=== PATIENT | male | born 1950 | race Caucasian/White ===

== ENCOUNTER → 2017-02-11 | Outpatient (CLI) | payer OTHER, MEDICARE ==
[~2017-02-11] VITALS: Ht 175.3 cm; Wt 147.4 kg
[~2017-02-11] MED LIST: ACET-1311 PO; ASCO500T16 PO; ASPI81TA21 PO; B-COCAP2 PO; CHOL1000 PO; COEN75CA PO; IBUP-1459 PO; LSN5 PO; MISC1CAP2 PO; MULT-190 PO; MULT-506 PO; OMEG10007 PO; SULF-183 PO; VITA1CAP4 PO
[2017-02-11 08:36] VITALS: BP 171/91; PULSE 42; Ht 175.3 cm; Wt 147.4 kg
== END | disposition home or self-care (01) ==
LOC: C.NEUR 08:00
PROVIDERS: ATTEND Internal Medicine Pulmonary Disease
DX: G47.33 Obstructive sleep apnea (adult) (pediatric) (principal); E66.01 Morbid (severe) obesity due to excess calories; R09.02 Hypoxemia

== ENCOUNTER → 2017-02-20 | Outpatient (CLI) | payer OTHER, MEDICARE ==
--- NOTE | 2017-02-20 10:36 | DIAGNOSTIC IMAGING REPORT ---
KUB CLINICAL HISTORY: N20.0 [id number] COMPARISON STUDY: 03/03/2016 FINDINGS: There is no pathologic bowel dilatation. No renal calculi are visualized. There are no calcifications suspicious for ureteral calculi. IMPRESSION: 1. No urinary tract calculi identified 2. No evidence of pathologic bowel dilatation Electronically signed by: Darinel Barrett M.D. 02/20/2017 10:35 AM Dictated Date/Time: 02/20/2017 10:34 AM
== END | disposition home or self-care (01) ==
LOC: C.RAD 10:05
PROVIDERS: ATTEND Nurse Practitioner Family
DX: N20.0 Calculus of kidney (principal)

== ENCOUNTER → 2017-03-23 | Outpatient (CLI) | payer OTHER, MEDICARE ==
[2017-03-23 10:05] LABS: ESTIMATED AVERAGE GLUCOSE 114 mg/dl; HA1C FLAG Normal (Normal)
[2017-03-23 10:13] LABS: ALT/SGPT 32 U/L (12-78); BLOOD UREA NITROGEN 18 mg/dl (7-18); BUN/CREATININE RATIO 18.8 (10-20); CARBON DIOXIDE 25 mmol/L (21-32); CHLORIDE 107 mmol/L (98-107); CHOLESTEROL 156 mg/dl (0-200); CREATININE 0.96 mg/dl (0.60-1.40); GLUCOSE 108 mg/dl (70-99); POTASSIUM 4.2 mmol/L (3.5-5.1); SODIUM 142 mmol/L (136-145); TRIGLYCERIDES 129 mg/dl (0-150); VERY LOW DENSITY LIPOPROT CALC 26 mg/dl
[2017-03-23 10:15] LABS: CALCIUM 8.7 mg/dl (8.5-10.1)
[2017-03-23 10:23] LABS: ALB/GLOB RATIO 1.1 (0.9-2); ALKALINE PHOSPHATASE 55 U/L (45-117); AST/SGOT 21 U/L (15-37); CHOLESTEROL/HDL RATIO 3.3; HDL CHOLESTEROL 47 mg/dl; LDL CHOLESTEROL CALCULATED 83 mg/dl; THYROID STIMULATING HORMONE 0.894 uIu/ml (0.300-4.500)
== END | disposition home or self-care (01) ==
LOC: C.LAB 08:12
PROVIDERS: ATTEND Family Medicine
DX: R73.02 Impaired glucose tolerance (oral) (principal); G47.34 Idiopathic sleep related nonobstructive alveolar hypoventilation

== ENCOUNTER → 2017-11-09 | Outpatient (CLI) | payer OTHER, MEDICARE ==
[~2017-11-09] MED LIST changes: -SULF-183 PO; +SULF-302 PO
--- NOTE | 2017-11-09 18:01 | DIAGNOSTIC IMAGING REPORT ---
MRI LUMBAR SPINE W/O CONTRAST CLINICAL HISTORY: Back pain with right lower extremity radiculopathy. TECHNIQUE: Sagittal and axial T1, T2 and STIR images were obtained. COMPARISON STUDY: No previous studies for comparison. OBSERVATIONS: The vertebral bodies and posterior elements appear intact. There is no abnormal bony signal present to suggest a marrow replacement process. L1-2: No disc protrusions or extrusions. No evidence of spinal canal or neural foraminal compromise. L2-3: No disc protrusions or extrusions. No evidence of spinal canal or neural foraminal compromise. L3-4: There is a small broad-based central disc protrusion. There is minimal effacement of the anterior thecal sac. There is no significant foraminal stenosis. L4-5: No disc protrusions or extrusions. No evidence of spinal canal or neural foraminal compromise. L5-S1: No disc protrusions or extrusions. No evidence of spinal canal or neural foraminal compromise. The conus medullaris and cauda equina appear normal. There is a T2 bright lower pole right renal mass likely representing a cyst IMPRESSION: Small broad-based central disc protrusion at the L3-4 level. Electronically signed by: Darinel Barrett M.D. 11/09/2017 5:59 PM Dictated Date/Time: 11/09/2017 5:56 PM
== END | disposition home or self-care (01) ==
LOC: C.MRI 16:36
PROVIDERS: ATTEND Nurse Practitioner Family
DX: M54.16 Radiculopathy, lumbar region (principal)

== ENCOUNTER → 2017-11-11 | Outpatient (CLI) | payer OTHER, MEDICARE ==
--- NOTE | 2017-11-11 11:45 | DIAGNOSTIC IMAGING REPORT ---
R HIP UNILATERAL 2 VIEWS CLINICAL HISTORY: WORK RELATED STRAIN COMPARISON: CT of the abdomen and pelvis February 26, 2015. FINDINGS: Alignment of the right hip is anatomic. There is no fracture or suspicious lesion. There is moderate joint space narrowing with mild osteophytosis of the right hip. There is no evidence for avascular necrosis. IMPRESSION: 1. No acute fracture or dislocation of the right hip. 2. Moderate osteoarthritis of the right hip. Electronically signed by: Reuben Molina M.D. 11/11/2017 11:44 AM Dictated Date/Time: 11/11/2017 11:43 AM
--- NOTE | 2017-11-11 11:48 | DIAGNOSTIC IMAGING REPORT ---
L SHOULDER MIN 2 VIEWS ROUTINE CLINICAL HISTORY: WORK RELATED STRAIN LEFT SHOULDER PAIN COMPARISON: None. DISCUSSION: No acute fractures or dislocations are visualized. Degenerative changes are present within the AC joint. There are no erosive or destructive changes. There is a faint 9 mm rounded opacity within the soft tissues superolateral to the humeral head. This is of uncertain significance and etiology. IMPRESSION: 1. No acute fractures or dislocations 2. Degenerative changes within the AC joint Electronically signed by: Darinel Barrett M.D. 11/11/2017 11:47 AM Dictated Date/Time: 11/11/2017 11:45 AM
== END | disposition home or self-care (01) ==
LOC: C.RAD1850 11:14
PROVIDERS: ATTEND Nurse Practitioner Family
DX: S76.011A Strain of muscle, fascia and tendon of right hip, initial encounter (principal); S46.912A Strain of unspecified muscle, fascia and tendon at shoulder and upper arm level, left arm, initial encounter; X58.XXXA Exposure to other specified factors, initial encounter; Y99.0 Civilian activity done for income or pay

== ENCOUNTER → 2018-01-01 | Day surgery (SDC) | payer OTHER, MEDICARE ==
[2018-01-01] VITALS (8 sets, daily range): BP systolic 128–145; BP diastolic 77–94; PULSE 56–97; TEMP 36–37; O2SAT 93–95; Ht 177.8 cm; Wt 142.0 kg
[~2018-01-01] VITALS: Ht 177.8 cm; Wt 142.0 kg
[~2018-01-01] MED LIST changes: +ACET1TAB84 PO; +ACETAMINOPHEN 500 MG TAB PO PRN; +LISI-729 PO; -MISC1CAP2 PO; -MULT-190 PO; -SULF-302 PO
--- NOTE | 2018-01-01 09:47 | Discharge Instructions ---
Discharge Instructions Procedure Procedure Date: Jan 01, 2018. Reason for visit: Lumbago W/Sciatica, Other Disc Displacement. Discharge Discharge Date: Jan 01, 2018. Discharge Diagnosis: back pain sciatica Instructions Activity Recommendations: 1 Day-May resume regular activity Return to School/Work: no limitations Recommended Home Diet: Resume Previous Diet Allergies Coded Allergies: No Known Allergies (Unverified , 01/01/18) Yariel Diez Recommendations: Call your doctor if: * Temperature above 101 degrees * Pain not relieved by pain medicine ordered * There is increased drainage or redness from any incision * You have any unanswered questions or concerns. Your Doctors Instructions noted above were prepared by provider Darinel Barrett. Patient Signature Section: Patient Instructions Signature Page Marvel Marks Patient (or Guardian) Signature/Date: I have read and understand the instructions given to me by my caregivers. Caregiver/RN/Doctor Signature/Date: The above-named patient and/or guardian has received patient instructions on this date. + Original Patient Signature Page (only) stays with chart. Please make copy for patient.
--- NOTE | 2018-01-01 09:58 | DIAGNOSTIC IMAGING REPORT ---
CT LUMBAR SPINE WITH CT DOSE: 1051.34 mGy.cm CLINICAL HISTORY: Back pain with sciatica. TECHNIQUE: Following a diagnostic lumbar myelogram, CT imaging was performed in a helical fashion. Sagittal and coronal images were acquired. A dose lowering technique was utilized adhering to the principles of ALARA. COMPARISON STUDY: MRI dated 11/09/2017 FINDINGS: The spinal cord terminates in normal fashion. L1-2 level: There is minimal retrolisthesis of L1 on L2. There are no focal herniations. There is no spinal or foraminal stenosis. L2-3 level: There is no evidence of disc bulge or focal herniation. There is no evidence of spinal or foraminal stenosis. L3-4 level: There is a small broad-based central disc protrusion. There is mild effacement of the anterior thecal sac. There is no significant foraminal narrowing. L4-5 level: There is no evidence of disc bulge or focal herniation. There is no spinal foraminal stenosis L5-S1 level: There is no evidence of disc bulge or focal herniation. There is no evidence of spinal or foraminal stenosis. IMPRESSION: Small broad-based central disc protrusion at the L3-4 level with minor deformity of the anterior thecal sac. There is no evidence of foraminal narrowing. Electronically signed by: Darinel Barrett M.D. 01/01/2018 9:57 AM Dictated Date/Time: 01/01/2018 9:51 AM
--- NOTE | 2018-01-01 10:00 | DIAGNOSTIC IMAGING REPORT ---
FLUOROSCOPICALLY GUIDED DIAGNOSTIC LUMBAR MYELOGRAM CLINICAL HISTORY: Back pain with sciatica COMPARISON STUDY: MRI performed October 2017 FINDINGS: A timeout was performed. The risks of the procedure were explained the patient informed consent was obtained. Patient prepped and draped in sterile fashion. The skin was anesthetized 1% lidocaine. The fluoroscopic guidance, a lumbar puncture was performed at the L4-5 level. 12 cc of Isovue-M 200 was instilled into the thecal sac. There is an anterior extradural defect at the L3-4 level, consistent with a small disc herniation. There is no evidence of nerve root amputation. The remaining levels were unremarkable in appearance. Patient tolerated the procedure well with no immediate locations. The patient was sent to the CT suite for further evaluation. IMPRESSION: Small disc herniation at the L3-4 level. Electronically signed by: Darinel Barrett M.D. 01/01/2018 9:59 AM Dictated Date/Time: 01/01/2018 9:57 AM
== END | disposition home or self-care (01) ==
LOC: C.ACU 07:22
PROVIDERS: ATTEND Orthopaedic Surgery Orthopaedic Surgery of the Spine
DX: M51.26 Other intervertebral disc displacement, lumbar region (principal)

== ENCOUNTER 2018-02-02 23:54 | Emergency (ER) | payer OTHER, MEDICARE ==
[~2018-02-02] VITALS: Ht 177.8 cm; Wt 142.9 kg
[~2018-02-02 23:54] MED LIST changes: -ACET-1311 PO; -ACETAMINOPHEN 500 MG TAB PO PRN; +ASPI-319 PO; -ASPI81TA21 PO; -LSN5 PO
[2018-02-03 00:02] VITALS: TEMP 36.8; Ht 177.8 cm; Wt 142.9 kg
[2018-02-03] MEDS ORDERED: KETOROLAC TROMETHAMINE 60 MG/2 ML VIAL IM STA (00:10)
[2018-02-03] MEDS ORDERED: ONDANSETRON 4MG OD TAB PO STA (00:10)
[2018-02-03] MEDS ORDERED: HYDROmorphone INJ 2 MG/ML SYR/VIAL IM STA (00:10)
[2018-02-03] MEDS ORDERED: CYCLOBENZAPRINE HCL 5 MG TAB PO STA (00:15)
[2018-02-03] MEDS ORDERED: B-CO1CAP17 PO (00:25)
--- NOTE | 2018-02-03 01:11 | EMERGENCY ROOM VISIT NOTE ---
History Report prepared by Simone: Jessica Huggins Under the Supervision of: Dr. Killian Soliz M.D. First contact with patient: 23:59 Chief Complaint: BACK PAIN Stated Complaint: LOWER BACK PAIN History of Present Illness The patient is a 67 year old male who presents to the Emergency Room with complaints of worsening back pain starting tonight. The patient states that he had an injury to his back back in October that he has been struggling with. He reports that the pain initially went down his back and into his right hip. He states that the back pain faded and it has mainly stayed in his hip. He notes that he has seen Dr. Beasley in Orthopedics and participates in physical therapy 3 times a week. He notes that he has had imaging done on his spine. The patient reports that tonight he went to bed 4 hours ago and woke up an hour ago to use the restroom. He states that he was unable to get out of bed because the pain was so bad in his lower back. He reports that at this time he called 911. The patient notes that he thinks he exacerbated it by standing a long time and cooking this evening. He currently rates his pain as a 6/10 in severity. He notes that he has been taking only Ibuprofen because the pain medication he is prescribed has not been working. The patient complains of numbness and tingling in his right leg. The patient denies abdominal pain and urinary symptoms. Source of History: patient Onset: tonight Position: back Symptom Intensity: 6/10 Timing: worsening Associated Symptoms: + numbness, No abdominal pain, No urinary symptoms Note: The patient complains of tingling into his right leg. Review of Systems See HPI for pertinent positives & negatives. A total of 10 systems reviewed and were otherwise negative. Past Medical & Surgical Medical Problems: (1) Bronchitis (2) Kidney stones (3) Pneumonia (4) Shortness of breath Family History FHx: kidney disease FHx: lung disease Social History Smoking Status: Former Smoker Alcohol Use: none Marital Status: Housing Status: lives with significant other Occupation Status: retired Current/Historical Medications Scheduled Ascorbic Acid (Ascorbic Acid), 500 MG PO DAILY Aspirin Enteric Coated (Ecotrin Or Generic), 81 MG PO QAM Cholecalciferol (Vitamin D3), 5,000 UNITS PO DAILY Coenzyme Q10 (Ubidecarenone) (Co Q-10), 1 CAP PO DAILY Cyclobenzaprine Hcl (Flexeril), 10 MG PO TID Fish Oil ([place]-3), 1 CAP PO DAILY Lidocaine (Lidocaine), 5 % TD DAILY Lisinopril (Zestril), 5 MG PO DAILY Multivitamin (Multivitamin), 1 TAB PO DAILY Vitamin B Cmplx/Vitc/Folic Ac (Nephrocaps), 1 CAP PO DAILY Vitamin E (E 1000), 1,000 UNITS PO DAILY Scheduled PRN Acetaminophen (Tylenol Arthritis Ext Rel), 1,950 MG PO Q8H PRN for Pain Ibuprofen (Motrin), 800 MG PO DIRECTED PRN for Pain Oxycodone/Acetaminophen 5MG/325MG (Percocet 5MG/325MG), 1-2 TAB PO Q4H PRN for Pain Allergies Coded Allergies: No Known Allergies (Unverified , 02/03/18) Physical Exam Vital Signs Date Time Temp Pulse Resp B/P (MAP) Pulse Ox O2 Delivery O2 Flow Rate FiO2 02/03/18 02:30 60 18 106/64 94 02/03/18 00:57 79 18 139/88 92 Room Air 02/03/18 00:02 36.8 75 16 143/85 95 Room Air Physical Exam GENERAL: Awake, alert, well-appearing, in no acute distress HENT: Normocephalic, atraumatic. Oropharynx unremarkable. EYES: Normal conjunctiva. Sclera non-icteric. NECK: Supple. No nuchal rigidity. FROM. No JVD. RESPIRATORY: Clear to auscultation. CARDIAC: Regular rate, normal rhythm. Extremities warm and well perfused. Pulses equal. ABDOMEN: Soft, non-distended. No tenderness to palpation. No rebound or guarding. No masses. Morbidly obese. RECTAL: Deferred. MUSCULOSKELETAL: Chest examination reveals no tenderness. The back is symmetrical on inspection without obvious abnormality. Tender to L1 S5 area. Able to walk on tiptoes and heels. There is no CVA tenderness to palpation. No joint edema. LOWER EXTREMITIES: Calves are equal size bilaterally and non-tender. No edema. No discoloration. NEURO: Normal sensorium. No sensory or motor deficits noted. SKIN: No rash or jaundice noted. Medical Decision & Procedures ER Provider Diagnostic Interpretation: Radiology results as stated below per my review and radiologist interpretation: CT PELVIS: No evidence of fracture. Mild degenerative change in the sacroiliac joints. Moderate severe joint space loss involving bilateral hip joints. Sigmoid diverticulosis without evidence of acute inflammation. Radiologist: Sean Craig DO Study ready at 01:19 and initial results transmitted at 01:47. CT L SPINE: No fracture or subluxation. Degenerative disc height loss and vacuum disc phenomenon at the T12-L1 and L3- L4 levels. Facet arthropathy at L4-L5 and L5-S1. Partially imaged right renal cyst. Radiologist: Sean Craig DO Study ready at 01:19 and initial results transmitted at 01:43. Medications Administered Medications (Trade) Dose Ordered Sig/Calvin Route Start Time Stop Time Status Last Admin Dose Admin Hydromorphone HCl (Dilaudid Inj) 2 mg NOW STAT IM 02/03/18 00:10 02/03/18 00:12 DC 02/03/18 00:18 2 MG Ketorolac Tromethamine (Toradol Inj) 60 mg NOW STAT IM 02/03/18 00:10 02/03/18 00:12 DC 02/03/18 00:18 60 MG Ondansetron HCl (Zofran Odt) 4 mg ONE STAT PO 02/03/18 00:10 02/03/18 00:12 DC 02/03/18 00:17 4 MG Cyclobenzaprine HCl (Flexeril Tab) 10 mg NOW STAT PO 02/03/18 00:15 02/03/18 00:16 DC 02/03/18 00:20 10 MG Oxycodone/ Acetaminophen (Percocet 5/ 325MG Home Pack) 1 homepack UD ONCE PO 02/03/18 02:00 02/03/18 02:01 DC 02/03/18 02:16 1 HOMEPACK Lidocaine (Lidoderm Patch 5%) 1 patch NOW STAT TD 02/03/18 02:00 02/03/18 02:01 DC 02/03/18 02:17 1 PATCH ED Course 0000: Past medical records reviewed. The patient was evaluated in room A3. A complete history and physical examination was performed. 0010: Ordered Zofran Odt 4 mg PO, Toradol Inj 60 mg IM, Dilaudid Inj 2 mg IM. 0015: Ordered Flexeril Tab 10 mg PO. 0109: I reevaluated the patient and he is doing okay. 0156: Upon reexamination the patient is resting comfortably. I discussed results and treatment plan with the patient. He verbalizes agreement and understanding. The patient is ready for discharge. 0200: Ordered Lidocaine 1 patch TD, Oxycodone/ Acetaminophen 1 homepack PO. Medical Decision Differential diagnosis: Etiologies such as musculoskeletal, disc herniation, fracture, aortic disease, metastatic disease, cord compression, discitis, infection, renal colic, gastrointestinal, acute exacerbation of chronic back pain, sciatica, cauda equina, as well as others were entertained. This is a 67-year-old male who presents to the emergency department complaining of low back pain. The patient I will note is able to walk on his tiptoes as well as his heels. He has no set evidence of saddle anesthesia and has had no loss of bowel or bladder control. Based on the patient's complaint he was sent for CT lumbar spine as well as the pelvis. He was given IM Toradol as well as Dilaudid and Flexeril. Repeat examination revealed much improvement the patient 's symptoms. I stressed the need to follow-up with orthopedics as that we will conservatively treat the patient's pain using Flexeril and Oxi at home. Patient was in agreement with the treatment plan. Medication Reconcilliation Current Medication List: was personally reviewed by me Blood Pressure Screening Patient's blood pressure: Elevated blood pressure Blood pressure disposition: Elevated BP felt to be situational Impression Primary Impression: Lumbar pain Scribe Attestation The scribe's documentation has been prepared under my direction and personally reviewed by me in its entirety. I confirm that the note above accurately reflects all work, treatment, procedures, and medical decision making performed by me. Departure Information Dispostion Home / Self-Care Prescriptions Cyclobenzaprine Hcl (FLEXERIL) 10 Mg Tab 10 MG PO TID, #21 TAB Prov: Killian Soliz MD 02/03/18 Oxycodone/Acetaminophen 5MG/325MG (PERCOCET 5MG/325MG) Tab 1-2 TAB PO Q4H Y for Pain, #14 TAB Prov: Killian Soliz MD 02/03/18 Lidocaine (Lidocaine) 1 Patch Tdsy 5 % TD DAILY for 30 Days, #30 PATCH Prov: Killian Soliz MD 02/03/18 Referrals RV. Mccarthy MD (PCP) Forms HOME CARE DOCUMENTATION FORM, IMPORTANT VISIT INFORMATION Patient Instructions My [facility] Additional Instructions You received narcotic or benzodiazepene medication while in the emergency room today. This is an addictive medication that may cause drowziness as well as constipation. Do not drive, operate heavy machinery, or drink alcohol under the influence of this medication. Take 600 mg Ibuprofen every 6 hours Take Flexeril Apply Lidoderm patch daily Take Percocet for breakthrough pain You have been examined and treated today on an emergency basis only. This is not a substitute for, or an effort to provide, complete comprehensive medical care. It is impossible to recognize and treat all injuries or illnesses in a single emergency department visit. It is therefore important that you follow up closely with Dr France. Call as soon as possible for an appointment. Thank you for your time and consideration. I look forward to speaking with you again soon. Please don't hesitate to call us if you have any questions.
[2018-02-03] MEDS ORDERED: LIDODERM (LIDOCAINE) PATCH 5% TD STA (02:00)
[2018-02-03] MEDS ORDERED: PERCOCET HOME PACK PO ONE (02:00)
[2018-02-03] MEDS ORDERED: CYCL10TA6 PO (02:10)
[2018-02-03] MEDS ORDERED: OXYC-57 PO (02:10)
[2018-02-03] MEDS ORDERED: LDDP5 TD (02:10)
[2018-02-03 02:30] VITALS: BP 106/64; PULSE 60; O2SAT 94
--- NOTE | 2018-02-03 06:27 | DIAGNOSTIC IMAGING REPORT ---
LUMBAR SPINE WITHOUT CT DOSE: 602.95 mGycm HISTORY: Pain Pt c/o Rt hip pain TECHNIQUE: Multiaxial CT images of the lumbar spine were performed and reformatted in the sagittal and coronal plane without the use of contrast. A dose lowering technique was utilized adhering to the principles of ALARA. COMPARISON: None. FINDINGS: Vertebral body stature is considered unremarkable. Moderate degenerative disc changes throughout. There is rather significant with associated vacuum discs at L3-L4 and T12-L1. Mild anterior osteophyte formation is present. There are mild degenerative changes of the posterior elements. IMPRESSION: Moderate degenerative disc change. No acute bony abnormality The above report was generated using voice recognition software. It may contain grammatical, syntax or spelling errors. Electronically signed by: Cristóbal Teague M.D. 02/03/2018 6:25 AM Dictated Date/Time: 02/03/2018 6:24 AM
--- NOTE | 2018-02-03 07:38 | DIAGNOSTIC IMAGING REPORT ---
CT SCAN OF THE PELVIS WITHOUT IV CONTRAST CLINICAL HISTORY: Right hip pain. COMPARISON STUDY: Pelvic CT dated 02/26/2015. TECHNIQUE: CT scan of the bony pelvis is performed from the pelvic inlet to the proximal femora. Images are reviewed in the axial, sagittal, and coronal planes. IV contrast was not administered for this examination. The examination is degraded by large body habitus. A dose lowering technique was utilized adhering to the principles of ALARA. CT DOSE: 802.04 mGycm FINDINGS: The skeletal structures are osteopenic. There is no fracture seen involving the hips or bony pelvis. No lytic or blastic lesion is identified. There is no evidence of osteonecrosis involving the femoral heads. Lumbosacral spondylosis is partially imaged. There is a right-sided pars defect at L5. Mild sclerotic change is noted in the sacroiliac joints. Mild to moderate arthritic change is present in the right hip. Milder arthritic change is seen in the left hip. The regional musculature is normal and symmetric. The bladder, prostate, and seminal vesicles are normal as visualized. There is no pelvic sidewall or inguinal lymphadenopathy. There is moderate diverticulosis of the visualized colon without CT evidence of acute diverticulitis. A fat-containing umbilical hernia is partially visualized. IMPRESSION: 1. No acute bony abnormality is seen involving the hips or bony pelvis. 2. Arthritic change is seen in the hips, right greater than left. 3. Moderate diverticulosis of the visualized colon without CT evidence of acute diverticulitis. Dictated: 02/03/2018 7:26 AM Transcribed: 02/03/2018 7:38 AM Tad Electronically signed by: Tomasz Jones M.D. 02/03/2018 7:38 AM Dictated Date/Time: 02/03/2018 7:26 AM
== END 2018-02-03 02:33 | disposition home or self-care (01) ==
LOC: C.EDA 23:54 → EDBD 23:54 → C.EDA 02-03 02:33
DX: M54.5 Low back pain (principal); Z87.442 Personal history of urinary calculi; Z87.01 Personal history of pneumonia (recurrent); Z84.1 Family history of disorders of kidney and ureter; Z87.891 Personal history of nicotine dependence; Z79.82 Long term (current) use of aspirin; Z79.899 Other long term (current) drug therapy

== ENCOUNTER → 2018-02-15 | Outpatient (CLI) | payer OTHER, MEDICARE ==
[~2018-02-15] MED LIST changes: +B-CO1CAP17 PO; -B-COCAP2 PO; +LDDP5 TD; +OXYC-57 PO
--- NOTE | 2018-02-15 11:20 | DIAGNOSTIC IMAGING REPORT ---
Catherine PENA SHLDR,HIP,KNEE CLINICAL HISTORY: 67 years-old Male presenting with RIGHT HIP PAIN. COMPARISON: CT of the pelvis from 02/03/2018. PROCEDURE: The risks, benefits, and alternatives to the procedure were discussed with the patient. Written informed consent was obtained. The patient was placed supine on the fluoroscopy table, and a right hip injection was performed under fluoroscopic guidance. The area was prepped and draped in the usual sterile fashion. The skin and soft tissues anesthetized with local 1% lidocaine. The right hip joint was accessed utilizing a 22-gauge needle. Approximately 1 mL of Optiray 300 was injected into the joint space under fluoroscopic guidance to confirm intra-articular positioning. Subsequently, a 10 mL mixture containing 8 mL of 0.5% Bupivacaine and 2 mL of betamethasone was injected into the joint. The procedure was well tolerated without immediate complication. Fluoroscopy dosage (mGy): Not available. Fluoroscopy time: 18 seconds. Number of fluoroscopic spot images: 0. IMPRESSION: Successful injection of the right hip under fluoroscopic guidance. Electronically signed by: Kimo Buchanan M.D. 02/15/2018 11:18 AM Dictated Date/Time: 02/15/2018 11:17 AM
== END | disposition home or self-care (01) ==
LOC: C.RADBC 09:49
PROVIDERS: ATTEND Orthopaedic Surgery Orthopaedic Surgery of the Spine
DX: M16.11 Unilateral primary osteoarthritis, right hip (principal); M25.551 Pain in right hip

== ENCOUNTER 2018-05-07 04:57 | Inpatient (IN) | payer OTHER, MEDICARE ==
[2018-03-25 10:26] VITALS: Ht 177.8 cm; Wt 140.9 kg
--- NOTE | 2018-04-06 10:42 | PAT Medication Instructions ---
Service Date Apr 06, 2018. Current Home Medication List Ascorbic Acid (Ascorbic Acid), 500 MG PO QAM Aspirin Enteric Coated (Ecotrin Or Generic), 81 MG PO QAM Cholecalciferol (Vitamin D3), 5,000 UNITS PO QAM Fish Oil ([place]-3), 1 CAP PO QAM Ibuprofen (Advil), 800 MG PO PRN Lisinopril (Zestril), 5 MG PO HS Multivitamin (Multivitamin), 1 TAB PO QAM Vitamin B Cmplx/Vitc/Folic Ac (Nephrocaps), 1 CAP PO QAM Vitamin E (E 1000), 1,000 UNITS PO QAM [Coq10], 1 TAB PO QAM [Durex], 1 TAB PO QAM [Prostate Med], 1 TAB PO QAM Medication Instructions For Your Scheduled Surgery -Check with your surgeon for: Ibuprofen (Advil), 800 MG PO PRN - Hold the following medications 2 weeks prior to surgery: Fish Oil ([place]-3), 1 CAP PO QAM Vitamin E (E 1000), 1,000 UNITS PO QAM [Coq10], 1 TAB PO QAM [Prostate Med], 1 TAB PO QAM - Hold the following medications the morning of surgery: Ascorbic Acid (Ascorbic Acid), 500 MG PO QAM Cholecalciferol (Vitamin D3), 5,000 UNITS PO QAM Multivitamin (Multivitamin), 1 TAB PO QAM Vitamin B Cmplx/Vitc/Folic Ac (Nephrocaps), 1 CAP PO QAM [Diurex], 1 TAB PO QAM - Take the following medications the morning of surgery with a sip of water: Aspirin Enteric Coated (Ecotrin Or Generic), 81 MG PO QAM - Take the following medications as scheduled the night before surgery: Lisinopril (Zestril), 5 MG PO HS If you have any questions please call us at [phone] or [phone] or [phone]
--- NOTE | 2018-04-06 11:32 | DIAGNOSTIC IMAGING REPORT ---
CHEST 2 VIEWS ROUTINE HISTORY: Preop. COMPARISON: Chest 07/26/2016. FINDINGS: The lungs are clear. The heart is normal in size. Mildly tortuous thoracic aorta, unchanged. No pleural effusions. No pneumothorax. There are low lung volumes. IMPRESSION: No acute process. Electronically signed by: Ryan Conte M.D. 04/06/2018 11:31 AM Dictated Date/Time: 04/06/2018 11:29 AM
[2018-04-06 12:22] LABS: BASO % 0.3 %; BASO ABS # 0.03 K/uL (0-0.2); HEMATOCRIT 46.9 % (42-52); IG# 0.05 K/uL (0.00-0.02); LYMPH % 15.4 %; LYMPH ABS # 1.57 K/uL (1.2-3.4); MEAN CELL VOLUME 96.1 fL (80-100); MEAN CORPUSCULAR HEMOGLOBIN 32.8 pg (25-34); MEAN CORPUSCULAR HGB CONC 34.1 g/dl (32-36); MEAN PLATELET VOLUME 9.9 fL (7.4-10.4); MONO % 10.9 %; MONO ABS # 1.11 K/uL (0.11-0.59); NEUT % 71.9 %; NEUT ABS # 7.31 K/uL (1.4-6.5); PLATELET COUNT 227 K/uL (130-400); RED CELL DISTRIBUTION WIDTH CV 13.2 % (11.5-14.5); RED CELL DISTRIBUTION WIDTH SD 46.3 fL (36.4-46.3); WHITE BLOOD COUNT 10.17 K/uL (4.8-10.8)
[2018-04-06 12:29] LABS: CREATININE 0.84 mg/dl (0.60-1.40); POTASSIUM 4.1 mmol/L (3.5-5.1)
[2018-04-06 12:30] LABS: INR 0.9 (0.9-1.1); PTT PATIENT 25.7 SECONDS (21.0-31.0)
--- NOTE | 2018-05-05 13:05 | HISTORY & PHYSICAL EXAMINATION ---
DATE OF ADMISSION: 05/07/2018 CHIEF COMPLAINT: Primary osteoarthritis of the right hip. HISTORY OF PRESENT ILLNESS: Marvel is a pleasant 67-year-old male who works for [employer]. He has been complaining of severe back pain and right hip pain. X-rays and clinical examination had been diagnostic for severe osteoarthritis of the right hip. His hip hurts him all the time. He is unable to drive a bus. He cannot safely get from the gas to the brake. After failing extensive conservative treatment, he has elected to proceed with a right total hip arthroplasty. PAST MEDICAL HISTORY: Significant for hypertension. PAST SURGICAL HISTORY: Significant for appendectomy in 1984. ALLERGIES: BEE STINGS. MEDICATIONS: Include lisinopril and oxycodone. FAMILY HISTORY: Denies. SOCIAL HISTORY: He is , rarely drinks, and is moderately active. He drives a bus. REVIEW OF SYSTEMS: He complains of right hip pain. All the pertinent review of systems are negative. PHYSICAL EXAMINATION: GENERAL: He is awake, alert and oriented x3. He is in no apparent distress. He is very pleasant. HEENT: Pupils equal, round, reactive to light. Extraocular movements intact. Oral mucosa is pink and moist. HEART: Regular rate per radial pulse. LUNGS: Senait symmetrically bilaterally with no audible breath sounds. ABDOMEN: Soft, nontender, nondistended. MUSCULOSKELETAL: On physical examination, he walks with a significant limp because of the hip pain. He has trouble getting up on to the bed. He has about 90 degrees of flexion, 0 degrees of internal rotation, 10 degrees of external rotation. Severe pain in range of motion. His leg lengths are equal. He is neurovascularly intact. IMAGING DATA: X-rays of the right hip do show advanced osteoarthritis with joint space narrowing, osteophyte formation and [id number] articulation. IMPRESSION: Advanced osteoarthritis of the right hip. PLAN: Will proceed with a right lateral total hip arthroplasty. Postoperatively, he will be started on aspirin for DVT prophylaxis. He will be kept in the hospital likely for 2 midnights for postoperative medical management. We will discharge him to home with [facility].
[~2018-05-07] VITALS: Ht 177.8 cm; Wt 140.9 kg
[2018-05-07] VITALS (11 sets, daily range): BP systolic 92–137; BP diastolic 44–78; PULSE 60–84; TEMP 36.3–36.6; O2SAT 92–96
[~2018-05-07 04:57] MED LIST changes: -ACET1TAB84 PO; +CAFF3TAB PO; -COEN75CA PO; +COQ10 PO; +IBUP-1050 PO; -IBUP-1459 PO; -LDDP5 TD; -OXYC-57 PO; +PROSTATE MED PO
[2018-05-07] MEDS ORDERED: FAMOTIDINE 20 MG TAB PO SCH (06:00)
[2018-05-07] MEDS ORDERED: GABAPENTIN 300 MG CAP PO SCH (06:00)
[2018-05-07] MEDS ORDERED: LACTATED RINGER'S 1000ML 1,000 ML IV SCH (06:00)
[2018-05-07] MEDS ORDERED: ROPIVACAINE 5MG/ML 30 ML 150 MG, BUPIVACAINE 0.5% MPF INJ 30 ML, EpINEphrine HCL INJ 0.... INFIL SCH ×8 (06:00)
[2018-05-07] MEDS ORDERED: CEFAZOLIN 2000MG IV PUSH 15 ML IV SCH (06:00)
[2018-05-07] MEDS ORDERED: ACETAMINOPHEN 500 MG TAB PO SCH (06:00)
[2018-05-07] MEDS ORDERED: LACTATED RINGER'S 1000ML IV SCH (06:00)
[2018-05-07] MEDS ORDERED: FENTANYL CITRATE INJ 50 MCG/1 ML 2 ML VIAL ONE (06:22)
[2018-05-07] MEDS ORDERED: MIDAZOLAM HCL 1 MG/ML 2ML VIAL ONE (06:23)
[2018-05-07] MEDS: TRANEXAMIC ACID INJ 1,000 MG x 2 Bags IV SCH ×4 (06:30→06:47)
[2018-05-07] MEDS ORDERED: BUPIVACAINE 0.5 % 5 MG/1 ML PF 10ML VIAL ONE (06:31)
[2018-05-07] MEDS ORDERED: BACITRACIN 50000 UNIT VIAL ONE (06:34)
[2018-05-07] MEDS ORDERED: ORTHO JOINT ANESTHETIC ONE (06:34)
--- NOTE | 2018-05-07 06:42 | History & Physical Bridge Note ---
H&P Re-Evaluation Bridge Note: I have examined the patient, reviewed the History & Physical and in the interval since the performance of the History & Physical I have noted the following changes of clinical significance: No changes noted
[2018-05-07] MEDS ORDERED: SOD PHOSPHATE/SOD BIPHOSPHATE ENEMA 132 ML BTL PR PRN (06:45)
[2018-05-07] MEDS ORDERED: ONDANSETRON INJ 2 MG/ML 2 ML VIAL IV PRN ×2 (06:45→08:15)
[2018-05-07] MEDS ORDERED: MAGNESIUM HYDROXIDE SUSP 30 ML UDC PO PRN (06:45)
[2018-05-07] MEDS ORDERED: METOCLOPRAMIDE HCL INJ 5 MG/ML 2 ML VIAL IV PRN (06:45)
[2018-05-07] MEDS ORDERED: BISACODYL 10 MG SUPP PR PRN (06:45)
[2018-05-07] MEDS ORDERED: CEFAZOLIN IV 2,000 MG in DEXTROSE 5% 50ML 50 ML IV SCH (06:45)
[2018-05-07] MEDS ORDERED: MoRPHine SULFATE 2 MG/ML CARP IV PRN (06:45)
[2018-05-07] MEDS ORDERED: ONDANSETRON INJ 2 MG/ML 2 ML VIAL ONE (08:01)
[2018-05-07] MEDS ORDERED: PROPOFOL IV EMULSION 10 MG/ML 20 ML VIAL ONE (08:01)
[2018-05-07] MEDS ORDERED: EpHEDrine SULFATE INJ 50 MG/ML AMP ONE (08:01)
[2018-05-07] MEDS ORDERED: PHENYLEPHRINE 100MCG/ML 5ML SYR ONE (08:01)
[2018-05-07] MEDS ORDERED: NALOXONE HCL 0.4 MG/1 ML VIAL/CARP IV PRN (08:15)
[2018-05-07] MEDS ORDERED: LABETALOL HCL IV 5 MG/ML 20ML IV PRN (08:15)
[2018-05-07] MEDS ORDERED: MEPERIDINE HCL 25 MG/ML CARP IV PRN (08:15)
[2018-05-07] MEDS ORDERED: FENTANYL CITRATE INJ 50 MCG/1 ML 2 ML VIAL IV PRN (08:15)
[2018-05-07] MEDS ORDERED: PHENYLEPHRINE 100MCG/ML 5ML SYR IV PRN (08:15)
[2018-05-07] MEDS ORDERED: ATROPINE SULFATE 0.1 MG/ML 5ML SYR IV PRN (08:15)
[2018-05-07] MEDS ORDERED: HYDROmorphone INJ 1 MG/ML SYR IV PRN (08:15)
[2018-05-07] MEDS ORDERED: FLUMAZENIL 0.1 MG/1 ML 10 ML VIAL IV PRN (08:15)
[2018-05-07] MEDS ORDERED: EpHEDrine SULFATE INJ 50 MG/ML AMP IV PRN (08:15)
--- NOTE | 2018-05-07 08:44 | DIAGNOSTIC IMAGING REPORT ---
R HIP UNILATERAL 1 VIEW CLINICAL HISTORY: RT LATERAL TOTAL HIP ARTHRO COMPARISON STUDY: Right hip 02/28/2018. FINDINGS: Single crosstable lateral view of the right hip. The right acetabular cup is in good position. There is a right femoral spacer also in good position. No fracture or dislocation within the right hip. IMPRESSION: Intraoperative right hip radiograph for a right total arthroplasty. The hardware appears intact. Electronically signed by: Ryan Conte M.D. 05/07/2018 8:42 AM Dictated Date/Time: 05/07/2018 8:41 AM
[2018-05-07] MEDS ORDERED: SODIUM CHLORIDE 0.9% INJ 10 ML VIAL ONE (09:31)
--- NOTE | 2018-05-07 09:45 | OPERATIVE REPORT ---
DATE OF OPERATION: 05/07/2018 PREOPERATIVE DIAGNOSIS: Primary osteoarthritis of the right hip. POSTOPERATIVE DIAGNOSIS: Primary osteoarthritis of the right hip. PROCEDURE: Right lateral total hip arthroplasty. SURGEON: Dr. Prashant Linares. TOOTH CUTTER PINION: Daniel Lopez PA-C, whose assistance was necessary for retraction and closure. ANESTHESIA: Spinal. COMPLICATIONS: None. CONDITION: Stable to PACU. IMPLANTS USED: I used a Biomet Taperloc total hip arthroplasty with a size 52 G7 cup with a neutral E1 poly liner, a size 11 high offset Taperloc stem, and a 36 mm ceramic head with a +3 neck. This case took about 50% longer than a standard right hip arthroplasty. His BMI was over 44 and all of his weight was in his hips. It was very difficult to get through the fat layers and to find retractors that were deep enough. 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 X-rays and clinical examination were diagnostic for primary osteoarthritis of the right hip. After failing conservative treatment, he elected to proceed with a right total hip arthroplasty. OPERATION AND FINDINGS: On 05/07/2018, he arrived at [facility] for the above procedure. He was seen in the preoperative holding area and the operative extremity was identified and signed. He was given a preoperative antibiotic and a spinal anesthetic. He was taken back to the operating room, laid on the table in supine position and put under basic sedation. He was then put in the lateral decubitus position. The right hip was prepped and draped in sterile fashion. Time-out was done. The patient's operative extremity was properly identified. A lateral approach was used. Dissection was taken down through the fascia and the abductors were exposed. The anterior third of the abductors were tenotomized off the greater trochanter. The capsule was excised and the hip was dislocated. The femoral neck was then resected at the intertrochanteric line and the femoral head was removed. The acetabulum was exposed. Time was spent doing a complete circumferential labral release. Sequential reaming of the acetabulum up to a size 51 reamer was done. I was able to get good circumferential bleeding bone. A size 52 cup was then impacted into place. A single 30 mm screw was placed. I was able to get an excellent press fit with the cup. A neutral E1 poly liner was then snapped into place. The surrounding soft tissues were injected with a 100 mL of an orthopedic pain control cocktail. The proximal femur was then exposed. Sequential broaching up to a size 8 broach was done. High offset neck and a standard head were trialed. The hip was reduced. Fluoroscopic images showed that I could go up a few sizes on the femoral side and I could increase length a little bit. The hip was then dislocated. The broach was removed. Sequential broaching up to size 11 broach was done that seemed to be a good fit. A size 11 high offset Taperloc stem was then impacted into place. A 36 mm ceramic head with a +3 neck was then impacted into place. The hip was reduced, brought through a full range of motion and was stable. The leg lengths were equal. The abductors were then tenodesed back to the greater trochanter with transosseous FiberWire sutures and [id number] sutures. The wound was then irrigated with 3 liters normal saline solution with bacitracin. The fascia was then closed with #1 PDS suture. Skin was closed with deep #1 Vicryl suture and more superficial 2-0 Vicryl, leonel, and a Prevena VAC dressing. He was then transferred to a hospital bed and taken to postanesthesia care unit in stable condition. He tolerated the procedure well. I attest to the content of the Intraoperative Record and any orders documented therein. Any exception s are noted below.
--- NOTE | 2018-05-07 09:57 | DIAGNOSTIC IMAGING REPORT ---
AP PELVIS, CROSSTABLE LATERAL RIGHT HIP History: Right total hip arthroplasty. Degenerative arthritis. Postop. FINDINGS: The patient is status post a right total hip arthroplasty. The hardware is intact. No fracture or dislocation. Skin leonel are in place. IMPRESSION: Right total hip arthroplasty. No evidence for hardware complication Electronically signed by: Ryan Conte M.D. 05/07/2018 9:56 AM Dictated Date/Time: 05/07/2018 9:55 AM
--- NOTE | 2018-05-07 10:21 | Anesthesiology Progress Note ---
Anesthesia Post Op Note Date & Time May 07, 2018 at 10:21 Vital Signs Pain Intensity: 0 Vital Signs Past 12 Hours Date Time Temp Pulse Resp B/P (MAP) Pulse Ox O2 Delivery O2 Flow Rate FiO2 05/07/18 10:15 36.5 77 14 106/68 98 Nasal Cannula 4 05/07/18 10:05 36.5 78 14 116/50 98 Nasal Cannula 4 05/07/18 09:55 76 11 111/74 100 Nasal Cannula 4 05/07/18 09:47 76 17 91/66 100 Oxymask 10 05/07/18 09:45 73 15 73/66 100 Oxymask 10 05/07/18 09:37 36.4 76 16 119/80 100 Oxymask 10 05/07/18 05:25 36.5 82 18 137/76 92 Room Air Notes Mental Status: alert / awake / arousable, participated in evaluation Pt Amnestic to Procedure: Yes Nausea / Vomiting: adequately controlled Pain: adequately controlled Airway Patency, RR, SpO2: stable & adequate BP & HR: stable & adequate Hydration State: stable & adequate Anesthetic Complications: no major complications apparent
--- NOTE | 2018-05-07 10:22 | Anesthesiology Progress Note ---
Anesthesia Post Op Note Date & Time May 07, 2018 at 10:22 Vital Signs Pain Intensity: 0 Vital Signs Past 12 Hours Date Time Temp Pulse Resp B/P (MAP) Pulse Ox O2 Delivery O2 Flow Rate FiO2 05/07/18 10:15 36.5 77 14 106/68 98 Nasal Cannula 4 05/07/18 10:05 36.5 78 14 116/50 98 Nasal Cannula 4 05/07/18 09:55 76 11 111/74 100 Nasal Cannula 4 05/07/18 09:47 76 17 91/66 100 Oxymask 10 05/07/18 09:45 73 15 73/66 100 Oxymask 10 05/07/18 09:37 36.4 76 16 119/80 100 Oxymask 10 05/07/18 05:25 36.5 82 18 137/76 92 Room Air Notes Mental Status: alert / awake / arousable, participated in evaluation Pt Amnestic to Procedure: Yes Nausea / Vomiting: adequately controlled Pain: adequately controlled Airway Patency, RR, SpO2: stable & adequate BP & HR: stable & adequate Hydration State: stable & adequate Neuraxial Anesthesia: was administered, sensory block is resolving Anesthetic Complications: no major complications apparent
--- NOTE | 2018-05-07 10:22 | [facility] Post Operative Brief Note ---
Immediate Operative Summary Operative Date May 07, 2018. Pre-Operative Diagnosis Advanced Osteoarthritis of Right Hip Post-Operative Diagnosis Advanced Osteoarthritis of Right Hip Procedure(s) Performed Right Lateral Total Hip Arthroplasty Surgeon Dr Linares Chlorinator Surgeon(s) Daniel Lopez PA-C Estimated Blood Loss 200CC Findings Consistent with Post-Op Diagnosis Specimens A: Femoral Head Anesthesia Type Spinal MAC
[2018-05-07] MEDS: OXYCODONE HCL IR 5 MG TAB (IMMEDIATE RELEASE) PO PRN (11:28)
[2018-05-07] MEDS: MULTIVITAMIN TAB PO SCH (12:01)
[2018-05-07] MEDS: KETOROLAC TROMETHAMINE 15 MG/ML VIAL IV. SCH ×3 (12:02→23:48)
[2018-05-07] MEDS: ASPIRIN 325 MG ECTAB PO SCH ×2 (12:02→21:01)
[2018-05-07] MEDS: DOCUSATE SODIUM 100 MG CAP PO SCH ×2 (12:02→21:01)
[2018-05-07] MEDS: ACETAMINOPHEN IV 1,000 MG in EMPTY BAG 0 ML IV SCH ×2 (13:45→21:47)
[2018-05-07] MEDS: SODIUM CHLORIDE 0.9% 1000ML 1,000 ML IV SCH ×2 (13:47→21:47)
[2018-05-07] MEDS: CEFAZOLIN IV 2,000 MG in SYRINGE 0 ML IV SCH ×2 (16:19→23:47)
[2018-05-07] MEDS: SENNA 8.6 MG TAB PO SCH (21:01)
[2018-05-07] MEDS: LISINOPRIL 5 MG TAB PO SCH (21:02)
[2018-05-08 03:47] VITALS: BP 119/62; PULSE 70; TEMP 36.6; O2SAT 91
[2018-05-08] MEDS: OXYCODONE HCL IR 5 MG TAB (IMMEDIATE RELEASE) PO PRN ×4 (04:54→22:17)
[2018-05-08] MEDS: KETOROLAC TROMETHAMINE 15 MG/ML VIAL IV. SCH ×4 (06:02→23:58)
[2018-05-08] MEDS: ACETAMINOPHEN IV 1,000 MG in EMPTY BAG 0 ML IV SCH (06:02)
[2018-05-08 06:26] LABS: BASO % 0.1 %; BASO ABS # 0.01 K/uL (0-0.2); EOS % 0.1 %; EOS ABS # 0.01 K/uL (0-0.5); HEMATOCRIT 38.6 % (42-52); HEMOGLOBIN 12.9 g/dL (14.0-18.0); IG# 0.04 K/uL (0.00-0.02); LYMPH % 8.3 %; LYMPH ABS # 1.05 K/uL (1.2-3.4); MEAN CELL VOLUME 96.5 fL (80-100); MEAN CORPUSCULAR HEMOGLOBIN 32.3 pg (25-34); MEAN CORPUSCULAR HGB CONC 33.4 g/dl (32-36); MEAN PLATELET VOLUME 9.5 fL (7.4-10.4); MONO ABS # 1.01 K/uL (0.11-0.59); NEUT % 83.2 %; NEUT ABS # 10.53 K/uL (1.4-6.5); PLATELET COUNT 164 K/uL (130-400); RED CELL DISTRIBUTION WIDTH CV 13.5 % (11.5-14.5); RED CELL DISTRIBUTION WIDTH SD 47.4 fL (36.4-46.3); WHITE BLOOD COUNT 12.65 K/uL (4.8-10.8)
[2018-05-08 06:34] VITALS: BP 100/61; PULSE 66; TEMP 36.7; O2SAT 92
[2018-05-08 07:03] LABS: CALCIUM 8.2 mg/dl (8.5-10.1); CREATININE 0.87 mg/dl (0.60-1.40); POTASSIUM 4.2 mmol/L (3.5-5.1)
[2018-05-08] MEDS: SODIUM CHLORIDE 0.9% 1000ML 1,000 ML IV SCH (08:00)
[2018-05-08 08:30] VITALS: BP 108/63; PULSE 64; TEMP 36.9; O2SAT 91
--- NOTE | 2018-05-08 08:31 | Discharge Instructions ---
Discharge Instructions Date of Service May 08, 2018. Admission Reason for Admission: Right Hip Degenerative Joint Disease Discharge Discharge Diagnosis / Problem: Right Total Hip Discharge Goals Goal(s): Decrease discomfort, Improve function Activity Recommendations Activity Limitations: resume your previous activity . Instructions / Follow-Up Instructions / Follow-Up Activity and Therapy Recommendations: * If you are using [facility] then Physical Therapy will be provided until they feel you are ready to start Outpatient Physical Therapy. If you are not using a Home Health agency then Outpatient Physical Therapy should start about 3-5 days from your day of surgery. Therapy will last about 3-6 weeks * You were shown a series of exercises in the hospital. Do these exercises three times each day including the exercises you were shown in physical therapy. * Get up and walk several times each day.~ For the first four weeks, try not to stand or walk for more than one hour at a time. If you do stand or walk for more than one hour, you will not hurt anything, but your leg will likely swell.~ ~ * As you feel comfortable, you may change from the walker or crutches to a cane and~then to independent walking. Medications: * Narcotic You will likely be sent home from the hospital with a prescription for the narcotic pain medication that worked best throughout your stay. * Aspirin Most patients will be required to take Aspirin 325mg twice a day for 6 weeks after surgery. This is obtained [id number] and a prescription is not necessary. * Other medications may be prescribed for specific circumstances. If you have any questions, please call the office at . * Resume previous home medications unless otherwise instructed TEDs/Elastic Stockings: The white elastic stockings help limit swelling and prevent blood clots from forming in your legs. The more you wear them, the more they work. Wear them for six weeks. Dressing Care: You will likely have a purple VAC dressing after surgery. This dressing will keep the incision dry and promote early healing. After about 8 days the batteries will wear out and the VAC will lose suction. Simply remove the dressing at that time and throw everything away, including the small suction machine. Then, you may leave the leonel open to air or cover them with a dry dressing so they do not rub on your pants. The leonel will be removed at your 2 week follow-up appointment. Showering: You may shower immediately with the purple VAC dressing. Let the shower spray hit your opposite side and slowly pat the plastic dry. Do not soak the dressing. After the dressing is removed you may shower normally with the leonel exposed. Let soapy water run over the leonel and pat them dry. Things To Watch For: * Drainage from the incision site that occurs more than one week after your surgery. * Increased redness at the incision site. * Fever above 102 degrees Fahrenheit. * Unusual chest pain or shortness of breath. * Call [facility] at with any of the above problems Follow-Up Visit: Follow-up with Dr. Linares 2 weeks after your day of surgery. An appointment was probably scheduled when you signed-up for surgery in the office. If you have any questions call Office Instructions: More detailed instructions as well as Frequently Asked Questions were provided in a folder by our office when you signed-up for surgery. Please review these instructions when you get home. If you have any further questions or concerns, please feel free to call the office at [phone] Current Hospital Diet Patient's current hospital diet: Regular Diet Discharge Diet Recommended Diet: Regular Diet Procedures Procedures Performed: Right Lateral Total Hip Arthroplasty Pending Studies Studies pending at discharge: no Medical Emergencies . Who to Call and When: Medical Emergencies: If at any time you feel your situation is an emergency, please call [phone] immediately. . Non-Emergent Contact Non-Emergency issues call your: Surgeon Call Non-Emergent contact if: wound has increased drainage, wound has increased redness . "Provider Documentation" section prepared by Prashant Linares. .
[2018-05-08] MEDS ORDERED: NURSING VERBAL MED ORDER ONE (08:45)
--- NOTE | 2018-05-08 09:04 | PROGRESS NOTE ---
DATE: 05/08/2018 CHIEF COMPLAINT: Status post right total hip arthroplasty postop day #1. PROGRESS: Marvel was seen and examined at bedside today. Overall, he is doing very well. A little soreness in the hip, but not that bad. He has already been up, using a walker some. He is happy with his progress. He has no complaints. PHYSICAL EXAMINATION: RIGHT HIP: The Prevena VAC dressing is to suction. His leg lengths are essentially equal. He has active dorsiflexion and plantarflexion of the right ankle and sensation is intact throughout. DATA: He has an H and H today of 12.9 and 38.6. His glucose is 103. His vital signs are all stable on room air. He is voiding on his own. X-rays postoperatively of the right hip showed the prosthesis to be in anatomic alignment without any evidence of fracture, dislocation, or loosening. IMPRESSION: Status post right total hip arthroplasty postop day #1. PLAN: At this point, he is doing well and happy with his progress. He will get some physical therapy today. We will make sure his pain is well controlled. I will see him tomorrow morning and if he continues to do well, we will plan to discharge him to home with [facility].
[2018-05-08] MEDS: MULTIVITAMIN TAB PO SCH (09:05)
[2018-05-08] MEDS: ASPIRIN 325 MG ECTAB PO SCH ×2 (09:05→22:13)
[2018-05-08] MEDS: DOCUSATE SODIUM 100 MG CAP PO SCH ×2 (09:05→22:13)
[2018-05-08 11:47] VITALS: BP 116/71; PULSE 75; TEMP 36.4; O2SAT 91
[2018-05-08] MEDS: ACETAMINOPHEN 500 MG TAB PO SCH ×2 (14:04→22:13)
[2018-05-08 15:22] VITALS: BP 101/56; PULSE 74; TEMP 37; O2SAT 93
[2018-05-08] MEDS: SENNA 8.6 MG TAB PO SCH (22:12)
[2018-05-08] MEDS: LISINOPRIL 5 MG TAB PO SCH (22:12)
[2018-05-08 23:00] VITALS: BP 133/73; PULSE 69; TEMP 36.9; O2SAT 91
[2018-05-09] MEDS: ACETAMINOPHEN 500 MG TAB PO SCH (06:00)
[2018-05-09] MEDS: KETOROLAC TROMETHAMINE 15 MG/ML VIAL IV. SCH (06:00)
[2018-05-09 06:51] VITALS: BP 143/80; PULSE 85; TEMP 36.7; O2SAT 91
[2018-05-09 08:06] VITALS: BP 143/80; PULSE 85; TEMP 36.7; O2SAT 91
[2018-05-09] MEDS: ASPIRIN 325 MG ECTAB PO SCH (08:38)
[2018-05-09] MEDS: MULTIVITAMIN TAB PO SCH (08:38)
[2018-05-09] MEDS: DOCUSATE SODIUM 100 MG CAP PO SCH (08:38)
[2018-05-09] MEDS ORDERED: ASPEC325 PO (10:32)
[2018-05-09] MEDS ORDERED: RXC5 PO (10:32)
--- NOTE | 2018-05-09 10:45 | PROGRESS NOTE ---
DATE: 05/09/2018 CHIEF COMPLAINT: Status post right total hip arthroplasty postop day #2. PROGRESS: Marvel was seen and examined at bedside today. Overall, he is doing very well. He was up and ambulating around the nurses' station today. He is not having too much pain. He is taking his aspirin for DVT prophylaxis. He has no complaints. PHYSICAL EXAMINATION: RIGHT HIP: The Prevena VAC dressing is to suction. His leg lengths are equal. He has active dorsiflexion, plantar flexion of his right ankle and sensation is intact. IMPRESSION: Status post right total hip arthroplasty postop day #2. PLAN: At this time, he is doing very well and happy with his progress. He says he already feels much better than he did when he came into the hospital. Oxycodone seems to be helping with his pain. He is on aspirin for DVT prophylaxis. We will discharge him to home later this morning with [facility].
--- NOTE | 2018-05-09 17:35 | DISCHARGE SUMMARY ---
DISCHARGE DIAGNOSIS: Primary osteoarthritis of the right hip. PROCEDURE: Right total hip arthroplasty on 05/07/[address] Prashant Linares. DISCHARGE INSTRUCTIONS: 1. Aspirin 325 mg twice a day for 6 weeks. 2. ESMER hose stockings for 6 weeks. 3. Oxycodone 5-10 mg every 4 hours as needed for pain. 4. Zestril 5 mg daily. 5. Continue all other over the counter vitamins, minerals, and supplementations. 6. Follow up with Dr. Linares in 2 weeks. 7. Call the office of Dr. Linares with any questions or concerns. HOSPITAL COURSE: Marvel is a pleasant 67-year-old male who presented to my office with severe increasing right hip pain. X-rays and clinical examination were diagnostic for primary osteoarthritis of the right hip. After failing conservative treatment, he elected to undergo a right total hip arthroplasty. On 05/07/2018, he arrived at [facility] and underwent a lateral approach right total hip arthroplasty without complication. He had a spinal anesthetic. Postoperatively, he was started on aspirin for DVT prophylaxis and discharged to general orthopedic floor. His hospital course was uneventful. On postop day #1, his H and H were stable at 12.9 and 38.6. He was up and ambulating well with physical therapy. His pain was relatively well controlled. On postop day #2, he was doing even better. He was ambulating around the nurse's station. The Prevena VAC dressing was to suction. Oxycodone was controlling his pain. He was subsequently discharged to home with [facility] and the above instructions.
== END 2018-05-09 11:33 | disposition home or self-care (01) | DRG 470 ==
LOC: C.ACU 04:57 → C.3E 06:15 → ENRESERV 09:55
PROVIDERS: ADMIT Orthopaedic Surgery; ATTEND Orthopaedic Surgery
PROC: 0SR904Z Replacement of Right Hip Joint with Ceramic on Polyethylene Synthetic Substitute, Open Approach (ICD-10-PCS; principal; 2018-05-07 07:00)
DX: M16.11 Unilateral primary osteoarthritis, right hip (principal); I10 Essential (primary) hypertension; Z79.899 Other long term (current) drug therapy; Z91.030 Bee allergy status

== ENCOUNTER 2021-09-10 22:28 | Inpatient (IN) ==
[2021-09-10] MEDS ORDERED: dexAMETHasone**PF** 10 MG/ML VIAL IV ONE (22:54)
[2021-09-10] MEDS ORDERED: ACETAMINOPHEN 1,000 MG/100 ML VIAL IV STA (22:54)
--- NOTE | 2021-09-10 22:59 | Emergency Department Note ---
Impression & Plan COVID-19, Hypoxia ED Provider Note Name: YENNI ANDRADE Age: 71 Sex: M Arrives Via: Ambulance Informant: Patient, ED Provider: Raúl Juarez MD Chief Complaint: Illness Impression: COVID-19 Hypoxia Medical Decision Makin-year-old chronically unwell individual arrives for evaluation of worsening weakness shortness of breath and cough. He was seen yesterday diagnosed with pneumonia and had a Covid test which is pending. Patient left AGAINST MEDICAL ADVICE last evening per the chart. Patient admits that he has been having worsening symptoms with shortness of breath since leaving and today has been difficult for him to even sit up. His Covid test returned positive this morning. On examination patient with diffuse crackles on lung exam. He has hypoxic with an O2 sat of 88% on room air. Patient was given IV Tylenol IV Decadron and placed on nasal cannula O2. Patient stable feeling well heart rate improved chest x-ray consistent with his Covid infection. Given hypoxia in the setting of his Covid infection the hospitalist was consulted. On repeat discussion with patient he confirms that he has been ill for about 2 weeks. Prior Medical Record and Triage/Nursing Notes reviewed by Me Additional history obtained from chart Differentials:Reactive airway disease, pneumonia, pneumothorax, COPD, CHF, infections, cardiac ischemia, pulmonary embolism, musculoskeletal, gastrointestinal, as well as other pathologies. Vital Signs: reviewed and remarkable for hypoxia Interventions: Tylenol IV, Decadron IV Labs:Reviewed and remarkable for unremarkable Imaging:X ray results are stated below per my interpretation: Chest: 1 view: Bilateral infiltrates consistent with covid infection Cardiac/Tele Monitoring: Cardiac Monitoring: An Order was placed for continuous cardiac monitoring. The monitor shows a rate of 90 with a normal sinus rhythm with frequent PVCs. Consults:Dr Tyrone RAMÍREZ Hospitalist Plan: Disposition:Hospitalization. Condition: Fair History of Present Illness:This is a 71-year-old male who arrives for evaluation of shortness of breath. Patient notes that he has been ill for at least the last 2 weeks however the last few days have been rapidly worsening. He has had worsening shortness of breath cough fevers chills weakness lack of appetite and generalized fatigue. He was seen yesterday and diagnosed with pneumonia and Covid sent but pending. He was started on albuterol doxycycline and cefdinir. He states since getting home symptoms have been continuously worsening to the point where he cannot even sit up he is too weak and fatigued. He notes a mild chest tightness but no specific pain no tearing through chest no back pain. Patient has had no syncope. Patient denies trauma injury or falls. Patient has taken no Tylenol nor Motrin recently. Patient reports he is not Covid vaccinated. ROS: See above HPI for pertinent positives & negatives. A total of 10 systems reviewed and were otherwise negative. Past Medical History:See Below Past Surgical History:See Below Family History:See Below Social History:See Below Home Medications:See Below Allergies:bee venom, oxycodone Vitals:Blood Pressure: 108/87, Pulse 94, RR 36, T 38.3C, O2 87% on RA Physical Exam: GENERAL: Patient is ill & tired appearing and in moderate distress. EYES: No scleral icterus, unremarkable pupils. ENT: Mucous membranes moist, no nasal congestion. NECK: No masses appreciated, nomeningismus, trachea is midline. RESPIRATORY: Dyspnea with diffuse crackles and decreased sounds throughout. CARDIOVASCULAR: Regular rate and rhythm.No murmurs, rubs, gallops appreciated. GASTROINTESTINAL: Abdomen soft, non-tender, no peritonitis.Bowel sounds positive.No masses appreciated. BACK: No midline tenderness, no CVA tenderness EXTREMITIES: Normal motion all extremities, no cyanosis, no edema. NEUROLOGIC: Alert and oriented, no acute motor or sensory deficits, no focal weakness, cranial nerves grossly intact. SKIN: No rash, no jaundice, no diaphoresis. PSYCH: Appropriate GCS: 15 ED Course: Times/Reassessments: Stable, breathing better on NC O2 Raúl Juarez MD Past Med/Surg History Medical History Abnormality of thoracic aorta BMI 45.0-49.9, adult Chronic venous stasis dermatitis Diverticulosis Dyspnea on exertion Fatigue Generalized osteoarthritis of multiple sites Hiatal hernia Hypertension Morbid obesity Nocturnal hypoxemia Ringing in ears Vitamin D deficiency Surgical History Status post hip replacement Family History Father Emphysema lung Stroke Brother Hypertension Mother No pertinent family history in first degree relatives Sister No pertinent family history in first degree relatives Social History Smoking Status: Never smoker Second Hand Exposure: No; Hx Alcohol Use: Yes Alcohol type: beer and wine Alcohol Intake Frequency: 2-4 x/Month Hx Substance Use: No Preferred Language: Czech Visual Impairment: No Limitations Hearing Ability: Use of Hearing Aid Feels Safe at Home: Yes Seatbelt Use: always Allergies Allergies Allergy/AdvReac Type Severity Reaction Status Date / Time bee venom protein (honey bee) Allergy Unknown SWELLING Verified 09/11/21 00:09 AT SITE oxycodone AdvReac Verified 09/11/21 00:09 Home Meds Home Medications Medication Instructions Recorded Confirmed ascorbic acid (vitamin C) 100 mg 100 mg PO DAILY tab 05/30/19 09/11/21 tablet cholecalciferol (vitamin D3) 125 5,000 units PO DAILY cap 05/30/19 09/11/21 mcg (5,000 unit) capsule multivitamin (Multiple Vitamins) 1 tab PO DAILY 05/30/19 09/10/21 omega-3 acid ethyl esters 1 gram 1 cap PO DAILY cap 05/30/19 09/11/21 capsule vitamin B complex 1 cap PO DAILY 05/30/19 09/11/21 vitamin E (dl, acetate) 45 mg (100 100 units PO DAILY cap 05/30/19 09/11/21 unit) capsule cranberry 400 mg capsule 400 mg PO DAILY 06/06/19 09/11/21 albuterol sulfate 90 mcg/actuation 3 inh INHALATION Q6H PRN 09/11/21 09/11/21 aerosol inhaler aspirin 81 mg tablet,delayed 81 mg PO DAILY 09/11/21 09/11/21 release Previous Rx's Medication Instructions Recorded lisinopril 5 mg tablet 5 mg PO DAILY #90 tab 05/27/21 cefdinir 300 mg capsule 300 mg PO BID 10 Days #20 cap 09/09/21 doxycycline hyclate 100 mg tablet 100 mg PO BID 10 Days #20 tab 09/09/21 Results & Data (ED) Vital Signs Vital Signs - 24 hr 09/10/21 22:56 Temperature 38.3 C H Temperature Source Oral Pulse Rate 94 H Respiratory Rate 36 H Blood Pressure 108/87 Blood Pressure Mean 94 Pulse Oximetry 88 L Oxygen Delivery Method Room Air Sepsis Recent Fever Within 48 Hours No Sepsis New/Unexplained Change in Mental Status No Sepsis Action Taken by Nursing Physician Notified Oxygen Flow Rate - Titration 6 Pulse Oximetry Post Tiitration 91 Laboratory Data Result diagrams: 09/10/21 22:50 09/10/21 22:50 Lab Results 09/10/21 09/10/21 09/10/21 Range/Units 22:50 22:50 22:50 WBC 5.72 (4.8-10.8) K/uL RBC 5.01 (4.7-6.1) M/uL Hgb 16.2 (14.0-18.0) g/dL Hct 46.5 (42-52) % MCV 92.8 (80-100) fL MCH 32.3 (25-34) pg MCHC 34.8 (32-36) g/dL RDW Std Deviation 45.1 (36.4-46.3) fL RDW Coeff of Roberto Carlos 13.3 (11.5-14.5) % Plt Count 149 (130-400) K/uL MPV 10.0 (7.4-10.4) fL Immature Gran % (Auto) 0.5 % Neut % (Auto) 85.0 % Lymph % (Auto) 8.9 % [place] % (Auto) 5.4 % Eos % (Auto) 0.0 % Baso % (Auto) 0.2 % Neut # (Auto) 4.86 (1.4-6.5) K/uL Lymph # (Auto) 0.51 L (1.2-3.4) K/uL [place] # (Auto) 0.31 (0.11-0.59) K/uL Eos # (Auto) 0.00 (0-0.5) K/uL Baso # (Auto) 0.01 (0-0.2) K/uL Immature Gran # (Auto) 0.03 H (0.00-0.02) K/uL RBC Morphology Unremarkable D-Dimer 1080 H* (0-500) ug/L FEU Sodium 133 L (136-145) mmol/L Potassium 3.6 (3.5-5.1) mmol/L Chloride 101 (98-107) mmol/L Carbon Dioxide 24 (21-32) mmol/L Anion Gap 8.0 (3-11) BUN 13 (7-18) mg/dl Creatinine 0.74 (0.6-1.4) mg/dl Est Cr Clr Drug Dosing Not Reportable Est GFR ( Amer) 106.1 ml/min Est GFR (Non-Af Amer) 91.5 ml/min BUN/Creatinine Ratio 17.8 (10-20) Glucose 127 H (70-99) mg/dl Calcium 8.2 L (8.5-10.1) mg/dl Magnesium 1.8 (1.8-2.4) mg/dl Total Bilirubin 0.5 (0.2-1) mg/dl Direct Bilirubin 0.2 (0-0.2) mg/dl AST 64 H (15-37) U/L ALT 55 (12-78) U/L Alkaline Phosphatase 58 (45-117) U/L Troponin I 0.019 (0-0.045) ng/ml Total Protein 6.7 (6.4-8.2) gm/dl Albumin 2.5 L (3.4-5.0) gm/dl Administered Medications Discontinued Medications Dexamethasone Sodium Phosphate (DexamethasonePf 10 Mg/Ml Vial) 10 mg IV NOW ONE Stop: 09/10/21 22:55 Last Admin: 09/10/21 23:20 Dose: 10 mg Documented by: [id number] Acetaminophen (Ofirmev) 1,000 mg in 100 mls @ 400 mls/hr IV NOW STA Stop: 09/10/21 23:08 Last Infusion: 09/10/21 23:45 Dose: 0 mls/hr Documented by: [id number] Admin: 09/10/21 23:20 Dose: 400 mls/hr Documented by: [id number] Ioversol (Optiray 320 125ml) 118 ml IV ONCE ONE Stop: 09/11/21 02:07 Last Admin: 09/11/21 02:07 Dose: 118 ml Documented by: [id number] Discharge Plan Visit Data Chief Complaint: Shortness of Breath/Dyspnea Stated Complaint: SOB ED Provider: Raúl Juarez Discharge Problem: COVID-19, Hypoxia Forms Stand Alone Forms: [facility] Prescriptions Prescriptions: No Action lisinopril 5 mg tablet 5 mg PO DAILY Qty: 90 RF: 3 vitamin B complex capsule 1 cap PO DAILY RF: 0 vitamin E (dl, acetate) 100 unit capsule 100 units PO DAILY RF: 0 omega-3 acid ethyl esters 1 gram capsule 1 cap PO DAILY RF: 0 cholecalciferol (vitamin D3) 5,000 unit capsule 5,000 units PO DAILY RF: 0 ascorbic acid (vitamin C) 100 mg tablet 100 mg PO DAILY RF: 0 multivitamin [Multiple Vitamins] tablet 1 tab PO DAILY RF: 0 cranberry 400 mg capsule 400 mg PO DAILY RF: 0 cefdinir 300 mg capsule 300 mg PO BID 10 Days Qty: 20 RF: 0 doxycycline hyclate 100 mg tablet 100 mg PO BID 10 Days Qty: 20 RF: 0 albuterol sulfate 90 mcg/actuation HFA aerosol inhaler 3 inh inhalation Q6H PRN (Reason: Shortness Of Breath Or Wheezing) RF: 0 aspirin [Aspir-Low] 81 mg Tablet,Delayed Release (Dr/Ec) 81 mg PO DAILY RF: 0 Referrals Referrals: Dakota Valiente MD [Primary Care Provider] -
[2021-09-10 23:06] LABS: Hematocrit (blood only) 46.5 % (42-52); Hemoglobin 16.2 g/dL (14.0-18.0); Mean Corpuscular Hemoglobin 32.3 pg (25-34); Mean Corpuscular Hgb Conc 34.8 g/dL (32-36); Mean Corpuscular Volume 92.8 fL (80-100); Platelet Count 149 K/uL (130-400); RDW Coefficient of Variation 13.3 % (11.5-14.5); RDW Standard Deviation 45.1 fL (36.4-46.3); Red Blood Count 5.01 M/uL (4.7-6.1); White Blood Count 5.72 K/uL (4.8-10.8)
[2021-09-10 23:24] LABS: Alanine Aminotransferase 55 U/L (12-78); Albumin Level 2.5 gm/dl (3.4-5.0); Aspartate Aminotransferase 64 U/L (15-37); BUN Creatinine Ratio 17.8 (10-20); Bilirubin Direct 0.2 mg/dl (0-0.2); Blood Urea Nitrogen 13 mg/dl (7-18); Calcium 8.2 mg/dl (8.5-10.1); Carbon Dioxide 24 mmol/L (21-32); Chloride 101 mmol/L (98-107); Est GFR (African American) 106.1 ml/min; Est GFR (Non-African American) 91.5 ml/min; Glucose 127 mg/dl (70-99); Magnesium 1.8 mg/dl (1.8-2.4); Potassium 3.6 mmol/L (3.5-5.1); Sodium 133 mmol/L (136-145)
[2021-09-10 23:29] LABS: Alkaline Phosphatase 58 U/L (45-117); Bilirubin,Total 0.5 mg/dl (0.2-1); Total Protein 6.7 gm/dl (6.4-8.2); Troponin I 0.019 ng/ml (0-0.045)
[2021-09-10 23:30] LABS: Basophils # (auto) 0.01 K/uL (0-0.2); Basophils % (auto) 0.2 %; Immature Granulocytes # (auto) 0.03 K/uL (0.00-0.02); Immature Granulocytes % (auto) 0.5 %; Lymphocytes # (auto) 0.51 K/uL (1.2-3.4); Lymphocytes % (auto) 8.9 %; Monocytes # (auto) 0.31 K/uL (0.11-0.59); Monocytes % (auto) 5.4 %; Neutrophils # (auto) 4.86 K/uL (1.4-6.5); RBC Morphology Unremarkable
[2021-09-11 00:42] LABS: D Dimer 1080 ug/L FEU (0-500)
--- NOTE | 2021-09-11 00:47 | History & Physical Report ---
Date of Service September 11, 2021 Assessment & Plan (1) Pneumonia due to COVID-19 virus: Plan: COVID-19 pneumonia with hypoxia- Symptoms have been ongoing for 2 weeks, but worsened over the past week Dexamethasone 6 mg IV every morning Duonebs every 4 hours while awake and every 2 hours when necessary. Ceftriaxone 2 g IV daily Azithromycin 500 mg IV daily Guaifenesin extended release 12 mg p.o. twice daily Nasal cannula oxygen, titrate to keep pulse ox 92 to 94% (2) Hypoxia: Plan: See above (3) ARIELLE (obstructive sleep apnea): Plan: CPAP at bedtime as needed (4) Hypertension: Plan: Hold lisinopril History of Present Illness Chief Complaint: The patient presents to the emergency department with worsening generalized weakness, shortness of breath and cough after leaving the ED AMA last evening when diagnosed with COVID-19 pneumonia Primary Care Provider: Dakota Valiente MD The patient is a 71-year-old male with a past medical history including tubular adenoma, ARIELLE, calcium oxalate kidney stones, vitamin D deficiency, morbid obesity, hypertension, hiatal hernia, generalized osteoarthritis, diverticulosis, chronic venous stasis dermatitis, morbid obesity, right distal ureteral calculus. Patient presents as noted above. Pulse ox on room air was 88%. COVID-19 testing was positive on 09/09. Abnormal laboratories: AST 64, albumin 2.5 Chest x-ray showed multifocal pneumonia From the ED patient received the following: Dexamethasone 10 mg IV and Tylenol 1 g IV Allergies Allergy/AdvReac Type Severity Reaction Status Date / Time bee venom protein (honey bee) Allergy Unknown SWELLING Verified 09/11/21 00:09 AT SITE oxycodone AdvReac Verified 09/11/21 00:09 Home Medications Medication Instructions Recorded Confirmed Type ascorbic acid (vitamin C) 100 mg 100 mg PO DAILY tab 05/30/19 09/11/21 History tablet cholecalciferol (vitamin D3) 125 5,000 units PO DAILY cap 05/30/19 09/11/21 History mcg (5,000 unit) capsule multivitamin (Multiple Vitamins) 1 tab PO DAILY 05/30/19 09/10/21 History omega-3 acid ethyl esters 1 gram 1 cap PO DAILY cap 05/30/19 09/11/21 History capsule vitamin B complex 1 cap PO DAILY 05/30/19 09/11/21 History vitamin E (dl, acetate) 45 mg (100 100 units PO DAILY cap 05/30/19 09/11/21 History unit) capsule cranberry 400 mg capsule 400 mg PO DAILY 06/06/19 09/11/21 History lisinopril 5 mg tablet 5 mg PO DAILY #90 tab 05/27/21 09/10/21 Rx cefdinir 300 mg capsule 300 mg PO BID 10 Days #20 cap 09/09/21 09/11/21 Rx doxycycline hyclate 100 mg tablet 100 mg PO BID 10 Days #20 tab 09/09/21 09/11/21 Rx albuterol sulfate 90 mcg/actuation 3 inh INHALATION Q6H PRN 09/11/21 09/11/21 History aerosol inhaler aspirin 81 mg tablet,delayed 81 mg PO DAILY 09/11/21 09/11/21 History release Past Med/Surg History Medical History Abnormality of thoracic aorta BMI 45.0-49.9, adult Chronic venous stasis dermatitis Diverticulosis Dyspnea on exertion Fatigue Generalized osteoarthritis of multiple sites Hiatal hernia Hypertension Morbid obesity Nocturnal hypoxemia Ringing in ears Vitamin D deficiency Surgical History Status post hip replacement Family History Father Emphysema lung Stroke Brother Hypertension Mother No pertinent family history in first degree relatives Sister No pertinent family history in first degree relatives Social History Smoking Status: Never smoker Second Hand Exposure: No; Hx Alcohol Use: Yes Alcohol type: beer and wine Alcohol Intake Frequency: 2-4 x/Month Hx Substance Use: No Preferred Language: Montenegrin Visual Impairment: No Limitations Hearing Ability: Use of Hearing Aid Feels Safe at Home: Yes Seatbelt Use: always Review of Systems Review of Systems: The patient denies chest pain, palpitations, lower extremity swelling, sore throat, fevers, chills, sweats, vomiting, diarrhea , constipation, abdominal pain, pelvic pain, blood in urine or stool, dysuria, urinary frequency or urgency, lightheadedness, dizziness, headache, memory loss, loss of consciousness, rash, abnormal bruising or bleeding, imbalance, focal weakness, numbness or tingling in arms or legs, generalized arthralgias or myalgias, back or neck pain, or night sweats. The review of systems is otherwise negative other than for that already noted ab ove, and at least 10 systems have been reviewed. Physical Exam Physical Exam: The patient is awake, alert and oriented 3, well developed and well nourished, normocephalic and atraumatic, lying in bed and in no acute distress. HEENT--PERRL, EOMI, mucous membranes and oropharynx dry. Neck--supple. No JVD. No bruits. Thyroid normal, trachea midline, no adenopathy. Heart--normal S1 and S2. No murmurs, rubs or gallops. Lungs--coarse breath sounds bilaterally. No respiratory distress, no accessory muscle use. Abdomen--normal bowel sounds and soft. Nontender. Nondistended, no hernias or masses, no organomegaly. Extremities--no cyanosis or clubbing. No edema. Dermatologic--normal skin turgor, normal color, no abnormal lymph nodes, no rash. Neurologic--cranial nerves II through XII grossly intact. Rheumatologic--normal range of motion. Psychiatric--normal affect. Results & Data Results & Data ([facility] [place]) Vital Signs (Past 12 Hours) Vital Signs Temp Pulse Resp BP Pulse Ox 09/10/21 22:56 38.3 C H 94 H 36 H 108/87 88 L Laboratory Results Laboratory Results WBC 5.72 K/uL (4.8-10.8) 09/10/21 22:50 RBC 5.01 M/uL (4.7-6.1) 09/10/21 22:50 Hgb 16.2 g/dL (14.0-18.0) 09/10/21 22:50 Hct 46.5 % (42-52) 09/10/21 22:50 MCV 92.8 fL (80-100) 09/10/21 22:50 MCH 32.3 pg (25-34) 09/10/21 22:50 MCHC 34.8 g/dL (32-36) 09/10/21 22:50 RDW Std Deviation 45.1 fL (36.4-46.3) 09/10/21 22:50 RDW Coeff of Roberto Carlos 13.3 % (11.5-14.5) 09/10/21 22:50 Plt Count 149 K/uL (130-400) 09/10/21 22:50 MPV 10.0 fL (7.4-10.4) 09/10/21 22:50 Immature Gran % (Auto) 0.5 % 09/10/21 22:50 Neut % (Auto) 85.0 % 09/10/21 22:50 Lymph % (Auto) 8.9 % 09/10/21 22:50 [place] % (Auto) 5.4 % 09/10/21 22:50 Eos % (Auto) 0.0 % 09/10/21 22:50 Baso % (Auto) 0.2 % 09/10/21 22:50 Neut # (Auto) 4.86 K/uL (1.4-6.5) 09/10/21 22:50 Lymph # (Auto) 0.51 K/uL (1.2-3.4) L 09/10/21 22:50 [place] # (Auto) 0.31 K/uL (0.11-0.59) 09/10/21 22:50 Eos # (Auto) 0.00 K/uL (0-0.5) 09/10/21 22:50 Baso # (Auto) 0.01 K/uL (0-0.2) 09/10/21 22:50 Immature Gran # (Auto) 0.03 K/uL (0.00-0.02) H 09/10/21 22:50 RBC Morphology Unremarkable 09/10/21 22:50 D-Dimer 1080 ug/L FEU (0-500) H* 09/10/21 22:50 Sodium 133 mmol/L (136-145) L 09/10/21 22:50 Potassium 3.6 mmol/L (3.5-5.1) 09/10/21 22:50 Chloride 101 mmol/L (98-107) 09/10/21 22:50 Carbon Dioxide 24 mmol/L (21-32) 09/10/21 22:50 Anion Gap 8.0 (3-11) 09/10/21 22:50 BUN 13 mg/dl (7-18) 09/10/21 22:50 Creatinine 0.74 mg/dl (0.6-1.4) 09/10/21 22:50 Est Cr Clr Drug Dosing Not Reportable 09/10/21 22:50 Est GFR ( Amer) 106.1 ml/min 09/10/21 22:50 Est GFR (Non-Af Amer) 91.5 ml/min 09/10/21 22:50 BUN/Creatinine Ratio 17.8 (10-20) 09/10/21 22:50 Glucose 127 mg/dl (70-99) H 09/10/21 22:50 Calcium 8.2 mg/dl (8.5-10.1) L 09/10/21 22:50 Magnesium 1.8 mg/dl (1.8-2.4) 09/10/21 22:50 Total Bilirubin 0.5 mg/dl (0.2-1) 09/10/21 22:50 Direct Bilirubin 0.2 mg/dl (0-0.2) 09/10/21 22:50 AST 64 U/L (15-37) H 09/10/21 22:50 ALT 55 U/L (12-78) 09/10/21 22:50 Alkaline Phosphatase 58 U/L (45-117) 09/10/21 22:50 Troponin I 0.019 ng/ml (0-0.045) 09/10/21 22:50 Total Protein 6.7 gm/dl (6.4-8.2) 09/10/21 22:50 Albumin 2.5 gm/dl (3.4-5.0) L 09/10/21 22:50 Code Status & VTE Plan Code Status Full code VTE Prophylaxis Plan VTE Prophylaxis will be ordered: Yes PG Care Time/CCT Total # of Minutes Spent Total Time Spent with Patient: Total time spent is greater than 50% in coordination of care (as documented) at patient's floor/unit and/or counseling patient: Coding Level of Care Code 76362 Initial Inpt Care Lvl 3 Diagnoses Pneumonia due to COVID-19 virus U07.1; J12.82 Hypoxia R09.02 ARIELLE (obstructive sleep apnea) G47.33 Hypertension I10
[2021-09-11] MEDS ORDERED: OPTIRAY 320 125ml IV ONE (02:06)
[2021-09-11] MEDS ORDERED: ONDANSETRON INJ 2 MG/ML 2 ML VIAL IV PRN (04:56)
[2021-09-11] MEDS ORDERED: ENOXAPARIN 0.5 MG/KG SQ SCH (04:56)
[2021-09-11] MEDS ORDERED: ENOXAPARIN 80 MG/0.8 ML SYR SQ SCH (06:00)
[2021-09-11] MEDS: ENOXAPARIN 80 MG/0.8 ML SYR SQ SCH (06:41)
[2021-09-11] MEDS: ALBUT/IPRATROP 3MG/0.5MG NEB 3 ML VIAL NEB SCH ×4 (06:56→18:02)
--- NOTE | 2021-09-11 07:16 | CT Scan Report ---
CT ANGIOGRAPHY OF THE CHEST, PULMONARY EMBOLUS PROTOCOL CLINICAL HISTORY: Shortness of breath. Evaluate for pulmonary embolus. COMPARISON STUDY: Chest CT T July 27, 2016. Chest radiograph September 10, 2021. TECHNIQUE: Following IV administration of 118 mL of Optiray, helical axial images of the chest were o btained utilizing the pulmonary embolus protocol. Maximal intensity projections and sagittal and cor onal reformats were viewed on an independent 3D workstation. IV contrast was administered without co mplication. Automated exposure control was utilized for the study. A dose lowering technique was ut ilized adhering to the principles of ALARA. CT DOSE: 636.73 mGycm FINDINGS: This exam is markedly compromised by respiratory motion artifact. No central pulmonary emb olus is identified. Evaluation the remainder of the pulmonary arteries is nondiagnostic. There is mod erate cardiomegaly. No pericardial effusion is present. There is no thoracic aortic dissection. Moder ate multifocal groundglass airspace opacities and consolidation are noted within the lungs. Upper lob e predominant paraseptal emphysema is present. There is no pneumothorax or pleural effusion. No pneum omediastinum is present. There is no thoracic lymphadenopathy. There is probable hepatic steatosis. N o acute fracture or suspicious lesion is identified within the visualized skeletal structures. IMPRESSION: 1. Exam markedly compromised by respiratory motion artifact. No central pulmonary emboli. Evaluation of the remainder of the pulmonary arteries is nondiagnostic. 2. Moderate focal groundglass opacities consolidation within the lungs consistent with viral pneumoni a. 3. Moderate cardiomegaly. ACT 112: Negative or not required by law. Electronically signed by: Reuben Molina M.D. 09/11/2021 7:15 AM
[2021-09-11] MEDS: cefTRIAXone SODIUM 2,000 MG in DEXTROSE 5% 50 ML IV SCH (07:42)
--- NOTE | 2021-09-11 08:05 | XRay Report ---
XR chest 1V portable CLINICAL HISTORY: covid, worsening shortness of breath COMPARISON STUDY: Chest radiograph September 09, 2021. FINDINGS: Lung volumes are mildly diminished. This is unchanged. Left lung airspace opacity has sligh tly progressed. There is mild right lung airspace opacity. Cardiomediastinal silhouette is stable. Th ere is no evidence for pulmonary edema. There is no pneumothorax or pleural effusion. IMPRESSION: Moderate bilateral airspace opacities with slight progression since prior exam. This rep resents viral pneumonia. ACT 112: Negative or not required by law. Electronically signed by: Reuben Molina M.D. 09/11/2021 8:04 AM
[2021-09-11] MEDS: PATIENT'S HEIGHT NEEDED SCH ×2 (08:09)
[2021-09-11] MEDS: guaiFENesin 600 MG TABCR PO SCH ×2 (08:59→21:18)
[2021-09-11] MEDS: ASPIRIN 81 MG ECTAB PO SCH (08:59)
[2021-09-11] MEDS: dexAMETHasone 6 MG in SYRINGE 0 ML IV SCH (08:59)
[2021-09-11] MEDS: VITAMIN B COMPLEX TAB PO SCH (09:00)
[2021-09-11] MEDS: CHOLECALCIFEROL 1,000 UNITS 25 MCG TAB PO SCH (09:00)
[2021-09-11] MEDS: AZITHROMYCIN 500 MG in DEXTROSE 5% 250 ML IV SCH (09:01)
[2021-09-11] MEDS: MULTIVITAMIN TAB PO SCH (09:21)
[2021-09-11 12:36] LABS: Appearance Urine Clear (Clear); Bacteria Urine Automated Negative (Negative); Bilirubin Urine Negative (Negative); Blood Urine Negative (Negative); Cast Urine Automated 0 /lpf (0-5); Color Urine Dark Yellow; Epithelial Cell Urine Auto 20-30 /lpf (0-5); Glucose Urine UA 2+ (Negative); Ketones Urine 1+ (Negative); Leukocyte Esterase Urine Negative (Negative); Nitrite Urine Negative (Negative); Protein Urine Trace (Negative); RBC Urine Automated 0-4 /hpf (0-4); Specific Gravity Urine > 1.045 (1.000-1.030); Urobilinogen Urine Negative (Negative)
--- NOTE | 2021-09-11 13:09 | Electrocardiogram Report ---
Test Reason : Blood Pressure : / mmHG Vent. Rate : 101 BPM Atrial Rate : 050 BPM P-R Int : 000 ms QRS Dur : 082 ms QT Int : 358 ms P-R-T Axes : 000 -38 -30 degrees QTc Int : 464 ms Poor data quality, interpretation may be adversely affected Sinus rhythm with frequent PVCs and fusion beats Left axis deviation Abnormal ECG Confirmed by Stephen Rosario ([id number]) on 09/11/2021 1:08:53 PM Referred By: REFERRED SELF Confirmed By:Forest Rosario
[2021-09-11] MEDS ORDERED: BARICITINIB COMMUNICATION ONE (20:39)
--- NOTE | 2021-09-11 20:40 | Communication Note ---
Date of Service: September 11, 2021 Patient in the morning was transitioned to high flow oxygen. Now on 45/Lmin and 100 FIO2. Patient appears comfortable on this. will check CRP. if above 7.5, will add baricitinib. Upon checking his blood work, he did meet criteria for this medication. Patient also was recommended to prone.
[2021-09-11] MEDS: 4mg Daily x 14 days (eGFR >60 mL/min/1.73m2) PO SCH (21:19)
[2021-09-12] MEDS: ALBUT/IPRATROP 3MG/0.5MG NEB 3 ML VIAL NEB SCH ×2 (07:44→12:18)
[2021-09-12 07:55] LABS: Hemoglobin 16.3 g/dL (14.0-18.0); Mean Corpuscular Hemoglobin 32.7 pg (25-34); Mean Corpuscular Hgb Conc 34.7 g/dL (32-36); Mean Corpuscular Volume 94.2 fL (80-100); Mean Platelet Volume 10.3 fL (7.4-10.4); Platelet Count 159 K/uL (130-400); RDW Coefficient of Variation 13.6 % (11.5-14.5); RDW Standard Deviation 46.6 fL (36.4-46.3); Red Blood Count 4.99 M/uL (4.7-6.1); White Blood Count 6.21 K/uL (4.8-10.8)
[2021-09-12 08:31] LABS: Immature Granulocytes # (auto) 0.04 K/uL (0.00-0.02); Immature Granulocytes % (auto) 0.6 %; Lymphocytes # (auto) 0.68 K/uL (1.2-3.4); Monocytes # (auto) 0.58 K/uL (0.11-0.59); Monocytes % (auto) 9.3 %; Neutrophils # (auto) 4.91 K/uL (1.4-6.5); Neutrophils % (auto) 79.1 %
[2021-09-12 08:40] LABS: Albumin Globulin Ratio 0.5 (0.9-2); Albumin Level 2.2 gm/dl (3.4-5.0); BUN Creatinine Ratio 25.5 (10-20); Bilirubin,Total 0.4 mg/dl (0.2-1); C Reactive Protein 6.54 mg/dl (0-0.29); Calcium 8.8 mg/dl (8.5-10.1); Creatinine Clr Calc Pharmacy 124.2 ml/min; Est GFR (African American) 105.5 ml/min; Globulin 4.4 gm/dl (2.5-4.0); Potassium 4.6 mmol/L (3.5-5.1); Total Protein 6.6 gm/dl (6.4-8.2)
[2021-09-12] MEDS: ASPIRIN 81 MG ECTAB PO SCH (10:15)
[2021-09-12] MEDS: CHOLECALCIFEROL 1,000 UNITS 25 MCG TAB PO SCH (10:16)
[2021-09-12] MEDS: cefTRIAXone SODIUM 2,000 MG in DEXTROSE 5% 50 ML IV SCH (10:16)
[2021-09-12] MEDS: MULTIVITAMIN TAB PO SCH (10:17)
[2021-09-12] MEDS: dexAMETHasone 6 MG in SYRINGE 0 ML IV SCH (10:17)
[2021-09-12] MEDS: VITAMIN B COMPLEX TAB PO SCH (10:17)
[2021-09-12] MEDS: guaiFENesin 600 MG TABCR PO SCH ×2 (10:17→21:25)
[2021-09-12] MEDS: AZITHROMYCIN 500 MG in DEXTROSE 5% 250 ML IV SCH (10:58)
[2021-09-12] MEDS: ENOXAPARIN 80 MG/0.8 ML SYR SQ SCH (11:39)
[2021-09-12] MEDS ORDERED: LEVALBUTEROL HCL 1.25 MG/3 ML NEB ONE (14:05)
[2021-09-12] MEDS: LEVALBUTEROL HCL 1.25 MG/3 ML NEB NEB SCH ×2 (14:20→19:31)
--- NOTE | 2021-09-12 16:28 | Hospitalist Progress Note ---
Date of Service September 12, 2021 Assessment & Plan (1) Pneumonia due to COVID-19 virus: Plan: Symptoms have been ongoing for 2 weeks, but worsened over the past week prior to admission CT angiogram of the chest upon admission was negative for PE but showed bilateral multifocal pneumonia. With mild transaminitis secondary to Covid-19 Procalcitonin negative Is requiring high flow nasal cannula at max settings of 60 L 100% FiO2 but is comfortable, not tachypneic or working to breathe CRP was significantly elevated at 9.83 and he was started on baricitinib on 09/11 CRP has trended downward to 6 -Continue dexamethasone 6 mg IV every morning -Continue Duonebs every 4 hours while awake and every 2 hours when necessary. -Continue ceftriaxone 2 g IV daily and azithromycin but convert to 250 mg p.o. once daily x5-day course for each for presumed secondary bacterial pneumonia given late presentation Continue guaifenesin extended release 12 mg p.o. twice daily -Continue supplemental O2 with high flow nasal cannula and wean off as able to -Added on incentive spirometer and flutter valve -Encouraged continued side positioning or proning if possible -Follow CBC, CMP, CRP in the morning (2) Hypoxia: Plan: Acute respiratory failure with hypoxia in setting of COVID19 pneumonia -Treatment as above (3) ARIELLE (obstructive sleep apnea): Plan: CPAP at bedtime as needed (4) Hypertension: Plan: Hold lisinopril (5) Obesity: Plan: BMI 44.5 Needs weight loss Plan: DVT prophylaxis-Lovenox 0.5 mg/KG every 24 hours Disposition-continued stay in [facility], PCU Admission and Anticipated Discharge Date Admission Date: September 11, 2021 Subjective Patient reports feeling better today, not short of breath, not coughing. He is eating and drinking. He remains on 60 L and 100% FiO2 of high flow nasal cannula and is side sleeping when I saw him. He denies any nausea or abdominal pain, no chest pains. Review of Systems Review of Systems: All systems reviewed & are unremarkable except as noted in HPI & below Physical Exam Constitutional: WD/WN, vitals as above Eyes: + anicteric sclerae Neck: trachea midline, no thyromegaly Respiratory: normal respiratory effort; no cough Auscultation: + crackles (Bilateral lower and middle lung pascual); no rhonchi and no wheezes Cardiovascular: RRR, no murmur, no edema Chest (Breasts): Chest: normal inspection of chest Gastrointestinal (Abdomen): normal bowel sounds, soft, nontender, no hepatosplenomegaly Musculoskeletal: Extremities: extremities normal to inspection; no cyanosis and no clubbing Skin: no rashes, warm and dry Neurologic: moves all extremities and awake; no focal motor deficits Psychiatric: A+Ox3, euthymic affect Lymphatic: no lymphedema Results & Data Results & Data ([facility]) Vital Signs (Past 12 Hours) Vital Signs Temp Pulse Resp BP Pulse Ox Pulse Ox 09/12/21 14:21 78 24 90 09/12/21 14:20 78 24 90 09/12/21 13:38 37.1 C 82 20 122/81 09/12/21 10:41 83 24 90 09/12/21 10:40 85 24 90 09/12/21 07:45 70 24 91 09/12/21 05:18 93 09/12/21 04:40 66 22 91 Laboratory Results 09/12/21 09/12/21 Range/Units 06:57 06:57 WBC 6.21 (4.8-10.8) K/uL RBC 4.99 (4.7-6.1) M/uL Hgb 16.3 (14.0-18.0) g/dL Hct 47.0 (42-52) % MCV 94.2 (80-100) fL MCH 32.7 (25-34) pg MCHC 34.7 (32-36) g/dL RDW Std Deviation 46.6 H (36.4-46.3) fL RDW Coeff of Roberto Carlos 13.6 (11.5-14.5) % Plt Count 159 (130-400) K/uL MPV 10.3 (7.4-10.4) fL Immature Gran % (Auto) 0.6 % Neut % (Auto) 79.1 % Lymph % (Auto) 11.0 % [place] % (Auto) 9.3 % Eos % (Auto) 0.0 % Baso % (Auto) 0.0 % Neut # (Auto) 4.91 (1.4-6.5) K/uL Lymph # (Auto) 0.68 L (1.2-3.4) K/uL [place] # (Auto) 0.58 (0.11-0.59) K/uL Eos # (Auto) 0.00 (0-0.5) K/uL Baso # (Auto) 0.00 (0-0.2) K/uL Immature Gran # (Auto) 0.04 H (0.00-0.02) K/uL Sodium 137 (136-145) mmol/L Potassium 4.6 D (3.5-5.1) mmol/L Chloride 105 (98-107) mmol/L Carbon Dioxide 24 (21-32) mmol/L Anion Gap 9.0 (3-11) BUN 19 H (7-18) mg/dl Creatinine 0.75 (0.6-1.4) mg/dl Est Cr Clr Drug Dosing 124.2 ml/min Est GFR ( Amer) 105.5 ml/min Est GFR (Non-Af Amer) 91.0 ml/min BUN/Creatinine Ratio 25.5 H (10-20) Glucose 144 H (70-99) mg/dl Calcium 8.8 (8.5-10.1) mg/dl Total Bilirubin 0.4 (0.2-1) mg/dl AST 50 H (15-37) U/L ALT 54 (12-78) U/L Alkaline Phosphatase 53 (45-117) U/L C-Reactive Protein 6.54 H (0-0.29) mg/dl Total Protein 6.6 (6.4-8.2) gm/dl Albumin 2.2 L (3.4-5.0) gm/dl Globulin 4.4 H (2.5-4.0) gm/dl Albumin/Globulin Ratio 0.5 L (0.9-2) PG Care Time/CCT Total # of Minutes Spent Total Time Spent with Patient: Total time spent is greater than 50% in coordination of care (as documented) at patient's floor/unit and/or counseling patient: Coding Level of Care Code 04643 Subseq Hosp Care Lvl 3 Diagnoses Pneumonia due to COVID-19 virus U07.1; J12.82 Hypoxia R09.02 ARIELLE (obstructive sleep apnea) G47.33 Hypertension I10 Obesity E66.9
[2021-09-12] MEDS: 4mg Daily x 14 days (eGFR >60 mL/min/1.73m2) PO SCH (21:25)
[2021-09-13] MEDS: ENOXAPARIN 80 MG/0.8 ML SYR SQ SCH (06:21)
[2021-09-13] MEDS: LEVALBUTEROL HCL 1.25 MG/3 ML NEB NEB SCH ×4 (07:29→19:27)
[2021-09-13] MEDS: MULTIVITAMIN TAB PO SCH (08:26)
[2021-09-13] MEDS: ASPIRIN 81 MG ECTAB PO SCH (08:26)
[2021-09-13] MEDS: dexAMETHasone 6 MG in SYRINGE 0 ML IV SCH (08:26)
[2021-09-13] MEDS: guaiFENesin 600 MG TABCR PO SCH ×2 (08:27→22:42)
[2021-09-13] MEDS: cefTRIAXone SODIUM 2,000 MG in DEXTROSE 5% 50 ML IV SCH (08:27)
[2021-09-13] MEDS: CHOLECALCIFEROL 1,000 UNITS 25 MCG TAB PO SCH (08:27)
[2021-09-13] MEDS: VITAMIN B COMPLEX TAB PO SCH (08:27)
[2021-09-13 10:08] LABS: Albumin Globulin Ratio 0.5 (0.9-2); Albumin Level 2.1 gm/dl (3.4-5.0); BUN Creatinine Ratio 21.1 (10-20); Bilirubin,Total 0.4 mg/dl (0.2-1); C Reactive Protein 5.38 mg/dl (0-0.29); Calcium 8.6 mg/dl (8.5-10.1); Creatinine Clr Calc Pharmacy 110.9 ml/min; Est GFR (African American) 100.7 ml/min; Est GFR (Non-African American) 86.9 ml/min; Globulin 4.2 gm/dl (2.5-4.0); Potassium 3.7 mmol/L (3.5-5.1); Total Protein 6.3 gm/dl (6.4-8.2)
[2021-09-13 10:20] LABS: Basophils # (auto) 0.01 K/uL (0-0.2); Basophils % (auto) 0.1 %; Hematocrit (blood only) 46.2 % (42-52); Hemoglobin 15.1 g/dL (14.0-18.0); Immature Granulocytes # (auto) 0.03 K/uL (0.00-0.02); Immature Granulocytes % (auto) 0.3 %; Lymphocytes # (auto) 0.74 K/uL (1.2-3.4); Lymphocytes % (auto) 8.2 %; Mean Corpuscular Hemoglobin 31.5 pg (25-34); Mean Corpuscular Hgb Conc 32.7 g/dL (32-36); Mean Corpuscular Volume 96.3 fL (80-100); Mean Platelet Volume 9.7 fL (7.4-10.4); Monocytes # (auto) 0.38 K/uL (0.11-0.59); Monocytes % (auto) 4.2 %; Neutrophils # (auto) 7.81 K/uL (1.4-6.5); Neutrophils % (auto) 87.2 %; Platelet Count 177 K/uL (130-400); RDW Coefficient of Variation 13.5 % (11.5-14.5); RDW Standard Deviation 47.8 fL (36.4-46.3); White Blood Count 8.97 K/uL (4.8-10.8)
[2021-09-13] MEDS: AZITHROMYCIN 250 MG TAB PO SCH (10:30)
--- NOTE | 2021-09-13 19:25 | Hospitalist Progress Note ---
Date of Service September 13, 2021 Assessment & Plan (1) Pneumonia due to COVID-19 virus: Plan: Symptoms have been ongoing for 2 weeks, but worsened over the past week prior to admission CT angiogram of the chest upon admission was negative for PE but showed bilateral multifocal pneumonia. With mild transaminitis secondary to Covid-19 Procalcitonin negative COntinues to be requiring high flow nasal cannula at max settings of 60 L 100% FiO2 but is comfortable, not tachypneic or working to breathe. Does desaturate with minimal exertion Is not able to prone due to body habitus but has been sleeping on his side CRP was significantly elevated at 9.83 and he was started on baricitinib on 09/11 CRP has trended downward to 5.3 -Continue dexamethasone 6 mg IV every morning -Continue Xopenex nebs every 4 hours while awake and every 2 hours when necessary. -Continue ceftriaxone 2 g IV daily and azithromycin 250 mg p.o. once daily x5- day course for presumed secondary bacterial pneumonia given late presentation Continue guaifenesin extended release 12 mg p.o. twice daily -Continue supplemental O2 with high flow nasal cannula and wean off as able to -continue on incentive spirometer and flutter valve -Encouraged continued side positioning or proning if possible -Follow CBC, CMP, CRP in the morning -if worsens overnight, would have to use CPAP if tolerated -could consider giving IV lasix (2) Hypoxia: Plan: Acute respiratory failure with hypoxia in setting of COVID19 pneumonia -Treatment as above (3) ARIELLE (obstructive sleep apnea): Plan: CPAP at bedtime as needed (4) Hypertension: Plan: continue to hold lisinopril (held on admission) (5) Obesity: Plan: BMI 44.5 Needs weight loss Plan: DVT prophylaxis-Lovenox 0.5 mg/KG every 24 hours Disposition-[facility] stay [facility], PCU Prognosis guarded Discussed his care with his on the phone at pt's request and informed her that he was quite sick. She is upset but understands. FULL CODE Admission and Anticipated Discharge Date Admission Date: September 11, 2021 Subjective Pt reports feeling better, but remains on max HFNC settings. He gets SOB with getting to bedside commode. No CP, no nausea or abd pain. He is trying to lie on his side. Tele with NSR, rates 70-80s, occ PVCs, bigem Review of Systems Review of Systems: All systems reviewed & are unremarkable except as noted in HPI & below Physical Exam Constitutional: WD/WN, vitals as above Eyes: + anicteric sclerae Neck: trachea midline, no thyromegaly Respiratory: normal respiratory effort; no cough Auscultation: + diminished lung sounds (throughout due to body habitus) and + crackles (Bilateral lower and middle lung pascual); no rhonchi and no wheezes Cardiovascular: RRR, no murmur, no edema Chest (Breasts): Chest: normal inspection of chest Gastrointestinal (Abdomen): normal bowel sounds, soft, nontender, no hepatosplenomegaly Musculoskeletal: Extremities: extremities normal to inspection; no cyanosis and no clubbing Skin: no rashes, warm and dry Neurologic: moves all extremities and awake; no focal motor deficits Psychiatric: A+Ox3, euthymic affect Lymphatic: no lymphedema Results & Data Results & Data ([facility]) Vital Signs (Past 12 Hours) Vital Signs Temp Pulse Resp BP Pulse Ox Pulse Ox 09/13/21 17:32 72 26 H 139/78 91 09/13/21 16:16 72 29 H 93 09/13/21 12:22 81 18 92 09/13/21 11:43 37 C 74 30 H 130/74 92 92 09/13/21 07:30 36.9 C 74 32 H 121/91 93 09/13/21 07:29 81 28 H 92 Laboratory Results 09/13/21 09/13/21 Range/Units 09:34 09:34 WBC 8.97 (4.8-10.8) K/uL RBC 4.80 (4.7-6.1) M/uL Hgb 15.1 (14.0-18.0) g/dL Hct 46.2 (42-52) % MCV 96.3 (80-100) fL MCH 31.5 (25-34) pg MCHC 32.7 (32-36) g/dL RDW Std Deviation 47.8 H (36.4-46.3) fL RDW Coeff of Roberto Carlos 13.5 (11.5-14.5) % Plt Count 177 (130-400) K/uL MPV 9.7 (7.4-10.4) fL Immature Gran % (Auto) 0.3 % Neut % (Auto) 87.2 % Lymph % (Auto) 8.2 % [place] % (Auto) 4.2 % Eos % (Auto) 0.0 % Baso % (Auto) 0.1 % Neut # (Auto) 7.81 H (1.4-6.5) K/uL Lymph # (Auto) 0.74 L (1.2-3.4) K/uL [place] # (Auto) 0.38 (0.11-0.59) K/uL Eos # (Auto) 0.00 (0-0.5) K/uL Baso # (Auto) 0.01 (0-0.2) K/uL Immature Gran # (Auto) 0.03 H (0.00-0.02) K/uL Sodium 137 (136-145) mmol/L Potassium 3.7 D (3.5-5.1) mmol/L Chloride 105 (98-107) mmol/L Carbon Dioxide 24 (21-32) mmol/L Anion Gap 8.0 (3-11) BUN 18 (7-18) mg/dl Creatinine 0.84 (0.6-1.4) mg/dl Est Cr Clr Drug Dosing 110.9 ml/min Est GFR ( Amer) 100.7 ml/min Est GFR (Non-Af Amer) 86.9 ml/min BUN/Creatinine Ratio 21.1 H (10-20) Glucose 116 H (70-99) mg/dl Calcium 8.6 (8.5-10.1) mg/dl Total Bilirubin 0.4 (0.2-1) mg/dl AST 50 H (15-37) U/L ALT 59 (12-78) U/L Alkaline Phosphatase 53 (45-117) U/L C-Reactive Protein 5.38 H (0-0.29) mg/dl Total Protein 6.3 L (6.4-8.2) gm/dl Albumin 2.1 L (3.4-5.0) gm/dl Globulin 4.2 H (2.5-4.0) gm/dl Albumin/Globulin Ratio 0.5 L (0.9-2) PG Care Time/CCT Total # of Minutes Spent Total Time Spent with Patient: Total time spent is greater than 50% in coordination of care (as documented) at patient's floor/unit and/or counseling patient: Coding Level of Care Code 95917 Subseq Hosp Care Lvl 3 Diagnoses Pneumonia due to COVID-19 virus U07.1; J12.82 Hypoxia R09.02 ARIELLE (obstructive sleep apnea) G47.33 Hypertension I10 Obesity E66.9
[2021-09-13] MEDS: 4mg Daily x 14 days (eGFR >60 mL/min/1.73m2) PO SCH (22:41)
[2021-09-14] MEDS ORDERED: FUROSEMIDE INJ 20 MG/2 ML VIAL IV ONE (03:35)
[2021-09-14] MEDS: ENOXAPARIN 80 MG/0.8 ML SYR SQ SCH (06:40)
[2021-09-14] MEDS: LEVALBUTEROL HCL 1.25 MG/3 ML NEB NEB SCH ×4 (07:27→19:48)
[2021-09-14] MEDS: cefTRIAXone SODIUM 2,000 MG in DEXTROSE 5% 50 ML IV SCH (08:35)
[2021-09-14] MEDS: AZITHROMYCIN 250 MG TAB PO SCH (08:35)
[2021-09-14] MEDS: ASPIRIN 81 MG ECTAB PO SCH (08:35)
[2021-09-14] MEDS: dexAMETHasone 6 MG in SYRINGE 0 ML IV SCH (08:35)
[2021-09-14] MEDS: guaiFENesin 600 MG TABCR PO SCH ×2 (08:35→23:24)
[2021-09-14] MEDS: VITAMIN B COMPLEX TAB PO SCH (08:35)
[2021-09-14] MEDS: CHOLECALCIFEROL 1,000 UNITS 25 MCG TAB PO SCH (08:35)
[2021-09-14] MEDS: MULTIVITAMIN TAB PO SCH (08:35)
[2021-09-14 10:13] LABS: Basophils # (auto) 0.01 K/uL (0-0.2); Basophils % (auto) 0.1 %; Hematocrit (blood only) 46.4 % (42-52); Hemoglobin 15.6 g/dL (14.0-18.0); Immature Granulocytes # (auto) 0.04 K/uL (0.00-0.02); Immature Granulocytes % (auto) 0.5 %; Lymphocytes # (auto) 0.65 K/uL (1.2-3.4); Lymphocytes % (auto) 7.4 %; Mean Corpuscular Hemoglobin 31.6 pg (25-34); Mean Corpuscular Hgb Conc 33.6 g/dL (32-36); Mean Corpuscular Volume 94.1 fL (80-100); Mean Platelet Volume 9.8 fL (7.4-10.4); Monocytes # (auto) 0.37 K/uL (0.11-0.59); Monocytes % (auto) 4.2 %; Neutrophils # (auto) 7.72 K/uL (1.4-6.5); Neutrophils % (auto) 87.8 %; Platelet Count 221 K/uL (130-400); RDW Coefficient of Variation 13.3 % (11.5-14.5); RDW Standard Deviation 45.9 fL (36.4-46.3); Red Blood Count 4.93 M/uL (4.7-6.1); White Blood Count 8.79 K/uL (4.8-10.8)
[2021-09-14 10:41] LABS: Albumin Level 2.2 gm/dl (3.4-5.0); BUN Creatinine Ratio 22.8 (10-20); Calcium 8.8 mg/dl (8.5-10.1); Creatinine Clr Calc Pharmacy 127.6 ml/min; Est GFR (African American) 106.7 ml/min; Potassium 3.6 mmol/L (3.5-5.1)
[2021-09-14 10:43] LABS: Albumin Globulin Ratio 0.5 (0.9-2); Bilirubin,Total 0.5 mg/dl (0.2-1); C Reactive Protein 8.38 mg/dl (0-0.29); Globulin 4.5 gm/dl (2.5-4.0); Total Protein 6.7 gm/dl (6.4-8.2)
--- NOTE | 2021-09-14 13:48 | Hospitalist Progress Note ---
Date of Service September 14, 2021 Assessment & Plan (1) Pneumonia due to COVID-19 virus: Plan: Acute hypoxic respiratory failure 2/2 COVID-19 pneumonia Symptoms began approximately 10-14 days ago, worsened 7 days prior to admission -CT angiogram of the chest upon admission was negative for PE but showed bilateral multifocal pneumonia. -With mild transaminitis secondary to Covid-19 -Procalcitonin negative - Continues to be requiring high flow nasal cannula at max settings of 60 L 100% FiO2 but is comfortable, not tachypneic or working to breathe. - Does desaturate with minimal exertion - Is not able to prone due to body habitus but has been sleeping on his side - CRP initially downtrending to 5.3, increased to 8.3 on 09/14. Continue to trend - Continue baricitinib daily. AST equiovocal, ALT normal. -Continue dexamethasone 6 mg IV every morning -Continue Xopenex nebs every 4 hours while awake and every 2 hours when necessary. -Continue ceftriaxone 2 g IV daily and azithromycin 250 mg p.o. once daily x5- day course for presumed secondary bacterial pneumonia given late presentation -Continue guaifenesin extended release 12 mg p.o. twice daily -Continue supplemental O2 with high flow nasal cannula and wean off as able to -continue on incentive spirometer and flutter valve -Encouraged continued side positioning or proning if possible -Follow CBC, CMP, CRP daily -if worsens overnight, would have to use CPAP if tolerated -Continue to consider IV Lasix if signs of increased volume (2) Hypoxia: Plan: Acute respiratory failure with hypoxia in setting of COVID19 pneumonia -Treatment as above (3) ARIELLE (obstructive sleep apnea): Plan: CPAP at bedtime as needed (4) Hypertension: Plan: continue to hold lisinopril (held on admission) (5) Obesity: Plan: BMI 44.5 Needs weight loss Plan: DVT prophylaxis-Lovenox 0.5 mg/KG every 24 hours Disposition-continued stay in [facility], PCU Prognosis guarded Discussed his care with his and family on the phone. Prefers updates be given to her Sister in law due to be ESL speaking, [facility] # [phone] Rohini FULL CODE Admission and Anticipated Discharge Date Admission Date: September 11, 2021 Subjective Remains on high flow nasal cannula, reports he overall feels little better than yesterday but gets short of breath with ambulation. Feels comfortable on high flow. Continues to have cough. No other change in symptoms. Review of Systems Review of Systems: 10 point review of systems negative except as previously noted and as noted in HPI. Physical Exam Physical Exam: General: A&Ox3. NAD. Cooperative. HEENT: Atraumatic, normocephalic. Visual acuity and hearing grossly intact. Pulm: Bibasilar and scattered crackles without overt rales, no wheezes/rhonchi appreciated. Moderate to diminished air movement. No respiratory distress. Cardiac: RRR, -mrg. Radial pulses intact and symmetrical. Abdominal: Nontender, nondistended, soft. BS present. Ext: Moist/Warm. Moving all extremities equally. Results & Data Results & Data ([facility]) Vital Signs (Past 12 Hours) Vital Signs Temp Pulse Pulse Pulse Resp BP Pulse Ox 09/14/21 12:12 36.8 C 86 20 161/109 H 87 L 09/14/21 11:00 09/14/21 10:48 75 22 91 09/14/21 08:00 76 09/14/21 07:27 82 24 90 09/14/21 07:25 36.5 C 82 22 161/80 H 91 09/14/21 03:09 36.4 C L 71 19 137/85 95 09/14/21 02:42 73 27 H 93 09/14/21 02:30 26 H 70 L Pulse Ox 09/14/21 12:12 09/14/21 11:00 91 09/14/21 10:48 09/14/21 08:00 09/14/21 07:27 09/14/21 07:25 09/14/21 03:09 09/14/21 02:42 09/14/21 02:30 PG Care Time/CCT Total # of Minutes Spent Total Time Spent with Patient: Total time spent is greater than 50% in coordination of care (as documented) at patient's floor/unit and/or counseling patient: Coding Level of Care Code 63839 Subseq Hosp Care Lvl 3 Diagnoses Pneumonia due to COVID-19 virus U07.1; J12.82 Hypoxia R09.02 ARIELLE (obstructive sleep apnea) G47.33 Hypertension I10 Obesity E66.9
[2021-09-14] MEDS: 4mg Daily x 14 days (eGFR >60 mL/min/1.73m2) PO SCH (23:23)
[2021-09-15] MEDS: ENOXAPARIN 80 MG/0.8 ML SYR SQ SCH (05:51)
[2021-09-15] MEDS: LEVALBUTEROL HCL 1.25 MG/3 ML NEB NEB SCH (07:18)
[2021-09-15] MEDS: ASPIRIN 81 MG ECTAB PO SCH (08:28)
[2021-09-15] MEDS: AZITHROMYCIN 250 MG TAB PO SCH (08:28)
[2021-09-15] MEDS: CHOLECALCIFEROL 1,000 UNITS 25 MCG TAB PO SCH (08:28)
[2021-09-15] MEDS: MULTIVITAMIN TAB PO SCH (08:29)
[2021-09-15] MEDS: guaiFENesin 600 MG TABCR PO SCH ×2 (08:29→22:24)
[2021-09-15] MEDS: VITAMIN B COMPLEX TAB PO SCH (08:29)
[2021-09-15] MEDS: dexAMETHasone 6 MG in SYRINGE 0 ML IV SCH (08:29)
[2021-09-15] MEDS: cefTRIAXone SODIUM 2,000 MG in DEXTROSE 5% 50 ML IV SCH (08:36)
[2021-09-15] MEDS ORDERED: LEVALBUTEROL HCL 1.25 MG/3 ML NEB NEB PRN (09:38)
[2021-09-15 11:29] LABS: Basophils # (auto) 0.02 K/uL (0-0.2); Basophils % (auto) 0.2 %; Eosinophils # (auto) 0.01 K/uL (0-0.5); Eosinophils % (auto) 0.1 %; Immature Granulocytes # (auto) 0.07 K/uL (0.00-0.02); Immature Granulocytes % (auto) 0.7 %; Lymphocytes # (auto) 0.46 K/uL (1.2-3.4); Lymphocytes % (auto) 4.8 %; Mean Corpuscular Hemoglobin 32.1 pg (25-34); Mean Corpuscular Volume 94.2 fL (80-100); Mean Platelet Volume 9.8 fL (7.4-10.4); Monocytes # (auto) 0.44 K/uL (0.11-0.59); Monocytes % (auto) 4.6 %; Neutrophils # (auto) 8.63 K/uL (1.4-6.5); Neutrophils % (auto) 89.6 %; Platelet Count 240 K/uL (130-400); RDW Coefficient of Variation 13.2 % (11.5-14.5); RDW Standard Deviation 45.4 fL (36.4-46.3); Red Blood Count 4.99 M/uL (4.7-6.1); White Blood Count 9.63 K/uL (4.8-10.8)
[2021-09-15 11:57] LABS: BUN Creatinine Ratio 28.3 (10-20); Calcium 8.9 mg/dl (8.5-10.1); Creatinine Clr Calc Pharmacy 149.8 ml/min; Est GFR (African American) 114.1 ml/min; Est GFR (Non-African American) 98.4 ml/min; Potassium 3.7 mmol/L (3.5-5.1)
[2021-09-15 11:59] LABS: C Reactive Protein 9.99 mg/dl (0-0.29)
--- NOTE | 2021-09-15 13:34 | Hospitalist Progress Note ---
Date of Service September 15, 2021 Assessment & Plan (1) Pneumonia due to COVID-19 virus: Plan: Acute hypoxic respiratory failure 2/2 COVID-19 pneumonia Symptoms began approximately 10-14 days ago, worsened 7 days prior to admission -CT angiogram of the chest upon admission was negative for PE but showed bilateral multifocal pneumonia. -With mild transaminitis secondary to Covid-19 -Procalcitonin negative -Continues to require high flow nasal cannula currently at 60 L / 30%, not tachypneic or with increased work of breathing on exam - Does desaturate with minimal exertion - Is not able to prone due to body habitus but has been sleeping on his side - CRP initially downtrending to 5.3, CRP uptrending. Continue to trend. in context of severe COVID, but if continues to increase consider repeat CT +/- expansion to Cefepime/Zosyn - Continue baricitinib daily. AST equiovocal, ALT normal. -Continue dexamethasone 6 mg IV every morning -Continue Xopenex nebs every 4 hours while awake and every 2 hours when nece ssary. -Continue ceftriaxone 2 g IV daily and azithromycin 250 mg p.o. once daily x5- day course for presumed secondary bacterial pneumonia given late presentation -Continue guaifenesin extended release 12 mg p.o. twice daily -Continue supplemental O2 with high flow nasal cannula and wean off as able to -continue on incentive spirometer and flutter valve -Encouraged continued side positioning or proning if possible -Follow CBC, CMP, CRP daily -if worsens overnight, would have to use CPAP if tolerated - CR wnl, additional dose of lasix 40 given (2) Hypoxia: Plan: Acute respiratory failure with hypoxia in setting of COVID19 pneumonia -Treatment as above (3) ARIELLE (obstructive sleep apnea): Plan: CPAP at bedtime as needed (4) Hypertension: Plan: continue to hold lisinopril (held on admission) (5) Obesity: Plan: BMI 44.5 Needs weight loss Plan: DVT prophylaxis-Lovenox 0.5 mg/KG every 24 hours Disposition-continued stay in Covid precautions, PCU Prognosis guarded Discussed his care with his and family on the phone. Prefers updates be given to her Sister in law due to be ESL speaking, [facility] # [phone] Rohini FULL CODE Admission and Anticipated Discharge Date Admission Date: September 11, 2021 Subjective Remains on high flow nasal cannula. Reports he feels like he is improving and energy is better, but continues to require high flow nasal cannula 60 L / 30%. Denies fevers, chills, is warm to the touch and slightly clammy. Diffuse crackles, air movement greatly improves when patient sits up and following using I-S/flutter valve. Discussed requirements for discharge including improvement in oxygen requirements to a reasonable level on nasal cannula while maintaining good oxygen saturation. Not yet ready at this time. No additional questions or concerns at time of visit. Review of Systems Review of Systems: 10 point review of systems negative except as previously noted and as noted in HPI. Physical Exam Physical Exam: General: A&Ox3. NAD. Cooperative. HEENT: Atraumatic, normocephalic. Visual acuity and hearing grossly intact. Pulm: Bibasilar and scattered crackles without overt rales, no wheezes/rhonchi appreciated. Moderate to diminished air movement which improves when patient sits up and following I-S/flutter valve use. No respiratory distress. Cardiac: RRR, -mrg. Radial pulses intact and symmetrical. Abdominal: Nontender, nondistended, soft. BS present. Ext: Moist/Warm. Moving all extremities equally. Results & Data Results & Data ([facility]) Vital Signs (Past 12 Hours) Vital Signs Temp Pulse Pulse Resp BP BP Pulse Ox 09/15/21 11:29 36.7 C 75 20 120/74 90 09/15/21 10:40 87 20 90 09/15/21 10:38 79 20 90 09/15/21 07:31 36.9 C 73 22 149/79 H 92 09/15/21 07:27 62 09/15/21 07:22 70 20 88 L 09/15/21 03:33 65 16 90 09/15/21 03:22 68 22 89 L 09/15/21 02:39 37.3 C 65 26 H 123/71 92 PG Care Time/CCT Total # of Minutes Spent Total Time Spent with Patient: Total time spent is greater than 50% in coordination of care (as documented) at patient's floor/unit and/or counseling patient: Coding Level of Care Code 70304 Subseq Hosp Care Lvl 3 Diagnoses Pneumonia due to COVID-19 virus U07.1; J12.82 Hypoxia R09.02 ARIELLE (obstructive sleep apnea) G47.33 Hypertension I10 Obesity E66.9
[2021-09-15] MEDS ORDERED: FUROSEMIDE 40 MG/4 ML VIAL IV ONE ×2 (13:38→23:55)
[2021-09-15] MEDS: 4mg Daily x 14 days (eGFR >60 mL/min/1.73m2) PO SCH (22:23)
[2021-09-16] MEDS ORDERED: LORazepam 0.5 MG/1 ML VIAL IV STA (00:41)
--- NOTE | 2021-09-16 05:33 | Communication Note ---
Date of Service: September 16, 2021 Subjective: Nursing notified me that the patient was requiring BiPAP, was not tolerating and had taken it off which lead to a desaturation to 55%, with recovery when he had BiPAP back on. His anxiety improved with Ativan and was tolerating the BiPAP after this. He wanted to change his code status to DNI per nursing, unclear if this is related to his anxiety and intolerance of BiPAP. He is currently Full Code from admission. Objective: on Bipap RR 26 02 saturation 93% A/P: Nebs, Lasix, and attempt to prone although due to body habitus pt. only able to lay on his side. - Code status will need to be clarified and the patient may need to be transferred potentially to PCU if continuing to require BiPAP - Tyler catheter was ordered as patient had several episodes of incontinence after receiving Lasix and was not tolerating position changes
[2021-09-16] MEDS: ENOXAPARIN 80 MG/0.8 ML SYR SQ SCH (05:44)
[2021-09-16 06:54] LABS: Basophils # (auto) 0.02 K/uL (0-0.2); Basophils % (auto) 0.2 %; Hematocrit (blood only) 55.5 % (42-52); Hemoglobin 18.6 g/dL (14.0-18.0); Immature Granulocytes # (auto) 0.06 K/uL (0.00-0.02); Immature Granulocytes % (auto) 0.5 %; Lymphocytes # (auto) 0.44 K/uL (1.2-3.4); Lymphocytes % (auto) 3.8 %; Mean Corpuscular Hemoglobin 31.6 pg (25-34); Mean Corpuscular Volume 94.4 fL (80-100); Monocytes # (auto) 0.65 K/uL (0.11-0.59); Monocytes % (auto) 5.6 %; Neutrophils # (auto) 10.47 K/uL (1.4-6.5); Neutrophils % (auto) 89.9 %; Platelet Count 258 K/uL (130-400); RDW Coefficient of Variation 13.3 % (11.5-14.5); Red Blood Count 5.88 M/uL (4.7-6.1); White Blood Count 11.64 K/uL (4.8-10.8)
[2021-09-16 06:57] LABS: Mean Corpuscular Hgb Conc 33.5 g/dL (32-36)
[2021-09-16 07:42] LABS: BUN Creatinine Ratio 25.4 (10-20); C Reactive Protein 11.4 mg/dl (0-0.29); Calcium 9.4 mg/dl (8.5-10.1); Creatinine Clr Calc Pharmacy 110.2 ml/min; Est GFR (African American) 101.7 ml/min; Est GFR (Non-African American) 87.7 ml/min; Potassium 3.8 mmol/L (3.5-5.1)
[2021-09-16] MEDS: dexAMETHasone 6 MG in SYRINGE 0 ML IV SCH (08:19)
[2021-09-16] MEDS: AZITHROMYCIN 250 MG TAB PO SCH (08:24)
[2021-09-16] MEDS: ASPIRIN 81 MG ECTAB PO SCH (08:24)
[2021-09-16] MEDS: CHOLECALCIFEROL 1,000 UNITS 25 MCG TAB PO SCH (08:24)
[2021-09-16] MEDS: MULTIVITAMIN TAB PO SCH ×2 (08:24→10:12)
[2021-09-16] MEDS: guaiFENesin 600 MG TABCR PO SCH ×2 (08:24→22:20)
[2021-09-16] MEDS: VITAMIN B COMPLEX TAB PO SCH (08:24)
[2021-09-16] MEDS: cefTRIAXone SODIUM 2,000 MG in DEXTROSE 5% 50 ML IV SCH (08:40)
--- NOTE | 2021-09-16 08:44 | XRay Report ---
XR chest 1V portable CLINICAL HISTORY: HFR, COVID. Shortness of breath COMPARISON STUDY: 09/10/2021 TECHNIQUE: 1 view of the chest FINDINGS: Single frontal view of the chest demonstrates the cardiomediastinal silhouette to be within normal li mits. Compared to the previous examination, there has been significant interval increase in patchy in terstitial and alveolar opacities are present bilaterally. The findings are most characteristic of a viral type pneumonitis. Covid 19 pneumonia should be excluded. There is no evidence for pleural effus ion. There is no evidence for vascular congestion. There is no acute osseous pathology. IMPRESSION: Interval worsening of patchy interstitial and alveolar opacities bilaterally characterist ic of viral type pneumonitis and Covid pneumonia. ACT 112: Negative or not required by law. Electronically signed by: Justin Conway M.D. 09/16/2021 8:42 AM
--- NOTE | 2021-09-16 12:31 | Hospitalist Progress Note ---
Date of Service September 16, 2021 Assessment & Plan (1) Pneumonia due to COVID-19 virus: Plan: Acute hypoxic respiratory failure 2/2 COVID-19 pneumonia Symptoms began approximately 10-14 days ago, worsened 7 days prior to admission -CT angiogram of the chest upon admission was negative for PE but showed bilateral multifocal pneumonia. -With mild transaminitis secondary to Covid-19 -Procalcitonin negative -Continues to require high flow nasal cannula currently at 60 L / 30%, not tachypneic or with increased work of breathing on exam - Does desaturate with minimal exertion - Is not able to prone due to body habitus but has been sleeping on his side - CRP initially downtrending to 5.3, then has continued to uptrend. Repeat chest x-ray with interval worsening of patchy interstitial and alveolar airspace opacities bilaterally consistent with viral pneumonitis and worsening Covid pneumonia. No lobar consolidations appreciated. Patient completed 5 days of Rocephin/Zithromax average for concern of bacterial secondary infection given late presentation, however at this time his x-ray and appearance appears consistent with severe COVID. - Continue baricitinib daily. AST equiovocal, ALT normal. -Dexamethasone increased to 10 mg IV -Continue Xopenex nebs every 4 hours while awake and every 2 hours when necessary. -Patient completed a 5-day course of continue ceftriaxone 2 g IV daily and azithromycin 250 mg p.o. once daily x5-day course for presumed secondary bacterial pneumonia given late presentation, x-ray and follow-up at this time appears consistent with severe COVID with no signs of lobar pneumonia -Continue guaifenesin extended release 12 mg p.o. twice daily -Continue supplemental O2 with high flow nasal cannula and wean off as able to -continue on incentive spirometer and flutter valve -Encouraged continued side positioning or proning if possible -Follow CBC, CMP, CRP daily -if worsens overnight, would have to use CPAP if tolerated - CR wnl, additional dose of lasix 40 given (2) Hypoxia: Plan: Acute respiratory failure with hypoxia in setting of COVID19 pneumonia -Treatment as above (3) ARIELLE (obstructive sleep apnea): Plan: CPAP at bedtime as needed (4) Hypertension: Plan: continue to hold lisinopril (held on admission) (5) Obesity: Plan: BMI 44.5 Needs weight loss Plan: DVT prophylaxis-Lovenox 0.5 mg/KG every 24 hours Disposition-continued stay in Covid [facility], PCU Prognosis guarded Prefers updates be given to her Sister in law due to be ESL speaking, [facility] # [phone] Rohini FULL CODE Admission and Anticipated Discharge Date Admission Date: September 11, 2021 Subjective Patient seen at bedside this morning. In prone position, fatigued but awakens easily. Discussed prior evening and patient understanding of what had occurred. Patient reports he had been tolerating the CPAP mask well, but in the morning the mask is not working and was not delivering air or pressure. He felt like without the pressure/air delivery he could not breathe, and attempted to remove the mask as he felt like he was "suffocating ". Patient feels he is breathing okay on high flow at time of visit,. Revisited what patient would like done if his breathing were to deteriorate and discussed potential escalation to a endotracheal tube/intubation if even the CPAP was not enough to deliver oxygen. Patient confirms that he would want a breathing tube if his breathing were to decline and he were not oxygenating well. He is able to verbalize back the risk/benefits of intubation, and of deferring intubation and appears to have a good understanding of what this involves. At this point he appears to have a good understanding capacity, and confirms that he would like to remain full cod e. Otherwise he denies fever/chills/sweats. Endorses fatigue. Review of Systems Review of Systems: Negative except as noted otherwise and in subjective Physical Exam Physical Exam: General: A&Ox3. Appears fatigued and ill. HEENT: Atraumatic, normocephalic. Visual acuity and hearing grossly intact. Pulm: In prone position. scattered crackles without overt rales, no wheezes/rhonchi appreciated. Cardiac: RRR, -mrg. Radial pulses intact and symmetrical. Abdominal: Nontender, nondistended, soft. BS present. Ext: Moist/Warm. Moving all extremities equally. Results & Data Results & Data ([facility]) Vital Signs (Past 12 Hours) Vital Signs Temp Pulse Pulse Resp BP BP Pulse Ox 09/16/21 10:50 70 22 87 L 09/16/21 08:19 97 H 24 90 09/16/21 08:14 36.4 C L 90 09/16/21 08:00 70 12/06/21 07:40 37.8 C H 91 H 24 134/77 94 09/16/21 04:24 78 26 H 93 09/16/21 02:46 37.6 C H 98 H 24 133/89 94 PG Care Time/CCT Total # of Minutes Spent Total Time Spent with Patient: Total time spent is greater than 50% in coordination of care (as documented) at patient's floor/unit and/or counseling patient: Coding Level of Care Code 21011 Subseq Hosp Care Lvl 3 Diagnoses Pneumonia due to COVID-19 virus U07.1; J12.82 Hypoxia R09.02 ARIELLE (obstructive sleep apnea) G47.33 Hypertension I10 Obesity E66.9
[2021-09-16] MEDS: 4mg Daily x 14 days (eGFR >60 mL/min/1.73m2) PO SCH (22:19)
[2021-09-17] MEDS: ENOXAPARIN 80 MG/0.8 ML SYR SQ SCH (05:23)
[2021-09-17 06:36] LABS: Basophils # (auto) 0.02 K/uL (0-0.2); Basophils % (auto) 0.2 %; Eosinophils # (auto) 0.05 K/uL (0-0.5); Eosinophils % (auto) 0.4 %; Hemoglobin 17.6 g/dL (14.0-18.0); Immature Granulocytes % (auto) 0.8 %; Lymphocytes # (auto) 0.65 K/uL (1.2-3.4); Lymphocytes % (auto) 5.3 %; Mean Corpuscular Hemoglobin 32.2 pg (25-34); Mean Corpuscular Hgb Conc 33.8 g/dL (32-36); Mean Corpuscular Volume 95.2 fL (80-100); Mean Platelet Volume 9.7 fL (7.4-10.4); Monocytes # (auto) 0.43 K/uL (0.11-0.59); Monocytes % (auto) 3.5 %; Neutrophils # (auto) 10.95 K/uL (1.4-6.5); Neutrophils % (auto) 89.8 %; Platelet Count 256 K/uL (130-400); RDW Coefficient of Variation 13.2 % (11.5-14.5); RDW Standard Deviation 46.2 fL (36.4-46.3); Red Blood Count 5.46 M/uL (4.7-6.1)
[2021-09-17 07:20] LABS: BUN Creatinine Ratio 25.6 (10-20); C Reactive Protein 13.5 mg/dl (0-0.29); Calcium 9.6 mg/dl (8.5-10.1); Creatinine Clr Calc Pharmacy 94.7 ml/min; Est GFR (African American) 91.7 ml/min; Est GFR (Non-African American) 79.1 ml/min; Potassium 3.7 mmol/L (3.5-5.1)
[2021-09-17] MEDS: AZITHROMYCIN 250 MG TAB PO SCH (09:59)
[2021-09-17] MEDS: ASPIRIN 81 MG ECTAB PO SCH (09:59)
[2021-09-17] MEDS: CHOLECALCIFEROL 1,000 UNITS 25 MCG TAB PO SCH (10:00)
[2021-09-17] MEDS: guaiFENesin 600 MG TABCR PO SCH ×2 (10:00→22:17)
[2021-09-17] MEDS: VITAMIN B COMPLEX TAB PO SCH (10:00)
[2021-09-17] MEDS: MULTIVITAMIN TAB PO SCH (10:00)
[2021-09-17] MEDS: dexAMETHasone 6 MG in SYRINGE 0 ML IV SCH (10:00)
[2021-09-17] MEDS: cefTRIAXone SODIUM 2,000 MG in DEXTROSE 5% 50 ML IV SCH (10:08)
[2021-09-17] MEDS ORDERED: OPTIRAY 320 125ml IV ONE (11:41)
--- NOTE | 2021-09-17 11:54 | CT Scan Report ---
CT angio chest PE protocol CLINICAL HISTORY: worsening AHRF, uptrend CRP, COVID+ . Worsening interstitial and alveolar opacities radiographically. COMPARISON STUDY: CTA from 09/11/2021 and portable chest from 09/16/2021 CT DOSE: 932.18 mGy.cm TECHNIQUE: CT Angio of the chest was performed.followed by image post processing with coronal, and s agittal MIP reformats. Contrast Volume: Optiray 320, 120 ml FINDINGS: Vasculature: There is homogeneous perfusion of the pulmonary vasculature bilaterally. No intraluminal filling defects or evidence for pulmonary embolus is seen. Airway: The airway is clear. No endobronchial lesion is identified. Lungs: Compared to the previous examination, there is worsening extensive groundglass opacities are p resent throughout both lungs characteristic of a viral type pneumonitis and Covid 19 pneumonia. The l ungs are otherwise clear of confluent alveolar opacities, air bronchograms or pulmonary nodules. Pleura: There is no evidence for pleural effusion. There is no evidence for pneumothorax. Mediastinum: There is no evidence for pathologic adenopathy. The heart size is again enlarged. The th oracic aorta is within normal limits. There is no evidence for pericardial effusion. Upper abdomen:The adrenal glands are normal bilaterally. Osseous structures: There is no acute osseous pathology. Impression: 1. No CTA evidence for pulmonary embolus. 2. Interval worsening of extensive groundglass opacities throughout both lungs characteristic of a vi ral type pneumonitis and Covid 19 pneumonia. ACT 112: Negative or not required by law. Electronically signed by: Justin Conway M.D. 09/17/2021 11:52 AM
--- NOTE | 2021-09-17 14:51 | Hospitalist Progress Note ---
Date of Service September 17, 2021 Assessment & Plan (1) Pneumonia due to COVID-19 virus: Plan: Acute hypoxic respiratory failure 2/2 COVID-19 pneumonia Symptoms began approximately 10-14 days ago, worsened 7 days prior to admission -CT angiogram of the chest upon admission was negative for PE but showed bilateral multifocal pneumonia. -With mild transaminitis secondary to Covid-19 -Procalcitonin negative -Continues to require high flow nasal cannula currently at 60 L / 30%, not tachypneic or with increased work of breathing on exam - Does desaturate with minimal exertion and improves when found - Is not able to prone due to body habitus but has been sleeping on his side - CRP initially downtrending to 5.3, then has continued to uptrend. Repeat chest x-ray with interval worsening of patchy interstitial and alveolar airspace opacities bilaterally consistent with viral pneumonitis and worsening Covid pneumonia. No lobar consolidations appreciated. Patient completed 5 days of Rocephin/Zithromax average for concern of bacterial secondary infection given late presentation, however x-ray and appearance consistent with severe COVID. - Continue baricitinib daily. AST equiovocal, ALT normal. -Dexamethasone 10 mg IV -Continue Xopenex nebs every 4 hours while awake and every 2 hours when necessary. -Patient completed a 5-day course of continue ceftriaxone 2 g IV daily and azithromycin 250 mg p.o. once daily x5-day course for presumed secondary bacter ial pneumonia given late presentation, x-ray consistent with severe COVID with no signs of lobar pneumonia -Continue guaifenesin extended release 12 mg p.o. twice daily -Continue supplemental O2 with high flow nasal cannula and wean off as able to -continue on incentive spirometer and flutter valve -Encouraged continued side positioning or proning if possible -Follow CBC, CMP, CRP daily -if worsens overnight, would have to use CPAP if tolerated -Creatinine remains at baseline, continue Lasix daily 09/17: CTA given high oxygen requirement, uptrending CRP to 13.5 and fever obtained. CTA: 1. No CTA evidence for pulmonary embolus. Interval worsening of extensive groundglass opacities throughout both lungs characteristic of a viral type pneumonitis and Covid 19 pneumonia. 09/17: lobar pneumonia or consolidation suggestive of superimposed/worsening bacterial pneumonia. Consistent with severe worsening Covid. Continue treatment as above. (2) Hypoxia: Plan: Acute respiratory failure with hypoxia in setting of COVID19 pneumonia -Treatment as above (3) ARIELLE (obstructive sleep apnea): Plan: CPAP at bedtime as needed (4) Hypertension: Plan: continue to hold lisinopril (held on admission) (5) Obesity: Plan: BMI 44.5 Needs weight loss Plan: DVT prophylaxis-Lovenox 0.5 mg/KG every 24 hours Disposition-continued stay in Covid precautions, PCU Prognosis guarded Prefers updates be given to her Sister in law due to be ESL speaking, [facility] # [phone] Rohini FULL CODE Admission and Anticipated Discharge Date Admission Date: September 11, 2021 Subjective Seen at bedside. Still feels fatigued, "better "with oxygen, but easily fatigued at rest. Patient reports his goal is to get home, where he is very sick with Covid. Affirms that he wants full treatment for Covid, and in the event that his breathing were to worsen he would want a trial of intubation if indicated. Patient reports feeling a little cold this morning, denies chills. Endorses cough. Denies constipation, abdominal pain. Review of Systems Review of Systems: Negative except as noted otherwise and in subjective Physical Exam Physical Exam: General: A&Ox3. Appears fatigued and ill. HEENT: Atraumatic, normocephalic. Visual acuity and hearing grossly intact. Pulm: None back, moderate air movement with scattered crackles and without rales on exam. No wheezes. Cardiac: RRR, -mrg. Radial pulses intact and symmetrical. Abdominal: Nontender, nondistended, soft. BS present. Ext: Moist/Warm. Moves all extremities Results & Data Results & Data ([place]) Vital Signs (Past 12 Hours) Vital Signs Temp Pulse Pulse Resp BP Pulse Ox 09/17/21 14:11 90 24 89 L 09/17/21 11:51 37.8 C H 92 H 18 122/77 90 09/17/21 11:30 85 26 H 90 09/17/21 11:14 93 H 26 H 87 L 09/17/21 07:56 37.2 C 58 L 20 130/85 100 09/17/21 07:30 88 09/17/21 03:56 36.8 C 86 18 157/83 H 94 09/17/21 03:22 84 94 PG Care Time/CCT Total # of Minutes Spent Total Time Spent with Patient: Total time spent is greater than 50% in coordination of care (as documented) at patient's floor/unit and/or counseling patient: Coding Level of Care Code 71125 Subseq Hosp Care Lvl 3 Diagnoses Pneumonia due to COVID-19 virus U07.1; J12.82 Hypoxia R09.02 ARIELLE (obstructive sleep apnea) G47.33 Hypertension I10 Obesity E66.9
[2021-09-17] MEDS ORDERED: FUROSEMIDE 40 MG/4 ML VIAL IV ONE (16:43)
--- NOTE | 2021-09-17 18:01 | Critical Care Consultation ---
Date of Consultation September 17, 2021 Assessment & Plan (1) Pneumonia due to COVID-19 virus: (2) Obesity: (3) ARDS (adult respiratory distress syndrome): Impression: 71-year-old unvaccinated male with Covid and refractory hypoxemia and ARDS. Recommendations: 1. Neurologic: The patient is awake alert and conversant. Continue to monitor. 2. Cardiovascular: No acute issues. Continue to monitor. We will check a BNP. He did receive 1 dose of Lasix. 3. Pulmonary: ARDS physiology secondary to COVID-[address] angiogram performed today showed no evidence of PE but did show multifocal groundglass opacities consistent with viral pneumonitis. Given that he is about 3 weeks out from symptom onset with progressive pulmonary infiltrates and rising CRP, he is at risk for late-phase fibroproliferative ARDS. We will place him on Dex ARDS protocol (20 mg a day for 5 days followed by 10 mg a day for 5 days). Continue baricitinib for now although I doubt it is going to have a clinical impact. If he escalates to intubation mechanical ventilation this will need to be disco ntinued. No indication for Calciferol so this will be discontinued. Normal procalcitonin so no indication for antimicrobial therapy. Patient is unsure what interventions he wants to proceed with. We will request palliative care consultation to better define goals of therapy. For now he does not require urgent intervention such as intubation or mechanical ventilation as he is very comfortable. As long as we can keep oxygen saturations between 85 and 88% this would be acceptable. If he fails may consider retrying noninvasive positive pressure ventilation or proceeding to intubation mechanical ventilation. If we are to intubate the patient, family and patient would need to be agreeable to potential tracheostomy as the patient's overall outcome would be guarded. Will ask palliative care to assist with defining goals of therapy. 4. ID: COVID-19 pneumonitis. Procalcitonin was negative. Discontinue antibiotics. He is at risk for secondary infections but would continue to monitor for now. 5. Renal: Mild hyponatremia. Continue to follow for now. Will place on ICU electrolyte replacement course. 6. Heme-onc: No active issues. DVT prophylaxis per [employer] guidelines. 7. Endocrine: ICU glycemic protocol. 8. GI: Diet as tolerated. Patient's overall prognosis is guarded. He definitely needs to make some decisions about how aggressive he wants to be in the course of his illness. If he continues to refuse interventions, transition to palliative care would be appropriate. Total of 50 minutes critical care time was spent in evaluation management of this patient including review the electronic medical record, discussion with the hospitalist, discussion with the charge nurses and respiratory therapist. History of Present Illness Attending Physician: Kimo Sevilla MD History of Present Illness Asked by hospitalist to evaluate this patient with hypoxemic respiratory failure secondary to Covid pneumonitis. History is obtained from discussion with the patient, hospitalist, and reviewed electronic medical record. Patient is an obese 71-year-old unvaccinated male. He was admitted to the facility 09/10/2021 with 2 weeks of antecedent shortness of breath cough and myalgias. He has been on high flow oxygen throughout his hospitalization. He is not been able to prone due to body habitus and has been poorly tolerant of CPAP or BiPAP. I was contacted earlier today by the hospitalist as they felt that his respiratory status was declining. I evaluated the patient at bedside. He is currently awake alert and conversant. He is not exhibiting any increased work of breathing or any respiratory distress. His oxygen saturations are 89% on high flow 60 L/min and 100% FiO2. He does not report any cough or wheezing. He states that he is not sure that he can use CPAP and is not motivated to try it. He also states that he does not want to be put in a medically induced coma therefore it seems that he is not willing to undergo intubation. When I questioned him specifically, he states "well I have to think about it and I cannot make that decision by myself.". I advised the patient that we were at the position of having to make the decision. He is currently being moved to the intensive care unit for closer monitoring. Patient has been being treated with baricitinib. Allergies Allergy/AdvReac Type Severity Reaction Status Date / Time bee venom protein (honey bee) Allergy Unknown SWELLING Verified 09/11/21 00:09 AT SITE oxycodone AdvReac Verified 09/11/21 00:09 Home Medications Medication Instructions Recorded Confirmed Type ascorbic acid (vitamin C) 100 mg 100 mg PO DAILY tab 05/30/19 09/11/21 History tablet cholecalciferol (vitamin D3) 125 5,000 units PO DAILY cap 05/30/19 09/11/21 History mcg (5,000 unit) capsule multivitamin (Multiple Vitamins) 1 tab PO DAILY 05/30/19 09/10/21 History omega-3 acid ethyl esters 1 gram 1 cap PO DAILY cap 05/30/19 09/11/21 History capsule vitamin B complex 1 cap PO DAILY 05/30/19 09/11/21 History vitamin E (dl, acetate) 45 mg (100 100 units PO DAILY cap 05/30/19 09/11/21 History unit) capsule cranberry 400 mg capsule 400 mg PO DAILY 06/06/19 09/11/21 History lisinopril 5 mg tablet 5 mg PO DAILY #90 tab 05/27/21 09/10/21 Rx cefdinir 300 mg capsule 300 mg PO BID 10 Days #20 cap 09/09/21 09/11/21 Rx doxycycline hyclate 100 mg tablet 100 mg PO BID 10 Days #20 tab 09/09/21 09/11/21 Rx albuterol sulfate 90 mcg/actuation 3 inh INHALATION Q6H PRN 09/11/21 09/11/21 History aerosol inhaler aspirin 81 mg tablet,delayed 81 mg PO DAILY 09/11/21 09/11/21 History release Patient History Medical History Abnormality of thoracic aorta BMI 45.0-49.9, adult Chronic venous stasis dermatitis Diverticulosis Dyspnea on exertion Fatigue Generalized osteoarthritis of multiple sites Hiatal hernia Hypertension Morbid obesity Nocturnal hypoxemia Ringing in ears Vitamin D deficiency Surgical History Status post hip replacement Family History Father Emphysema lung Stroke Brother Hypertension Mother No pertinent family history in first degree relatives Sister No pertinent family history in first degree relatives Social History Smoking Status: Never smoker Second Hand Exposure: No; Hx Alcohol Use: Yes Alcohol type: beer and wine Alcohol Intake Frequency: 2-4 x/Month Hx Substance Use: No Preferred Language: Kiswahili Communication Ability: Effective Visual Impairment: No Limitations Hearing Ability: Use of Hearing Aid School Psychologist Required: No marital status: Current Living Situation: Spouse Feels Safe at Home: Yes Seatbelt Use: always Assistive Devices: Oxygen - Continuous Review of Systems Review of Systems: All systems reviewed & are unremarkable except as noted in Subjective Physical Exam Constitutional: WD/WN, vitals as above + morbidly obese; not ill appearing Neck: trachea midline, no thyromegaly Respiratory: normal respiratory effort; no respiratory distress and no labored breathing Auscultation: + crackles Cardiovascular: RRR, no murmur, no edema Gastrointestinal (Abdomen): normal bowel sounds, soft, nontender, no hepatosplenomegaly Musculoskeletal: Extremities: extremities normal to inspection Skin: no rashes, warm and dry Neurologic: Nonfocal exam Lymphatic: no cervical lymphadenopathy Results & Data Results & Data ([facility]) Vital Signs (Past 12 Hours) Vital Signs Temp Pulse Pulse Resp BP Pulse Ox 09/17/21 16:35 37.1 C 85 22 129/76 09/17/21 16:00 82 09/17/21 15:28 37.7 C H 74 22 111/69 91 09/17/21 14:11 90 24 89 L 09/17/21 11:51 37.8 C H 92 H 18 122/77 90 09/17/21 11:30 85 26 H 90 09/17/21 11:14 93 H 26 H 87 L 09/17/21 07:56 37.2 C 58 L 20 130/85 100 09/17/21 07:30 88 Critical Care Results & Data Vital Signs (Past 12 Hours) Vital Signs Temp Pulse Pulse Resp BP Pulse Ox 09/17/21 16:35 37.1 C 85 22 129/76 09/17/21 16:00 82 09/17/21 15:28 37.7 C H 74 22 111/69 91 09/17/21 14:11 90 24 89 L 09/17/21 11:51 37.8 C H 92 H 18 122/77 90 09/17/21 11:30 85 26 H 90 09/17/21 11:14 93 H 26 H 87 L 09/17/21 07:56 37.2 C 58 L 20 130/85 100 09/17/21 07:30 88 Lab & Micro Results (Past 24 Hours) RBC 5.46 M/uL (4.7-6.1) 09/17/21 WBC 12.20 K/uL (4.8-10.8) H 09/17/21 Hgb 17.6 g/dL (14.0-18.0) 09/17/21 Hct 52.0 % (42-52) 09/17/21 MCV 95.2 fL (80-100) 09/17/21 MCH 32.2 pg (25-34) 09/17/21 MCHC 33.8 g/dL (32-36) 09/17/21 RDW Standard Deviation 46.2 fL (36.4-46.3) 09/17/21 RDW Coefficient of Variation 13.2 % (11.5-14.5) 09/17/21 Plt Count 256 K/uL (130-400) 09/17/21 MPV 9.7 fL (7.4-10.4) 09/17/21 Neutrophils (%) (Auto) 89.8 % 09/17/21 Lymphocytes (%) (Auto) 5.3 % 09/17/21 Monocytes # (Auto) 0.43 K/uL (0.11-0.59) 09/17/21 Eosinophils # (Auto) 0.05 K/uL (0-0.5) 09/17/21 Immature Granulocyte % (Auto) 0.8 % 09/17/21 Neutrophils # (Auto) 10.95 K/uL (1.4-6.5) H 09/17/21 Lymphocytes # (Auto) 0.65 K/uL (1.2-3.4) L 09/17/21 Monocytes # (Auto) 0.43 K/uL (0.11-0.59) 09/17/21 Eosinophils # (Auto) 0.05 K/uL (0-0.5) 09/17/21 Basophils # (Auto) 0.02 K/uL (0-0.2) 09/17/21 Immature Granulocyte # (Auto) 0.10 K/uL (0.00-0.02) H 09/17/21 Na 134 mmol/L (136-145) L 09/17/21 K 3.7 mmol/L (3.5-5.1) 09/17/21 Cl 97 mmol/L (98-107) L 09/17/21 CO2 31 mmol/L (21-32) 09/17/21 Anion Gap 6.0 (3-11) 09/17/21 BUN 24 mg/dl (7-18) H 09/17/21 Creatinine 0.95 mg/dl (0.6-1.4) 09/17/21 Estimated GFR ( Amer) 91.7 ml/min 09/17/21 Estimated GFR (Non-Af Amer) 79.1 ml/min 09/17/21 BUN/Creatinine Ratio 25.6 (10-20) H 09/17/21 Glu 119 mg/dl (70-99) H 09/17/21 Ca 9.6 mg/dl (8.5-10.1) 09/17/21 Calcium Level 9.6 mg/dl (8.5-10.1) 09/17/21 06:07 09/17/21 Diagnostic Findings (Past 24 Hours) Chest CTA 09/17/21 08:12 CT angio chest PE protocol CLINICAL HISTORY: worsening AHRF, uptrend CRP, COVID+ . Worsening interstitial and alveolar opacities radiographically. COMPARISON STUDY: CTA from 09/11/2021 and portable chest from 09/16/2021 CT DOSE: 932.18 mGy.cm TECHNIQUE: CT Angio of the chest was performed.followed by image post processing with coronal, and sagittal MIP reformats. Contrast Volume: Optiray 320, 120 ml FINDINGS: Vasculature: There is homogeneous perfusion of the pulmonary vasculature bilaterally. No intraluminal filling defects or evidence for pulmonary embolus is seen. Airway: The airway is clear. No endobronchial lesion is identified. Lungs: Compared to the previous examination, there is worsening extensive groundglass opacities are present throughout both lungs characteristic of a vir al type pneumonitis and Covid 19 pneumonia. The lungs are otherwise clear of confluent alveolar opacities, air bronchograms or pulmonary nodules. Pleura: There is no evidence for pleural effusion. There is no evidence for pneumothorax. Mediastinum: There is no evidence for pathologic adenopathy. The heart size is again enlarged. The thoracic aorta is within normal limits. There is no evidence for pericardial effusion. Upper abdomen:The adrenal glands are normal bilaterally. Osseous structures: There is no acute osseous pathology. Impression: 1. No CTA evidence for pulmonary embolus. 2. Interval worsening of extensive groundglass opacities throughout both lungs characteristic of a viral type pneumonitis and Covid 19 pneumonia. ACT 112: Negative or not required by law. Electronically signed by: Justin Conway M.D. 09/17/2021 11:52 AM I & O Totals 24 Hours 09/16/21 09/17/21 09/18/21 06:59 06:59 06:59 Intake Total 670 / 670 470 / 470 890 / 890 Output Total 2601 / 2601 950 / 950 950 / 950 Balance -1931 / -1931 -480 / -480 -60 / -60 Cumulative 09/10/21 22:26 thru 09/17/21 17:42 Intake Total 5560 Output Total 9502 Balance -3942 RT Ventilator Mngmt (Last Documented) Ventilator Ordered Settings Respiratory Rate 22 09/17/21 16:35 Fraction of Inspired Oxygen 100 09/17/21 16:35 Ventilator - PT Measurements Respiratory Rate 22 Coding Level of Care Code Critical Care 1st 30-74 mins Diagnoses Pneumonia due to COVID-19 virus U07.1; J12.82 Obesity E66.9 ARDS (adult respiratory distress syndrome) J80 Time Spent (min) 50
[2021-09-17] MEDS: ICU ELECTROLYTE REPLACEMENT PROTOCOL SCH (18:47)
[2021-09-17] MEDS: 4mg Daily x 14 days (eGFR >60 mL/min/1.73m2) PO SCH (22:17)
[2021-09-18] MEDS: ENOXAPARIN 80 MG/0.8 ML SYR SQ SCH (05:44)
[2021-09-18 07:49] LABS: Basophils # (auto) 0.05 K/uL (0-0.2); Basophils % (auto) 0.4 %; Eosinophils # (auto) 0.08 K/uL (0-0.5); Eosinophils % (auto) 0.7 %; Hematocrit (blood only) 50.7 % (42-52); Hemoglobin 17.3 g/dL (14.0-18.0); Immature Granulocytes % (auto) 1.7 %; Lymphocytes # (auto) 0.83 K/uL (1.2-3.4); Lymphocytes % (auto) 6.9 %; Mean Corpuscular Hemoglobin 32.2 pg (25-34); Mean Corpuscular Hgb Conc 34.1 g/dL (32-36); Mean Corpuscular Volume 94.2 fL (80-100); Mean Platelet Volume 9.9 fL (7.4-10.4); Monocytes # (auto) 0.53 K/uL (0.11-0.59); Monocytes % (auto) 4.4 %; Neutrophils # (auto) 10.38 K/uL (1.4-6.5); Neutrophils % (auto) 85.9 %; Platelet Count 234 K/uL (130-400); RDW Standard Deviation 44.9 fL (36.4-46.3); Red Blood Count 5.38 M/uL (4.7-6.1); White Blood Count 12.07 K/uL (4.8-10.8)
--- NOTE | 2021-09-18 07:57 | XRay Report ---
XR chest 1V portable CLINICAL HISTORY: Resp failure. Follow-up airspace opacities COMPARISON STUDY: 09/16/2021 TECHNIQUE: 1 view of the chest FINDINGS: Single frontal view of the chest demonstrates the cardiomediastinal silhouette to be within normal li mits. There is a decreased inspiratory effort on the current study with elevation of hemidiaphragms a nd interval development of bibasilar atelectasis. Compared to the previous examination, there continu es to be interval worsening of interstitial and alveolar opacities bilaterally. There is no evidence for pleural effusion. There is no evidence for vascular congestion. There is no acute osseous patholo gy. IMPRESSION: Decreased inspiration with continued interval worsening of interstitial and alveolar opac ities bilaterally. This also been interval development of bibasilar atelectasis. ACT 112: Negative or not required by law. Electronically signed by: Justin Conway M.D. 09/18/2021 7:56 AM
[2021-09-18 08:23] LABS: BUN Creatinine Ratio 25.6 (10-20); Calcium 9.1 mg/dl (8.5-10.1); Creatinine Clr Calc Pharmacy 92.2 ml/min; Est GFR (African American) 89.4 ml/min; Est GFR (Non-African American) 77.1 ml/min; Magnesium 2.3 mg/dl (1.8-2.4); Potassium 4.1 mmol/L (3.5-5.1)
[2021-09-18 08:28] LABS: Phosphorus 3.6 mg/dl (2.5-4.9)
[2021-09-18] MEDS ORDERED: dexAMETHasone 20 MG in SYRINGE 0 ML IV SCH (09:00)
[2021-09-18] MEDS: guaiFENesin 600 MG TABCR PO SCH ×2 (09:07→21:09)
[2021-09-18] MEDS: VITAMIN B COMPLEX TAB PO SCH (09:07)
[2021-09-18] MEDS: MULTIVITAMIN TAB PO SCH (09:08)
[2021-09-18] MEDS: ASPIRIN 81 MG ECTAB PO SCH (09:08)
[2021-09-18] MEDS: dexAMETHasone 20 MG in DEXTROSE 5% 25 ML IV SCH (09:36)
--- NOTE | 2021-09-18 10:15 | Critical Care Progress Note ---
Date of Service September 18, 2021 Assessment & Plan (1) Pneumonia due to COVID-19 virus: (2) Obesity: (3) ARDS (adult respiratory distress syndrome): Plan: Attending: Dr. Lord Impression: 71-year-old unvaccinated male with Covid and refractory hypoxemia and ARDS. Patient transferred to room 202 overnight secondary to worsening respiratory status. He currently is on high flow supplemental oxygen. He refused CPAP as the mask was too tight. Patient also was not compliant with self proning. Discussion with patient and with his . At this time if he should worsen, he desires to be intubated and placed on mechanical ventilation. Reason Critically Ill: ARDS secondary to COVID-19 Neuro - [facility] ICU: Patient alert and oriented. Cardiac - Currently hemodynamically stable Home meds include lisinopril 5 mg p.o. daily Currently can take p.o. meds If patient is intubated, will need to adjust to as needed IV medications Respiratory - SARSCOV2+ 09/09/2021 Patient was refusing care and was discharged home from ER. Readmitted and now on high flow supplemental oxygen Does not tolerate CPAP or BiPAP. Does not tolerate self proning Currently on high flow oxygen at 60 L/min and an FiO2 of 90%. Respiratory rate is maintained between 18 and 24 breaths/min as a rule. Patient agreeable to intubation if needed Baricitinib started 09/17/2021 Continues with dexamethasone 6 mg IV Encourage incentive spirometry, self proning, compliance GI - We will start patient on famotidine due to high stress of Covid inflammation No PPI or H2 francesco on home med list RENAL/LYTES - BUN 25, creatinine 0.97 Electrolytes balanced Follow serial labs - [place] catheter as needed Strict I's and O's ENDO - No history of diabetes mellitus or hypothyroidism Watch BSG as patient was on high-dose IV steroids. May require sliding scale insulin HEME - Hemoglobin 17.3 Hemoglobin was 16.0 in 2018 ID - Procalcitonin 0.12 Afebrile WBC 12,000 Received ceftriaxone and azithromycin on admission. This has been discontinued. Patient was started on baricitinib 09/17/2021 No cultures collected Continue treat for Covid19/ARDS LINES/IV ACCESS - Peripheral IVs in place No indication for central line or arterial line at this time DVT PROPHYLAXIS - Patient currently on enoxaparin 70 mg subcutaneously every 24 hours CCT: 0 minutes independent of any procedures. Level 2 inpatient bill Thank you for including us in the care of this patient. Please refer to Dr. Lord's addendum for further recommendations. We will continue to follow along with you at this time. Admission and Anticipated Discharge Date Admission Date: September 11, 2021 Subjective Attending: Dr. Lord Patient seen and examined at bedside. He continues on high flow oxygen. He is conversant. He is extremely tired and lethargic. Currently not using accessory muscles for breathing. Discussion regarding progression of care. Patient wishes to be intubated if required and understands that this may be futile. States he has no fever or chills. No sweats. No nausea or vomiting. Still has taste and smell. No chest pain or pleuritic pain admitted. Discussion with nursing reveals patient is anorexic. Patient also is reluctant to self prone and is refusing CPAP/BiPAP mask. Review of Systems Review of Systems: All systems reviewed & are unremarkable except as noted in Subjective Physical Exam Physical Exam: GENERAL : Moderate respiratory distress. Patient awakens easily. EYES: No icterus, gaze conjugate. Pupils equal round and reactive to light NOSE: No evidence of epistaxis. High flow cannula in place. Repositioned for proper delivery of oxygen. MOUTH: No lesions or candidiasis. Mucosa dry NECK: Supple LUNGS: Decreased breath sounds globally. Patient does have some basilar crackles. HEART: Regular, rate controlled ABDOMEN: Soft, NT, ND, BS Present EXTREMITIES: No LE edema, pedal pulses intact NEURO: A&OX3 Results & Data Results & Data ([facility]) Vital Signs (Past 12 Hours) Vital Signs Temp Pulse Resp BP Pulse Ox 09/18/21 07:42 36.5 C 88 22 139/84 89 L 09/18/21 07:02 84 24 94 09/18/21 03:23 36.9 C 78 22 161/107 H 90 09/18/21 02:45 86 24 90 09/17/21 22:37 36.8 C 78 21 114/55 L 88 L Laboratory Results 09/18/21 07:15 09/18/21 07:15 Laboratory Tests 09/09/21 12:56 SARS-CoV-2 RNA ([facility]) POSITIVE A* Diagnostic Findings Chest X-Ray 09/18/21 07:00 XR chest 1V portable CLINICAL HISTORY: Resp failure. Follow-up airspace opacities COMPARISON STUDY: 09/16/2021 TECHNIQUE: 1 view of the chest FINDINGS: Single frontal view of the chest demonstrates the cardiomediastinal silhouette to be within normal limits. There is a decreased inspiratory effort on the current study with elevation of hemidiaphragms and interval development of bibasilar atelectasis. Compared to the previous examination, there continues to be interval worsening of interstitial and alveolar opacities bilaterally. There is no evidence for pleural effusion. There is no evidence for vascular congestion. There is no acute osseous pathology. IMPRESSION: Decreased inspiration with continued interval worsening of interstitial and alveolar opacities bilaterally. This also been interval development of bibasilar atelectasis. ACT 112: Negative or not required by law. Electronically signed by: Justin Conway M.D. 09/18/2021 7:56 AM Coding Level of Care Code 39460 Subseq Hosp Care Lvl 2 Diagnoses Pneumonia due to COVID-19 virus U07.1; J12.82 Obesity E66.9 ARDS (adult respiratory distress syndrome) J80 Time Spent (min) 40 Comment Including discussion with patient's with update. All questions answered
[2021-09-18] MEDS: ICU ELECTROLYTE REPLACEMENT PROTOCOL SCH ×2 (10:36→19:19)
--- NOTE | 2021-09-18 11:40 | Palliative Care Consultation ---
Date of Consultation September 18, 2021 Assessment & Plan (1) Palliative care encounter: Mr. Marks is a 71 year old male who is unvaccinated. He was admitted on 09/10 with progressive SOB and overall fatigue. He has been on high flow oxygen throughout his hospitalization and has not been successful with overall proning. He has been tolerative intermittent BiPAP. Palliative Medicine was consulted to discuss overall goals of care. I talked with the patient at length in his room and assisted to change his sheets. He used accessory muscles for breathing throughout our encounter but was able to assist with holding himself on his side. He has been unable to prone to this point due to his body habitus. I talked with him regarding goals of care and it is visibly clear that his body is becoming weaker and he is overall intermittently confused, likely related to hypercapnia. I was able to have a facetime conversation with his Rosemarie and the patient in his room. We discussed his overall options of proceeding with Hi-Flow/Bipap rotation with eventual intubation vs transition to comfort if all efforts have been maximized. Both in agreement to proceed with intubation if necessary knowing the overall risks and likelihood that he mayl not have a meaningful recovery. Explained to the patients and patient that if intubated he would not be able to talk so suggested they discuss anything they would like to discuss. For now, remain a full code as well with compressions and shocks, etc. Palliative will follow. (2) Pneumonia due to COVID-19 virus: (3) Hypoxia: (4) Fatigue: History of Present Illness Reason for Consultation: goals of care Requesting Physician: Dr. Lord Attending Physician: Kimo Sevilla MD History of Present Illness Mr. Marks is a 71 year old male who is unvaccinated. He was admitted on 09/10 with progressive SOB and overall fatigue. He has been on high flow oxygen throughout his hospitalization and has not been successful with overall proning. He has been tolerative intermittent BiPAP. Palliative Medicine was consulted to discuss overall goals of care. Please see A/P for further details. Thanks for involving Palliative Medicine with this patient. Allergies Allergy/AdvReac Type Severity Reaction Status Date / Time bee venom protein (honey bee) Allergy Unknown SWELLING Verified 09/11/21 00:09 AT SITE oxycodone AdvReac Verified 09/11/21 00:09 Home Medications Medication Instructions Recorded Confirmed Type ascorbic acid (vitamin C) 100 mg 100 mg PO DAILY tab 05/30/19 09/11/21 History tablet cholecalciferol (vitamin D3) 125 5,000 units PO DAILY cap 05/30/19 09/11/21 History mcg (5,000 unit) capsule multivitamin (Multiple Vitamins) 1 tab PO DAILY 05/30/19 09/10/21 History omega-3 acid ethyl esters 1 gram 1 cap PO DAILY cap 05/30/19 09/11/21 History capsule vitamin B complex 1 cap PO DAILY 05/30/19 09/11/21 History vitamin E (dl, acetate) 45 mg (100 100 units PO DAILY cap 05/30/19 09/11/21 History unit) capsule cranberry 400 mg capsule 400 mg PO DAILY 06/06/19 09/11/21 History lisinopril 5 mg tablet 5 mg PO DAILY #90 tab 05/27/21 09/10/21 Rx cefdinir 300 mg capsule 300 mg PO BID 10 Days #20 cap 09/09/21 09/11/21 Rx doxycycline hyclate 100 mg tablet 100 mg PO BID 10 Days #20 tab 09/09/21 09/11/21 Rx albuterol sulfate 90 mcg/actuation 3 inh INHALATION Q6H PRN 09/11/21 09/11/21 History aerosol inhaler aspirin 81 mg tablet,delayed 81 mg PO DAILY 09/11/21 09/11/21 History release Patient History Medical History (Updated 09/18/21 @ 11:39 by CLINTON Chew) Abnormality of thoracic aorta BMI 45.0-49.9, adult Chronic venous stasis dermatitis Diverticulosis Dyspnea on exertion Fatigue Generalized osteoarthritis of multiple sites Hiatal hernia Hypertension Morbid obesity Nocturnal hypoxemia Palliative care encounter Ringing in ears Vitamin D deficiency Surgical History Status post hip replacement Family History Father Emphysema lung Stroke Brother Hypertension Mother No pertinent family history in first degree relatives Sister No pertinent family history in first degree relatives Social History Smoking Status: Never smoker Second Hand Exposure: No; Hx Alcohol Use: Yes Alcohol type: beer and wine Alcohol Intake Frequency: 2-4 x/Month Hx Substance Use: No Preferred Language: [place]i Communication Ability: Effective Visual Impairment: No Limitations Hearing Ability: Use of Hearing Aid [employer]airer Required: No marital status: Current Living Situation: Spouse Feels Safe at Home: Yes Seatbelt Use: always Assistive Devices: Oxygen - Continuous Review of Systems Review of Systems: [place] System Assessment Scale: Pain: 0/3 SOB: 3/3 Anxiety: 0/3 Palliative Performance Scale: 20% Physical Exam Constitutional: + acute distress, + frail appearing and cooperative ENMT: Mouth: + dry oral mucous membranes Respiratory: + labored breathing and + uses accessory muscles Cardiovascular: Rate/Rhythm: regular rate and regular rhythm Heart Sounds: normal S1 and normal S2 Extremities: normal capillary refill; no edema Gastrointestinal (Abdomen): Inspection/Auscultation: abdomen normal to inspection Skin: + pallor Psychiatric: Orientation: alert, oriented to person and cooperative Results & Data ([facility]) Vital Signs (Past 12 Hours) Vital Signs Temp Pulse Resp BP Pulse Ox 09/18/21 07:42 36.5 C 88 22 139/84 89 L 09/18/21 07:02 84 24 94 09/18/21 03:23 36.9 C 78 22 161/107 H 90 09/18/21 02:45 86 24 90 PG Care Time/CCT Total # of Minutes Spent Total Time Spent with Patient: Total time spent is greater than 50% in coordination of care (as documented) at patient's floor/unit and/or counseling patient: 100 minutes Coding Level of Care Code 79453 Initial Inpt Care Lvl 3 Diagnoses Palliative care encounter Z51.5 Pneumonia due to COVID-19 virus U07.1; J12.82 Hypoxia R09.02 Fatigue R53.83 Time Spent (min) 100
--- NOTE | 2021-09-18 15:22 | Hospitalist Progress Note ---
Date of Service September 18, 2021 Assessment & Plan (1) Pneumonia due to COVID-19 virus: Plan: Acute hypoxic respiratory failure 2/2 COVID-19 pneumonia Symptoms began approximately ~Aug 31, worsened 7 days prior to admission -CT angiogram of the chest upon admission was negative for PE but showed bilateral multifocal pneumonia. -With mild transaminitis secondary to Covid-19 -Procalcitonin negative -Continues to require high flow nasal cannula currently at 60 L / 30%, not tachypneic or with increased work of breathing on exam - Does desaturate with minimal exertion and improves when found - Is not able to prone due to body habitus but has been sleeping on his side - CRP initially downtrending to 5.3, then has continued to uptrend. Repeat chest x-ray with interval worsening of patchy interstitial and alveolar airspace opacities bilaterally consistent with viral pneumonitis and worsening Covid pneumonia. No lobar consolidations appreciated. - Patient completed 5 days of Rocephin/Zithromax average for concern of bacterial secondary infection given late presentation, however x-ray and appearance consistent with severe COVID. - Continue baricitinib, labs daily -Dexamethasone 6 mg IV -Continue Xopenex nebs every 4 hours while awake and every 2 hours when necessary. -Patient completed a 5-day course of continue ceftriaxone 2 g IV daily and azithromycin 250 mg p.o. once daily x5-day course for presumed secondary bacterial pneumonia given late presentation, x-ray consistent with severe COVID with no signs of lobar pneumonia -continue on incentive spirometer and flutter valve -Encouraged continued side positioning or proning if possible. Patient poorly tolerant of this. 09/18: Patient has not tolerated CPAP, placed back on high flow 60L. mostly noncompliant with proning/lateral decubitus position. Some accessory muscle use of breathing. Goals of care discussed with patient by palliative and retains, full code at this time, ICU team following (2) Hypoxia: Plan: Acute respiratory failure with hypoxia in setting of COVID19 pneumonia -Treatment as above (3) ARIELLE (obstructive sleep apnea): Plan: CPAP at bedtime as needed (4) Hypertension: Plan: continue to hold lisinopril (held on admission) (5) Obesity: Plan: BMI 44.5 Needs weight loss Plan: DVT prophylaxis-Lovenox 0.5 mg/KG every 24 hours [facility] Prognosis guarded Prefers updates be given to her Sister in law due to be ESL speaking, TODD # [phone] Rohini FULL CODE Admission and Anticipated Discharge Date Admission Date: September 11, 2021 Subjective Seen at bedside this morning. Fatigued. Revisited prior goals of care discussion, this was also discussed with family with STACEY Izquierdo patient affirms that he would want intubation/mechanical ventilation if he were to worsen and it was medically indicated. Previous evening patient had reported he would rather use the CPAP mask to maximal utility, has refused this today. Had also not tolerated overnight previously and had pulled the device apart upon waking up. Currently remains on high flow. Minimally conversant, subjective limited. Review of Systems Review of Systems: Endorses fatigue, does not qualify for feels he is short of breath and if this is worse than yesterday or not. Shakes his head no to whether he has chest pain, chest pressure, or other new symptoms today. Review otherwise limited. Physical Exam 2 Physical Exam: General: Awakens easily, sleeping and appears fatigued HEENT: Atraumatic, normocephalic. Visual acuity and hearing grossly intact. Pulm: Diminished, no rales/wheezes. Symmetrical chest rise. +Accessory muscle use of breathing Cardiac: RRR, -mrg. Radial pulses intact and symmetrical. Abdominal: Nontender, nondistended, soft. BS present. Extremities: Warm, dry, without edema Results & Data Results & Data ([facility]) Vital Signs (Past 12 Hours) Vital Signs Temp Pulse Pulse Resp BP Pulse Ox 09/18/21 14:23 89 24 93 09/18/21 11:58 90 20 90 09/18/21 11:39 37.7 C H 89 20 141/81 H 91 09/18/21 07:42 36.5 C 88 22 139/84 89 L 09/18/21 07:02 84 24 94 09/18/21 03:23 36.9 C 78 22 161/107 H 90 PG Care Time/CCT Total # of Minutes Spent Total Time Spent with Patient: Total time spent is greater than 50% in coordination of care (as documented) at patient's floor/unit and/or counseling patient: Coding Level of Care Code 02049 Subseq Hosp Care Lvl 1 Diagnoses Pneumonia due to COVID-19 virus U07.1; J12.82 Hypoxia R09.02 ARIELLE (obstructive sleep apnea) G47.33 Hypertension I10 Obesity E66.9
[2021-09-18] MEDS ORDERED: GLUCAGON FOR INJ 1 MG VIAL SQ PRN (20:46)
[2021-09-18] MEDS ORDERED: DEXTROSE 50% 50 ML SYRINGE IV PRN (20:46)
[2021-09-18] MEDS ORDERED: CARBOHYDRATES FOR HYPOGLYCEMIA PO PRN (20:46)
[2021-09-18] MEDS ORDERED: GLUCOSE 40% GEL 15 GM TUBE PO PRN (20:46)
[2021-09-18] MEDS ORDERED: GLUCOSE 10 TABS/TUBE PO PRN (20:46)
[2021-09-18] MEDS: 4mg Daily x 14 days (eGFR >60 mL/min/1.73m2) PO SCH (21:08)
[2021-09-18] MEDS: INSULIN ASPART PER UNIT SC SCH (21:43)
[2021-09-19 04:47] LABS: iSTAT Allen Test Pass; iSTAT Arterial Blood Gas HCO3 31 meg/L (19-24); iSTAT Arterial Blood Gas pCO2 41 mmHg (35-46); iSTAT Arterial Blood Gas pH 7.49 (7.35-7.45); iSTAT Arterial Blood Gas pO2 57 mmHg (80-95); iSTAT Carbon Dioxide 33 mmol/L (24-31); iSTAT FiO2 95 %; iSTAT Site L Radial
[2021-09-19] MEDS: ENOXAPARIN 80 MG/0.8 ML SYR SQ SCH (05:02)
[2021-09-19 07:11] LABS: Basophils # (auto) 0.05 K/uL (0-0.2); Basophils % (auto) 0.5 %; Hematocrit (blood only) 50.1 % (42-52); Immature Granulocytes # (auto) 0.26 K/uL (0.00-0.02); Immature Granulocytes % (auto) 2.4 %; Lymphocytes # (auto) 0.75 K/uL (1.2-3.4); Lymphocytes % (auto) 7.1 %; Mean Corpuscular Hgb Conc 33.9 g/dL (32-36); Mean Corpuscular Volume 94.4 fL (80-100); Mean Platelet Volume 9.6 fL (7.4-10.4); Monocytes # (auto) 0.56 K/uL (0.11-0.59); Monocytes % (auto) 5.3 %; Neutrophils # (auto) 9.01 K/uL (1.4-6.5); Neutrophils % (auto) 84.7 %; Platelet Count 255 K/uL (130-400); Red Blood Count 5.31 M/uL (4.7-6.1); White Blood Count 10.63 K/uL (4.8-10.8)
--- NOTE | 2021-09-19 07:55 | XRay Report ---
XR chest 1V portable HISTORY: 71 years-old Male Resp failure acute respiratory failure COMPARISON: Chest radiograph 09/18/2021, CTA chest 09/17/2021 TECHNIQUE: Portable AP view of the chest FINDINGS: Cardiomediastinal and hilar silhouettes are unchanged. Lungs are hypoinflated. Interstitial coarsenin g with extensive airspace opacities, mildly progressed from yesterday's study. No pneumothorax or lar ge pleural effusion. The bones appear grossly intact. Spondylitic spurring of the spine. IMPRESSION: Hypoinflation with progressively worsened left greater than right bilateral airspace opac ities compatible with multifocal pneumonia. ACT 112: Negative or not required by law. The above report was generated using voice recognition software. It may contain grammatical, syntax o r spelling errors. Electronically signed by: Andrae Mccall M.D. 09/19/2021 7:54 AM
[2021-09-19 07:57] LABS: Calcium 9.3 mg/dl (8.5-10.1); Creatinine Clr Calc Pharmacy 113.6 ml/min; Est GFR (African American) 103.2 ml/min; Est GFR (Non-African American) 89.1 ml/min; Magnesium 2.6 mg/dl (1.8-2.4); Potassium 4.1 mmol/L (3.5-5.1)
[2021-09-19 07:58] LABS: Phosphorus 3.5 mg/dl (2.5-4.9)
[2021-09-19] MEDS: ICU ELECTROLYTE REPLACEMENT PROTOCOL SCH ×2 (08:50→17:09)
[2021-09-19] MEDS: INSULIN ASPART PER UNIT SC SCH ×4 (08:52→21:06)
[2021-09-19] MEDS: VITAMIN B COMPLEX TAB PO SCH (09:08)
[2021-09-19] MEDS: dexAMETHasone 20 MG in DEXTROSE 5% 25 ML IV SCH (09:08)
[2021-09-19] MEDS: ASPIRIN 81 MG ECTAB PO SCH (09:08)
[2021-09-19] MEDS: guaiFENesin 600 MG TABCR PO SCH ×2 (09:08→21:06)
[2021-09-19] MEDS: FAMOTIDINE 20 MG in SYRINGE 3 ML IV SCH (09:08)
[2021-09-19] MEDS: MULTIVITAMIN TAB PO SCH (09:08)
--- NOTE | 2021-09-19 16:21 | Critical Care Progress Note ---
Date of Service September 19, 2021 Assessment & Plan (1) ARDS (adult respiratory distress syndrome): (2) Obesity: (3) Pneumonia due to COVID-19 virus: Plan: Impression: 71-year-old unvaccinated male with Covid and refractory hypoxemia and ARDS. There was initial concern that he may require intubation mechanical ventilation however he has been relatively stable and actually had a decrease in his oxygen requirement over the last 24 hours. Recommendations: 1. Neurologic: The patient is awake alert and conversant. Continue to monitor. 2. Cardiovascular: No acute issues. 3. Pulmonary: ARDS physiology secondary to COVID-[address] angiogram performed today showed no evidence of PE but did show multifocal groundglass opacities consistent with viral pneumonitis. Given that he is about 3 weeks out from symptom onset with progressive pulmonary infiltrates and rising CRP, he is at risk for late-phase fibroproliferative ARDS. Recommend completing Dex ARDS protocol (20 mg a day for 5 days followed by 10 mg a day for 5 days). Continue baricitinib for now although I doubt it is going to have a clinical impact. Continue to wean oxygen as tolerated. The patient is declined efforts to self prone or participate in noninvasive positive pressure ventilation. Keeping him upright and potentially out of bed to chair would be beneficial with regards to atelectasis and improving VQ mismatching 4. ID: COVID-19 pneumonitis. Procalcitonin was negative. He is at risk for secondary infections but would continue to monitor for now. 5. Renal: Resolved hyponatremia. Continue to follow for now. Continue electrolyte replacement. 6. Heme-onc: No active issues. DVT prophylaxis 7. Endocrine: ICU glycemic protocol. 8. GI: Diet as tolerated. Patient appears to be clinically improved at this point time. He is already on PCU status. Given his clinical improvement, pulmonary/critical care will sign off. Feel free to contact us if the patient's condition should clinically worsen and the patient should require intubation or mechanical ventilation. Admission and Anticipated Discharge Date Admission Date: September 11, 2021 Subjective Patient seen and examined. He remains on high flow oxygen. Saturations are stable and he is actually had some decrease in his oxygen requirement. He is tolerating a diet. He is not coughing or expectorating phlegm Review of Systems Review of Systems: All systems reviewed & are unremarkable except as noted in Subjective Physical Exam Constitutional: WD/WN, vitals as above + morbidly obese; not ill appearing Neck: trachea midline, no thyromegaly Respiratory: normal respiratory effort; no respiratory distress and no labored breathing Auscultation: + crackles Cardiovascular: RRR, no murmur, no edema Gastrointestinal (Abdomen): normal bowel sounds, soft, nontender, no hepatosplenomegaly Musculoskeletal: Extremities: extremities normal to inspection Skin: no rashes, warm and dry Lymphatic: no cervical lymphadenopathy Results & Data Results & Data ([facility]) Vital Signs (Past 12 Hours) Vital Signs Temp Pulse Pulse Resp BP BP BP 09/19/21 15:33 97 H 22 143/93 H 09/19/21 14:41 91 H 20 09/19/21 14:00 92 H 156/94 H 09/19/21 12:13 92 H 20 09/19/21 12:00 91 H 09/19/21 11:30 36.8 C 83 24 154/92 H 09/19/21 10:00 89 09/19/21 08:09 36.6 C 77 20 135/93 09/19/21 08:00 76 150/100 H 09/19/21 07:17 82 20 09/19/21 06:00 69 09/19/21 05:00 73 149/93 H Pulse Ox 09/19/21 15:33 94 09/19/21 14:41 90 09/19/21 14:00 92 09/19/21 12:13 92 09/19/21 12:00 91 09/19/21 11:30 93 09/19/21 10:00 91 09/19/21 08:09 92 09/19/21 08:00 91 09/19/21 07:17 94 09/19/21 06:00 91 09/19/21 05:00 93 Critical Care Results & Data Vital Signs (Past 12 Hours) Vital Signs Temp Pulse Pulse Resp BP BP BP 09/19/21 15:33 97 H 22 143/93 H 09/19/21 14:41 91 H 20 09/19/21 14:00 92 H 156/94 H 09/19/21 12:13 92 H 20 09/19/21 12:00 91 H 09/19/21 11:30 36.8 C 83 24 154/92 H 09/19/21 10:00 89 09/19/21 08:09 36.6 C 77 20 135/93 09/19/21 08:00 76 150/100 H 09/19/21 07:17 82 20 09/19/21 06:00 69 09/19/21 05:00 73 149/93 H Pulse Ox 09/19/21 15:33 94 09/19/21 14:41 90 09/19/21 14:00 92 09/19/21 12:13 92 09/19/21 12:00 91 09/19/21 11:30 93 09/19/21 10:00 91 09/19/21 08:09 92 09/19/21 08:00 91 09/19/21 07:17 94 09/19/21 06:00 91 09/19/21 05:00 93 Lab & Micro Results (Past 24 Hours) RBC 5.31 M/uL (4.7-6.1) 09/19/21 WBC 10.63 K/uL (4.8-10.8) 09/19/21 Hgb 17.0 g/dL (14.0-18.0) 09/19/21 Hct 50.1 % (42-52) 09/19/21 MCV 94.4 fL (80-100) 09/19/21 MCH 32.0 pg (25-34) 09/19/21 MCHC 33.9 g/dL (32-36) 09/19/21 RDW Standard Deviation 45.0 fL (36.4-46.3) 09/19/21 RDW Coefficient of Variation 13.0 % (11.5-14.5) 09/19/21 Plt Count 255 K/uL (130-400) 09/19/21 MPV 9.6 fL (7.4-10.4) 09/19/21 Neutrophils (%) (Auto) 84.7 % 09/19/21 Lymphocytes (%) (Auto) 7.1 % 09/19/21 Monocytes # (Auto) 0.56 K/uL (0.11-0.59) 09/19/21 Eosinophils # (Auto) 0.00 K/uL (0-0.5) 09/19/21 Immature Granulocyte % (Auto) 2.4 % 09/19/21 Neutrophils # (Auto) 9.01 K/uL (1.4-6.5) H 09/19/21 Lymphocytes # (Auto) 0.75 K/uL (1.2-3.4) L 09/19/21 Monocytes # (Auto) 0.56 K/uL (0.11-0.59) 09/19/21 Eosinophils # (Auto) 0.00 K/uL (0-0.5) 09/19/21 Basophils # (Auto) 0.05 K/uL (0-0.2) 09/19/21 Immature Granulocyte # (Auto) 0.26 K/uL (0.00-0.02) H 09/19/21 Na 136 mmol/L (136-145) 09/19/21 K 4.1 mmol/L (3.5-5.1) 09/19/21 Cl 99 mmol/L (98-107) 09/19/21 CO2 29 mmol/L (21-32) 09/19/21 Anion Gap 8.0 (3-11) 09/19/21 BUN 27 mg/dl (7-18) H 09/19/21 Creatinine 0.79 mg/dl (0.6-1.4) 09/19/21 Estimated GFR ( Amer) 103.2 ml/min 09/19/21 Estimated GFR (Non-Af Amer) 89.1 ml/min 09/19/21 BUN/Creatinine Ratio 34.0 (10-20) H 09/19/21 Glu 124 mg/dl (70-99) H 09/19/21 Ca 9.3 mg/dl (8.5-10.1) 09/19/21 Phosphorus Level 3.5 mg/dl (2.5-4.9) 09/19/21 Mg 2.6 mg/dl (1.8-2.4) H 09/19/21 06:40 09/19/21 Calcium Level 9.3 mg/dl (8.5-10.1) 09/19/21 06:40 09/19/21 Luis Daniel Test Pass 09/19/21 03:27 09/19/21 Diagnostic Findings (Past 24 Hours) Chest X-Ray 09/19/21 07:00 XR chest 1V portable HISTORY: 71 years-old Male Resp failure acute respiratory failure COMPARISON: Chest radiograph 09/18/2021, CTA chest 09/17/2021 TECHNIQUE: Portable AP view of the chest FINDINGS: Cardiomediastinal and hilar silhouettes are unchanged. Lungs are hypoinflated. Interstitial coarsening with extensive airspace opacities, mildly progressed from yesterday's study. No pneumothorax or large pleural effusion. The bones appear grossly intact. Spondylitic spurring of the spine. IMPRESSION: Hypoinflation with progressively worsened left greater than right bilateral airspace opacities compatible with multifocal pneumonia. ACT 112: Negative or not required by law. The above report was generated using voice recognition software. It may contain grammatical, syntax or spelling errors. Electronically signed by: Andrae Mccall M.D. 09/19/2021 7:54 AM I & O Totals 24 Hours 09/18/21 09/19/21 09/20/21 06:59 06:59 06:59 Intake Total 1340 / 1340 630 / 630 Output Total 1930 / 1930 1175 / 1175 950 / 950 Balance -590 / -590 -545 / -545 -920 / -920 Cumulative 09/10/21 22:26 thru 09/19/21 14:35 Intake Total 6670 Output Total 45774 Balance -5937 RT Ventilator Mngmt (Last Documented) Ventilator Ordered Settings Respiratory Rate 22 09/19/21 15:33 Fraction of Inspired Oxygen 80 09/19/21 14:41 Ventilator - PT Measurements Respiratory Rate 22 Coding Level of Care Code Critical Care 1st 30-74 mins Diagnoses ARDS (adult respiratory distress syndrome) J80 Obesity E66.9 Pneumonia due to COVID-19 virus U07.1; J12.82 Time Spent (min) 50
--- NOTE | 2021-09-19 19:32 | Hospitalist Progress Note ---
Date of Service September 19, 2021 Assessment & Plan (1) Pneumonia due to COVID-19 virus: Plan: Acute hypoxic respiratory failure 2/2 COVID-19 pneumonia Symptoms began approximately ~Aug 31, worsened 7 days prior to admission -CT angiogram of the chest upon admission was negative for PE but showed bilateral multifocal pneumonia. -With mild transaminitis secondary to Covid-19 -Procalcitonin negative -Continues to require high flow nasal cannula currently at 60 L / 30%, not tachypneic or with increased work of breathing on exam - Does desaturate with minimal exertion and improves when found - Is not able to prone due to body habitus but has been sleeping on his side - CRP initially downtrending to 5.3, then has continued to uptrend. Repeat chest x-ray with interval worsening of patchy interstitial and alveolar airspace opacities bilaterally consistent with viral pneumonitis and worsening Covid pneumonia. No lobar consolidations appreciated. - Patient completed 5 days of Rocephin/Zithromax average for concern of bacterial secondary infection given late presentation, however x-ray and appearance consistent with severe COVID. - Continue baricitinib, labs daily -Continue Xopenex nebs every 4 hours while awake and every 2 hours when necessary. -Patient completed a 5-day course of continue ceftriaxone 2 g IV daily and azithromycin 250 mg p.o. once daily x5-day course for presumed secondary bacterial pneumonia given late presentation, x-ray consistent with severe COVID with no signs of lobar pneumonia -continue on incentive spirometer and flutter valve -Encouraged continued side positioning or proning if possible. Patient poorly tolerant of this. 09/19: Patient remains on high flow, slightly decreased FiO2 requirement on 60 L. Continue Dex arts protocol 20 mg daily for 5 days () then 10 mg daily for 5 days per critical care, appreciate recommendations. We will continue baricitinib. Continue to prone as tolerated, although patient has been poorly tolerant of this. With clinical stability and FiO2 improvement care signed off, appreciate recommendations. (2) Hypoxia: Plan: Acute respiratory failure with hypoxia in setting of COVID19 pneumonia -Treatment as above (3) ARIELLE (obstructive sleep apnea): Plan: CPAP at bedtime as needed (4) Hypertension: Plan: continue to hold lisinopril (held on admission) (5) Obesity: Plan: BMI 44.5 Needs weight loss Plan: DVT prophylaxis-Lovenox 0.5 mg/KG every 24 hours Disposition-continued stay in Covid precautions, PCU Prognosis guarded Prefers updates be given to her Sister in law due to be ESL speaking, TODD # [phone] Rohini FULL CODE Admission and Anticipated Discharge Date Admission Date: September 11, 2021 Subjective Patient seen at bedside. Feels mostly similar to prior, would like to roll to the side. Continues to wonder how long it would take for him to improve, no other questions/concerns at time of visit. Review of Systems Review of Systems: Limited, endorses fatigue. Denies shortness of breath at time of assessment while on high flow. Denies chest pain, chest pressure, fever, chills. Physical Exam Physical Exam: General: Awakens easily, sleeping and appears fatigued HEENT: Atraumatic, normocephalic. Visual acuity and hearing grossly intact. Pulm: Diminished. Symmetrical chest rise. On high flow. Cardiac: Tachycardic, -mrg. Radial pulses intact and symmetrical. Abdominal: Nontender, nondistended, soft. BS present. Extremities: Warm, dry, without edema Results & Data Results & Data ([facility]) Vital Signs (Past 12 Hours) Vital Signs Temp Pulse Pulse Resp BP BP BP 09/19/21 17:19 92 H 09/19/21 16:00 101 H 09/19/21 15:33 97 H 22 143/93 H 09/19/21 14:41 91 H 20 09/19/21 14:00 92 H 156/94 H 09/19/21 12:13 92 H 20 09/19/21 12:00 91 H 09/19/21 11:30 36.8 C 83 24 154/92 H 09/19/21 10:00 89 09/19/21 08:09 36.6 C 77 20 135/93 09/19/21 08:00 76 150/100 H Pulse Ox 09/19/21 17:19 09/19/21 16:00 92 09/19/21 15:33 94 09/19/21 14:41 90 09/19/21 14:00 92 09/19/21 12:13 92 09/19/21 12:00 91 09/19/21 11:30 93 09/19/21 10:00 91 09/19/21 08:09 92 09/19/21 08:00 91 PG Care Time/CCT Total # of Minutes Spent Total Time Spent with Patient: Total time spent is greater than 50% in coordination of care (as documented) at patient's floor/unit and/or counseling patient: Coding Level of Care Code 90716 Subseq Hosp Care Lvl 3 Diagnoses Pneumonia due to COVID-19 virus U07.1; J12.82 Hypoxia R09.02 ARIELLE (obstructive sleep apnea) G47.33 Hypertension I10 Obesity E66.9
[2021-09-19] MEDS: 4mg Daily x 14 days (eGFR >60 mL/min/1.73m2) PO SCH (21:06)
--- NOTE | 2021-09-19 22:26 | Palliative Care Progress Note ---
Date of Service September 19, 2021 Assessment & Plan (1) Palliative care encounter: Plan: I met with Marvel who was sitting in his bed earlier today, in less distress than yesterday. He is more interactive today and able to talk easier. FiO2 on High flow being weaned as tolerated, now FiO2 85%, down from 100%. He has been unable to prone to this point due to his body habitus. He said that he is feeling motivated today, attempted to see if he wanted to watch TV or do something interactive. As previously discussed, should he acutely decompensate; he agrees to intubation at this time. Palliative will follow. (2) Pneumonia due to COVID-19 virus: (3) Hypoxia: (4) Fatigue: Admission and Anticipated Discharge Date Admission Date: September 11, 2021 Subjective Patient seen at bedside earlier today. He is more interactive today and able to talk easier. FiO2 on High flow being weaned as tolerated, now FiO2 85%, down from 100%. Continues to wonder how long it would take for him to improve, no other questions/concerns at time of visit. Review of Systems Review of Systems: [facility] Assessment Scale: Pain: 0/3 SOB: 3/3 Anxiety: 0/3 Palliative Performance Scale: 30% Physical Exam Constitutional: + acute distress, + frail appearing and cooperative ENMT: Mouth: + dry oral mucous membranes Respiratory: + labored breathing and + uses accessory muscles Cardiovascular: Rate/Rhythm: regular rate and regular rhythm Heart Sounds: normal S1 and normal S2 Extremities: normal capillary refill; no edema Gastrointestinal (Abdomen): Inspection/Auscultation: abdomen normal to inspection Skin: + pallor Psychiatric: Orientation: alert, oriented to person and cooperative Results & Data ([facility]) Vital Signs (Past 12 Hours) Vital Signs Temp Pulse Pulse Pulse Resp BP BP 09/19/21 20:33 100 H 24 09/19/21 20:00 103 H 09/19/21 18:00 107 H 152/88 H 09/19/21 17:19 92 H 09/19/21 16:00 101 H 09/19/21 15:33 97 H 22 143/93 H 09/19/21 14:41 91 H 20 09/19/21 14:00 92 H 156/94 H 09/19/21 12:13 92 H 20 09/19/21 12:00 91 H 09/19/21 11:30 36.8 C 83 24 BP Pulse Ox 09/19/21 20:33 91 09/19/21 20:00 90 09/19/21 18:00 92 09/19/21 17:19 09/19/21 16:00 92 09/19/21 15:33 94 09/19/21 14:41 90 09/19/21 14:00 92 09/19/21 12:13 92 09/19/21 12:00 91 09/19/21 11:30 154/92 H 93 PG Care Time/CCT Total # of Minutes Spent Total Time Spent with Patient: Total time spent is greater than 50% in coordination of care (as documented) at patient's floor/unit and/or counseling patient: 35 minutes Coding Level of Care Code 19118 Subseq Hosp Care Lvl 3 Diagnoses Palliative care encounter Z51.5 Pneumonia due to COVID-19 virus U07.1; J12.82 Hypoxia R09.02 Fatigue R53.83 Time Spent (min) 35
[2021-09-20] MEDS: ICU ELECTROLYTE REPLACEMENT PROTOCOL SCH (05:19)
[2021-09-20] MEDS: ENOXAPARIN 80 MG/0.8 ML SYR SQ SCH (05:19)
[2021-09-20 06:19] LABS: Basophils # (auto) 0.03 K/uL (0-0.2); Basophils % (auto) 0.2 %; Eosinophils # (auto) 0.08 K/uL (0-0.5); Eosinophils % (auto) 0.6 %; Hematocrit (blood only) 49.6 % (42-52); Hemoglobin 16.4 g/dL (14.0-18.0); Immature Granulocytes # (auto) 0.21 K/uL (0.00-0.02); Immature Granulocytes % (auto) 1.6 %; Lymphocytes # (auto) 1.15 K/uL (1.2-3.4); Mean Corpuscular Hemoglobin 31.7 pg (25-34); Mean Corpuscular Hgb Conc 33.1 g/dL (32-36); Mean Corpuscular Volume 95.9 fL (80-100); Mean Platelet Volume 9.9 fL (7.4-10.4); Monocytes # (auto) 0.48 K/uL (0.11-0.59); Monocytes % (auto) 3.8 %; Neutrophils # (auto) 10.85 K/uL (1.4-6.5); Neutrophils % (auto) 84.8 %; Platelet Count 264 K/uL (130-400); RDW Coefficient of Variation 13.1 % (11.5-14.5); RDW Standard Deviation 45.9 fL (36.4-46.3); Red Blood Count 5.17 M/uL (4.7-6.1)
[2021-09-20 06:52] LABS: BUN Creatinine Ratio 28.4 (10-20); Calcium 8.8 mg/dl (8.5-10.1); Creatinine Clr Calc Pharmacy 106.7 ml/min; Est GFR (African American) 100.7 ml/min; Est GFR (Non-African American) 86.9 ml/min; Magnesium 2.3 mg/dl (1.8-2.4); Potassium 3.9 mmol/L (3.5-5.1)
[2021-09-20 06:54] LABS: Phosphorus 3.2 mg/dl (2.5-4.9)
[2021-09-20] MEDS: INSULIN ASPART PER UNIT SC SCH ×4 (08:39→21:01)
[2021-09-20] MEDS: ASPIRIN 81 MG ECTAB PO SCH (09:44)
[2021-09-20] MEDS: dexAMETHasone 20 MG in DEXTROSE 5% 25 ML IV SCH (09:44)
[2021-09-20] MEDS: VITAMIN B COMPLEX TAB PO SCH (09:45)
[2021-09-20] MEDS: guaiFENesin 600 MG TABCR PO SCH ×2 (09:45→21:00)
[2021-09-20] MEDS: FAMOTIDINE 20 MG in SYRINGE 3 ML IV SCH (09:45)
[2021-09-20] MEDS: MULTIVITAMIN TAB PO SCH (09:45)
--- NOTE | 2021-09-20 19:25 | Hospitalist Progress Note ---
Date of Service September 20, 2021 Assessment & Plan (1) Pneumonia due to COVID-19 virus: Plan: Acute hypoxic respiratory failure 2/2 COVID-19 pneumonia Symptoms began approximately ~Aug 31, worsened 7 days prior to admission -CT angiogram of the chest upon admission was negative for PE but showed bilateral multifocal pneumonia. -Procalcitonin normal x2, last check 09/17 -Continues to require high flow nasal cannula - Does desaturate with minimal exertion - CRP initially downtrending to 5.3, then has continued to uptrend. Repeat chest x-ray with interval worsening of patchy interstitial and alveolar airspace opacities bilaterally consistent with viral pneumonitis and worsening Covid pneumonia. No lobar consolidations appreciated. - Patient completed 5 days of Rocephin/Zithromax average for concern of bacterial secondary infection given late presentation, however x-ray and appearance consistent with severe COVID. -Continue Xopenex nebs every 4 hours while awake and every 2 hours when necessary. -continue on incentive spirometer and flutter valve -Encouraged continued side positioning or proning if possible. Patient poorly tolerant of this. - ICU signed off 09/19, appreciate care/recommendation - Dexamethasone 20mg x5 days (09/18-09/23) then 10mg daily for 5 days - Continue baricitinib. AM procal/cmp/cbc pending. - Afebrile overnight - Cr remains at baseline (2) Hypoxia: Plan: Acute respiratory failure with hypoxia in setting of COVID19 pneumonia -Treatment as above (3) ARIELLE (obstructive sleep apnea): Plan: CPAP at bedtime as needed, pt poorly tolerant of this (4) Hypertension: Plan: - Lisinopril held (5) Obesity: Plan: BMI 44.5 Plan: DVT prophylaxis-Lovenox 0.5 mg/KG every 24 hours Disposition-continued stay in Covid precautions, PCU Prognosis guarded Prefers updates be given to her Sister in law due to be ESL speaking, [facility] # [phone] Rohini FULL CODE Admission and Anticipated Discharge Date Admission Date: September 11, 2021 Subjective Seen at bedside, reduced work of breathing at time of bedside assessment compared to prior. Denies shortness of breath while on HFNC, some shortness of breath when moving. Reports he does not tolerate proning well. FiO2 at time bedside has decreased to 80%, 55 L. No chest pain, chest pressure. Again wonders about how long it will take for him to improve, and somewhat frustrated by slow process. No other questions at time of visit. Review of Systems Review of Systems: All systems reviewed & are unremarkable except as noted in Subjective Physical Exam Physical Exam: General: Awakens easily, sleeping and appears fatigued HEENT: Atraumatic, normocephalic. Visual acuity and hearing grossly intact. Pulm: Diminished, +bibasilar crackles. Symmetrical chest rise. On high flow. Cardiac: Tachycardic, -mrg. Abdominal: Nontender, nondistended, soft. BS present. Extremities: Warm, dry, without edema Results & Data Results & Data ([facility]) Vital Signs (Past 12 Hours) Vital Signs Temp Pulse Pulse Resp BP BP Pulse Ox 09/20/21 17:56 97 H 21 93 09/20/21 15:35 38.3 C H 100 H 24 125/107 H 92 09/20/21 15:00 101 H 09/20/21 14:55 102 H 20 90 09/20/21 11:38 36.9 C 90 22 143/83 H 90 09/20/21 10:36 83 24 96 09/20/21 08:00 96 H PG Care Time/CCT Total # of Minutes Spent Total Time Spent with Patient: Total time spent is greater than 50% in coordination of care (as documented) at patient's floor/unit and/or counseling patient: Coding Level of Care Code 52548 Subseq Hosp Care Lvl 3 Diagnoses Pneumonia due to COVID-19 virus U07.1; J12.82 Hypoxia R09.02 ARIELLE (obstructive sleep apnea) G47.33 Hypertension I10 Obesity E66.9
[2021-09-20] MEDS: 4mg Daily x 14 days (eGFR >60 mL/min/1.73m2) PO SCH (21:00)
[2021-09-21] MEDS: ENOXAPARIN 80 MG/0.8 ML SYR SQ SCH (06:10)
[2021-09-21 08:12] LABS: BUN Creatinine Ratio 22.6 (10-20); Calcium 8.8 mg/dl (8.5-10.1); Est GFR (African American) 102.2 ml/min; Est GFR (Non-African American) 88.2 ml/min; Magnesium 2.2 mg/dl (1.8-2.4)
[2021-09-21 08:13] LABS: Phosphorus 2.9 mg/dl (2.5-4.9)
[2021-09-21] MEDS: MULTIVITAMIN TAB PO SCH (08:51)
[2021-09-21] MEDS: ASPIRIN 81 MG ECTAB PO SCH (08:51)
[2021-09-21] MEDS: VITAMIN B COMPLEX TAB PO SCH (08:52)
[2021-09-21] MEDS: guaiFENesin 600 MG TABCR PO SCH ×2 (08:53→20:23)
[2021-09-21] MEDS: FAMOTIDINE 20 MG in SYRINGE 3 ML IV SCH (09:00)
[2021-09-21] MEDS: dexAMETHasone 20 MG in DEXTROSE 5% 25 ML IV SCH (09:01)
[2021-09-21] MEDS ORDERED: guaiFENesin/DEXTROM SYRUP 200MG/20MG 10ML UDC PO PRN (09:14)
[2021-09-21] MEDS ORDERED: COUGH DROP (SUGAR FREE) LOZ 24 LOZ/1 BOX BUCCAL PRN (09:14)
--- NOTE | 2021-09-21 09:15 | Hospitalist Progress Note ---
Date of Service September 21, 2021 Assessment & Plan (1) Pneumonia due to COVID-19 virus: Plan: Acute hypoxic respiratory failure 2/2 COVID-19 pneumonia Symptoms began approximately ~Aug 31, worsened 7 days prior to admission -CT angiogram of the chest upon admission was negative for PE but showed bilateral multifocal pneumonia. -Procalcitonin normal on 3 occasions -Continues to require high flow nasal cannula but is weaned down to 55 L and 75% FiO2 - Does desaturate with minimal exertion and is somewhat tachypneic at rest - CRP initially downtrending to 5.3, then has continued to uptrend. Repeat chest x-ray with interval worsening of patchy interstitial and alveolar airspace opacities bilaterally consistent with viral pneumonitis and worsening Covid pneumonia. No lobar consolidations appreciated. - Patient completed 5 days of Rocephin/Zithromax average for concern of bacterial secondary infection given late presentation, however x-ray and appearance consistent with severe COVID. -Continue Xopenex nebs as needed -continue on incentive spirometer and flutter valve-encouraged to do so -Encouraged continued side positioning or proning if possible. Patient poorly tolerant of this. - ICU signed off 09/19, appreciate care/recommendation - Dexamethasone 20mg x5 days (09/18-09/23) then 10mg daily for 5 days - Continue baricitinib. - Cr remains at baseline -Follow CBC, CMP, CRP -Add on Robitussin with dextromethorphan as needed for cough, throat lozenges for sore throat (2) Hypoxia: Plan: Acute respiratory failure with hypoxia in setting of COVID19 pneumonia -Treatment as above -May need to diurese periodically (3) ARIELLE (obstructive sleep apnea): Plan: CPAP at bedtime as needed, pt poorly tolerant of this (4) Hypertension: Plan: - Lisinopril held since admission (5) Obesity: Plan: BMI 41.8 Needs weight loss Plan: DVT prophylaxis-Lovenox 0.5 mg/KG every 24 hours Disposition-continued stay in Covid precautions, PCU Prognosis guarded Prefers updates be given to her Sister in law due to be ESL speaking, TODD # [phone] Rohini FULL CODE Admission and Anticipated Discharge Date Admission Date: September 11, 2021 Subjective Patient feels short of breath, and is very upset that he was unable to sleep all last night due to cough-is asking for something to "knock me out all day." He also complains of sore throat and would like throat lozenges. He has not been out of bed for bowel movement and has a Tyler catheter still in place. He is eating and drinking. Denies chest pain Is on high flow nasal cannula at 55 L and 75% FiO2 when I saw him Telemetry with normal sinus rhythm and PVCs with PACs, rates in the 80s. Review of Systems Review of Systems: All systems reviewed & are unremarkable except as noted in HPI & below Physical Exam Constitutional: WD/WN, vitals as above + morbidly obese Eyes: + anicteric sclerae Neck: trachea midline, no thyromegaly Respiratory: normal respiratory effort; no cough Auscultation: + diminished lung sounds (throughout due to body habitus) and + crackles (Bilateral lower and middle lung pascual); no rhonchi and no wheezes Cardiovascular: RRR, no murmur, no edema Chest (Breasts): Chest: normal inspection of chest Gastrointestinal (Abdomen): normal bowel sounds, soft, nontender, no hepatosplenomegaly Musculoskeletal: Extremities: extremities normal to inspection; no cyanosis and no clubbing Skin: no rashes, warm and dry Neurologic: moves all extremities and awake; no focal motor deficits Psychiatric: Orientation: alert, oriented x 3 and cooperative Lymphatic: no lymphedema Results & Data Results & Data ([facility]) Vital Signs (Past 12 Hours) Vital Signs Temp Pulse Resp BP Pulse Ox 09/21/21 04:20 36.5 C 86 22 131/85 93 09/21/21 02:05 72 22 92 09/20/21 23:23 36.1 C L 78 22 109/78 91 09/20/21 22:34 78 19 94 Laboratory Results 09/21/21 09/21/21 09/21/21 Range/Units 07:49 06:20 06:20 Sodium 137 (136-145) mmol/L Potassium 4.0 (3.5-5.1) mmol/L Chloride 98 (98-107) mmol/L Carbon Dioxide 31 (21-32) mmol/L Anion Gap 7.0 (3-11) BUN 18 (7-18) mg/dl Creatinine 0.81 (0.6-1.4) mg/dl Est Cr Clr Drug Dosing 111.0 ml/min Est GFR ( Amer) 102.2 ml/min Est GFR (Non-Af Amer) 88.2 ml/min BUN/Creatinine Ratio 22.6 H (10-20) Glucose 108 H (70-99) mg/dl POC Glucose 109 H (70-99) mg/dl Calcium 8.8 (8.5-10.1) mg/dl Phosphorus 2.9 (2.5-4.9) mg/dl Magnesium 2.2 (1.8-2.4) mg/dl Procalcitonin 0.09 (0-0.5) ng/ml 09/20/21 09/20/21 09/20/21 Range/Units 20:45 17:05 11:36 Sodium (136-145) mmol/L Potassium (3.5-5.1) mmol/L Chloride (98-107) mmol/L Carbon Dioxide (21-32) mmol/L Anion Gap (3-11) BUN (7-18) mg/dl Creatinine (0.6-1.4) mg/dl Est Cr Clr Drug Dosing ml/min Est GFR ( Amer) ml/min Est GFR (Non-Af Amer) ml/min BUN/Creatinine Ratio (10-20) Glucose (70-99) mg/dl POC Glucose 185 H 124 H 109 H (70-99) mg/dl Calcium (8.5-10.1) mg/dl Phosphorus (2.5-4.9) mg/dl Magnesium (1.8-2.4) mg/dl Procalcitonin (0-0.5) ng/ml PG Care Time/CCT Total # of Minutes Spent Total Time Spent with Patient: Total time spent is greater than 50% in coordination of care (as documented) at patient's floor/unit and/or counseling patient: Coding Level of Care Code 86125 Subseq Hosp Care Lvl 3 Diagnoses Pneumonia due to COVID-19 virus U07.1; J12.82 Hypoxia R09.02 ARIELLE (obstructive sleep apnea) G47.33 Hypertension I10 Obesity E66.9
[2021-09-21] MEDS: INSULIN ASPART PER UNIT SC SCH ×4 (09:17→20:43)
[2021-09-21] MEDS: 4mg Daily x 14 days (eGFR >60 mL/min/1.73m2) PO SCH (20:24)
[2021-09-22] MEDS: ENOXAPARIN 80 MG/0.8 ML SYR SQ SCH (06:13)
[2021-09-22 07:45] LABS: BUN Creatinine Ratio 25.7 (10-20); Calcium 8.8 mg/dl (8.5-10.1); Creatinine Clr Calc Pharmacy 116.3 ml/min; Est GFR (African American) 104.3 ml/min; Phosphorus 3.3 mg/dl (2.5-4.9); Potassium 4.7 mmol/L (3.5-5.1)
[2021-09-22] MEDS: ASPIRIN 81 MG ECTAB PO SCH (08:09)
[2021-09-22] MEDS: guaiFENesin 600 MG TABCR PO SCH ×2 (08:09→19:36)
[2021-09-22] MEDS: VITAMIN B COMPLEX TAB PO SCH (08:09)
[2021-09-22] MEDS: MULTIVITAMIN TAB PO SCH (08:09)
[2021-09-22] MEDS ORDERED: FUROSEMIDE INJ 20 MG/2 ML VIAL IV ONE (09:30)
--- NOTE | 2021-09-22 09:34 | Hospitalist Progress Note ---
Date of Service September 22, 2021 Assessment & Plan (1) Pneumonia due to COVID-19 virus: Plan: Acute hypoxic respiratory failure 2/2 COVID-19 pneumonia Symptoms began approximately ~Aug 31, worsened 7 days prior to admission -CT angiogram of the chest upon admission was negative for PE but showed bilateral multifocal pneumonia. -Procalcitonin normal on 3 occasions -Continues to require high flow nasal cannula but is weaned down to 50L and 90% FiO2-improving slightly each day - Does desaturate with minimal exertion and is somewhat tachypneic at rest but overall feeling better - CRP initially downtrending to 5.3, then continued to uptrend. Repeat chest x-ray with interval worsening of patchy interstitial and alveolar airspace opacities bilaterally consistent with viral pneumonitis and worsening Covid pneumonia. No lobar consolidations appreciated. - Patient completed 5 days of Rocephin/Zithromax average for concern of bacterial secondary infection given late presentation, however x-ray and appearance consistent with severe COVID. -Continue Xopenex nebs as needed -continue on incentive spirometer and flutter valve-encouraged to do so -Encouraged continued side positioning or proning if possible. Patient poorly tolerant of this. - ICU signed off 09/19, appreciate care/recommendation - Dexamethasone 20mg x5 days (09/18-09/23) then 10mg daily for 5 days - Continue baricitinib. - Cr remains at baseline -Follow CBC, CMP, CRP -continue Robitussin with dextromethorphan as needed for cough, throat lozenges for sore throat (2) Hypoxia: Plan: Acute respiratory failure with hypoxia in setting of COVID19 pneumonia -Treatment as above -May need to diurese periodically-will give lasix 20mg IV x 1 today (3) ARIELLE (obstructive sleep apnea): Plan: CPAP at bedtime as needed, pt poorly tolerant of this (4) Hypertension: Plan: - Lisinopril held since admission (5) Obesity: Plan: BMI 41.8 Needs weight loss Plan: DVT prophylaxis-Lovenox 0.5 mg/KG every 24 hours Disposition-continued stay in Covid precautions, PCU Prognosis guarded Prefers updates be given to her Sister in law due to be ESL speaking, TODD # [phone] Rohini FULL CODE Admission and Anticipated Discharge Date Admission Date: September 11, 2021 Subjective Pt feeling so much better today. Had a good night's rest last night, cough syrup and cough lozenges have really helped him. Feels appetite much improved, enjoyed eating today, weaned O2 down to HFNC 50L, 90%. Tele with NSR rates 60-90s Review of Systems Review of Systems: All systems reviewed & are unremarkable except as noted in HPI & below Physical Exam Constitutional: WD/WN, vitals as above + morbidly obese Eyes: + anicteric sclerae Neck: trachea midline, no thyromegaly Respiratory: normal respiratory effort; no cough Auscultation: no diminished lung sounds (improved BS today), no crackles, no rhonchi and no wheezes Cardiovascular: RRR, no murmur, no edema Chest (Breasts): Chest: normal inspection of chest Gastrointestinal (Abdomen): normal bowel sounds, soft, nontender, no hepatosplenomegaly Musculoskeletal: Extremities: extremities normal to inspection; no cyanosis and no clubbing Skin: no rashes, warm and dry Neurologic: moves all extremities and awake; no focal motor deficits Psychiatric: A+Ox3, euthymic affect Orientation: cooperative Lymphatic: no lymphedema Results & Data Results & Data ([facility]) Vital Signs (Past 12 Hours) Vital Signs Temp Pulse Pulse Resp BP Pulse Ox 09/22/21 08:00 36.7 C 80 19 169/97 H 92 09/22/21 06:08 66 24 96 09/22/21 02:58 36.5 C 58 L 15 129/79 94 09/22/21 02:41 92 09/21/21 22:50 72 24 91 09/21/21 22:17 36.5 C 81 20 117/76 90 Laboratory Results 09/20/21 05:31 09/22/21 06:42 PG Care Time/CCT Total # of Minutes Spent Total Time Spent with Patient: Total time spent is greater than 50% in coordination of care (as documented) at patient's floor/unit and/or counseling patient: Coding Level of Care Code 92975 Subseq Hosp Care Lvl 3 Diagnoses Pneumonia due to COVID-19 virus U07.1; J12.82 Hypoxia R09.02 ARIELLE (obstructive sleep apnea) G47.33 Hypertension I10 Obesity E66.9
[2021-09-22] MEDS: INSULIN ASPART PER UNIT SC SCH ×4 (09:44→21:21)
[2021-09-22] MEDS: FAMOTIDINE 20 MG in SYRINGE 3 ML IV SCH (11:31)
[2021-09-22] MEDS: dexAMETHasone 20 MG in DEXTROSE 5% 25 ML IV SCH (11:31)
[2021-09-22] MEDS ORDERED: FUROSEMIDE 40 MG/4 ML VIAL IV ONE (11:42)
[2021-09-22] MEDS: ACETAMINOPHEN 325 MG TAB PO PRN (19:34)
[2021-09-22] MEDS: 4mg Daily x 14 days (eGFR >60 mL/min/1.73m2) PO SCH (19:40)
[2021-09-23] MEDS: ENOXAPARIN 80 MG/0.8 ML SYR SQ SCH (05:48)
[2021-09-23] MEDS: ASPIRIN 81 MG ECTAB PO SCH (07:44)
[2021-09-23] MEDS: guaiFENesin 600 MG TABCR PO SCH ×2 (07:44→20:32)
[2021-09-23] MEDS: MULTIVITAMIN TAB PO SCH (07:44)
[2021-09-23] MEDS: FAMOTIDINE 20 MG in SYRINGE 3 ML IV SCH (07:44)
[2021-09-23] MEDS: VITAMIN B COMPLEX TAB PO SCH (07:45)
[2021-09-23 08:01] LABS: Basophils # (auto) 0.03 K/uL (0-0.2); Basophils % (auto) 0.2 %; Eosinophils # (auto) 0.01 K/uL (0-0.5); Eosinophils % (auto) 0.1 %; Hematocrit (blood only) 46.3 % (42-52); Hemoglobin 15.6 g/dL (14.0-18.0); Immature Granulocytes # (auto) 0.28 K/uL (0.00-0.02); Immature Granulocytes % (auto) 2.2 %; Lymphocytes # (auto) 1.01 K/uL (1.2-3.4); Lymphocytes % (auto) 8.1 %; Mean Corpuscular Hemoglobin 32.1 pg (25-34); Mean Corpuscular Hgb Conc 33.7 g/dL (32-36); Mean Corpuscular Volume 95.3 fL (80-100); Monocytes # (auto) 0.74 K/uL (0.11-0.59); Monocytes % (auto) 5.9 %; Neutrophils # (auto) 10.44 K/uL (1.4-6.5); Neutrophils % (auto) 83.5 %; Platelet Count 209 K/uL (130-400); RDW Coefficient of Variation 12.7 % (11.5-14.5); RDW Standard Deviation 44.4 fL (36.4-46.3); Red Blood Count 4.86 M/uL (4.7-6.1); White Blood Count 12.51 K/uL (4.8-10.8)
[2021-09-23 08:28] LABS: Albumin Level 2.1 gm/dl (3.4-5.0); BUN Creatinine Ratio 41.3 (10-20); Calcium 8.5 mg/dl (8.5-10.1); Creatinine Clr Calc Pharmacy 142.6 ml/min; Est GFR (African American) 113.3 ml/min; Est GFR (Non-African American) 97.8 ml/min
[2021-09-23 08:31] LABS: Albumin Globulin Ratio 0.5 (0.9-2); Bilirubin,Total 0.6 mg/dl (0.2-1); Globulin 4.1 gm/dl (2.5-4.0); Total Protein 6.2 gm/dl (6.4-8.2)
[2021-09-23 08:32] LABS: Potassium 4.4 mmol/L (3.5-5.1)
[2021-09-23] MEDS: INSULIN ASPART PER UNIT SC SCH ×4 (09:22→20:42)
[2021-09-23] MEDS ORDERED: FUROSEMIDE 40 MG/4 ML VIAL IV ONE (12:55)
--- NOTE | 2021-09-23 12:55 | Hospitalist Progress Note ---
Date of Service September 23, 2021 Assessment & Plan (1) Pneumonia due to COVID-19 virus: Plan: Acute hypoxic respiratory failure 2/2 COVID-19 pneumonia Symptoms began approximately ~Aug 31, worsened 7 days prior to admission -CT angiogram of the chest upon admission was negative for PE but showed bilateral multifocal pneumonia. -Procalcitonin normal on 3 occasions -Continues to require high flow nasal cannula but is weaned down to 50L and 80% FiO2-continues to improve today - Does desaturate with minimal exertion and is somewhat tachypneic at rest but overall feeling better - CRP initially downtrending to 5.3, then continued to uptrend. Repeat chest x- ray with interval worsening of patchy interstitial and alveolar airspace opacities bilaterally consistent with viral pneumonitis and worsening Covid pneumonia. No lobar consolidations appreciated. CRP now back down to 5.0 - Patient completed 5 days of Rocephin/Zithromax average for concern of bacteria l secondary infection given late presentation, however x-ray and appearance consistent with severe COVID. -Continue Xopenex nebs as needed -continue on incentive spirometer and flutter valve-encouraged to do so -Encouraged continued side positioning or proning if possible. Patient poorly tolerant of this. - ICU signed off 09/19, appreciate care/recommendation - Dexamethasone 20mg x5 days (09/18-09/23) then 10mg daily for 5 days-change to 10mg for tomorrow - Continue baricitinib x 14 day course. - Cr remains at baseline -Follow CBC, CMP, CRP -continue Robitussin with dextromethorphan as needed for cough, throat lozenges for sore throat -give another lasix 40mg IV x 1 today keep Hernandez fo rnow given significant dyspnea with exertion (2) Hypoxia: Plan: Acute respiratory failure with hypoxia in setting of COVID19 pneumonia -Treatment as above -May need to diurese periodically-giving more lasix today as above (3) ARIELLE (obstructive sleep apnea): Plan: CPAP at bedtime as needed, pt poorly tolerant of this (4) Hypertension: Plan: - Lisinopril held since admission (5) Obesity: Plan: BMI 41.8 Needs weight loss Plan: DVT prophylaxis-Lovenox 0.5 mg/KG every 24 hours Disposition-continued stay in Covid precautions, PCU Prognosis guarded Prefers updates be given to first, sister Fawn an # [phone] FULL CODE Admission and Anticipated Discharge Date Admission Date: September 11, 2021 Subjective Pt was OOB to chair x 3 hours today and just got back into bed. Feels winded with getting into bed. Had a BM today. Weaned down to FiO2 80% currently. Is working hard on doing IS frequently Tele with SR, 1st degree AVB, PVCs, aberrant conduction, rates 60-70 Review of Systems Review of Systems: All systems reviewed & are unremarkable except as noted in HPI & below Physical Exam Constitutional: WD/WN, vitals as above + morbidly obese Eyes: + anicteric sclerae Neck: trachea midline, no thyromegaly Respiratory: normal respiratory effort; no cough Auscultation: no diminished lung sounds (improved BS today), no crackles, no rhonchi and no wheezes mild tahcypnea as just go tback in bed Cardiovascular: RRR, no murmur, no edema Chest (Breasts): Chest: normal inspection of chest Gastrointestinal (Abdomen): normal bowel sounds, soft, nontender, no hepatosplenomegaly Musculoskeletal: Extremities: extremities normal to inspection; no cyanosis and no clubbing Skin: no rashes, warm and dry Neurologic: moves all extremities and awake; no focal motor deficits Psychiatric: A+Ox3, euthymic affect Orientation: cooperative Lymphatic: no lymphedema Results & Data Results & Data ([facility]) Vital Signs (Past 12 Hours) Vital Signs Temp Pulse Pulse Pulse Resp BP BP 09/23/21 11:51 68 24 09/23/21 11:23 36.4 C L 97 H 22 128/76 09/23/21 07:23 36.6 C 66 20 129/80 09/23/21 07:00 65 09/23/21 06:58 63 24 09/23/21 03:20 36.5 C 56 L 20 124/75 Pulse Ox 09/23/21 11:51 92 09/23/21 11:23 93 09/23/21 07:23 95 09/23/21 07:00 09/23/21 06:58 96 09/23/21 03:20 95 Laboratory Results 09/23/21 06:40 09/23/21 06:40 PG Care Time/CCT Total # of Minutes Spent Total Time Spent with Patient: Total time spent is greater than 50% in coordination of care (as documented) at patient's floor/unit and/or counseling patient: Coding Level of Care Code 59803 Subseq Hosp Care Lvl 3 Diagnoses Pneumonia due to COVID-19 virus U07.1; J12.82 Hypoxia R09.02 ARIELLE (obstructive sleep apnea) G47.33 Hypertension I10 Obesity E66.9
[2021-09-23] MEDS: 4mg Daily x 14 days (eGFR >60 mL/min/1.73m2) PO SCH (20:35)
[2021-09-24] MEDS: POLYETHYLENE (MIRALAX) 17 GM PACK PO PRN (02:41)
[2021-09-24] MEDS: ENOXAPARIN 80 MG/0.8 ML SYR SQ SCH ×2 (04:49→20:27)
[2021-09-24 07:37] LABS: Basophils # (auto) 0.02 K/uL (0-0.2); Basophils % (auto) 0.2 %; Eosinophils # (auto) 0.11 K/uL (0-0.5); Eosinophils % (auto) 0.9 %; Hematocrit (blood only) 45.6 % (42-52); Hemoglobin 15.3 g/dL (14.0-18.0); Immature Granulocytes # (auto) 0.25 K/uL (0.00-0.02); Lymphocytes # (auto) 1.27 K/uL (1.2-3.4); Lymphocytes % (auto) 10.3 %; Mean Corpuscular Hemoglobin 31.7 pg (25-34); Mean Corpuscular Hgb Conc 33.6 g/dL (32-36); Mean Corpuscular Volume 94.4 fL (80-100); Mean Platelet Volume 9.6 fL (7.4-10.4); Monocytes # (auto) 0.68 K/uL (0.11-0.59); Monocytes % (auto) 5.5 %; Neutrophils # (auto) 9.99 K/uL (1.4-6.5); Neutrophils % (auto) 81.1 %; Platelet Count 215 K/uL (130-400); RDW Coefficient of Variation 12.9 % (11.5-14.5); RDW Standard Deviation 44.8 fL (36.4-46.3); Red Blood Count 4.83 M/uL (4.7-6.1); White Blood Count 12.32 K/uL (4.8-10.8)
[2021-09-24 08:03] LABS: Albumin Level 2.2 gm/dl (3.4-5.0); BUN Creatinine Ratio 31.7 (10-20); Calcium 8.6 mg/dl (8.5-10.1); Creatinine Clr Calc Pharmacy 112.9 ml/min; Est GFR (African American) 103.2 ml/min; Est GFR (Non-African American) 89.1 ml/min
[2021-09-24 08:06] LABS: Albumin Globulin Ratio 0.6 (0.9-2); Bilirubin,Total 0.9 mg/dl (0.2-1); C Reactive Protein 4.74 mg/dl (0-0.29); Globulin 3.8 gm/dl (2.5-4.0)
[2021-09-24 08:22] LABS: Potassium 3.8 mmol/L (3.5-5.1)
[2021-09-24] MEDS ORDERED: FUROSEMIDE 40 MG/4 ML VIAL IV ONE (08:23)
[2021-09-24] MEDS: INSULIN ASPART PER UNIT SC SCH ×4 (08:57→20:25)
[2021-09-24] MEDS: guaiFENesin 600 MG TABCR PO SCH ×2 (09:40→20:26)
[2021-09-24] MEDS: VITAMIN B COMPLEX TAB PO SCH (09:40)
[2021-09-24] MEDS: MULTIVITAMIN TAB PO SCH (09:40)
[2021-09-24] MEDS: FAMOTIDINE 20 MG in SYRINGE 3 ML IV SCH (09:40)
[2021-09-24] MEDS: dexAMETHasone 10 MG in SYRINGE 0 ML IV SCH (09:40)
[2021-09-24] MEDS: ASPIRIN 81 MG ECTAB PO SCH (09:41)
[2021-09-24] MEDS: ACETAMINOPHEN 325 MG TAB PO PRN (10:41)
[2021-09-24] MEDS ORDERED: bisacodyL 5 MG TABEC PO ONE (17:07)
--- NOTE | 2021-09-24 17:08 | Hospitalist Progress Note ---
Date of Service September 24, 2021 Assessment & Plan (1) Pneumonia due to COVID-19 virus: Plan: Acute hypoxic respiratory failure 2/2 COVID-19 pneumonia Symptoms began approximately ~Aug 31, worsened 7 days prior to admission -CT angiogram of the chest upon admission was negative for PE but showed bilateral multifocal pneumonia. -Procalcitonin normal on 3 occasions -Continues to require high flow nasal cannula but is weaned down to 50L and 55% FiO2-continues to improve each day - CRP initially downtrending to 5.3, then continued to uptrend. Repeat chest x- ray with interval worsening of patchy interstitial and alveolar airspace opacities bilaterally consistent with viral pneumonitis and worsening Covid pneumonia. No lobar consolidations appreciated. CRP now back down to 4.7 final day of treatment will be - Patient completed 5 days of Rocephin/Zithromax average for concern of bacterial secondary infection given late presentation, however x-ray and appearance consistent with severe COVID. -Continue Xopenex nebs as needed -continue on incentive spirometer and flutter valve-encouraged to do so -Encouraged continued side positioning or proning if possible. Patient poorly tolerant of this. - ICU signed off 09/19, appreciate care/recommendation - Dexamethasone 20mg x5 days (09/18-09/23) then 10mg daily for 5 days-final day of treatment will be gave 09/28 - Continue baricitinib x 14 day course. - Cr remains at baseline -Follow CBC, CMP, CRP -continue Robitussin with dextromethorphan as needed for cough, throat lozenges for sore throat -gave another lasix 40mg IV x 1 today keep Tyler for now given significant dyspnea with exertion (2) Hypoxia: Plan: Acute respiratory failure with hypoxia in setting of COVID19 pneumonia -Treatment as above -May need to diurese periodically-giving more lasix today as above (3) ARIELLE (obstructive sleep apnea): Plan: CPAP at bedtime as needed, pt poorly tolerant of this (4) Hypertension: Plan: - Lisinopril held since admission (5) Obesity: Plan: BMI 41.2 Needs weight loss Plan: DVT prophylaxis-increase Lovenox 0.5 mg/KG up to q12 Disposition-continued stay in Covid precautions, PCU Prognosis guarded Prefers updates be given to -called her 09/24 with update FULL CODE Admission and Anticipated Discharge Date Admission Date: September 11, 2021 Subjective Patient reports he had a bad night as he was sitting on the toilet from his 3 hours trying to have a bowel movement. He reports he finally had an extremely large bowel movement that felt like "I was birthing a bowling ball." He is very tired today. Still short of breath at times. However, oxygen has been weaned down to high flow nasal cannula 50 L and 55% FiO2 which is the best yet this admission. Telemetry with normal sinus rhythm rates in the 70s to 80s Review of Systems Review of Systems: All systems reviewed & are unremarkable except as noted in HPI & below Physical Exam Constitutional: WD/WN, vitals as above + morbidly obese Eyes: + anicteric sclerae Neck: trachea midline, no thyromegaly Respiratory: normal respiratory effort; no cough Auscultation: no diminished lung sounds (improved BS today), no crackles, no rhonchi and no wheezes Cardiovascular: RRR, no murmur, no edema Chest (Breasts): Chest: normal inspection of chest Gastrointestinal (Abdomen): normal bowel sounds, soft, nontender, no hepatosplenomegaly Musculoskeletal: Extremities: extremities normal to inspection; no cyanosis and no clubbing Skin: no rashes, warm and dry Neurologic: moves all extremities and awake; no focal motor deficits Psychiatric: A+Ox3, euthymic affect Orientation: cooperative Lymphatic: no lymphedema Results & Data Results & Data ([facility]) Vital Signs (Past 12 Hours) Vital Signs Temp Pulse Pulse Resp BP Pulse Ox 09/24/21 16:00 82 16 93 09/24/21 15:39 37.0 C 85 20 141/86 H 92 09/24/21 12:32 85 18 94 09/24/21 11:36 37.0 C 82 18 121/84 94 09/24/21 08:08 84 24 94 09/24/21 07:47 37.2 C 75 20 126/74 94 09/24/21 07:00 77 Laboratory Results 09/24/21 09/24/21 09/24/21 Range/Units 16:28 11:08 07:20 WBC (4.8-10.8) K/uL RBC (4.7-6.1) M/uL Hgb (14.0-18.0) g/dL Hct (42-52) % MCV (80-100) fL MCH (25-34) pg MCHC (32-36) g/dL RDW Std Deviation (36.4-46.3) fL RDW Coeff of Roberto Carlos (11.5-14.5) % Plt Count (130-400) K/uL MPV (7.4-10.4) fL Immature Gran % (Auto) % Neut % (Auto) % Lymph % (Auto) % Knox % (Auto) % Eos % (Auto) % Baso % (Auto) % Neut # (Auto) (1.4-6.5) K/uL Lymph # (Auto) (1.2-3.4) K/uL Knox # (Auto) (0.11-0.59) K/uL Eos # (Auto) (0-0.5) K/uL Baso # (Auto) (0-0.2) K/uL Immature Gran # (Auto) (0.00-0.02) K/uL Sodium (136-145) mmol/L Potassium (3.5-5.1) mmol/L Chloride (98-107) mmol/L Carbon Dioxide (21-32) mmol/L Anion Gap (3-11) BUN (7-18) mg/dl Creatinine (0.6-1.4) mg/dl Est Cr Clr Drug Dosing ml/min Est GFR ( Amer) ml/min Est GFR (Non-Af Amer) ml/min BUN/Creatinine Ratio (10-20) Glucose (70-99) mg/dl POC Glucose 211 H 136 H 100 H (70-99) mg/dl Calcium (8.5-10.1) mg/dl Total Bilirubin (0.2-1) mg/dl AST (15-37) U/L ALT (12-78) Alkaline Phosphatase (45-117) U/L C-Reactive Protein (0-0.29) mg/dl Total Protein (6.4-8.2) gm/dl Albumin (3.4-5.0) gm/dl Globulin (2.5-4.0) gm/dl Albumin/Globulin Ratio (0.9-2) 09/24/21 09/24/21 09/23/21 Range/Units 06:55 06:55 19:54 WBC 12.32 H (4.8-10.8) K/uL RBC 4.83 (4.7-6.1) M/uL Hgb 15.3 (14.0-18.0) g/dL Hct 45.6 (42-52) % MCV 94.4 (80-100) fL MCH 31.7 (25-34) pg MCHC 33.6 (32-36) g/dL RDW Std Deviation 44.8 (36.4-46.3) fL RDW Coeff of Roberto Carlos 12.9 (11.5-14.5) % Plt Count 215 (130-400) K/uL MPV 9.6 (7.4-10.4) fL Immature Gran % (Auto) 2.0 % Neut % (Auto) 81.1 % Lymph % (Auto) 10.3 % Knox % (Auto) 5.5 % Eos % (Auto) 0.9 % Baso % (Auto) 0.2 % Neut # (Auto) 9.99 H (1.4-6.5) K/uL Lymph # (Auto) 1.27 (1.2-3.4) K/uL Knox # (Auto) 0.68 H (0.11-0.59) K/uL Eos # (Auto) 0.11 (0-0.5) K/uL Baso # (Auto) 0.02 (0-0.2) K/uL Immature Gran # (Auto) 0.25 H (0.00-0.02) K/uL Sodium 132 L (136-145) mmol/L Potassium 3.8 (3.5-5.1) mmol/L Chloride 97 L (98-107) mmol/L Carbon Dioxide 28 (21-32) mmol/L Anion Gap 7.0 (3-11) BUN 25 H (7-18) mg/dl Creatinine 0.79 (0.6-1.4) mg/dl Est Cr Clr Drug Dosing 112.9 ml/min Est GFR ( Amer) 103.2 ml/min Est GFR (Non-Af Amer) 89.1 ml/min BUN/Creatinine Ratio 31.7 H (10-20) Glucose 100 H (70-99) mg/dl POC Glucose 120 H (70-99) mg/dl Calcium 8.6 (8.5-10.1) mg/dl Total Bilirubin 0.9 (0.2-1) mg/dl AST 66 H (15-37) U/L ALT 105 H (12-78) Alkaline Phosphatase 89 (45-117) U/L C-Reactive Protein 4.74 H (0-0.29) mg/dl Total Protein 6.0 L (6.4-8.2) gm/dl Albumin 2.2 L (3.4-5.0) gm/dl Globulin 3.8 (2.5-4.0) gm/dl Albumin/Globulin Ratio 0.6 L (0.9-2) PG Care Time/CCT Total # of Minutes Spent Total Time Spent with Patient: Total time spent is greater than 50% in coordination of care (as documented) at patient's floor/unit and/or counseling patient: Coding Level of Care Code 48385 Subseq Hosp Care Lvl 3 Diagnoses Pneumonia due to COVID-19 virus U07.1; J12.82 Hypoxia R09.02 ARIELLE (obstructive sleep apnea) G47.33 Hypertension I10 Obesity E66.9
[2021-09-24] MEDS: DOCUSATE SODIUM/SENNA 50/8.6MG TAB PO SCH (20:26)
[2021-09-24] MEDS: 4mg Daily x 14 days (eGFR >60 mL/min/1.73m2) PO SCH (20:27)
[2021-09-25 06:48] LABS: Basophils # (auto) 0.02 K/uL (0-0.2); Basophils % (auto) 0.2 %; Eosinophils # (auto) 0.02 K/uL (0-0.5); Eosinophils % (auto) 0.2 %; Hematocrit (blood only) 46.6 % (42-52); Hemoglobin 15.6 g/dL (14.0-18.0); Immature Granulocytes # (auto) 0.29 K/uL (0.00-0.02); Immature Granulocytes % (auto) 2.4 %; Lymphocytes # (auto) 0.96 K/uL (1.2-3.4); Mean Corpuscular Hemoglobin 31.5 pg (25-34); Mean Corpuscular Hgb Conc 33.5 g/dL (32-36); Mean Platelet Volume 9.7 fL (7.4-10.4); Monocytes # (auto) 0.76 K/uL (0.11-0.59); Monocytes % (auto) 6.3 %; Neutrophils # (auto) 9.99 K/uL (1.4-6.5); Neutrophils % (auto) 82.9 %; Platelet Count 209 K/uL (130-400); RDW Coefficient of Variation 12.9 % (11.5-14.5); RDW Standard Deviation 44.4 fL (36.4-46.3); Red Blood Count 4.96 M/uL (4.7-6.1); White Blood Count 12.04 K/uL (4.8-10.8)
[2021-09-25 07:26] LABS: Albumin Level 2.3 gm/dl (3.4-5.0); BUN Creatinine Ratio 35.9 (10-20); Calcium 9.1 mg/dl (8.5-10.1); Creatinine Clr Calc Pharmacy 145.8 ml/min; Est GFR (African American) 114.8 ml/min; Est GFR (Non-African American) 99.1 ml/min
[2021-09-25 07:29] LABS: Albumin Globulin Ratio 0.6 (0.9-2); Bilirubin,Total 0.6 mg/dl (0.2-1); C Reactive Protein 3.82 mg/dl (0-0.29); Total Protein 6.3 gm/dl (6.4-8.2)
[2021-09-25] MEDS: INSULIN ASPART PER UNIT SC SCH ×4 (07:56→20:37)
[2021-09-25] MEDS: guaiFENesin 600 MG TABCR PO SCH ×2 (08:10→20:35)
[2021-09-25] MEDS: VITAMIN B COMPLEX TAB PO SCH (08:10)
[2021-09-25] MEDS: FAMOTIDINE 20 MG in SYRINGE 3 ML IV SCH (08:11)
[2021-09-25] MEDS: ENOXAPARIN 80 MG/0.8 ML SYR SQ SCH ×2 (08:11→20:34)
[2021-09-25] MEDS: ASPIRIN 81 MG ECTAB PO SCH (08:11)
[2021-09-25] MEDS: MULTIVITAMIN TAB PO SCH (08:12)
[2021-09-25] MEDS: FUROSEMIDE 40 MG/4 ML VIAL IV SCH (08:13)
[2021-09-25] MEDS: dexAMETHasone 10 MG in SYRINGE 0 ML IV SCH (09:36)
--- NOTE | 2021-09-25 20:20 | Hospitalist Progress Note ---
Date of Service September 25, 2021 Assessment & Plan (1) Pneumonia due to COVID-19 virus: Plan: Acute hypoxic respiratory failure 2/2 COVID-19 pneumonia Symptoms began approximately ~Aug 31, worsened 7 days prior to admission -CT angiogram of the chest upon admission was negative for PE but showed bilateral multifocal pneumonia. -Procalcitonin normal on 3 occasions -Continued to require high flow nasal cannula/Vapotherm x14 days, but is finally weaned off of that and is on 10 L of the wall high flow nasal cannula - CRP trended downward - Patient completed 5 days of Rocephin/Zithromax average for concern of bacterial secondary infection -Continue Xopenex nebs as needed -continue on incentive spirometer and flutter valve-encouraged to do so -Encouraged continued side positioning or proning if possible. Patient poorly tolerant of this. - ICU signed off 09/19, appreciate care/recommendation - Dexamethasone 20mg x5 days (09/18-09/23) then 10mg daily for 5 days-final day of treatment will be gave 09/28 -He has now completed baricitinib x 14 day course. -Follow CBC, CMP, CRP -continue Robitussin with dextromethorphan as needed for cough, throat lozenges for sore throat -Continue lasix 40mg IV daily which is really helping keep Tyler for now given significant dyspnea with exertion, but hopeful to discontinue this in the near future -Add on lorazepam 0.5 mg at bedtime as needed for insomnia -Need to get mobilized out of bed to chair-discussed with nursing (2) Hypoxia: Plan: Acute respiratory failure with hypoxia in setting of COVID19 pneumonia -Treatment as above (3) ARIELLE (obstructive sleep apnea): Plan: CPAP at bedtime as needed, pt poorly tolerant of this (4) Hypertension: Plan: - Lisinopril held since admission (5) Obesity: Plan: BMI 41.2 Needs weight loss Plan: DVT prophylaxis- Lovenox 0.5 mg/KG up to q12 GI prophylaxis-change IV Pepcid to Pepcid 20 mg p.o. once daily Disposition-continued stay in Covid precautions, PCU Prefers updates be given to -called her 09/24 with update FULL CODE Admission and Anticipated Discharge Date Admission Date: September 11, 2021 Subjective Patient requesting something to help him sleep at night. Still coughing. Was weaned off the Vapotherm to 10 L of the wall high flow nasal cannula. Is eating and drinking, moved his bowels today. Overall feels better. Has not been out of bed to a chair. Telemetry with normal sinus rhythm with rates in the 80s to 100s. Review of Systems Review of Systems: All systems reviewed & are unremarkable except as noted in HPI & below Physical Exam Constitutional: WD/WN, vitals as above + morbidly obese Eyes: + anicteric sclerae Neck: trachea midline, no thyromegaly Respiratory: normal respiratory effort; no cough Auscultation: no diminished lung sounds (improved BS today), no crackles, no rhonchi and no wheezes Cardiovascular: RRR, no murmur, no edema Chest (Breasts): Chest: normal inspection of chest Gastrointestinal (Abdomen): normal bowel sounds, soft, nontender, no he patosplenomegaly Musculoskeletal: Extremities: extremities normal to inspection; no cyanosis and no clubbing Skin: no rashes, warm and dry Neurologic: moves all extremities and awake; no focal motor deficits Psychiatric: A+Ox3, euthymic affect Orientation: cooperative Lymphatic: no lymphedema Results & Data Results & Data ([facility]) Vital Signs (Past 12 Hours) Vital Signs Temp Pulse Pulse Resp BP Pulse Ox 09/25/21 19:33 36.7 C 89 18 119/74 91 09/25/21 16:00 36.7 C 77 18 114/84 91 09/25/21 15:40 88 09/25/21 10:51 36.4 C L 80 18 126/76 94 Laboratory Results 09/25/21 05:44 09/25/21 05:44 PG Care Time/CCT Total # of Minutes Spent Total Time Spent with Patient: Total time spent is greater than 50% in coordination of care (as documented) at patient's floor/unit and/or counseling patient: Coding Level of Care Code 17701 Subseq Hosp Care Lvl 3 Diagnoses Pneumonia due to COVID-19 virus U07.1; J12.82 Hypoxia R09.02 ARIELLE (obstructive sleep apnea) G47.33 Hypertension I10 Obesity E66.9
[2021-09-25] MEDS: DOCUSATE SODIUM/SENNA 50/8.6MG TAB PO SCH (21:32)
[2021-09-26 07:29] LABS: Basophils # (auto) 0.02 K/uL (0-0.2); Basophils % (auto) 0.1 %; Hematocrit (blood only) 47.5 % (42-52); Hemoglobin 16.1 g/dL (14.0-18.0); Immature Granulocytes # (auto) 0.32 K/uL (0.00-0.02); Immature Granulocytes % (auto) 2.3 %; Lymphocytes # (auto) 0.88 K/uL (1.2-3.4); Lymphocytes % (auto) 6.4 %; Mean Corpuscular Hgb Conc 33.9 g/dL (32-36); Mean Corpuscular Volume 94.4 fL (80-100); Mean Platelet Volume 9.6 fL (7.4-10.4); Monocytes # (auto) 1.11 K/uL (0.11-0.59); Monocytes % (auto) 8.1 %; Neutrophils # (auto) 11.41 K/uL (1.4-6.5); Neutrophils % (auto) 83.1 %; Platelet Count 267 K/uL (130-400); RDW Coefficient of Variation 12.9 % (11.5-14.5); RDW Standard Deviation 44.1 fL (36.4-46.3); Red Blood Count 5.03 M/uL (4.7-6.1); White Blood Count 13.74 K/uL (4.8-10.8)
[2021-09-26 08:02] LABS: Albumin Level 2.6 gm/dl (3.4-5.0); BUN Creatinine Ratio 32.5 (10-20); Creatinine Clr Calc Pharmacy 102.1 ml/min; Est GFR (African American) 99.2 ml/min; Est GFR (Non-African American) 85.6 ml/min; Magnesium 2.5 mg/dl (1.8-2.4); Potassium 3.9 mmol/L (3.5-5.1)
[2021-09-26 08:04] LABS: Albumin Globulin Ratio 0.7 (0.9-2); Bilirubin,Total 0.7 mg/dl (0.2-1); C Reactive Protein 1.56 mg/dl (0-0.29); Globulin 3.9 gm/dl (2.5-4.0); Total Protein 6.5 gm/dl (6.4-8.2)
[2021-09-26] MEDS: FUROSEMIDE 40 MG/4 ML VIAL IV SCH (08:29)
[2021-09-26] MEDS: FAMOTIDINE 20 MG TAB PO SCH (08:29)
[2021-09-26] MEDS: guaiFENesin 600 MG TABCR PO SCH ×2 (08:29→20:11)
[2021-09-26] MEDS: ASPIRIN 81 MG ECTAB PO SCH (08:29)
[2021-09-26] MEDS: dexAMETHasone 10 MG in SYRINGE 0 ML IV SCH (08:29)
[2021-09-26] MEDS: ENOXAPARIN 80 MG/0.8 ML SYR SQ SCH ×2 (08:30→20:11)
[2021-09-26] MEDS: MULTIVITAMIN TAB PO SCH (08:30)
[2021-09-26] MEDS: VITAMIN B COMPLEX TAB PO SCH (08:30)
[2021-09-26] MEDS: INSULIN ASPART PER UNIT SC SCH ×4 (08:33→20:46)
--- NOTE | 2021-09-26 14:08 | Hospitalist Progress Note ---
Date of Service September 26, 2021 Assessment & Plan (1) Pneumonia due to COVID-19 virus: Plan: Acute hypoxic respiratory failure 2/2 COVID-19 pneumonia -CT angiogram of the chest upon admission was negative for PE but showed bilateral multifocal pneumonia. -Procalcitonin normal on 3 occasions -He has now completed baricitinib x 14 day course, empiric antibiotics and will complete Dexa on 09/28 -Follow CBC, CMP, CRP -continue Robitussin with dextromethorphan as needed for cough, throat lozenges for sore throat -Add on lorazepam 0.5 mg at bedtime as needed for insomnia -Participating in PT - Monitor inflammatory markers (2) Hypoxia: Plan: Acute respiratory failure with hypoxia in setting of COVID19 pneumonia -Currently on 9L nasal canula wean as tolerated (3) ARIELLE (obstructive sleep apnea): Plan: CPAP at bedtime as needed, pt poorly tolerant of this (4) Hypertension: Plan: - Lisinopril held since admission (5) Obesity: Plan: BMI 41.2 Needs weight loss adviced on diet and execrcise (6) Physical deconditioning: Plan: Participating in PT Plan: DVT prophylaxis- Lovenox 0.5 mg/KG up to q12 GI prophylaxis-change IV Pepcid to Pepcid 20 mg p.o. once daily Disposition-continued stay in [facility], PCU Prefers updates be given to -called her 09/24 with update FULL CODE Admission and Anticipated Discharge Date Admission Date: September 11, 2021 Subjective Patient seen and examined, on 9L nasal canula. HR up to 120 with mild movement, cough is better Review of Systems Review of Systems: All systems reviewed are negative, apart from the ones contained in the history. Physical Exam Physical Exam: The patient is awake, alert and oriented 3, well developed and well nourished, normocephalic and atraumatic, lying in bed and in no acute distress. HEENT--PERRL, EOMI, mucous membranes and oropharynx mildly dry Neck--supple. No JVD. No bruits. Thyroid normal, trachea midline, no adenopathy. Heart--normal S1 and S2. No murmurs, rubs or gallops. Lungs--Reduced air entry Abdomen--normal bowel sounds and soft. Mild epigastric and left sided abdominal pain Extremities--no cyanosis or clubbing. No edema. Dermatologic--normal skin turgor, normal color, no abnormal lymph nodes, no rash. Neurologic--cranial nerves II through XII grossly intact. Rheumatologic--normal range of motion. Psychiatric--normal affect. Results & Data Results & Data ([facility]) Vital Signs (Past 12 Hours) Vital Signs Temp Pulse Pulse Resp BP Pulse Ox 09/26/21 11:02 97.5 F L 82 18 114/74 90 09/26/21 08:14 65 09/26/21 07:19 97.5 F L 78 17 120/77 91 09/26/21 04:00 98.2 F 71 20 135/88 92 PG Care Time/CCT Total # of Minutes Spent Total Time Spent with Patient: Total time spent is greater than 50% in coordination of care (as documented) at patient's floor/unit and/or counseling patient: Coding Level of Care Code 71033 Subseq Hosp Care Lvl 2 Diagnoses Pneumonia due to COVID-19 virus U07.1; J12.82 Hypoxia R09.02 ARIELLE (obstructive sleep apnea) G47.33 Hypertension I10 Obesity E66.9 Physical deconditioning R53.81 Time Spent (min) 35
[2021-09-26] MEDS: LORazepam 0.5 MG TAB PO PRN (20:10)
[2021-09-26] MEDS: DOCUSATE SODIUM/SENNA 50/8.6MG TAB PO SCH (20:11)
[2021-09-27] MEDS: INSULIN ASPART PER UNIT SC SCH ×4 (08:32→21:25)
[2021-09-27] MEDS: ENOXAPARIN 80 MG/0.8 ML SYR SQ SCH ×2 (08:37→21:15)
[2021-09-27] MEDS: FAMOTIDINE 20 MG TAB PO SCH (08:38)
[2021-09-27] MEDS: FUROSEMIDE 40 MG/4 ML VIAL IV SCH (08:38)
[2021-09-27] MEDS: MULTIVITAMIN TAB PO SCH (08:38)
[2021-09-27] MEDS: guaiFENesin 600 MG TABCR PO SCH ×2 (08:38→21:15)
[2021-09-27] MEDS: VITAMIN B COMPLEX TAB PO SCH (08:38)
[2021-09-27] MEDS: dexAMETHasone 10 MG in SYRINGE 0 ML IV SCH (08:38)
[2021-09-27] MEDS: ASPIRIN 81 MG ECTAB PO SCH (08:38)
[2021-09-27 09:43] LABS: BUN Creatinine Ratio 29.1 (10-20); C Reactive Protein 1.24 mg/dl (0-0.29); Calcium 9.6 mg/dl (8.5-10.1); Creatinine Clr Calc Pharmacy 76.1 ml/min; Est GFR (African American) 71.3 ml/min; Est GFR (Non-African American) 61.5 ml/min; Potassium 3.4 mmol/L (3.5-5.1)
[2021-09-27] MEDS: ACETAMINOPHEN 325 MG TAB PO PRN (12:27)
--- NOTE | 2021-09-27 14:07 | Hospitalist Progress Note ---
Date of Service September 27, 2021 Assessment & Plan (1) Pneumonia due to COVID-19 virus: Plan: Acute hypoxic respiratory failure 2/2 COVID-19 pneumonia -CT angiogram of the chest upon admission was negative for PE but showed bilateral multifocal pneumonia. -Procalcitonin normal on 3 occasions -He has now completed baricitinib x 14 day course, empiric antibiotics and will complete Dexa on 09/28 -Follow CBC, CMP, CRP -continue Robitussin with dextromethorphan as needed for cough, throat lozenges for sore throat -Add on lorazepam 0.5 mg at bedtime as needed for insomnia -Participating in PT - Monitor inflammatory markers -CRP is trending down (2) Hypoxia: Plan: Acute respiratory failure with hypoxia in setting of COVID19 pneumonia -Currently on 9L nasal canula wean as tolerated (3) ARIELLE (obstructive sleep apnea): Plan: CPAP at bedtime as needed, pt poorly tolerant of this (4) Hypertension: Plan: - Lisinopril held since admission (5) Obesity: Plan: BMI 41.2 Needs weight loss adviced on diet and execrcise (6) Physical deconditioning: Plan: Participating in PT (7) Hyponatremia: Plan: likely due to diuretics Hold lasix today recheck bmp tomorrow Plan: DVT prophylaxis- Lovenox 0.5 mg/KG up to q12 GI prophylaxis-change IV Pepcid to Pepcid 20 mg p.o. once daily Disposition-continued stay in [facility], PCU FULL CODE Admission and Anticipated Discharge Date Admission Date: September 11, 2021 Subjective Patient seen and examined, on 9L nasal canula. no new complaints Review of Systems Review of Systems: All systems reviewed are negative, apart from the ones contained in the history. Physical Exam Physical Exam: The patient is awake, alert and oriented 3, well developed and well nourished, normocephalic and atraumatic, lying in bed and in no acute distress. HEENT--PERRL, EOMI, mucous membranes and oropharynx mildly dry Neck--supple. No JVD. No bruits. Thyroid normal, trachea midline, no adenopathy. Heart--normal S1 and S2. No murmurs, rubs or gallops. Lungs--Reduced air entry Abdomen--normal bowel sounds and soft. Mild epigastric and left sided abdominal pain Extremities--no cyanosis or clubbing. No edema. Dermatologic--normal skin turgor, normal color, no abnormal lymph nodes, no rash. Neurologic--cranial nerves II through XII grossly intact. Rheumatologic--normal range of motion. Psychiatric--normal affect. Results & Data Results & Data ([facility]) Vital Signs (Past 12 Hours) Vital Signs Temp Pulse Pulse Resp BP Pulse Ox 09/27/21 11:18 97.9 F 92 H 17 130/82 92 09/27/21 08:00 75 86 18 121/81 91 09/27/21 03:23 98.1 F 68 18 127/85 96 PG Care Time/CCT Total # of Minutes Spent Total Time Spent with Patient: Total time spent is greater than 50% in coordination of care (as documented) at patient's floor/unit and/or counseling patient: Coding Level of Care Code 20345 Subseq Hosp Care Lvl 2 Diagnoses Pneumonia due to COVID-19 virus U07.1; J12.82 Hypoxia R09.02 ARIELLE (obstructive sleep apnea) G47.33 Hypertension I10 Obesity E66.9 Physical deconditioning R53.81 Hyponatremia E87.1 Time Spent (min) 35
[2021-09-27] MEDS: LORazepam 0.5 MG TAB PO PRN (21:25)
[2021-09-27] MEDS: DOCUSATE SODIUM/SENNA 50/8.6MG TAB PO SCH (21:25)
[2021-09-28 07:21] LABS: Calcium 9.4 mg/dl (8.5-10.1); Creatinine Clr Calc Pharmacy 96.6 ml/min; Est GFR (African American) 95.3 ml/min; Est GFR (Non-African American) 82.2 ml/min; Potassium 3.5 mmol/L (3.5-5.1)
[2021-09-28] MEDS: ENOXAPARIN 80 MG/0.8 ML SYR SQ SCH ×2 (08:08→20:35)
[2021-09-28] MEDS: dexAMETHasone 10 MG in SYRINGE 0 ML IV SCH (08:10)
[2021-09-28] MEDS: FAMOTIDINE 20 MG TAB PO SCH (08:15)
[2021-09-28] MEDS: MULTIVITAMIN TAB PO SCH (08:15)
[2021-09-28] MEDS: guaiFENesin 600 MG TABCR PO SCH ×2 (08:15→20:35)
[2021-09-28] MEDS: ASPIRIN 81 MG ECTAB PO SCH (08:15)
[2021-09-28] MEDS: VITAMIN B COMPLEX TAB PO SCH (08:16)
[2021-09-28] MEDS: INSULIN ASPART PER UNIT SC SCH ×4 (08:20→20:35)
--- NOTE | 2021-09-28 13:45 | Hospitalist Progress Note ---
Date of Service September 28, 2021 Assessment & Plan (1) Pneumonia due to COVID-19 virus: Plan: Acute hypoxic respiratory failure 2/2 COVID-19 pneumonia -CT angiogram of the chest upon admission was negative for PE but showed bilateral multifocal pneumonia. -Procalcitonin normal on 3 occasions -He has now completed baricitinib x 14 day course, and also empiric antibiotics and Dexa -Feels better compared to admission -Participating in PT - Monitor inflammatory markers -CRP is trending down (2) Hypoxia: Plan: Acute respiratory failure with hypoxia in setting of COVID19 pneumonia -Currently on 7L nasal canula wean as tolerated (3) ARIELLE (obstructive sleep apnea): Plan: CPAP at bedtime as needed, pt poorly tolerant of this (4) Hypertension: Plan: - Lisinopril held since admission (5) Obesity: Plan: BMI 41.2 Needs weight loss adviced on diet and execrcise (6) Physical deconditioning: Plan: Participating in PT (7) Hyponatremia: Plan: likely due to diuretics Hold lasix today recheck bmp tomorrow Plan: DVT prophylaxis- Lovenox 0.5 mg/KG up to q12 GI prophylaxis-change IV Pepcid to Pepcid 20 mg p.o. once daily Disposition-continued stay in Covid precautions, may be discharged when his oxygen requirement drops to 4L or below FULL CODE Admission and Anticipated Discharge Date Admission Date: September 11, 2021 Subjective Patient seen and examined, on 7L nasal canula. no new complaints, says he wants to go home Review of Systems Review of Systems: All systems reviewed are negative, apart from the ones contained in the history. Physical Exam Physical Exam: The patient is awake, alert and oriented 3, well developed and well nourished, normocephalic and atraumatic, lying in bed and in no acute distress. HEENT--PERRL, EOMI, mucous membranes and oropharynx mildly dry Neck--supple. No JVD. No bruits. Thyroid normal, trachea midline, no adenopathy. Heart--normal S1 and S2. No murmurs, rubs or gallops. Lungs--Reduced air entry Abdomen--normal bowel sounds and soft. Mild epigastric and left sided abdominal pain Extremities--no cyanosis or clubbing. No edema. Dermatologic--normal skin turgor, normal color, no abnormal lymph nodes, no rash. Neurologic--cranial nerves II through XII grossly intact. Rheumatologic--normal range of motion. Psychiatric--normal affect. Results & Data Results & Data ([facility]) Vital Signs (Past 12 Hours) Vital Signs Temp Pulse Pulse Resp BP Pulse Ox 09/28/21 12:31 98.1 F 82 18 120/74 92 09/28/21 10:35 91 09/28/21 08:04 97.3 F L 77 18 115/73 93 09/28/21 08:00 73 09/28/21 02:31 97.9 F 69 18 119/67 94 PG Care Time/CCT Total # of Minutes Spent Total Time Spent with Patient: Total time spent is greater than 50% in coordination of care (as documented) at patient's floor/unit and/or counseling patient: Coding Level of Care Code 70719 Subseq Hosp Care Lvl 2 Diagnoses Pneumonia due to COVID-19 virus U07.1; J12.82 Hypoxia R09.02 ARIELLE (obstructive sleep apnea) G47.33 Hypertension I10 Obesity E66.9 Physical deconditioning R53.81 Hyponatremia E87.1 Time Spent (min) 35
[2021-09-28] MEDS: LORazepam 0.5 MG TAB PO PRN (20:34)
[2021-09-28] MEDS: ACETAMINOPHEN 325 MG TAB PO PRN (20:34)
[2021-09-28] MEDS: DOCUSATE SODIUM/SENNA 50/8.6MG TAB PO SCH (20:34)
[2021-09-28] MEDS ORDERED: MICONAZOLE NITRATE POWDER 43 GM EXT PRN (20:37)
[2021-09-29] MEDS: INSULIN ASPART PER UNIT SC SCH ×4 (08:35→20:34)
[2021-09-29] MEDS: ENOXAPARIN 80 MG/0.8 ML SYR SQ SCH ×2 (08:36→20:33)
[2021-09-29] MEDS: MULTIVITAMIN TAB PO SCH (08:38)
[2021-09-29] MEDS: guaiFENesin 600 MG TABCR PO SCH ×2 (08:38→20:33)
[2021-09-29] MEDS: FAMOTIDINE 20 MG TAB PO SCH (08:38)
[2021-09-29] MEDS: VITAMIN B COMPLEX TAB PO SCH (08:38)
[2021-09-29] MEDS: ASPIRIN 81 MG ECTAB PO SCH (08:38)
--- NOTE | 2021-09-29 13:56 | Hospitalist Progress Note ---
Date of Service September 29, 2021 Assessment & Plan (1) Pneumonia due to COVID-19 virus: Plan: Acute hypoxic respiratory failure 2/2 COVID-19 pneumonia -CT angiogram of the chest upon admission was negative for PE but showed bilateral multifocal pneumonia. -No evidence of bacterial infection -He has now completed baricitinib x 14 day course, and also empiric antibiotics and Dexa -Feels better compared to admission -Participating in PT - Monitor inflammatory markers -CRP is trending down (2) Hypoxia: Plan: Acute respiratory failure with hypoxia in setting of COVID19 pneumonia -He was on 9L when I saw him in the morning, now weaned down to 5L Patient eager to go home wean as tolerated (3) ARIELLE (obstructive sleep apnea): Plan: CPAP at bedtime as needed, pt poorly tolerant of this (4) Hypertension: Plan: - Lisinopril held since admission (5) Obesity: Plan: BMI 41.2 Needs weight loss adviced on diet and execrcise (6) Physical deconditioning: Plan: Participating in PT (7) Hyponatremia: Plan: likely due to diuretics Hold lasix recheck bmp tomorrow Plan: DVT prophylaxis- Lovenox 0.5 mg/KG up to q12 GI prophylaxis-change IV Pepcid to Pepcid 20 mg p.o. once daily Disposition-continued stay in Covid precautions, may be discharged when his oxygen requirement drops to 4L or below FULL CODE Admission and Anticipated Discharge Date Admission Date: September 11, 2021 discharge in the next 24-48 hrs if able to get down his oxygen to 4L Subjective Patient seen and examined, on 9L nasal canula. no new complaints, says he wants to go home, but gets winded on mild exertion Review of Systems Review of Systems: All systems reviewed are negative, apart from the ones contained in the history. Physical Exam Physical Exam: The patient is awake, alert and oriented 3, well developed and well nourished, normocephalic and atraumatic, lying in bed and in no acute distress. HEENT--PERRL, EOMI, mucous membranes and oropharynx mildly dry Neck--supple. No JVD. No bruits. Thyroid normal, trachea midline, no adenopathy. Heart--normal S1 and S2. No murmurs, rubs or gallops. Lungs--Reduced air entry Abdomen--normal bowel sounds and soft. Mild epigastric and left sided abdominal pain Extremities--no cyanosis or clubbing. No edema. Dermatologic--normal skin turgor, normal color, no abnormal lymph nodes, no rash. Neurologic--cranial nerves II through XII grossly intact. Rheumatologic--normal range of motion. Psychiatric--normal affect. Results & Data Results & Data ([facility]) Vital Signs (Past 12 Hours) Vital Signs Temp Pulse Pulse Resp BP BP Pulse Ox 09/29/21 12:44 96.8 F L 84 20 121/84 90 09/29/21 08:23 97.0 F L 69 20 118/76 91 09/29/21 08:00 67 09/29/21 03:53 97.5 F L 69 18 110/75 95 PG Care Time/CCT Total # of Minutes Spent Total Time Spent with Patient: Total time spent is greater than 50% in coordination of care (as documented) at patient's floor/unit and/or counseling patient: Coding Level of Care Code 63741 Subseq Hosp Care Lvl 2 Diagnoses Pneumonia due to COVID-19 virus U07.1; J12.82 Hypoxia R09.02 ARIELLE (obstructive sleep apnea) G47.33 Hypertension I10 Obesity E66.9 Physical deconditioning R53.81 Hyponatremia E87.1 Time Spent (min) 35
[2021-09-29 15:28] LABS: BUN Creatinine Ratio 30.7 (10-20); Calcium 9.4 mg/dl (8.5-10.1); Est GFR (African American) 85.1 ml/min; Est GFR (Non-African American) 73.4 ml/min
[2021-09-29] MEDS: ACETAMINOPHEN 325 MG TAB PO PRN (21:04)
[2021-09-29] MEDS: LORazepam 0.5 MG TAB PO PRN (21:04)
[2021-09-29] MEDS: DOCUSATE SODIUM/SENNA 50/8.6MG TAB PO SCH (22:28)
[2021-09-30] MEDS: ASPIRIN 81 MG ECTAB PO SCH (08:11)
[2021-09-30] MEDS: ENOXAPARIN 80 MG/0.8 ML SYR SQ SCH ×2 (08:11→21:35)
[2021-09-30] MEDS: FAMOTIDINE 20 MG TAB PO SCH (08:12)
[2021-09-30] MEDS: MULTIVITAMIN TAB PO SCH (08:12)
[2021-09-30] MEDS: guaiFENesin 600 MG TABCR PO SCH ×2 (08:12→21:32)
[2021-09-30] MEDS: VITAMIN B COMPLEX TAB PO SCH (08:13)
[2021-09-30] MEDS: INSULIN ASPART PER UNIT SC SCH ×4 (08:57→21:34)
[2021-09-30] MEDS ORDERED: POTASSIUM CHLORIDE CRTAB 20 MEQ TABCR PO STA (09:26)
[2021-09-30 11:02] LABS: BUN Creatinine Ratio 24.3 (10-20); Calcium 8.6 mg/dl (8.5-10.1); Creatinine Clr Calc Pharmacy 101.2 ml/min; Est GFR (African American) 98.8 ml/min; Est GFR (Non-African American) 85.2 ml/min; Potassium 2.8 mmol/L (3.5-5.1)
--- NOTE | 2021-09-30 15:12 | Hospitalist Progress Note ---
Date of Service September 30, 2021 Assessment & Plan (1) Pneumonia due to COVID-19 virus: Plan: Acute hypoxic respiratory failure 2/2 COVID-19 pneumonia -CT angiogram of the chest upon admission was negative for PE but showed bilateral multifocal pneumonia. -No evidence of bacterial infection -He has now completed baricitinib x 14 day course, and also empiric antibiotics and Dexa -Feels better compared to admission -Participating in PT - Monitor inflammatory markers -CRP is trending down (2) Hypoxia: Plan: Acute respiratory failure with hypoxia in setting of COVID19 pneumonia -Now on 4L -However, desaturated to 79% on mild exertion -Patient had hoped to be discharged today, but at this rate, he will need rehab (3) ARIELLE (obstructive sleep apnea): Plan: CPAP at bedtime as needed, pt poorly tolerant of this (4) Hypertension: Plan: - Lisinopril held since admission (5) Obesity: Plan: BMI 41.2 Needs weight loss adviced on diet and execrcise (6) Physical deconditioning: Plan: Participating in PT, but desaturates on mild exertion (7) Hyponatremia: Plan: improving Plan: DVT prophylaxis- Lovenox 0.5 mg/KG up to q12 GI prophylaxis-change IV Pepcid to Pepcid 20 mg p.o. once daily Disposition-continued stay in Covid precautions, may be discharged when his oxygen requirement drops to 4L or below FULL CODE Admission and Anticipated Discharge Date Admission Date: September 11, 2021 Subjective Patient seen and examined, on 4L nasal canula. no new complaints, says he wants to go home, but gets winded on mild exertion, he desaturated to 79% on mild exertion Review of Systems Review of Systems: All systems reviewed are negative, apart from the ones contained in the history. Physical Exam Physical Exam: The patient is awake, alert and oriented 3, well developed and well nourished, normocephalic and atraumatic, lying in bed and in no acute distress. HEENT--PERRL, EOMI, mucous membranes and oropharynx mildly dry Neck--supple. No JVD. No bruits. Thyroid normal, trachea midline, no adenopathy. Heart--normal S1 and S2. No murmurs, rubs or gallops. Lungs--Reduced air entry Abdomen--normal bowel sounds and soft. Mild epigastric and left sided abdominal pain Extremities--no cyanosis or clubbing. No edema. Dermatologic--normal skin turgor, normal color, no abnormal lymph nodes, no rash. Neurologic--cranial nerves II through XII grossly intact. Rheumatologic--normal range of motion. Psychiatric--normal affect. Results & Data Results & Data ([facility]) Vital Signs (Past 12 Hours) Vital Signs Temp Pulse Pulse Resp BP Pulse Ox 09/30/21 11:40 97.7 F 86 16 114/77 90 09/30/21 11:32 95 09/30/21 08:23 98.2 F 72 20 114/75 92 09/30/21 07:15 75 09/30/21 03:36 97.9 F 69 20 109/72 93 PG Care Time/CCT Total # of Minutes Spent Total Time Spent with Patient: Total time spent is greater than 50% in coordination of care (as documented) at patient's floor/unit and/or counseling patient: Coding Level of Care Code 49900 Subseq Hosp Care Lvl 2 Diagnoses Pneumonia due to COVID-19 virus U07.1; J12.82 Hypoxia R09.02 ARIELLE (obstructive sleep apnea) G47.33 Hypertension I10 Obesity E66.9 Physical deconditioning R53.81 Hyponatremia E87.1 Time Spent (min) 35
[2021-09-30] MEDS: LORazepam 0.5 MG TAB PO PRN (21:32)
[2021-09-30] MEDS: DOCUSATE SODIUM/SENNA 50/8.6MG TAB PO SCH (21:32)
[2021-09-30] MEDS: ACETAMINOPHEN 325 MG TAB PO PRN (21:33)
[2021-10-01 07:50] LABS: BUN Creatinine Ratio 24.6 (10-20); Calcium 8.5 mg/dl (8.5-10.1); Creatinine Clr Calc Pharmacy 125.8 ml/min; Est GFR (African American) 107.9 ml/min; Est GFR (Non-African American) 93.1 ml/min; Potassium 2.9 mmol/L (3.5-5.1)
[2021-10-01] MEDS: MULTIVITAMIN TAB PO SCH (07:59)
[2021-10-01] MEDS: VITAMIN B COMPLEX TAB PO SCH (07:59)
[2021-10-01] MEDS: guaiFENesin 600 MG TABCR PO SCH (07:59)
[2021-10-01] MEDS: FAMOTIDINE 20 MG TAB PO SCH (07:59)
[2021-10-01] MEDS: ASPIRIN 81 MG ECTAB PO SCH (08:00)
[2021-10-01] MEDS: ENOXAPARIN 80 MG/0.8 ML SYR SQ SCH (08:00)
[2021-10-01] MEDS: INSULIN ASPART PER UNIT SC SCH ×2 (08:05→12:07)
[2021-10-01] MEDS ORDERED: POTASSIUM CHLORIDE CRTAB 20 MEQ TABCR PO STA (08:31)
[2021-10-01] MEDS: POLYETHYLENE (MIRALAX) 17 GM PACK PO PRN (08:54)
--- NOTE | 2021-10-01 11:50 | Discharge Summary ---
Date of Service October 01, 2021 Admission HPI Per Admitting Provider The patient is a 71-year-old male with a past medical history including tubular adenoma, ARIELLE, calcium oxalate kidney stones, vitamin D deficiency, morbid obesity, hypertension, hiatal hernia, generalized osteoarthritis, diverticulosis, chronic venous stasis dermatitis, morbid obesity, right distal ureteral calculus. Patient presents as noted above. Pulse ox on room air was 88%. COVID-19 testing was positive on 09/09. Abnormal laboratories: AST 64, albumin 2.5 Chest x-ray showed multifocal pneumonia From the ED patient received the following: Dexamethasone 10 mg IV and Tylenol 1 g IV Principal Diagnosis covid 19 pna Acute hypoxic respiratory failure secondary to covid 19 Discharge Exam The patient is awake, alert and oriented 3, well developed and well nourished, normocephalic and atraumatic, lying in bed and in no acute distress. HEENT--PERRL, EOMI, mucous membranes and oropharynx mildly dry Neck--supple. No JVD. No bruits. Thyroid normal, trachea midline, no adenopathy. Heart--normal S1 and S2. No murmurs, rubs or gallops. Lungs--Reduced air entry Abdomen--normal bowel sounds and soft. Mild epigastric and left sided abdominal pain Extremities--no cyanosis or clubbing. No edema. Dermatologic--normal skin turgor, normal color, no abnormal lymph nodes, no rash. Neurologic--cranial nerves II through XII grossly intact. Rheumatologic--normal range of motion. Psychiatric--normal affect. Discharge Data Allergies Allergy/AdvReac Type Severity Reaction Status Date / Time bee venom protein (honey bee) Allergy Unknown SWELLING Verified 09/11/21 00:09 AT SITE oxycodone AdvReac Verified 09/11/21 00:09 Consultations 09/10/21 23:31 ED Decision to Admit Stat 09/17/21 16:32 Consult Director Sales Support Routine 09/17/21 17:45 Consult Palliative Care Routine Ordered Studies 09/11/21 00:58 CT angio chest PE protocol Urgent 09/17/21 08:12 CT angio chest PE protocol Urgent Hospital Course (1) Pneumonia due to COVID-19 virus: Acute hypoxic respiratory failure 2/2 COVID-19 pneumonia -CT angiogram of the chest upon admission was negative for PE but showed bilateral multifocal pneumonia. -No evidence of bacterial infection -He has now completed baricitinib x 14 day course, and also empiric antibiotics and Dexa -Feels better compared to admission -Participating in PT - Monitor inflammatory markers -CRP is trending down (2) Hypoxia: Acute respiratory failure with hypoxia in setting of COVID19 pneumonia -Now on 4L -However, desaturated to 79% on mild exertion -Patient had hoped to be discharged today, but at this rate, he will need rehab (3) ARIELLE (obstructive sleep apnea): CPAP at bedtime as needed, pt poorly tolerant of this (4) Hypertension: - Lisinopril held since admission (5) Obesity: BMI 41.2 Needs weight loss adviced on diet and execrcise (6) Physical deconditioning: Participating in PT, but desaturates on mild exertion (7) Hyponatremia: improving DVT prophylaxis- Lovenox 0.5 mg/KG up to q12 GI prophylaxis-change IV Pepcid to Pepcid 20 mg p.o. once daily Disposition-continued stay in Covid precautions, may be discharged when his oxygen requirement drops to 4L or below FULL CODE Total Time Total Time Spent Total Time Spent (In Minutes): 35 Discharge Plan Discharge Items Patient Disposition: Transfer Inpatient Rehab Fac Reason For Visit: COVID-19 PNEUMONIA W/ HYPOXIA Discharge Diagnosis: covid 19 PNA Hypoxic respiratory failure secondary to covid 19 Activity: Resume your previous activity Non-emergency contact: Primary Care Provider Call non-emergency contact if: you have any medication questions Follow-up/Referrals: Dakota Valiente MD [Primary Care Provider] - 10/10/21 10:30 am Diet: Regular Addtl Attending Provider Instructions: please make appointment to follow up with your regular PCP Pending Studies at Discharge: No Stand-Alone Forms: My [facility] Skilled Items Patient informed of condition?: Yes DNR: No Discharge Level of Care: Acute rehab Communicable Disease: No Discharge Prognosis: Improving Lines: None Urinary Catheter: No Medications and DC Order Prescriptions: Continued lisinopril 5 mg tablet 5 mg PO DAILY Qty: 90 RF: 3 vitamin B complex capsule 1 cap PO DAILY RF: 0 vitamin E (dl, acetate) 100 unit capsule 100 units PO DAILY RF: 0 omega-3 acid ethyl esters 1 gram capsule 1 cap PO DAILY RF: 0 cholecalciferol (vitamin D3) 5,000 unit capsule 5,000 units PO DAILY RF: 0 ascorbic acid (vitamin C) 100 mg tablet 100 mg PO DAILY RF: 0 multivitamin [Multiple Vitamins] tablet 1 tab PO DAILY RF: 0 cranberry 400 mg capsule 400 mg PO DAILY RF: 0 albuterol sulfate 90 mcg/actuation HFA aerosol inhaler 3 inh inhalation Q6H PRN (Reason: Shortness Of Breath Or Wheezing) RF: 0 aspirin 81 mg Tablet,Delayed Release (Dr/Ec) 81 mg PO DAILY RF: 0 Discontinued cefdinir 300 mg capsule 300 mg PO BID 10 Days Qty: 20 RF: 0 doxycycline hyclate 100 mg tablet 100 mg PO BID 10 Days Qty: 20 RF: 0 Discharge Orders: Discharge Order (Routine); Ordered 10/01/21 Ordered By: Kar Salazar Admission Data Admit Date/Time: 09/11/21 00:46 Attending Provider: Kar Salazar Admit Provider: Heladio Hansen Primary Care Provider: Dakota Valiente V. Other Providers: Heladio Hansen ; Michel Lord ; Chelsea Lott ; [facility] Other Interventions: Discharge Summary Assessment (RN) Last Done: 10/01/21 11:24 Coding Level of Care Code D/C DAY MANAGEMENT >30 MINS Diagnoses Pneumonia due to COVID-19 virus U07.1; J12.82 Hypoxia R09.02 ARIELLE (obstructive sleep apnea) G47.33 Hypertension I10 Obesity E66.9 Physical deconditioning R53.81 Hyponatremia E87.1 Time Spent (min) 35
== END 2021-10-01 15:45 | DRG 177 ==
LOC: ED 22:28 → SUATTDRO 09-11 00:46 → EDINP 09-11 00:46 → 2W 09-13 22:01 → 2E 09-17 18:54 → 2W 09-25 10:29

== ENCOUNTER 2022-09-02 10:39 | Inpatient (IN) ==
[2022-09-02] MEDS ORDERED: ONDANSETRON INJ 2 MG/ML 2 ML VIAL IV STA (11:18)
[2022-09-02] MEDS ORDERED: SODIUM CHLORIDE 0.9% 1000ML 1,000 ML IV STA (11:18)
[2022-09-02] MEDS ORDERED: fentaNYL citrate 100 MCG/2 ML VIAL IV STA (11:20)
--- NOTE | 2022-09-02 11:25 | Emergency Department Note ---
Impression & Plan Nausea & vomiting, Abdominal pain, Acute cholecystitis ED Provider Note HISTORY OF PRESENT ILLNESS: Patient is a 72-year-old male presenting with abdominal pain. Patient reports that since 1800 on 09/01/2022, he has been having generalized, burning abdominal pain. He reports he has had persistent nausea and multiple episodes of vomiting since yesterday. He denies any diarrhea. Reports decreased appetite secondary to the nausea. Denies any fevers. Denies any recent travel. Denies any recent exposure to sick contacts. Reports just feeling generally unwell. Locates the pain to the epigastric region with radiation diffusely across his anterior abdomen. Reports an abdominal surgical history of an appendectomy. Denies any chest pain or shortness of breath. He is on 81 mg aspirin daily. Denies any history of cardiac stents. Denies any shortness of breath. ROS: Constitutional: No fever, chills, or weakness Skin: No rash or diaphoresis HENT: No headaches or congestion Eyes: No vision changes Cardio: No chest pain, palpitations or leg swelling Respiratory: No cough, wheezing or shortness of breath GI: No diarrhea, constipation +nausea; +vomiting; +abdominal pain : No dysuria, polyuria MSK: No joint or back pain Neuro: No loss of sensation, confusion, focal deficits, numbness, tingling Psychiatric: No mood changes PHYSICAL EXAM: Constitutional: Patient appears in no acute distress. HENT: Head: Normocephalic and atraumatic. Eyes: EOMI, PERRL Mouth/Throat: Mucous membranes dry. Neck: Trachea midline. Neck supple. Cardiovascular: RRR, No murmurs, rubs or gallops. Intact distal pulses. Pulmonary/Chest: No respiratory distress. Breath sounds clear and equal bilaterally. No wheezes or rales. Abdominal: BS +. Abdomen soft, no rebound or guarding. Generalized TTP Back: No midline spinal tenderness, no paraspinal tenderness, no CVA tenderness. Musculoskeletal: No edema, tenderness or deformity noted. Skin: Warm and dry. No rash, erythema, pallor or cyanosis Psychiatric: Appropriate mood and affect for situation. Neurological: Alert and keenly responsive. CN II-XII grossly intact, moving all extremities equally and fully. MDM: - Vitals signs showed hypertension and borderline tachycardia. - EKG negative for acute ischemic changes. Is noted be in sinus rhythm today incomplete right bundle branch block. - Laboratory workup showed leukocytosis (WBC 13.7) with neutrophilic shift; stable electrolytes; hypomagnesemia (Mg 1.6); normal liver function; normal biliribin; normal troponin - CT abdomen/pelvis with IV contrast showed acute cholecystitis. - Patient given 1L NS. Initially ordered fentanyl, but patient declined. Given 1g IV tylenol. - Given IV zosyn for antibiotic coverage. - Surgeon, Dr. Goldberg, consulted. - [place] Hospitalist, Roel Garcia, consulted for admission. - Patient admitted to [place] hospitalist service for further evaluation and management. ASSESSMENT AND PLAN: Diagnosis: acute cholecystitis; abdominal pain; nausea and vomiting Plan: admit Past Med/Surg History Medical History Abnormality of thoracic aorta BMI 45.0-49.9, adult Chronic venous stasis dermatitis COVID-19 Diverticulosis Dyspnea on exertion Fatigue Generalized osteoarthritis of multiple sites Hiatal hernia Hypertension Morbid obesity Nocturnal hypoxemia Palliative care encounter Ringing in ears Vitamin D deficiency Surgical History Status post hip replacement Family History Father Emphysema lung Stroke Brother Hypertension Mother No pertinent family history in first degree relatives Sister No pertinent family history in first degree relatives Social History Smoking Status: Never smoker Second Hand Exposure: No; Hx Alcohol Use: Yes Alcohol type: beer and wine Alcohol Intake Frequency: 2-4 x/Month Hx Substance Use: No Preferred Language: Montserratian Communication Ability: Effective Visual Impairment: No Limitations Hearing Ability: Use of Hearing Aid Major General Required: No marital status: Current Living Situation: Spouse Feels Safe at Home: Yes Seatbelt Use: always Assistive Devices: Oxygen - Continuous and Walker Allergies Allergies Allergy/AdvReac Type Severity Reaction Status Date / Time potassium chloride Allergy Intermediate Hives Verified 07/08/22 09:56 bee venom protein (honey bee) Allergy Unknown SWELLING Verified 07/08/22 09:56 AT SITE oxycodone AdvReac Verified 07/08/22 09:56 Home Meds Home Medications Medication Instructions Recorded Confirmed ascorbic acid (vitamin C) 100 mg 100 mg PO DAILY 05/30/19 07/08/22 tablet cholecalciferol (vitamin D3) 125 5,000 units PO DAILY 05/30/19 07/08/22 mcg (5,000 unit) capsule multivitamin (Multiple Vitamins 1 tab PO DAILY 05/30/19 07/08/22 tablet) omega-3 acid ethyl esters 1 gram 1 cap PO DAILY 05/30/19 07/08/22 capsule vitamin B complex 1 cap PO DAILY 05/30/19 07/08/22 vitamin E (dl, acetate) 45 mg (100 100 units PO DAILY 05/30/19 07/08/22 unit) capsule cranberry 400 mg capsule 400 mg PO DAILY 06/06/19 07/08/22 aspirin 81 mg tablet,delayed 81 mg PO DAILY 09/11/21 07/08/22 release cinnamon bark 500 mg capsule 500 mg PO DAILY 07/08/22 07/08/22 (Cinnamon) coenzyme Q10 75 mg capsule (Ultra 75 mg PO DAILY 07/08/22 07/08/22 CoQ10) Previous Rx's Medication Instructions Recorded lisinopril 5 mg tablet 5 mg PO DAILY #90 tabs 07/08/22 Results & Data (ED) Vital Signs Vital Signs - 24 hr 09/02/22 10:41 09/02/22 11:25 09/02/22 11:08 Temperature 37.4 C Temperature Source Temporal Artery Scan Pulse Rate 95 H Pulse Rate [Apical] 108 H Pulse Rhythm Regular Respiratory Rate 16 20 Respiratory Effort / Characteristics Non-Labored Spontaneous Non-Labored Spontaneous Respiratory Depth Normal Normal Respiratory Pattern Regular Blood Pressure 132/106 H Blood Pressure [Left Arm] 110/86 Blood Pressure Mean 114 Blood Pressure Mean [Left Arm] 94 Pulse Oximetry 92 93 91 Oxygen Delivery Method Room Air Room Air Room Air Oxygen Flow Rate Sepsis Recent Fever Within 48 Hours No Sepsis New/Unexplained Change in Mental Status No Sepsis Action Taken by Nursing No Action Required 09/02/22 11:46 09/02/22 11:46 09/02/22 13:00 Temperature Temperature Source Pulse Rate Pulse Rate [Apical] 89 Pulse Rhythm Respiratory Rate 34 H Respiratory Effort / Characteristics Respiratory Depth Normal Respiratory Pattern Tachypnea Blood Pressure Blood Pressure [Left Arm] 138/82 Blood Pressure Mean Blood Pressure Mean [Left Arm] 100 Pulse Oximetry 88 L 95 94 Oxygen Delivery Method Room Air Nasal Cannula Nasal Cannula Oxygen Flow Rate 1 2 Sepsis Recent Fever Within 48 Hours Sepsis New/Unexplained Change in Mental Status Sepsis Action Taken by Nursing Laboratory Data Result diagrams: 09/02/22 11:18 09/02/22 11:18 Lab Results 09/02/22 09/02/22 09/02/22 Range/Units 11:18 11:18 11:37 WBC 13.70 H (4.8-10.8) K/ul RBC 5.17 (4.63-6.08) M/uL Hgb 16.9 (14.0-18.0) g/dl Hct 48.7 (40.1-51.0) % MCV 94.2 (80.0-100.0) fL MCH 32.7 (25.0-34.0) pg MCHC 34.7 (32.0-36.0) g/dL RDW Std Deviation 43.6 (36.4-46.3) fL RDW Coeff of Roberto Carlos 12.5 (11.5-14.5) % Plt Count 262 (130-400) K/uL MPV 9.9 (9.4-12.4) fL Immature Gran % (Auto) 0.6 % Neut % (Auto) 81.6 % Lymph % (Auto) 9.0 % [place] % (Auto) 7.8 % Eos % (Auto) 0.6 % Baso % (Auto) 0.4 % Neut # (Auto) 11.19 H (1.4-6.5) K/uL Lymph # (Auto) 1.23 (1.2-3.4) K/uL [place] # (Auto) 1.07 H (0.24-0.82) K/uL Eos # (Auto) 0.08 (0-0.50) K/uL Baso # (Auto) 0.05 (0-0.2) K/uL Immature Gran # (Auto) 0.08 H (0.00-0.02) K/uL Sodium 138 (136-145) mmol/L Potassium 4.0 (3.5-5.1) mmol/L Chloride 102 (98-107) mmol/L Carbon Dioxide 26 (21-32) mmol/L Anion Gap 10 (3-11) BUN 13 (6-23) mg/dl Creatinine 0.83 (0.6-1.4) mg/dl Est Cr Clr Drug Dosing 110.0 ml/min Est GFR ( Amer) 100.5 ml/min Est GFR (Non-Af Amer) 86.7 ml/min BUN/Creatinine Ratio 15.7 (10-20) Glucose 154 H (70-99(Fasting)) mg/dl Lactate (0.4-2.0) mmol/L Calcium 10.0 (8.5-10.1) mg/dl Magnesium 1.6 L (1.7-2.4) mg/dl Total Bilirubin 0.8 (0.2-1.0) mg/dl AST 16 (13-39) U/L ALT 14 (7-52) U/L Alkaline Phosphatase 73 (34-104) U/L Troponin I High Sens 9.6 (0-20) pg/ml Total Protein 6.9 (6.0-8.3) gm/dl Albumin 4.1 (3.4-5.0) gm/dl Globulin 2.8 (2.5-4.0) gm/dl Albumin/Globulin Ratio 1.5 (0.9-2) Lipase 9 L (11-82) U/L Urine Color Urine Appearance (Clear) Urine pH (4.5-7.5) Ur Specific [place] (1.000-1.030) Urine Protein (Negative) Urine Glucose (UA) (Negative) Urine Ketones (Negative) Urine Blood (Negative) Urine Nitrite (Negative) Urine Bilirubin (Negative) Urine Urobilinogen (Negative) Ur Leukocyte Esterase (Negative) Urine WBC (Auto) (0-5) /hpf Urine RBC (Auto) (0-4) /hpf U Hyaline Cast (Auto) (0-5) /lpf U Epithel Cells (Auto) (0-5) /lpf Urine Bacteria (Auto) (Negative) SARS-CoV-2 (PCR) NEGATIVE (Negative) Influenza Type A (PCR) Negative (Neg) Influenza Type B (PCR) Negative (Neg) RSV (RT-PCR) Negative (Neg) 09/02/22 09/02/22 Range/Units 13:05 14:43 WBC (4.8-10.8) K/ul RBC (4.63-6.08) M/uL Hgb (14.0-18.0) g/dl Hct (40.1-51.0) % MCV (80.0-100.0) fL MCH (25.0-34.0) pg MCHC (32.0-36.0) g/dL RDW Std Deviation (36.4-46.3) fL RDW Coeff of [place] (11.5-14.5) % Plt Count (130-400) K/uL MPV (9.4-12.4) fL Immature Gran % (Auto) % Neut % (Auto) % Lymph % (Auto) % [place] % (Auto) % Eos % (Auto) % Baso % (Auto) % Neut # (Auto) (1.4-6.5) K/uL Lymph # (Auto) (1.2-3.4) K/uL [place] # (Auto) (0.24-0.82) K/uL Eos # (Auto) (0-0.50) K/uL Baso # (Auto) (0-0.2) K/uL Immature Gran # (Auto) (0.00-0.02) K/uL Sodium (136-145) mmol/L Potassium (3.5-5.1) mmol/L Chloride (98-107) mmol/L Carbon Dioxide (21-32) mmol/L Anion Gap (3-11) BUN (6-23) mg/dl Creatinine (0.6-1.4) mg/dl Est Cr Clr Drug Dosing ml/min Est GFR ( Amer) ml/min Est GFR (Non-Af Amer) ml/min BUN/Creatinine Ratio (10-20) Glucose (70-99(Fasting)) mg/dl Lactate 1.4 (0.4-2.0) mmol/L Calcium (8.5-10.1) mg/dl Magnesium (1.7-2.4) mg/dl Total Bilirubin (0.2-1.0) mg/dl AST (13-39) U/L ALT (7-52) U/L Alkaline Phosphatase (34-104) U/L Troponin I High Sens (0-20) pg/ml Total Protein (6.0-8.3) gm/dl Albumin (3.4-5.0) gm/dl Globulin (2.5-4.0) gm/dl Albumin/Globulin Ratio (0.9-2) Lipase (11-82) U/L Urine Color Dark Yellow Urine Appearance Clear (Clear) Urine pH 5.5 (4.5-7.5) Ur Specific [place] 1.021 (1.000-1.030) Urine Protein Negative (Negative) Urine Glucose (UA) Negative (Negative) Urine Ketones Trace H (Negative) Urine Blood Negative (Negative) Urine Nitrite Negative (Negative) Urine Bilirubin Negative (Negative) Urine Urobilinogen Negative (Negative) Ur Leukocyte Esterase 2+ H (Negative) Urine WBC (Auto) 10-30 H (0-5) /hpf Urine RBC (Auto) 0-4 (0-4) /hpf U Hyaline Cast (Auto) 10-30 H (0-5) /lpf U Epithel Cells (Auto) 10-20 H (0-5) /lpf Urine Bacteria (Auto) Negative (Negative) SARS-CoV-2 (PCR) (Negative) Influenza Type A (PCR) (Neg) Influenza Type B (PCR) (Neg) RSV (RT-PCR) (Neg) Administered Medications Discontinued Medications Fentanyl Citrate (Fentanyl Citrate 100 Mcg/2 Ml Vial) 50 mcg IV NOW STA Stop: 09/02/22 11:21 Last Admin: 09/02/22 11:35 Dose: Not Given Documented By: SAM Sodium Chloride (Nss 1000ml) 1,000 mls @ 999 mls/hr IV .Q1H1M STA Stop: 09/02/22 12:18 Last Infusion: 09/02/22 12:33 Dose: 0 mls/hr Documented By: Admin: 09/02/22 11:32 Dose: 999 mls/hr Documented By: SAM Acetaminophen (Ofirmev) 1,000 mg in 100 mls @ 400 mls/hr IV NOW STA Stop: 09/02/22 13:48 Last Admin: 09/02/22 14:24 Dose: 400 mls/hr Documented By: SAM Ioversol (Optiray 320 500ml) 120 ml IV ONCE ONE Stop: 09/02/22 13:51 Last Admin: 09/02/22 13:51 Dose: 120 ml Documented By: OBINNA Ondansetron HCl (Ondansetron Inj 2 Mg/Ml 2 Ml Vial) 4 mg IV NOW STA Stop: 09/02/22 11:19 Last Admin: 09/02/22 11:34 Dose: 4 mg Documented By: Imaging Data Radiologist's Impression: Abdomen/Pelvis CT 09/02/22 11:18 CT abd pelvis IV con only CLINICAL HISTORY: generalized abdominal pain nausea TECHNIQUE: Helical axial images of the abdomen and pelvis were obtained and displayed. Automated dose lowering techniques and/or adjustment according to patient size were utilized for this exam. This exam was performed with intravenous contrast. CT DOSE: 2129.11 mGy.cm COMPARISON: Comparison is made to CT pelvis 02/03/[address] abdomen pelvis 02/26/2015 FINDINGS: Lower chest: Bibasilar atelectasis versus scarring is seen.6 Liver: Unremarkable. No focal lesions are seen. Gallbladder and biliary tree: The gallbladder wall thickening is seen with pericholecystic fluid. The gallbladder wall measures 4 mm in diameter. No intra- or extrahepatic biliary ductal dilation. Pancreas: Fatty replacement of the pancreas is seen. Spleen: Unremarkable. Adrenals: Unremarkable. Kidneys and ureters: Renal cysts are seen. Bladder: Unremarkable. Reproductive organs: Prostatic calcifications are seen which may represent prior hemorrhage or granulomatous disease. Bowel: Diverticulosis is seen without evidence of diverticulitis. Patient is status post appendectomy. Lymph nodes Retroperitoneal: Unremarkable. Pelvic: Unremarkable. Mesenteric: Unremarkable. Peritoneum: Normal. Vessels: Atherosclerotic calcifications are seen. Abdominal wall: A fat-containing umbilical hernia is seen. Bones: Degenerative changes in the visualized spine. There is a right hip arthroplasty. IMPRESSION: 1. Acute cholecystitis is seen. No evidence of rupture or abscess formation. 2. Diverticulosis without diverticulitis. ACT 112: Negative or not required by law. Electronically signed by: Kt Oquendo M.D. 09/02/2022 2:06 PM Discharge Plan Visit Data Chief Complaint: Abdominal Pain Stated Complaint: STOMACH "ON FIRE" ED Provider: Cristiana Silva Discharge Problem: Nausea & vomiting, Abdominal pain, Acute cholecystitis Patient Disposition: Admitted As Inpatient Forms Stand Alone Forms: My [facility] Prescriptions Prescriptions: No Action cinnamon bark [Cinnamon] 500 mg capsule 500 mg PO DAILY Ultra CoQ10 75 mg capsule 75 mg PO DAILY lisinopril 5 mg tablet 5 mg PO DAILY Qty: 90 1RF vitamin B complex capsule 1 cap PO DAILY vitamin E (dl, acetate) 100 unit capsule 100 units PO DAILY omega-3 acid ethyl esters 1 gram capsule 1 cap PO DAILY cholecalciferol (vitamin D3) 5,000 unit capsule 5,000 units PO DAILY ascorbic acid (vitamin C) 100 mg tablet 100 mg PO DAILY multivitamin [Multiple Vitamins] tablet 1 tab PO DAILY cranberry 400 mg capsule 400 mg PO DAILY aspirin 81 mg Tablet,Delayed Release (Dr/Ec) 81 mg PO DAILY Referrals Referrals: Dakota Valiente MD [Primary Care Provider] -
[2022-09-02 11:51] LABS: Basophils # (auto) 0.05 K/uL (0-0.2); Basophils % (auto) 0.4 %; Eosinophils # (auto) 0.08 K/uL (0-0.50); Eosinophils % (auto) 0.6 %; Hematocrit (blood only) 48.7 % (40.1-51.0); Hemoglobin 16.9 g/dl (14.0-18.0); Immature Granulocytes # (auto) 0.08 K/uL (0.00-0.02); Immature Granulocytes % (auto) 0.6 %; Lymphocytes # (auto) 1.23 K/uL (1.2-3.4); Mean Corpuscular Hemoglobin 32.7 pg (25.0-34.0); Mean Corpuscular Hgb Conc 34.7 g/dL (32.0-36.0); Mean Corpuscular Volume 94.2 fL (80.0-100.0); Mean Platelet Volume 9.9 fL (9.4-12.4); Monocytes # (auto) 1.07 K/uL (0.24-0.82); Monocytes % (auto) 7.8 %; Neutrophils # (auto) 11.19 K/uL (1.4-6.5); Neutrophils % (auto) 81.6 %; Platelet Count 262 K/uL (130-400); RDW Coefficient of Variation 12.5 % (11.5-14.5); RDW Standard Deviation 43.6 fL (36.4-46.3); Red Blood Count 5.17 M/uL (4.63-6.08)
[2022-09-02 12:27] LABS: Albumin Globulin Ratio 1.5 (0.9-2); Albumin Level 4.1 gm/dl (3.4-5.0); BUN Creatinine Ratio 15.7 (10-20); Bilirubin,Total 0.8 mg/dl (0.2-1.0); Est GFR (African American) 100.5 ml/min; Est GFR (Non-African American) 86.7 ml/min; Globulin 2.8 gm/dl (2.5-4.0); Magnesium 1.6 mg/dl (1.7-2.4); Total Protein 6.9 gm/dl (6.0-8.3)
[2022-09-02 12:29] LABS: Troponin I High Sensitivity 9.6 pg/ml (0-20)
[2022-09-02 12:37] LABS: Influenza A virus by PCR Negative (Neg); Influenza B virus by PCR Negative (Neg); RSV by PCR Negative (Neg); SARS CoV2 RNA(COVID-19)Cepheid NEGATIVE (Negative)
[2022-09-02 13:31] LABS: Appearance Urine Clear (Clear); Bacteria Urine Automated Negative (Negative); Bilirubin Urine Negative (Negative); Blood Urine Negative (Negative); Color Urine Dark Yellow; Glucose Urine UA Negative (Negative); Ketones Urine Trace (Negative); Leukocyte Esterase Urine 2+ (Negative); Nitrite Urine Negative (Negative); Protein Urine Negative (Negative); RBC Urine Automated 0-4 /hpf (0-4); Specific Gravity Urine 1.021 (1.000-1.030); Urobilinogen Urine Negative (Negative); pH Urine 5.5 (4.5-7.5)
[2022-09-02] MEDS ORDERED: ACETAMINOPHEN 1,000 MG/100 ML VIAL IV STA (13:34)
[2022-09-02] MEDS ORDERED: MAGNESIUM SULFATE / D5W 1 GM/100 ML BAG IV STA (13:34)
[2022-09-02] MEDS ORDERED: OPTIRAY 320 500ml IV ONE (13:50)
--- NOTE | 2022-09-02 14:07 | CT Scan Report ---
CT abd pelvis IV con only CLINICAL HISTORY: generalized abdominal pain nausea TECHNIQUE: Helical axial images of the abdomen and pelvis were obtained and displayed. Automated dose lowering techniques and/or adjustment according to patient size were utilized for this exam. This e xam was performed with intravenous contrast. CT DOSE: 2129.11 mGy.cm COMPARISON: Comparison is made to CT pelvis 02/03/[address] abdomen pelvis 02/26/2015 FINDINGS: Lower chest: Bibasilar atelectasis versus scarring is seen.6 Liver: Unremarkable. No focal lesions are seen. Gallbladder and biliary tree: The gallbladder wall thickening is seen with pericholecystic fluid. The gallbladder wall measures 4 mm in diameter. No intra- or extrahepatic biliary ductal dilation. Pancreas: Fatty replacement of the pancreas is seen. Spleen: Unremarkable. Adrenals: Unremarkable. Kidneys and ureters: Renal cysts are seen. Bladder: Unremarkable. Reproductive organs: Prostatic calcifications are seen which may represent prior hemorrhage or granul omatous disease. Bowel: Diverticulosis is seen without evidence of diverticulitis. Patient is status post appendectomy . Lymph nodes Retroperitoneal: Unremarkable. Pelvic: Unremarkable. Mesenteric: Unremarkable. Peritoneum: Normal. Vessels: Atherosclerotic calcifications are seen. Abdominal wall: A fat-containing umbilical hernia is seen. Bones: Degenerative changes in the visualized spine. There is a right hip arthroplasty. IMPRESSION: 1. Acute cholecystitis is seen. No evidence of rupture or abscess formation. 2. Diverticulosis without diverticulitis. ACT 112: Negative or not required by law. Electronically signed by: Kt Oquendo M.D. 09/02/2022 2:06 PM
[2022-09-02] MEDS ORDERED: PIPERACILLIN/TAZOBACTAM 3.375 GM in DEXTROSE 5% 100 ML/100 ML BAG IV STA (14:17)
--- NOTE | 2022-09-02 15:01 | History & Physical Report ---
Date of Service September 02, 2022 Assessment & Plan (1) Acute cholecystitis: Plan: Acute cholecystitis CTA/P: Acute cholecystitis. No evidence of rupture/abscess. Diverticulosis without diverticulitis Leukocytosis to 13.7 No evidence of choledocholithiasis, no stones are seen, transaminases and bilirubin are normal, no ductal dilation on CT Continue Zosyn N.p.o., surgery consulted IV FM pending CXR results below Chronic shortness of breath without home oxygen requirement Patient had COVID with ARDS requiring 30-day admission and slow wean from oxygen last winter. Normally oxygen levels 90s at baseline. Does have chronic leg swelling due to venous stasis, no history of heart failure 2 L oxygen requirement with trace crackles, CXR pending -No shortness of breath at bedside, no cough, no URI symptoms Hypertension Lisinopril held preprocedurally Aspirin temporarily held ARIELLE CPAP nightly DVT prophylaxis SCDs, Lovenox post procedure Diet: N.p.o. pending surgical eval Disposition: Medical/surgical CODE STATUS: Full code (2) ARIELLE (obstructive sleep apnea): (3) ARDS (adult respiratory distress syndrome): (4) BMI 45.0-49.9, adult: History of Present Illness Primary Care Provider: Dakota Valiente MD Marvel Marks is a 72-year-old male with a past medical history of ARDS, ARIELLE, morbid obesity, chronic venous stasis dermatitis, BMI 44, OA who presents with abdominal pain is recommended for admission for acute cholecystitis Kidney stones. Stomach on fire for 2 days. Pain felt similar to kidney stones bu t in the RUQ. Pain improved after morphine. Pain radiated down the sides of his [place]. NO chest pain or chest pressure No oxygen at home, "short of breath 40 years, but hasn't change:" No fevers, had chills yesterday, no sweats No cough BMs normally daily. Recently brown, soft. NO melena/BRBPR/lindsay colored NO heart attacks. No COPD. NO problems with anesthesia. Few bouts of kidney stones, no recent flank pain. last episode 6 yrs ago Medical History: Reviewed Medications: Reviewed Surgical History: Reviewed. Hx R hip replacement 3 yrs ago. Allergies: Reviewed Social History: No tobacco product use. EtoH 'almost never.' Code Status: Full Code Allergies Allergy/AdvReac Type Severity Reaction Status Date / Time potassium chloride Allergy Intermediate Hives Verified 07/08/22 09:56 bee venom protein (honey bee) Allergy Unknown SWELLING Verified 07/08/22 09:56 AT SITE oxycodone AdvReac Verified 07/08/22 09:56 Home Medications Medication Instructions Recorded Confirmed Type ascorbic acid (vitamin C) 100 mg 100 mg PO DAILY 05/30/19 07/08/22 History tablet cholecalciferol (vitamin D3) 125 5,000 units PO DAILY 05/30/19 07/08/22 History mcg (5,000 unit) capsule multivitamin (Multiple Vitamins 1 tab PO DAILY 05/30/19 07/08/22 History tablet) omega-3 acid ethyl esters 1 gram 1 cap PO DAILY 05/30/19 07/08/22 History capsule vitamin B complex 1 cap PO DAILY 05/30/19 07/08/22 History vitamin E (dl, acetate) 45 mg (100 100 units PO DAILY 05/30/19 07/08/22 History unit) capsule cranberry 400 mg capsule 400 mg PO DAILY 06/06/19 07/08/22 History aspirin 81 mg tablet,delayed 81 mg PO DAILY 09/11/21 07/08/22 History release cinnamon bark 500 mg capsule 500 mg PO DAILY 07/08/22 07/08/22 History (Cinnamon) coenzyme Q10 75 mg capsule (Ultra 75 mg PO DAILY 07/08/22 07/08/22 History CoQ10) lisinopril 5 mg tablet 5 mg PO DAILY #90 tabs 07/08/22 07/08/22 Rx Past Med/Surg History Medical History Abnormality of thoracic aorta BMI 45.0-49.9, adult Chronic venous stasis dermatitis COVID-19 Diverticulosis Dyspnea on exertion Fatigue Generalized osteoarthritis of multiple sites Hiatal hernia Hypertension Morbid obesity Nocturnal hypoxemia Palliative care encounter Ringing in ears Vitamin D deficiency Surgical History Status post hip replacement Family History Father Emphysema lung Stroke Brother Hypertension Mother No pertinent family history in first degree relatives Sister No pertinent family history in first degree relatives Social History Smoking Status: Never smoker Second Hand Exposure: No; Hx Alcohol Use: Yes Alcohol type: beer and wine Alcohol Intake Frequency: 2-4 x/Month Hx Substance Use: No Preferred Language: Uzbek Communication Ability: Effective Visual Impairment: No Limitations Hearing Ability: Use of Hearing Aid Power House Control Room Operator Required: No marital status: Current Living Situation: Spouse Feels Safe at Home: Yes Seatbelt Use: always Assistive Devices: Oxygen - Continuous and Walker Review of Systems Review of Systems: All systems reviewed & are unremarkable except as noted in HPI & below and All systems reviewed & are unremarkable except as noted in Subjective Physical Exam Physical Exam: General: A&Ox3. NAD. Cooperative. HEENT: Atraumatic, normocephalic. Vision and hearing grossly intact Pulm: Trace bibasilar crackles without rales. Symmetrical chest rise. No increased work of breathing. No respiratory distress. On 2 L Cardiac: Regular without murmurs. Radial pulses intact and symmetrical. Abdominal: Tender at the right upper quadrant, no rebound, no radiation. Bowel sounds intact Results & Data Results & Data ([facility]) Vital Signs (Past 12 Hours) Vital Signs Temp Pulse Pulse Resp BP BP Pulse Ox 09/02/22 13:00 89 34 H 138/82 94 09/02/22 11:46 95 09/02/22 11:46 88 L 09/02/22 11:08 108 H 20 110/86 91 09/02/22 11:25 93 09/02/22 10:41 37.4 C 95 H 16 132/106 H 92 O2 Del Method O2 Flow Rate 09/02/22 13:00 Nasal Cannula 2 09/02/22 11:46 Nasal Cannula 1 09/02/22 11:46 Room Air 09/02/22 11:08 Room Air 09/02/22 11:25 Room Air 09/02/22 10:41 Room Air PG Care Time/CCT Total # of Minutes Spent Total Time Spent with Patient: Total time spent is greater than 50% in coordination of care (as documented) at patient's floor/unit and/or counseling patient: Coding Level of Care Code 92453 Initial Inpt Care Lvl 2 Diagnoses Acute cholecystitis K81.0 ARIELLE (obstructive sleep apnea) G47.33 ARDS (adult respiratory distress syndrome) J80 BMI 45.0-49.9, adult Z68.42
--- NOTE | 2022-09-02 15:41 | XRay Report ---
XR chest 1V portable CLINICAL HISTORY: Hypoxia TECHNIQUE: Single frontal radiograph of the chest was obtained. Comparison: None available at the time of this dictation. FINDINGS: No lines and tubes are seen. The cardiomediastinal silhouette is normal. Lungs are underinflated but clear. No evidence of pleural effusion or pneumothorax. IMPRESSION: No acute chest disease. ACT 112: Negative or not required by law. Electronically signed by: Kt Oquendo M.D. 09/02/2022 3:40 PM
--- NOTE | 2022-09-02 17:22 | Surgery Consultation ---
Date of Consultation September 02, 2022 Assessment & Plan (1) Acute cholecystitis: (2) Nausea & vomiting: Plan 72-year-old male with a history of hypertension, PCO, obstructive sleep apnea who presented to the emergency room with complaint of upper abdominal pain with associated nausea that began last evening around 6 PM. No prior history of similar complaints. CT scan of abdomen and pelvis showing acute calculus cholecystitis without any evidence of biliary obstruction. Labs show leukocytosis of 13,000. T bili and LFTs are within normal limits. Plan: Discussed with patient imaging and laboratory findings consistent with acute calculus cholecystitis without biliary obstruction. Discussed recommendation of laparoscopic cholecystectomy. Discussed procedure and risks and expected restrictions and recovery. We will plan for laparoscopic cholecystectomy tomorrow afternoon with Dr. Goldberg. Medicine admit IV fluids, IV pain management as needed, IV antiemetics as needed Repeat a.m. labs N.p.o. after midnight Discussed with Dr. Goldberg who agrees with above and will evaluate patient separately. Supervising Physician Co-Signing Physician Notes I have seen and examined the patient directly, and agree with the above assessment plan. He continues to have fevers and right upper quadrant pain. Discussed the risk benefits of laparoscopic cholecystectomy with him. He is agreeable to proceed. We will schedule this the earliest convenience. History of Present Illness Reason for Consultation: Acute calculus cholecystitis Requesting Physician: Cristiana Silva MD Attending Physician: Kimo Sevilla MD History of Present Illness Marvel is a 72-year-old male with history of hypertension, obesity, obstructive sleep apnea who presented to the emergency room with complaint of abdominal pain and associated nausea that began yesterday evening around 6 PM. States the pain was in the upper abdomen like a band like distribution. Associated nausea but no vomiting. Denies of any fevers, chills, chest pain, shortness of breath from baseline, changes in bowel habits, diarrhea, blood in the stools, difficulty urinating or blood in the urine. Denies of any prior history of gallbladder issues. History of appendectomy 30+ years ago no other abdominal surgeries. Is not on any significant blood thinners other than 81 mg aspirin daily. Allergies Allergy/AdvReac Type Severity Reaction Status Date / Time potassium chloride Allergy Intermediate Hives Verified 07/08/22 09:56 bee venom protein (honey bee) Allergy Unknown SWELLING Verified 09/27/22 09:56 AT SITE oxycodone AdvReac Verified 07/08/22 09:56 Home Medications Medication Instructions Recorded Confirmed Type ascorbic acid (vitamin C) 100 mg 100 mg PO DAILY 05/30/19 07/08/22 History tablet cholecalciferol (vitamin D3) 125 5,000 units PO DAILY 05/30/19 07/08/22 History mcg (5,000 unit) capsule multivitamin (Multiple Vitamins 1 tab PO DAILY 05/30/19 07/08/22 History tablet) omega-3 acid ethyl esters 1 gram 1 cap PO DAILY 05/30/19 07/08/22 History capsule vitamin B complex 1 cap PO DAILY 05/30/19 07/08/22 History vitamin E (dl, acetate) 45 mg (100 100 units PO DAILY 05/30/19 07/08/22 History unit) capsule cranberry 400 mg capsule 400 mg PO DAILY 06/06/19 07/08/22 History aspirin 81 mg tablet,delayed 81 mg PO DAILY 09/11/21 07/08/22 History release cinnamon bark 500 mg capsule 500 mg PO DAILY 07/08/22 07/08/22 History (Cinnamon) coenzyme Q10 75 mg capsule (Ultra 75 mg PO DAILY 07/08/22 07/08/22 History CoQ10) lisinopril 5 mg tablet 5 mg PO DAILY #90 tabs 07/08/22 07/08/22 Rx Patient History Medical History Abnormality of thoracic aorta BMI 45.0-49.9, adult Chronic venous stasis dermatitis COVID-19 Diverticulosis Dyspnea on exertion Fatigue Generalized osteoarthritis of multiple sites Hiatal hernia Hypertension Morbid obesity Nocturnal hypoxemia Palliative care encounter Ringing in ears Vitamin D deficiency Surgical History (Updated 09/03/22 @ 13:26 by Jacque Cyr DO) H/O vasectomy History of appendectomy History of colonoscopy Status post hip replacement Family History Father Emphysema lung Stroke Brother Hypertension Mother No pertinent family history in first degree relatives Sister No pertinent family history in first degree relatives Social History Smoking Status: Never smoker Second Hand Exposure: No; Hx Alcohol Use: Yes Alcohol type: beer and wine Alcohol Intake Frequency: 2-4 x/Month Hx Substance Use: No Preferred Language: Azeri Communication Ability: Effective Visual Impairment: No Limitations Hearing Ability: Use of Hearing Aid Staff Development Manager Required: No Beliefs That Will Affect Care: None marital status: Current Living Situation: Spouse Other Information That Helps Us Care for You: No Feels Safe at Home: Yes Safety Concerns: Feels Safe At This Time Seatbelt Use: always Assistive Devices: None Assistive Devices Comment: patient has at home but doesn't use Physical Exam Constitutional: WD/WN, vitals as above + morbidly obese; no acute distress and not ill appearing Neck: normal visual inspection and trachea midline Respiratory: normal respiratory effort, lungs clear to auscultation Cardiovascular: RRR, no murmur, no edema Gastrointestinal (Abdomen): Inspection/Auscultation: abdomen normal to inspection; abdomen not distended Percussion/Palpation: + abdomen tender (Epigastric and right upper quadrant), abdomen soft and + hernia (Reducible umbilical hernia); no guarding, abdomen not rigid and abdomen not firm Skin: no rashes, warm and dry no jaundice Psychiatric: A+Ox3, euthymic affect Results & Data ([facility]) Vital Signs (Past 12 Hours) Vital Signs Temp Pulse Pulse Resp BP BP Pulse Ox 09/02/22 17:00 85 22 96 09/02/22 15:00 86 22 94 09/02/22 13:00 89 34 H 138/82 94 09/02/22 11:46 95 09/02/22 11:46 88 L 09/02/22 11:08 108 H 20 110/86 91 09/02/22 11:25 93 09/02/22 10:41 37.4 C 95 H 16 132/106 H 92 O2 Del Method O2 Flow Rate 09/02/22 17:00 Room Air 09/02/22 15:00 Nasal Cannula 1 09/02/22 13:00 Nasal Cannula 2 09/02/22 11:46 Nasal Cannula 1 09/02/22 11:46 Room Air 09/02/22 11:08 Room Air 09/02/22 11:25 Room Air 09/02/22 10:41 Room Air Laboratory Results 09/02/22 09/02/22 09/02/22 Range/Units 14:43 13:05 11:37 WBC (4.8-10.8) K/ul RBC (4.63-6.08) M/uL Hgb (14.0-18.0) g/dl Hct (40.1-51.0) % MCV (80.0-100.0) fL MCH (25.0-34.0) pg MCHC (32.0-36.0) g/dL RDW Std Deviation (36.4-46.3) fL RDW Coeff of Roberto Carlos (11.5-14.5) % Plt Count (130-400) K/uL MPV (9.4-12.4) fL Immature Gran % (Auto) % Neut % (Auto) % Lymph % (Auto) % Lee % (Auto) % Eos % (Auto) % Baso % (Auto) % Neut # (Auto) (1.4-6.5) K/uL Lymph # (Auto) (1.2-3.4) K/uL Lee # (Auto) (0.24-0.82) K/uL Eos # (Auto) (0-0.50) K/uL Baso # (Auto) (0-0.2) K/uL Immature Gran # (Auto) (0.00-0.02) K/uL Sodium (136-145) mmol/L Potassium (3.5-5.1) mmol/L Chloride (98-107) mmol/L Carbon Dioxide (21-32) mmol/L Anion Gap (3-11) BUN (6-23) mg/dl Creatinine (0.6-1.4) mg/dl Est Cr Clr Drug Dosing ml/min Est GFR ( Amer) ml/min Est GFR (Non-Af Amer) ml/min BUN/Creatinine Ratio (10-20) Glucose (70-99(Fasting)) mg/dl Lactate 1.4 (0.4-2.0) mmol/L Calcium (8.5-10.1) mg/dl Magnesium (1.7-2.4) mg/dl Total Bilirubin (0.2-1.0) mg/dl AST (13-39) U/L ALT (7-52) U/L Alkaline Phosphatase (34-104) U/L Troponin I High Sens (0-20) pg/ml Total Protein (6.0-8.3) gm/dl Albumin (3.4-5.0) gm/dl Globulin (2.5-4.0) gm/dl Albumin/Globulin Ratio (0.9-2) Lipase (11-82) U/L Urine Color Dark Yellow Urine Appearance Clear (Clear) Urine pH 5.5 (4.5-7.5) Ur Specific [place] 1.021 (1.000-1.030) Urine Protein Negative (Negative) Urine Glucose (UA) Negative (Negative) Urine Ketones Trace H (Negative) Urine Blood Negative (Negative) Urine Nitrite Negative (Negative) Urine Bilirubin Negative (Negative) Urine Urobilinogen Negative (Negative) Ur Leukocyte Esterase 2+ H (Negative) Urine WBC (Auto) 10-30 H (0-5) /hpf Urine RBC (Auto) 0-4 (0-4) /hpf U Hyaline Cast (Auto) 10-30 H (0-5) /lpf U Epithel Cells (Auto) 10-20 H (0-5) /lpf Urine Bacteria (Auto) Negative (Negative) SARS-CoV-2 (PCR) NEGATIVE (Negative) Influenza Type A (PCR) Negative (Neg) Influenza Type B (PCR) Negative (Neg) RSV (RT-PCR) Negative (Neg) 09/02/22 09/02/22 Range/Units 11:18 11:18 WBC 13.70 H (4.8-10.8) K/ul RBC 5.17 (4.63-6.08) M/uL Hgb 16.9 (14.0-18.0) g/dl Hct 48.7 (40.1-51.0) % MCV 94.2 (80.0-100.0) fL MCH 32.7 (25.0-34.0) pg MCHC 34.7 (32.0-36.0) g/dL RDW Std Deviation 43.6 (36.4-46.3) fL RDW Coeff of Roberto Carlos 12.5 (11.5-14.5) % Plt Count 262 (130-400) K/uL MPV 9.9 (9.4-12.4) fL Immature Gran % (Auto) 0.6 % Neut % (Auto) 81.6 % Lymph % (Auto) 9.0 % Lee % (Auto) 7.8 % Eos % (Auto) 0.6 % Baso % (Auto) 0.4 % Neut # (Auto) 11.19 H (1.4-6.5) K/uL Lymph # (Auto) 1.23 (1.2-3.4) K/uL Lee # (Auto) 1.07 H (0.24-0.82) K/uL Eos # (Auto) 0.08 (0-0.50) K/uL Baso # (Auto) 0.05 (0-0.2) K/uL Immature Gran # (Auto) 0.08 H (0.00-0.02) K/uL Sodium 138 (136-145) mmol/L Potassium 4.0 (3.5-5.1) mmol/L Chloride 102 (98-107) mmol/L Carbon Dioxide 26 (21-32) mmol/L Anion Gap 10 (3-11) BUN 13 (6-23) mg/dl Creatinine 0.83 (0.6-1.4) mg/dl Est Cr Clr Drug Dosing 110.0 ml/min Est GFR ( Amer) 100.5 ml/min Est GFR (Non-Af Amer) 86.7 ml/min BUN/Creatinine Ratio 15.7 (10-20) Glucose 154 H (70-99(Fasting)) mg/dl Lactate (0.4-2.0) mmol/L Calcium 10.0 (8.5-10.1) mg/dl Magnesium 1.6 L (1.7-2.4) mg/dl Total Bilirubin 0.8 (0.2-1.0) mg/dl AST 16 (13-39) U/L ALT 14 (7-52) U/L Alkaline Phosphatase 73 (34-104) U/L Troponin I High Sens 9.6 (0-20) pg/ml Total Protein 6.9 (6.0-8.3) gm/dl Albumin 4.1 (3.4-5.0) gm/dl Globulin 2.8 (2.5-4.0) gm/dl Albumin/Globulin Ratio 1.5 (0.9-2) Lipase 9 L (11-82) U/L Urine Color Urine Appearance (Clear) Urine pH (4.5-7.5) Ur Specific [place] (1.000-1.030) Urine Protein (Negative) Urine Glucose (UA) (Negative) Urine Ketones (Negative) Urine Blood (Negative) Urine Nitrite (Negative) Urine Bilirubin (Negative) Urine Urobilinogen (Negative) Ur Leukocyte Esterase (Negative) Urine WBC (Auto) (0-5) /hpf Urine RBC (Auto) (0-4) /hpf U Hyaline Cast (Auto) (0-5) /lpf U Epithel Cells (Auto) (0-5) /lpf Urine Bacteria (Auto) (Negative) SARS-CoV-2 (PCR) (Negative) Influenza Type A (PCR) (Neg) Influenza Type B (PCR) (Neg) RSV (RT-PCR) (Neg) Diagnostic Findings CT abd pelvis IV con only CLINICAL HISTORY: generalized abdominal pain nausea TECHNIQUE: Helical axial images of the abdomen and pelvis were obtained and displayed. Automated dose lowering techniques and/or adjustment according to patient size were utilized for this exam. This exam was performed with intravenous contrast. CT DOSE: 2129.11 mGy.cm COMPARISON: Comparison is made to CT pelvis 02/03/[address] abdomen pelvis 02/26/2015 FINDINGS: Lower chest: Bibasilar atelectasis versus scarring is seen.6 Liver: Unremarkable. No focal lesions are seen. Gallbladder and biliary tree: The gallbladder wall thickening is seen with pericholecystic fluid. The gallbladder wall measures 4 mm in diameter. No intra- or extrahepatic biliary ductal dilation. Pancreas: Fatty replacement of the pancreas is seen. Spleen: Unremarkable. Adrenals: Unremarkable. Kidneys and ureters: Renal cysts are seen. Bladder: Unremarkable. Reproductive organs: Prostatic calcifications are seen which may represent prior hemorrhage or granulomatous disease. Bowel: Diverticulosis is seen without evidence of diverticulitis. Patient is status post appendectomy. Lymph nodes Retroperitoneal: Unremarkable. Pelvic: Unremarkable. Mesenteric: Unremarkable. Peritoneum: Normal. Vessels: Atherosclerotic calcifications are seen. Abdominal wall: A fat-containing umbilical hernia is seen. Bones: Degenerative changes in the visualized spine. There is a right hip arthroplasty. IMPRESSION: 1. Acute cholecystitis is seen. No evidence of rupture or abscess formation. 2. Diverticulosis without diverticulitis.
[2022-09-02] MEDS ORDERED: ONDANSETRON INJ 2 MG/ML 2 ML VIAL IV PRN (17:58)
[2022-09-02] MEDS: ACETAMINOPHEN 325 MG TAB PO PRN (20:07)
[2022-09-02] MEDS: SODIUM CHLORIDE 0.9% 1000ML 1,000 ML IV SCH (20:07)
[2022-09-02] MEDS: PIPERACILLIN/TAZOBACTAM 3.375 GM in DEXTROSE 5% 100 ML IV SCH (22:28)
[2022-09-03] MEDS: ACETAMINOPHEN 325 MG TAB PO PRN ×2 (02:30→07:58)
[2022-09-03] MEDS: PIPERACILLIN/TAZOBACTAM 3.375 GM in DEXTROSE 5% 100 ML IV SCH ×2 (05:21→18:38)
[2022-09-03 08:04] LABS: Basophils # (auto) 0.06 K/uL (0-0.2); Basophils % (auto) 0.5 %; Eosinophils # (auto) 0.13 K/uL (0-0.50); Eosinophils % (auto) 1.1 %; Hematocrit (blood only) 45.4 % (40.1-51.0); Hemoglobin 15.3 g/dl (14.0-18.0); Immature Granulocytes # (auto) 0.06 K/uL (0.00-0.02); Immature Granulocytes % (auto) 0.5 %; Lymphocytes # (auto) 0.96 K/uL (1.2-3.4); Mean Corpuscular Hemoglobin 32.3 pg (25.0-34.0); Mean Corpuscular Hgb Conc 33.7 g/dL (32.0-36.0); Mean Corpuscular Volume 95.8 fL (80.0-100.0); Mean Platelet Volume 9.8 fL (9.4-12.4); Monocytes # (auto) 1.25 K/uL (0.24-0.82); Monocytes % (auto) 10.5 %; Neutrophils % (auto) 79.4 %; Platelet Count 226 K/uL (130-400); RDW Coefficient of Variation 12.8 % (11.5-14.5); RDW Standard Deviation 45.3 fL (36.4-46.3); Red Blood Count 4.74 M/uL (4.63-6.08); White Blood Count 11.96 K/ul (4.8-10.8)
[2022-09-03 08:28] LABS: BUN Creatinine Ratio 11.6 (10-20); Calcium 8.7 mg/dl (8.5-10.1); Creatinine Clr Calc Pharmacy 96.1 ml/min; Est GFR (Non-African American) 78.5 ml/min; Potassium 4.3 mmol/L (3.5-5.1)
[2022-09-03] MEDS: SODIUM CHLORIDE 0.9% 1000ML 1,000 ML IV SCH ×3 (09:02→18:37)
[2022-09-03 10:58] LABS: Albumin Level 3.6 gm/dl (3.4-5.0); Bilirubin Direct 0.2 mg/dl (0-0.2); Bilirubin,Total 1.1 mg/dl (0.2-1.0); Magnesium 1.9 mg/dl (1.7-2.4); Total Protein 6.3 gm/dl (6.0-8.3)
--- NOTE | 2022-09-03 12:25 | Anesthesiology Consultation ---
Date of Service September 03, 2022 Assessment & Plan Chart Review Chart Review: Acceptable Risk for Surgery covid complications now resolved Consults Requested none ASA ASA3 Proposed Anesthesia Anesthesia Type: General Risk / Benefits Reviewed With: PT / POA / Parent / Guardian, Accepts Plan and Informed Consent Obtained History Surgery Operation Date: 09/03/22 07:00 Proposed Procedures p Laparoscopic Cholecystectomy - Rafa Goldberg MD Height/Weight Height: 5 ft 10 in Weight: 139.5 kg Allergies Allergy/AdvReac Type Severity Reaction Status Date / Time potassium chloride Allergy Intermediate Hives Verified 07/08/22 09:56 bee venom protein (honey bee) Allergy Unknown SWELLING Verified 07/08/22 09:56 AT SITE oxycodone AdvReac Verified 07/08/22 09:56 Medications Home Medications Medication Instructions Recorded Confirmed Last Taken ascorbic acid (vitamin C) 100 mg 100 mg PO DAILY 05/30/19 07/08/22 Unknown tablet cholecalciferol (vitamin D3) 125 5,000 units PO DAILY 05/30/19 07/08/22 Unknown mcg (5,000 unit) capsule multivitamin (Multiple Vitamins 1 tab PO DAILY 05/30/19 07/08/22 Unknown tablet) omega-3 acid ethyl esters 1 gram 1 cap PO DAILY 05/30/19 07/08/22 Unknown capsule vitamin B complex 1 cap PO DAILY 05/30/19 07/08/22 Unknown vitamin E (dl, acetate) 45 mg (100 100 units PO DAILY 05/30/19 07/08/22 Unknown unit) capsule cranberry 400 mg capsule 400 mg PO DAILY 06/06/19 07/08/22 Unknown aspirin 81 mg tablet,delayed 81 mg PO DAILY 09/11/21 07/08/22 Unknown release cinnamon bark 500 mg capsule 500 mg PO DAILY 07/08/22 07/08/22 Unknown (Cinnamon) coenzyme Q10 75 mg capsule (Ultra 75 mg PO DAILY 07/08/22 07/08/22 Unknown CoQ10) lisinopril 5 mg tablet 5 mg PO DAILY #90 tabs 07/08/22 07/08/22 Unknown Active Medications Generic Name Dose Route Start Last Admin Trade Name Freq PRN Reason Stop Dose Admin Acetaminophen 650 mg 09/02/22 17:58 09/03/22 07:58 Acetaminophen 325 Mg Tab PO 10/02/22 17:57 650 mg Q4H PRN Administration pain/fever Sodium Chloride 1,000 mls @ 125 mls/hr 09/02/22 17:58 09/03/22 10:43 Nss 1000ml IV 10/02/22 17:57 125 mls/hr .Q8H DENYS Administration Piperacillin Sod/Tazobactam 115 mls @ 28.75 mls/hr 09/02/22 22:00 09/03/22 09:02 Sod 3.375 gm/ Dextrose IV 09/12/22 21:59 Infused Q8H DENYS Infusion Protocol NPO Date Last Intake of Fluids: 09/02/22 Time Last Intake of Fluids: 23:59 Date Last Intake of Solids: 09/02/22 Time Last Intake of Solids: 23:59 Past Medical History Medical History Abnormality of thoracic aorta BMI 45.0-49.9, adult Chronic venous stasis dermatitis COVID-19 Diverticulosis Dyspnea on exertion Fatigue Generalized osteoarthritis of multiple sites Hiatal hernia Hypertension Morbid obesity Nocturnal hypoxemia Palliative care encounter Ringing in ears Vitamin D deficiency Exercise / Class Metabolic Activity III < 4 Walking/Shop/Light housework Past Family History Family History Father Emphysema lung Stroke Brother Hypertension Mother No pertinent family history in first degree relatives Sister No pertinent family history in first degree relatives Past Surgical History Surgical History (Updated 09/03/22 @ 13:26 by Jacque Cyr DO) H/O vasectomy History of appendectomy History of colonoscopy Status post hip replacement Past Anesthesia History No Hx of Anesthesia Complications and No Family Hx of Anesthesia Complications History of PONV No Hx of PONV and No Hx of Motion Sickness Social History Smoking Status: Never smoker Hx Alcohol Use: Yes Alcohol type: beer and wine alcohol intake frequency: a few times a month Hx Substance Use: No Review of Systems ROS Unobtainable: All systems reviewed & are unremarkable except as noted in HPI & below Physical Exam Vital Signs Last Vital Signs Temp 36.4 C L 09/03/22 12:59 Pulse 72 09/03/22 12:59 Resp 24 09/03/22 12:59 BP 129/75 09/03/22 12:59 Pulse Ox 95 09/03/22 12:59 O2 Del Method 09/03/22 12:59 O2 Flow Rate 1 09/02/22 17:00 Constitutional + morbidly obese ENMT Mouth: no TMJ abnormality Thyromental Distance: > or= 3.5 Finger Breadths Mallampati Class: II Neck normal visual inspection and trachea midline; neck extension not limited Respiratory normal respiratory effort Auscultation: lungs clear to auscultation bilaterally Cardiovascular Rate/Rhythm: regular rate and regular rhythm Heart Sounds: no murmur Musculoskeletal Spine: normal cervical ROM Extremities: full ROM of extremities Neurologic moves all extremities Psychiatric Orientation: alert and oriented x 3 Testing Laboratory Results 09/03/22 07:20 09/03/22 07:20 Urine Color Dark Yellow 09/02/22 13:05 Urine Appearance Clear (Clear) 09/02/22 13:05 Urine pH 5.5 (4.5-7.5) 09/02/22 13:05 Ur Specific [place] 1.021 (1.000-1.030) 09/02/22 13:05 Urine Protein Negative (Negative) 09/02/22 13:05 Urine Glucose (UA) Negative (Negative) 09/02/22 13:05 Urine Ketones Trace (Negative) H 09/02/22 13:05 Urine Nitrite Negative (Negative) 09/02/22 13:05 Ur Leukocyte Esterase 2+ (Negative) H 09/02/22 13:05 Urine WBC (Auto) 10-30 /hpf (0-5) H 09/02/22 13:05 Urine RBC (Auto) 0-4 /hpf (0-4) 09/02/22 13:05 U Hyaline Cast (Auto) 10-30 /lpf (0-5) H 09/02/22 13:05 U Epithel Cells (Auto) 10-20 /lpf (0-5) H 09/02/22 13:05 Urine Bacteria (Auto) Negative (Negative) 09/02/22 13:05 Electrocardiogram Date: 09/02/22 Findings: + ST @ (106) LAD, incomplete RBB, frequent PVCs, possible anterolateral infarct Qtc 571ms Chest X-Ray Date: 09/02/22 XR chest 1V portable CLINICAL HISTORY: Hypoxia TECHNIQUE: Single frontal radiograph of the chest was obtained. Comparison: None available at the time of this dictation. FINDINGS: No lines and tubes are seen. The cardiomediastinal silhouette is normal. Lungs are underinflated but clear. No evidence of pleural effusion or pneumothorax. Other Testing 09/17/21 CT angio chest PE protocol CLINICAL HISTORY: worsening AHRF, uptrend CRP, COVID+ . Worsening interstitial and alveolar opacities radiographically. COMPARISON STUDY: CTA from 09/11/2021 and portable chest from 09/16/2021 CT DOSE: 932.18 mGy.cm TECHNIQUE: CT Angio of the chest was performed.followed by image post processing with coronal, and sagittal MIP reformats. Contrast Volume: Optiray 320, 120 ml FINDINGS: Vasculature: There is homogeneous perfusion of the pulmonary vasculature bilaterally. No intraluminal filling defects or evidence for pulmonary embolus is seen. Airway: The airway is clear. No endobronchial lesion is identified. Lungs: Compared to the previous examination, there is worsening extensive groundglass opacities are present throughout both lungs characteristic of a vi ral type pneumonitis and Covid 19 pneumonia. The lungs are otherwise clear of confluent alveolar opacities, air bronchograms or pulmonary nodules. Pleura: There is no evidence for pleural effusion. There is no evidence for pneumothorax. Mediastinum: There is no evidence for pathologic adenopathy. The heart size is again enlarged. The thoracic aorta is within normal limits. There is no evidence for pericardial effusion. Upper abdomen:The adrenal glands are normal bilaterally. Osseous structures: There is no acute osseous pathology. Impression: 1. No CTA evidence for pulmonary embolus. 2. Interval worsening of extensive groundglass opacities throughout both lungs characteristic of a viral type pneumonitis and Covid 19 pneumonia.
[2022-09-03] MEDS ORDERED: MEPERIDINE HCL 25 MG/ML CARP/VIAL IV PRN (12:27)
[2022-09-03] MEDS ORDERED: MoRPHine SULFATE 10 MG/ML CARP/VIAL IV PRN (12:27)
[2022-09-03] MEDS ORDERED: ePHEDrine sulfate 50 MG/ML AMP IV PRN (12:27)
[2022-09-03] MEDS ORDERED: ATROPINE SULFATE 0.1 MG/ML 10ML SYR IV PRN (12:27)
[2022-09-03] MEDS ORDERED: METOCLOPRAMIDE HCL INJ 5 MG/ML 2 ML VIAL IV PRN (12:27)
[2022-09-03] MEDS ORDERED: MIDAZOLAM HCL 1 MG/ML 2ML VIAL ONE (13:14)
[2022-09-03] MEDS ORDERED: fentaNYL citrate 100 MCG/2 ML VIAL ONE ×3 (13:14→15:24)
--- NOTE | 2022-09-03 13:57 | History & Physical Bridge Note ---
Date of Service September 03, 2022 History & Physical Bridge Note I have examined the patient, reviewed the History & Physical and in the interval since the performance of the History & Physical I have noted the following changes of clinical significance: no changes noted
[2022-09-03] MEDS ORDERED: BUPIVACAINE 0.5 % 5 MG/1 ML MPF 30ML VIAL ONE (14:10)
[2022-09-03] MEDS ORDERED: PROPOFOL IV EMULSION 10 MG/ML 20 ML VIAL IV ONE (14:44)
[2022-09-03] MEDS ORDERED: ROCURONIUM BROMIDE 10 MG/ML 5 ML VIAL IV ONE ×4 (14:44→15:33)
[2022-09-03] MEDS ORDERED: NEOSTIGMINE METHYLSULFATE 1 MG/ML 10ML VIAL ONE (14:44)
[2022-09-03] MEDS ORDERED: LIDOCAINE 2% MPF LOCAL 5 ML VIAL INFIL ONE (14:44)
[2022-09-03] MEDS ORDERED: DEXAMETHASONE SOD INJ 4 MG/ML VIAL ONE (14:44)
[2022-09-03] MEDS ORDERED: METOCLOPRAMIDE HCL INJ 5 MG/ML 2 ML VIAL ONE (14:44)
[2022-09-03] MEDS ORDERED: GLYCOPYRROLATE 0.2 MG/ML VIAL ONE (14:44)
[2022-09-03] MEDS ORDERED: SURGICEL ABSORB HEMOSTAT 2IN X 14IN TOP ONE (15:53)
--- NOTE | 2022-09-03 16:34 | Post Operative Brief Note ---
Immediate Post Op Note v1 Date of Surgery September 03, 2022 Pre & Post Diagnosis Operation Date: 09/03/22 07:00 Pre-Op Diagnosis: Acute cholecystitis Post-Op Diagnosis: Acute cholecystitis I identified the patient and participated in the time-out.: Yes Procedure Operation Date: 09/03/22 07:00 Actual Procedures p Laparoscopic Cholecystectomy - Rafa Goldberg MD Surgeon Rafa Goldberg MD Optical Engineering Manager STACEY Sabillon assisted with tissue retraction, camera op, closure Estimated Blood Loss 30 Findings Consistent with Post-Op Diagnosis Drains Vikas-Cruz Drain (15Fr)
--- NOTE | 2022-09-03 16:39 | Operative Report ---
Post Operative Report Pre & Post Diagnosis Operation Date: 09/03/22 07:00 Pre-Op Diagnosis: Acute cholecystitis Post-Op Diagnosis: Acute cholecystitis I identified the patient and participated in the time-out.: Yes Procedure Operation Date: 09/03/22 07:00 Actual Procedures p Laparoscopic Cholecystectomy - Rafa Goldberg MD Surgeon Rafa Goldberg MD Warehouse Clerk STACEY Sabillon assisted with tissue retraction, camera op, closure Estimated Blood Loss 30 Findings Consistent with Post-Op Diagnosis Severe acute cholecystitis with chronic inflammatory change omentum and mesentery densely adherent to the gallbladder. Gallbladder was significantly distended and inflamed. Specimens Gallbladder Drains 15 Gambian round SRI Anesthesia Type General Complications No immediate complications Description of Procedure The patient was taken to the operating room, and placed supine on the operating table. A timeout was performed, perioperative antibiotics were administered, SCD boots were placed. After adequate anesthesia and analgesia was obtained, the abdomen was prepped and draped in the normal sterile fashion. Local anesthetic was injected into and around the proposed incision sites. An incision was made with a 15 blade scalpel in the supraumbilical region and carried down to the level of the fascia. The fascia was grasped with a trach hook, and a varies needle was used to enter the abdominal cavity. The abdomen was insufflated to a pressure of 15 mmHg, and a 11 mm trocar was placed in this location. A 10 mm, 30 degree laparoscope was placed into the abdominal cavity, and the abdomen was surveyed. The colon and omentum were obscuring the right upper quadrant, the liver appeared to be significantly elevated under the rib cage. Two 5 mm trochars were placed along the right costal margin, and one 5 mm trocar was placed in the subxiphoid region under direct visualization. Using careful blunt dissection as well as judicious use of electrocautery, I was able to d issect free the adhesions of the omentum and colon to the gallbladder. This exposed a very large very taut distended necrotic appearing gallbladder. The gallbladder was drained with an 18-gauge aspiration needle. The gallbladder was grasped and retracted cephalad and laterally, exposing the triangle of Calot. Given body mass index, significant amount of omentum, and body habitus, another 5 mm trocar was placed in the midline for a fan retractor. This was used to retract the omentum away from the triangle of Sasha. Dissection began in the triangle with a combination of blunt dissection with the [place] dissector, and judicious use of the hook cautery. The cystic duct and cystic artery were dissected free circumferentially, and a critical view of safety was obtained. During the dissection, one of the 5 mm trochars in the right upper quadrant was upsized to an 11 mm trocar. This was done to facilitate vision as well as facilitate a 10 mm clip sales person. The cystic duct and cystic artery were clipped and transected, and the gallbladder was removed from the gallbladder fossa with the hook cautery. The gallbladder was very thick and scarred into the liver bed. A significant amount of bleeding was encountered in this location. Surgicel was used to help control hemostasis. Once the gallbladder was detached, the camera was switched to the other 11 mm trocar, the gallbladder was placed in an Endo Catch bag, and removed via the supraumbilical port site. We had to significantly increase the size of the supraumbilical port site to remove the gallbladder. The camera was switched back to the supraumbilical port, and the abdomen was surveyed again. Hemostasis was checked and attended, and was adequate. The abdomen was copiously irrigated and suctioned free. A 15 Gambian round SRI drain was placed through the lateral right upper quadrant port site, and was secured with a nylon suture. All trochars were removed under direct visualization. The abdomen was desufflated. The fascia in the 11 mm port site was closed with a 0 Vicryl suture. The skin was closed with a running 4-0 Monocryl subcuticular stitch. Dermabond was applied. The patient tolerated the procedure without complication, and was transferred in stable condition to the PACU. All instrument, needle, and sponge counts were correct at the end of the case. My preschool assistant was necessary throughout the procedure for tissue retraction, possible camera operation, and closure of the wounds. I understand that section 1842(b)(7)(D) of the Social Security act generally prohibits Medicare physician fee schedule payment for the services of assistants at surgery in teaching hospitals when qualified residents are available to furnish such services. I certify that the services for which payment is claimed were medically necessary and that no qualified resident was available to perform the services. I further understand that these services are subject to postpayment review by the Medicare carrier. I attest to the content of the Intraoperative Record and any orders documented therein. Any exceptions are noted below.
[2022-09-03] MEDS ORDERED: SUGAMMADEX SODIUM 200 MG/2 ML VIAL IV ONE (16:46)
[2022-09-03] MEDS ORDERED: ALBUT/IPRATROP 3MG/0.5MG NEB 3 ML VIAL ONE (17:13)
[2022-09-03] MEDS: ALBUT/IPRATROP 3MG/0.5MG NEB 3 ML VIAL NEB STA ×2 (17:16→18:26)
[2022-09-03] MEDS: fentaNYL citrate 100 MCG/2 ML VIAL IV PRN ×2 (17:26→17:31)
--- NOTE | 2022-09-03 18:12 | Anesthesiology Progress Note ---
Date of Service September 03, 2022 Anesthesia Post Procedure Vital Signs Vital Signs: Temp Pulse Resp BP Pulse Ox O2 Del Method O2 Flow Rate 09/03/22 17:55 37.5 C 89 25 H 135/52 L 92 Nasal Cannula 4 09/03/22 17:45 87 20 136/64 92 Nasal Cannula 4 09/03/22 17:35 87 19 133/71 92 Nasal Cannula 4 09/03/22 17:25 85 23 143/68 H 94 Oxymask 5 09/03/22 17:15 84 22 137/69 94 Oxymask 5 09/03/22 17:05 85 22 150/71 H 94 Oxymask 5 09/03/22 16:55 37.8 C H 97 H 22 128/84 95 Oxymask 5 09/03/22 12:59 36.4 C L 72 24 129/75 95 Room Air 09/03/22 07:19 36.8 C 72 20 124/69 91 Room Air 09/02/22 20:54 38 C H 73 20 122/63 89 L Room Air 09/02/22 18:33 36.4 C L 68 18 121/73 65 L Room Air Pain Intensity Bilateral Abdomen: Pain Intensity: 2 Transfer of Care Handoff Completed per policy Notes Mental Status: alert / awake / arousable Patient Amnestic to Procedure: Yes Nausea / Vomiting: adequately controlled Pain: adequately controlled Airway Patency, RR, SpO2: stable & adequate BP & HR: stable & adequate Hydration State: stable & adequate Anesthetic Complications: no major complications apparent and Pt Satisfied with anesthetic care Notes: The patient is awake and comfortable. He has a history of nocturnal hypoxemia. He required a prolonged wake-up in the OR and was given both neostigmine/glycopyrrolate and sugammadex for reversal of rocuronium. He was awake and talking upon arrival to PACU but with slight wheezes in recovery so was given a Duoneb. He was also given an incentive spirometer and has been encouraged to use it. The patient has maintained an SpO2 of 92 on NC 4 L Oxygen. He will have continuous pulse oximetry on the floor.
[2022-09-03] MEDS ORDERED: Nursing to Pharmacy Communication SCH (18:30)
--- NOTE | 2022-09-03 20:49 | Hospitalist Progress Note ---
Date of Service September 03, 2022 Assessment & Plan (1) Acute cholecystitis: Plan: Acute cholecystitis CTA/P: Acute cholecystitis. No evidence of rupture/abscess. Diverticulosis without diverticulitis Leukocytosis to 13.7 No evidence of choledocholithiasis, no stones are seen, transaminases and bilirubin are normal, no ductal dilation on CT Continue Zosyn N.p.o., pending cholecystectomy later today. LFTs stable. Chronic shortness of breath without home oxygen requirement Patient had COVID with ARDS requiring 30-day admission and slow wean from oxygen last winter. Normally oxygen levels 90s at baseline. Does have chronic leg swelling due to venous stasis, no history of heart failure CXR with no acute disease Hypertension Lisinopril held preprocedurally Aspirin temporarily held ARIELLE CPAP nightly DVT prophylaxis SCDs, Lovenox post procedure Diet: N.p.o. pending cholecystectomy Disposition: Medical/surgical CODE STATUS: Full code (2) ARIELLE (obstructive sleep apnea): (3) ARDS (adult respiratory distress syndrome): (4) BMI 45.0-49.9, adult: Admission and Anticipated Discharge Date Admission Date: September 02, 2022 Subjective Patient seen prior to Lap alessandra. He reports mild pain remains in right upper quadrant, not requiring morphine ordered. No fever or chills. Currently NPO for operation later today. Review of Systems Review of Systems: All systems reviewed & are unremarkable except as noted in Subjective Physical Exam Constitutional: WD/WN, vitals as above Respiratory: normal respiratory effort, lungs clear to auscultation Cardiovascular: RRR, no murmur, no edema Gastrointestinal (Abdomen): Percussion/Palpation: + abdomen tender (RUQ) and abdomen soft; no guarding and abdomen not rigid Skin: no rashes, warm and dry Psychiatric: A+Ox3, euthymic affect Results & Data Results & Data ([facility]) Vital Signs (Past 12 Hours) Vital Signs Temp Pulse Pulse Resp BP BP Pulse Ox 09/03/22 20:20 37.0 C 90 20 112/74 94 09/03/22 19:20 37.2 C 88 20 126/68 94 09/03/22 18:50 37.5 C 90 18 132/77 95 09/03/22 18:04 09/03/22 18:22 36.5 C 69 20 129/76 92 09/03/22 17:55 37.5 C 89 25 H 135/52 L 92 09/03/22 17:45 87 20 136/64 92 09/03/22 17:35 87 19 133/71 92 09/03/22 17:25 85 23 143/68 H 94 09/03/22 17:15 84 22 137/69 94 09/03/22 17:05 85 22 150/71 H 94 09/03/22 16:55 37.8 C H 97 H 22 128/84 95 09/03/22 12:59 36.4 C L 72 24 129/75 95 Pulse Ox O2 Del Method O2 Del Method O2 Flow Rate O2 Flow Rate 09/03/22 20:20 Nasal Cannula 3.0 09/03/22 19:20 Nasal Cannula 3.0 09/03/22 18:50 Nasal Cannula 3 09/03/22 18:04 94 Nasal Cannula 4 09/03/22 18:22 Nasal Cannula 4 09/03/22 17:55 Nasal Cannula 4 09/03/22 17:45 Nasal Cannula 4 09/03/22 17:35 Nasal Cannula 4 09/03/22 17:25 Oxymask 5 09/03/22 17:15 Oxymask 5 09/03/22 17:05 Oxymask 5 09/03/22 16:55 Oxymask 5 09/03/22 12:59 Room Air PG Care Time/CCT Total # of Minutes Spent Total Time Spent with Patient: Total time spent is greater than 50% in coordination of care (as documented) at patient's floor/unit and/or counseling patient: Coding Level of Care Code 67978 Subseq Hosp Care Lvl 2 Diagnoses Acute cholecystitis K81.0 ARIELLE (obstructive sleep apnea) G47.33 ARDS (adult respiratory distress syndrome) J80 BMI 45.0-49.9, adult Z68.42
[2022-09-03] MEDS ORDERED: COUGH DROP (SUGAR FREE) LOZ 24 LOZ/1 BOX BUCCAL ONE (21:27)
[2022-09-03] MEDS: MoRPHine SULFATE 2 MG/ML CARP IV PRN (21:38)
[2022-09-04] MEDS: PIPERACILLIN/TAZOBACTAM 3.375 GM in DEXTROSE 5% 100 ML IV SCH ×2 (02:17→08:59)
[2022-09-04] MEDS: SODIUM CHLORIDE 0.9% 1000ML 1,000 ML IV SCH ×2 (02:17→10:46)
--- NOTE | 2022-09-04 06:16 | Electrocardiogram Report ---
Test Reason : Blood Pressure : / mmHG Vent. Rate : 106 BPM Atrial Rate : 106 BPM P-R Int : 200 ms QRS Dur : 096 ms QT Int : 312 ms P-R-T Axes : -22 -31 000 degrees QTc Int : 415 ms Sinus tachycardia with frequent Premature ventricular complexes Left axis deviation Incomplete right bundle branch block Possible Anterolateral infarct (cited on or before 02-SEP-2022) Abnormal ECG When compared with ECG of 10-SEP-2021 22:51, Incomplete right bundle branch block is now Present Confirmed by Jesse Francois ([id number]) on 09/04/2022 6:15:35 AM Referred By: REFERRED SELF Confirmed By:Jesse Francois
[2022-09-04 06:37] LABS: Basophils # (auto) 0.02 K/uL (0-0.2); Basophils % (auto) 0.2 %; Hematocrit (blood only) 38.7 % (40.1-51.0); Hemoglobin 13.3 g/dl (14.0-18.0); Immature Granulocytes # (auto) 0.07 K/uL (0.00-0.02); Immature Granulocytes % (auto) 0.6 %; Lymphocytes # (auto) 0.64 K/uL (1.2-3.4); Lymphocytes % (auto) 5.2 %; Mean Corpuscular Hgb Conc 34.4 g/dL (32.0-36.0); Mean Corpuscular Volume 93.3 fL (80.0-100.0); Mean Platelet Volume 9.6 fL (9.4-12.4); Monocytes # (auto) 1.16 K/uL (0.24-0.82); Monocytes % (auto) 9.5 %; Neutrophils # (auto) 10.36 K/uL (1.4-6.5); Neutrophils % (auto) 84.5 %; Platelet Count 188 K/uL (130-400); RDW Coefficient of Variation 12.4 % (11.5-14.5); Red Blood Count 4.15 M/uL (4.63-6.08); White Blood Count 12.25 K/ul (4.8-10.8)
[2022-09-04 07:06] LABS: Albumin Level 3.2 gm/dl (3.4-5.0); Bilirubin Direct 0.2 mg/dl (0-0.2); Bilirubin,Total 0.7 mg/dl (0.2-1.0); Creatinine Clr Calc Pharmacy 144.9 ml/min; Est GFR (African American) 112.5 ml/min; Est GFR (Non-African American) 97.1 ml/min; Potassium 3.9 mmol/L (3.5-5.1); Total Protein 5.7 gm/dl (6.0-8.3)
[2022-09-04] MEDS: oxyCODONE/ACETAMINOPHEN 5mg/325mg TAB PO PRN ×2 (08:55→15:26)
[2022-09-04] MEDS ORDERED: ENOXAPARIN INJ 40 MG/0.4 ML SYR SQ SCH (09:00)
--- NOTE | 2022-09-04 12:15 | Surgery Progress Note ---
Date of Service September 04, 2022 Assessment & Plan (1) Acute cholecystitis: Plan Postoperative day 1 status post lap cholecystectomy for gangrenous cholecystitis Tolerating clear liquids, continue for now Encourage out of bed, ambulation Aggressive pulmonary toilet with incentive spirometry DVT prophylaxis with SCD boots and Lovenox Admission and Anticipated Discharge Date Admission Date: September 02, 2022 Subjective Postop day 1 status post laparoscopic cholecystectomy for gangrenous cholecystitis. He is doing fairly well. Tolerating clear liquids. No nausea or vomiting. Some pain. Physical Exam Physical Exam: Abdomen soft, mild tenderness to palpation right upper quadrant; incisions healing well without erythema or discharge; Dermabond intact; SRI drain with small amount of serosanguineous output Results & Data ([facility]) Vital Signs (Past 12 Hours) Vital Signs Temp Pulse Resp BP BP Pulse Ox O2 Del Method 09/04/22 11:03 36.7 C 72 18 103/48 L 94 Nasal Cannula 09/04/22 07:20 Nasal Cannula 09/04/22 07:12 37 C 58 L 18 107/63 95 Nasal Cannula 09/04/22 02:16 36.5 C 74 18 108/72 94 Nasal Cannula O2 Flow Rate 09/04/22 11:03 4 09/04/22 07:20 3 09/04/22 07:12 4 09/04/22 02:16 3 Laboratory Results 09/04/22 09/04/22 Range/Units 06:18 06:18 WBC 12.25 H (4.8-10.8) K/ul RBC 4.15 L (4.63-6.08) M/uL Hgb 13.3 L (14.0-18.0) g/dl Hct 38.7 L (40.1-51.0) % MCV 93.3 (80.0-100.0) fL MCH 32.0 (25.0-34.0) pg MCHC 34.4 (32.0-36.0) g/dL RDW Std Deviation 43.0 (36.4-46.3) fL RDW Coeff of Roberto Carlos 12.4 (11.5-14.5) % Plt Count 188 (130-400) K/uL MPV 9.6 (9.4-12.4) fL Immature Gran % (Auto) 0.6 % Neut % (Auto) 84.5 % Lymph % (Auto) 5.2 % Pierce % (Auto) 9.5 % Eos % (Auto) 0.0 % Baso % (Auto) 0.2 % Neut # (Auto) 10.36 H (1.4-6.5) K/uL Lymph # (Auto) 0.64 L (1.2-3.4) K/uL Pierce # (Auto) 1.16 H (0.24-0.82) K/uL Eos # (Auto) 0.00 (0-0.50) K/uL Baso # (Auto) 0.02 (0-0.2) K/uL Immature Gran # (Auto) 0.07 H (0.00-0.02) K/uL Sodium 136 (136-145) mmol/L Potassium 3.9 (3.5-5.1) mmol/L Chloride 104 (98-107) mmol/L Carbon Dioxide 26 (21-32) mmol/L Anion Gap 6 (3-11) BUN 12 (6-23) mg/dl Creatinine 0.63 D (0.6-1.4) mg/dl Est Cr Clr Drug Dosing 144.9 ml/min Est GFR ( Amer) 112.5 ml/min Est GFR (Non-Af Amer) 97.1 ml/min BUN/Creatinine Ratio 19.0 (10-20) Glucose 144 H (70-99(Fasting)) mg/dl Calcium 8.0 L (8.5-10.1) mg/dl Total Bilirubin 0.7 (0.2-1.0) mg/dl Direct Bilirubin 0.2 (0-0.2) mg/dl AST 26 (13-39) U/L ALT 22 (7-52) U/L Alkaline Phosphatase 54 (34-104) U/L Total Protein 5.7 L (6.0-8.3) gm/dl Albumin 3.2 L (3.4-5.0) gm/dl
--- NOTE | 2022-09-04 15:51 | Hospitalist Progress Note ---
Date of Service September 04, 2022 Assessment & Plan (1) Acute cholecystitis: Plan: Acute cholecystitis. Status post laparoscopic cholecystectomy [09/03] CTA/P: Acute cholecystitis. No evidence of rupture/abscess. Diverticulosis without diverticulitis No evidence of choledocholithiasis, no stones are seen, transaminases and bilirubin are normal, no ductal dilation on CT We will downgrade antibiotics specific for acute cholecystitis with ceftriaxone and metronidazole - given difficulty in operation we will continue these for another 2 days (2) ARIELLE (obstructive sleep apnea): Plan: CPAP at bedtime (3) BMI 45.0-49.9, adult: (4) Hypertension: Plan: Restart lisinopril 5 mg p.o. daily tomorrow (5) Hypoxia: Plan: Patient had COVID with ARDS requiring 30-day admission and slow wean from oxygen last winter. Normally oxygen levels 90s at baseline. Does have chronic leg swelling due to venous stasis, no history of heart failure CXR with no acute disease Mild hypoxia postoperatively suspect due to atelectasis. Continue incentive spirometer. Plan Diet: Diet per surgery, keeping on clears today. VTE prophylaxis -Lovenox discontinued by surgical team. Restart this when okay from a surgical perspective. Disposition: Medical/surgical CODE STATUS: Full code Admission and Anticipated Discharge Date Admission Date: September 02, 2022 Subjective Patient reports significant relief with his right upper quadrant abdominal pain. Now only having mild pain over his incision sites. Abdominal drain with serosanguineous fluid. No fever or chills. Currently on 4 L/min oxygen. He reports usually being short of breath on exertion for many years. Review of Systems Review of Systems: All systems reviewed & are unremarkable except as noted in Subjective Physical Exam Constitutional: WD/WN, vitals as above Respiratory: normal respiratory effort, lungs clear to auscultation Cardiovascular: RRR, no murmur, no edema Gastrointestinal (Abdomen): Inspection/Auscultation: abdomen not distended Percussion/Palpation: abdomen soft; abdomen nontender (Nontender away from incision sites), no guarding and abdomen not rigid Psychiatric: A+Ox3, euthymic affect Results & Data Results & Data ([facility]) Vital Signs (Past 12 Hours) Vital Signs Temp Pulse Resp BP Pulse Ox O2 Del Method O2 Flow Rate 09/04/22 15:07 37 C 70 18 136/71 96 Nasal Cannula 2 09/04/22 11:03 36.7 C 72 18 103/48 L 94 Nasal Cannula 4 09/04/22 07:20 Nasal Cannula 3 09/04/22 07:12 37 C 58 L 18 107/63 95 Nasal Cannula 4 PG Care Time/CCT Total # of Minutes Spent Total Time Spent with Patient: Total time spent is greater than 50% in coordination of care (as documented) at patient's floor/unit and/or counseling patient: Coding Level of Care Code 92278 Subseq Hosp Care Lvl 2 Diagnoses Acute cholecystitis K81.0 ARIELLE (obstructive sleep apnea) G47.33 BMI 45.0-49.9, adult Z68.42 Hypertension I10 Hypoxia R09.02
[2022-09-04] MEDS: cefTRIAXone SODIUM 2,000 MG in DEXTROSE 5% 50 ML IV SCH (16:58)
[2022-09-04] MEDS: metroNIDAZOLE 500 MG/100 ML BAG IV SCH (18:09)
[2022-09-05] MEDS: metroNIDAZOLE 500 MG/100 ML BAG IV SCH ×3 (00:26→16:21)
[2022-09-05] MEDS: MoRPHine SULFATE 2 MG/ML CARP IV PRN (00:31)
--- NOTE | 2022-09-05 07:33 | Surgery Progress Note ---
Date of Service September 05, 2022 Assessment & Plan (1) Acute cholecystitis: Plan Postoperative day 2 status post lap cholecystectomy for gangrenous cholecystitis Tolerating clear liquids, advance as tolerated Encourage out of bed, ambulation Aggressive pulmonary toilet with incentive spirometry DVT prophylaxis with SCD boots and Lovenox Admission and Anticipated Discharge Date Admission Date: September 02, 2022 Subjective Doing well today. Minimal pain. No nausea or vomiting. Tolerating clears. Physical Exam Physical Exam: Abdomen soft, mild tenderness to palpation right upper quadrant; incisions healing well without erythema or discharge; Dermabond intac t; SRI drain with small amount of serosanguineous output Results & Data ([facility]) Vital Signs (Past 12 Hours) Vital Signs Temp Pulse Pulse Resp BP Pulse Ox O2 Del Method 09/05/22 03:18 36.7 C 70 18 139/77 96 Nasal Cannula 09/04/22 23:20 36.4 C L 76 18 136/83 94 Nasal Cannula 09/04/22 19:45 36.9 C 70 18 128/67 94 Nasal Cannula O2 Flow Rate 09/05/22 03:18 2 09/04/22 23:20 2 09/04/22 19:45 2
[2022-09-05 07:42] LABS: Basophils # (auto) 0.08 K/uL (0-0.2); Basophils % (auto) 0.8 %; Eosinophils # (auto) 0.22 K/uL (0-0.50); Eosinophils % (auto) 2.2 %; Hematocrit (blood only) 40.6 % (40.1-51.0); Hemoglobin 13.6 g/dl (14.0-18.0); Immature Granulocytes # (auto) 0.06 K/uL (0.00-0.02); Immature Granulocytes % (auto) 0.6 %; Lymphocytes # (auto) 1.12 K/uL (1.2-3.4); Lymphocytes % (auto) 11.3 %; Mean Corpuscular Hemoglobin 32.3 pg (25.0-34.0); Mean Corpuscular Hgb Conc 33.5 g/dL (32.0-36.0); Mean Corpuscular Volume 96.4 fL (80.0-100.0); Mean Platelet Volume 9.7 fL (9.4-12.4); Monocytes # (auto) 0.75 K/uL (0.24-0.82); Monocytes % (auto) 7.6 %; Neutrophils # (auto) 7.64 K/uL (1.4-6.5); Neutrophils % (auto) 77.5 %; Platelet Count 197 K/uL (130-400); RDW Coefficient of Variation 12.5 % (11.5-14.5); RDW Standard Deviation 44.3 fL (36.4-46.3); Red Blood Count 4.21 M/uL (4.63-6.08); White Blood Count 9.87 K/ul (4.8-10.8)
[2022-09-05 08:07] LABS: Albumin Level 3.2 gm/dl (3.4-5.0); BUN Creatinine Ratio 16.9 (10-20); Bilirubin Direct 0.1 mg/dl (0-0.2); Bilirubin,Total 0.5 mg/dl (0.2-1.0); Creatinine Clr Calc Pharmacy 128.6 ml/min; Est GFR (African American) 107.1 ml/min; Est GFR (Non-African American) 92.4 ml/min; Potassium 3.6 mmol/L (3.5-5.1); Total Protein 5.6 gm/dl (6.0-8.3)
[2022-09-05] MEDS: lisinopril 5 MG TAB PO SCH (09:10)
[2022-09-05] MEDS ORDERED: FAMOTIDINE 20 MG in SYRINGE 3 ML IV STA (12:57)
[2022-09-05] MEDS: CALCIUM CARBONATE 500 MG CHEWABLE TAB PO PRN ×2 (13:15→18:20)
[2022-09-05] MEDS: ENOXAPARIN INJ 40 MG/0.4 ML SYR SQ SCH (13:17)
[2022-09-05] MEDS: PANTOprazole 40 MG TAB PO SCH (13:18)
[2022-09-05] MEDS: cefTRIAXone SODIUM 2,000 MG in DEXTROSE 5% 50 ML IV SCH (16:21)
--- NOTE | 2022-09-05 19:00 | Hospitalist Progress Note ---
Date of Service September 05, 2022 Assessment & Plan (1) Acute cholecystitis: Plan: Acute cholecystitis. Status post laparoscopic cholecystectomy [09/03] CTA/P: Acute cholecystitis. No evidence of rupture/abscess. Diverticulosis without diverticulitis No evidence of choledocholithiasis, no stones are seen, transaminases and bilirubin are normal, no ductal dilation on CT Continue ceftriaxone and metronidazole - given difficulty in operation we will continue these for another day (2) GERD (gastroesophageal reflux disease): Plan: Suspect exacerbated by recent operation Famotidine 20mg IV now, pantoprazole 40mg PO daily - consider continuing for a few weeks on discharge Tums PRN (3) Hypoxia: Plan: Patient had COVID with ARDS requiring 30-day admission and slow wean from oxygen last winter. Normally oxygen levels 90s at baseline. Does have chronic leg swelling due to venous stasis, no history of heart failure CXR with no acute disease Mild hypoxia postoperatively suspect due to atelectasis. Continue incentive spirometer. Consider CXR tomorrow if unable to wean of oxygen. (4) ARIELLE (obstructive sleep apnea): Plan: CPAP at bedtime (5) BMI 45.0-49.9, adult: (6) Hypertension: Plan: Restarted his usual lisinopril 5mg PO daily Plan Diet: Diet per surgery VTE prophylaxis - Lovenox 40mg SQ daily Disposition: Medical/surgical CODE STATUS: Full code Admission and Anticipated Discharge Date Admission Date: September 02, 2022 Subjective Patient with some heartburn today. He reports rarely needing tums at home. No significant chronic heartburn. Also having some lower abdominal cramps as his diet is advanced. No significant pain in RUQ however. No fever or chills. Review of Systems Review of Systems: All systems reviewed & are unremarkable except as noted in Subjective Physical Exam Constitutional: WD/WN, vitals as above Respiratory: normal respiratory effort, lungs clear to auscultation Cardiovascular: RRR, no murmur, no edema Gastrointestinal (Abdomen): Inspection/Auscultation: abdomen not distended Percussion/Palpation: + abdomen tender (epigastric) and abdomen soft; no guarding and abdomen not rigid Skin: no rashes, warm and dry Psychiatric: A+Ox3, euthymic affect Results & Data Results & Data ([facility]) Vital Signs (Past 12 Hours) Vital Signs Temp Pulse Resp BP Pulse Ox O2 Del Method O2 Flow Rate 09/05/22 14:55 36.8 C 92 H 20 147/85 H 97 Room Air 09/05/22 08:10 Nasal Cannula 2 09/05/22 07:42 36.4 C L 77 22 169/79 H 93 Nasal Cannula 2 PG Care Time/CCT Total # of Minutes Spent Total Time Spent with Patient: Total time spent is greater than 50% in coordination of care (as documented) at patient's floor/unit and/or counseling patient: Coding Level of Care Code 58334 Subseq Hosp Care Lvl 2 Diagnoses Acute cholecystitis K81.0 GERD (gastroesophageal reflux disease) K21.9 Hypoxia R09.02 ARIELLE (obstructive sleep apnea) G47.33 BMI 45.0-49.9, adult Z68.42 Hypertension I10
[2022-09-06] MEDS: metroNIDAZOLE 500 MG/100 ML BAG IV SCH ×2 (00:29→07:56)
[2022-09-06 06:04] LABS: Basophils # (auto) 0.08 K/uL (0-0.2); Basophils % (auto) 0.9 %; Eosinophils # (auto) 0.36 K/uL (0-0.50); Hematocrit (blood only) 41.2 % (40.1-51.0); Hemoglobin 13.8 g/dl (14.0-18.0); Immature Granulocytes # (auto) 0.03 K/uL (0.00-0.02); Immature Granulocytes % (auto) 0.3 %; Lymphocytes # (auto) 0.97 K/uL (1.2-3.4); Lymphocytes % (auto) 10.9 %; Mean Corpuscular Hemoglobin 32.3 pg (25.0-34.0); Mean Corpuscular Hgb Conc 33.5 g/dL (32.0-36.0); Mean Corpuscular Volume 96.5 fL (80.0-100.0); Mean Platelet Volume 9.1 fL (9.4-12.4); Monocytes # (auto) 0.81 K/uL (0.24-0.82); Monocytes % (auto) 9.1 %; Neutrophils # (auto) 6.68 K/uL (1.4-6.5); Neutrophils % (auto) 74.8 %; Platelet Count 225 K/uL (130-400); RDW Coefficient of Variation 12.4 % (11.5-14.5); Red Blood Count 4.27 M/uL (4.63-6.08); White Blood Count 8.93 K/ul (4.8-10.8)
[2022-09-06 06:30] LABS: Albumin Level 2.9 gm/dl (3.4-5.0); BUN Creatinine Ratio 13.9 (10-20); Bilirubin Direct 0.1 mg/dl (0-0.2); Bilirubin,Total 0.5 mg/dl (0.2-1.0); Calcium 7.8 mg/dl (8.5-10.1); Creatinine Clr Calc Pharmacy 126.8 ml/min; Est GFR (African American) 106.5 ml/min; Est GFR (Non-African American) 91.9 ml/min; Potassium 3.9 mmol/L (3.5-5.1); Total Protein 5.2 gm/dl (6.0-8.3)
[2022-09-06] MEDS: PANTOprazole 40 MG TAB PO SCH (07:56)
[2022-09-06] MEDS: ENOXAPARIN INJ 40 MG/0.4 ML SYR SQ SCH (07:56)
[2022-09-06] MEDS: lisinopril 5 MG TAB PO SCH (07:56)
--- NOTE | 2022-09-06 08:45 | XRay Report ---
SINGLE VIEW CHEST CLINICAL HISTORY: Hypoxia. FINDINGS: 2 AP, portable, upright chest radiographs are compared to study dated 09/02/2022 and correl ated with chest CT dated 09/17/2021. The examination is degraded by portable technique and apical orth otic positioning. The heart is enlarged. The pulmonary vasculature is noncongested. Chronic interstit ial thickening is somewhat a previous. There is chronic elevation of the right hemidiaphragm with bib asilar atelectasis. The lungs and pleural spaces are clear. No pneumothorax is seen. The skeletal str uctures are osteopenic. The bony thorax is grossly intact. Cholecystectomy clips are noted in the rig ht upper quadrant. IMPRESSION: Cardiomegaly with no active disease in the chest. ACT 112: Negative or not required by law. Electronically signed by: Tomasz Jones M.D. 09/06/2022 8:43 AM
--- NOTE | 2022-09-06 11:25 | Surgery Progress Note ---
Date of Service September 06, 2022 Assessment & Plan (1) Acute cholecystitis: Plan: remove drain discharge Admission and Anticipated Discharge Date Admission Date: September 02, 2022 Subjective doing well eating pain controlled Physical Exam Constitutional: WD/WN, vitals as above Gastrointestinal (Abdomen): normal bowel sounds, soft, nontender, no hepatosplenomegaly Results & Data ([facility]) Vital Signs (Past 12 Hours) Vital Signs Temp Pulse Resp BP Pulse Ox Pulse Ox O2 Del Method 09/06/22 10:37 93 Room Air 09/06/22 10:23 91 Room Air 09/06/22 09:22 93 Nasal Cannula 09/06/22 07:30 Nasal Cannula 09/06/22 07:54 95 09/06/22 07:53 37.1 C 63 20 134/82 95 Nasal Cannula O2 Del Method O2 Flow Rate O2 Flow Rate 09/06/22 10:37 09/06/22 10:23 09/06/22 09:22 1 09/06/22 07:30 09/06/22 07:54 Nasal Cannula 2 09/06/22 07:53 2
--- NOTE | 2022-09-06 12:23 | Discharge Summary ---
Date of Service September 06, 2022 Admission HPI Per Admitting Provider Marvel Marks is a 72-year-old male with a past medical history of ARDS, ARIELLE, morbid obesity, chronic venous stasis dermatitis, BMI 44, OA who presents with abdominal pain is recommended for admission for acute cholecystitis Kidney stones. Stomach on fire for 2 days. Pain felt similar to kidney stones but in the RUQ. Pain improved after morphine. Pain radiated down the sides of his [place]. NO chest pain or chest pressure No oxygen at home, "short of breath 40 years, but hasn't change:" No fevers, had chills yesterday, no sweats No cough BMs normally daily. Recently brown, soft. NO melena/BRBPR/lindsay colored NO heart attacks. No COPD. NO problems with anesthesia. Few bouts of kidney stones, no recent flank pain. last episode 6 yrs ago Medical History: Reviewed Medications: Reviewed Surgical History: Reviewed. Hx R hip replacement 3 yrs ago. Allergies: Reviewed Social History: No tobacco product use. EtoH 'almost never.' Code Status: Full Code Principal Diagnosis Acute gangrenous cholecystitis s/p cholecystectomy Discharge Exam GENERAL: 72 yo pleasant WM morbidly obese. NAD. LUNGS: Clear to auscultation bilaterally. No w/r/r CARDIOVASCULAR: Regular rate and rhythm. ABDOMEN: Soft, non-tender and non-distended. BS normoactive x 4 quad. EXTREMITIES: No edema. Non-tender. Peripheral pulses +2/4. NEUROLOGIC: A&O x3. PSYCHIATRIC: Cooperative. Appropriate mood and affect. SKIN: Warm, dry, intact. No rashes or lesions. Discharge Data Allergies Allergy/AdvReac Type Severity Reaction Status Date / Time potassium chloride Allergy Intermediate Hives Verified 07/08/22 09:56 bee venom protein (honey bee) Allergy Unknown SWELLING Verified 07/08/22 09:56 AT SITE oxycodone AdvReac Verified 07/08/22 09:56 Consultations 09/02/22 14:22 Consult General Surgery Stat Procedures Performed Operation Date: 09/03/22 07:00 Actual Procedures p Laparoscopic Cholecystectomy - Rafa Goldberg MD Ordered Studies Abdomen/Pelvis CT 09/02/22 11:18 CT abd pelvis IV con only CLINICAL HISTORY: generalized abdominal pain nausea TECHNIQUE: Helical axial images of the abdomen and pelvis were obtained and displayed. Automated dose lowering techniques and/or adjustment according to patient size were utilized for this exam. This exam was performed with intravenous contrast. CT DOSE: 2129.11 mGy.cm COMPARISON: Comparison is made to CT pelvis 02/03/[address] abdomen pelvis 02/26/2015 FINDINGS: Lower chest: Bibasilar atelectasis versus scarring is seen.6 Liver: Unremarkable. No focal lesions are seen. Gallbladder and biliary tree: The gallbladder wall thickening is seen with pericholecystic fluid. The gallbladder wall measures 4 mm in diameter. No intra- or extrahepatic biliary ductal dilation. Pancreas: Fatty replacement of the pancreas is seen. Spleen: Unremarkable. Adrenals: Unremarkable. Kidneys and ureters: Renal cysts are seen. Bladder: Unremarkable. Reproductive organs: Prostatic calcifications are seen which may represent prior hemorrhage or granulomatous disease. Bowel: Diverticulosis is seen without evidence of diverticulitis. Patient is status post appendectomy. Lymph nodes Retroperitoneal: Unremarkable. Pelvic: Unremarkable. Mesenteric: Unremarkable. Peritoneum: Normal. Vessels: Atherosclerotic calcifications are seen. Abdominal wall: A fat-containing umbilical hernia is seen. Bones: Degenerative changes in the visualized spine. There is a right hip arthroplasty. IMPRESSION: 1. Acute cholecystitis is seen. No evidence of rupture or abscess formation. 2. Diverticulosis without diverticulitis. ACT 112: Negative or not required by law. Electronically signed by: Kt Oquendo M.D. 09/02/2022 2:06 PM Chest X-Ray 09/02/22 15:08 XR chest 1V portable CLINICAL HISTORY: Hypoxia TECHNIQUE: Single frontal radiograph of the chest was obtained. Comparison: None available at the time of this dictation. FINDINGS: No lines and tubes are seen. The cardiomediastinal silhouette is normal. Lungs are underinflated but clear. No evidence of pleural effusion or pneumothorax. IMPRESSION: No acute chest disease. ACT 112: Negative or not required by law. Electronically signed by: Kt Oquendo M.D. 09/02/2022 3:40 PM Chest X-Ray 09/06/22 08:27 SINGLE VIEW CHEST CLINICAL HISTORY: Hypoxia. FINDINGS: 2 AP, portable, upright chest radiographs are compared to study dated 09/02/2022 and correlated with chest CT dated 09/17/2021. The examination is degraded by portable technique and apical orthotic positioning. The heart is enlarged. The pulmonary vasculature is noncongested. Chronic interstitial thickening is somewhat a previous. There is chronic elevation of the right hemidiaphragm with bibasilar atelectasis. The lungs and pleural spaces are clear. No pneumothorax is seen. The skeletal structures are osteopenic. The bony thorax is grossly intact. Cholecystectomy clips are noted in the right upper quadrant. IMPRESSION: Cardiomegaly with no active disease in the chest. ACT 112: Negative or not required by law. Electronically signed by: Tomasz Jones M.D. 09/06/2022 8:43 AM Hospital Course (1) Acute cholecystitis: Acute cholecystitis. Status post laparoscopic cholecystectomy [09/03] CTA/P: Acute cholecystitis. No evidence of rupture/abscess. Diverticulosis without diverticulitis No evidence of choledocholithiasis, no stones are seen, transaminases and bilirubin are normal, no ductal dilation on CT Continue ceftriaxone and metronidazole - given difficulty in operation we will continue these for another day - tolerating diet, no fever/leukocytosis, medically stable for dc from surgery standpoint - f/u with surgery and follow all d/c instructions provided (2) GERD (gastroesophageal reflux disease): Suspect exacerbated by recent operation Famotidine 20mg IV now, pantoprazole 40mg PO daily (rx provided for 30 days upon d/c) Tums PRN (3) Hypoxia: Patient had COVID with ARDS requiring 30-day admission and slow wean from oxygen last winter. Normally oxygen levels 90s at baseline. Does have chronic leg swelling due to venous stasis, no history of heart failure CXR with no acute disease - Patient admits he has COPD, likely also component of OHS - Weaned off O2 today and sats have been in the low to mid 90s on room air - He also has a finger pulse oximeter at home that he uses sporadically (4) ARIELLE (obstructive sleep apnea): - pt refuses to comply with NIPPV device use (5) BMI 45.0-49.9, adult: - weight loss advised (6) Hypertension: - Restarted his usual lisinopril 5mg PO daily Plan Medically and hemodynamically stable for discharge home today. Follow up with general surgery as advised. Follow all d/c instructions provided. Plan d/w Dr. Camilo who has also seen and evaluated this patient prior to discharge and agrees with aforementioned. Total Time Total Time Spent Total Time Spent (In Minutes): >30 minutes Discharge Plan Discharge Items Patient Disposition: Home - Self-Care Reason For Visit: CHOLECYSTITIS Discharge Diagnosis: Acute gangrenous cholecystitis Activity: Resume your previous activity Non-emergency contact: Primary Care Provider Call non-emergency contact if: you have any medication questions Follow-up/Referrals: Dakota Valiente MD [Primary Care Provider] - Diet: Regular Addtl Attending Provider Instructions: You were hospitalized and underwent removal of your gallbladder. Please follow all discharged instructions provided by the surgery team below. Follow up as scheduled with your surgeon. You are being prescribed Protonix (Pantoprazole) 40mg daily for acid reflux. It is recommended that you continue this medication at least for the next 30 days. You can discuss continuing this medication upon further with your primary care provider. If any questions following your discharge, feel free to contact the nonemergency number listed on your paperwork. Addtl Commercial Singer Provider Instructions: Post-Surgical ~Discharge Instructions Activity Recommendations: - lifting limitation: (20 pounds for 2-3 weeks), - exercise/sex/sports limit: (nonstrenuous for 2 weeks), - driving or machine use limit: (none for 1 week or until pain free and no longer taking narcotic pain medication), - Shower/bathe limit: (may shower) Diet: - Resume previous diet SPECIAL CARE INSTRUCTIONS: - May shower. Let water run over area and pat dry. - Sponge bath around drain site. - If you go home with surgical drain, keep record of output and color and bring to office with you. surgical drain will be removed in office. - Surgical glue will fall off on its own. - Call the surgeon's office with any questions or concerns - - (ex. temperature higher than 101 degrees F, excessive bleeding or pain). MEDICATIONS: - Resume previous medications unless instructed otherwise by your surgeon. - Percocet 1 every 4 hours, as needed for pain FOLLOW UP VISIT: - If not already scheduled, please call the office to schedule a one week follow-up appointment. Office number Pending Studies at Discharge: No Stand-Alone Forms: [employer], Smoking Cessation Medications and DC Order Prescriptions: New pantoprazole 40 mg Tablet,Delayed Release (Dr/Ec) 40 mg PO QAM Qty: 30 0RF Continued cinnamon bark [Cinnamon] 500 mg capsule 500 mg PO DAILY Ultra CoQ10 75 mg capsule 75 mg PO DAILY lisinopril 5 mg tablet 5 mg PO DAILY Qty: 90 1RF vitamin B complex capsule 1 cap PO DAILY vitamin E (dl, acetate) 100 unit capsule 100 units PO DAILY omega-3 acid ethyl esters 1 gram capsule 1 cap PO DAILY cholecalciferol (vitamin D3) 5,000 unit capsule 5,000 units PO DAILY ascorbic acid (vitamin C) 100 mg tablet 100 mg PO DAILY multivitamin [Multiple Vitamins] tablet 1 tab PO DAILY cranberry 400 mg capsule 400 mg PO DAILY aspirin 81 mg Tablet,Delayed Release (Dr/Ec) 81 mg PO DAILY Discharge Orders: Discharge Order (Routine); Ordered 09/06/22 Ordered By: Angelica Moss/Other Patient Handouts: After Gallbladder Surgery Admission Data Admit Date/Time: 09/02/22 15:16 Attending Provider: Freeman Camilo Admit Provider: Kimo Sevilla Primary Care Provider: Dakota Valiente V. Other Providers: Rafa Goldberg Other Interventions: Discharge Summary Assessment (RN) Last Done: 09/06/22 12:21 Supervising Physician Co-Signing Physician Notes Patient seen and examined at bedside. During face to face encounter, I obtained a history of hospital stay and physical exam. I discussed plan of care with DANNY Medeiros and patient. Patient will be discharged after cholecystectomy after cholecystitis. Patient will followup with surgery as an outpatient. I reviewed above note, discharge plan and agree with it. Coding Level of Care Code D/C DAY MANAGEMENT >30 MINS Diagnoses Acute cholecystitis K81.0 GERD (gastroesophageal reflux disease) K21.9 Hypoxia R09.02 ARIELLE (obstructive sleep apnea) G47.33 BMI 45.0-49.9, adult Z68.42 Hypertension I10
== END 2022-09-06 13:09 | disposition home or self-care (01) | DRG 418 ==
LOC: ED 10:39 → SUATTDRO 15:16 → 3N 15:16

== ENCOUNTER 2023-09-22 10:13 | Observation (INO) ==
[2023-09-22] MEDS ORDERED: SODIUM CHLORIDE 0.9% 1,000 ML IV ONE ×2 (10:35→11:43)
[2023-09-22] MEDS ORDERED: diphenhydrAMINE 50 MG/ML VIAL IV STA (10:46)
[2023-09-22] MEDS ORDERED: ONDANSETRON INJ 2 MG/ML 2 ML VIAL IV STA (10:46)
[2023-09-22] MEDS ORDERED: methylPREDNISolone 125 MG/2 ML VIAL IV STA (10:47)
[2023-09-22 10:55] LABS: Basophils # (auto) 0.07 K/uL (0.00-0.20); Basophils % (auto) 0.8 %; Eosinophils # (auto) 0.14 K/uL (0.00-0.50); Eosinophils % (auto) 1.6 %; Hematocrit (blood only) 48.6 % (42.0-52.0); Hemoglobin 16.8 g/dl (14.0-18.0); Immature Granulocytes # (auto) 0.04 K/uL (0.01-0.20); Immature Granulocytes % (auto) 0.5 %; Lymphocytes # (auto) 2.05 K/uL (1.20-3.40); Lymphocytes % (auto) 24.1 %; Mean Corpuscular Hemoglobin 32.4 pg (25.0-34.0); Mean Corpuscular Hgb Conc 34.6 g/dL (32.0-36.0); Mean Corpuscular Volume 93.6 fL (80.0-100.0); Mean Platelet Volume 9.8 fL (9.4-12.4); Monocytes # (auto) 0.84 K/uL (0.11-0.59); Monocytes % (auto) 9.9 %; Neutrophils # (auto) 5.35 K/uL (1.40-6.50); Neutrophils % (auto) 63.1 %; Platelet Count 216 K/uL (130-400); RDW Coefficient of Variation 12.9 % (11.5-14.5); RDW Standard Deviation 44.1 fL (36.4-46.3); Red Blood Count 5.19 M/uL (4.70-6.10); White Blood Count 8.49 K/ul (4.8-10.8)
[2023-09-22 10:56] LABS: iSTAT Creatinine 0.8 mg/dl (0.6-1.3); iSTAT Hemoglobin 17.3 g/dl (14.0-18.0); iSTAT Ionized Calcium 1.14 mmol/l (1.12-1.32); iSTAT Potassium 3.9 mmol/L (3.3-5.0)
[2023-09-22] MEDS ORDERED: OPTIRAY 320 125ml IV ONE (10:57)
--- NOTE | 2023-09-22 11:03 | Emergency Department Note ---
Impression & Plan Vertigo, Diplopia, Nausea ED Provider Note NAME: YENNI ANDRADE AGE: 73 SEX: M ARRIVES VIA: Walk-In INFORMANT: Patient ED PROVIDER(S): Caleb Correa MD CHIEF COMPLAINT: Vertigo / Diplopia. PLAN: Disposition: Admit MEDICAL DECISION MAKING: The patient is a pleasant 73-year-old gentleman with past medical history of hypertension, hyperlipidemia who presents to the emergency department via walk- in, by his for evaluation of acute onset room spinning/vertigo and double vision which they estimate began around 830 today when he got up from his chair and noticed that he was seeing double. He reports he realized if he closed 1 eye that this was tolerable. He lay down in his bed to see if this would get better and as it did not he called his . Otherwise he reports having mild congestion a couple weeks ago that subsequently resolved. He otherwise denies fevers, chills, diarrhea or urinary symptoms. He does report nausea with his sense of vertigo. He reports he does have a history of vertigo in the past but had never been this severe. He reports he has chronic ringing in the ears which has become worse with this episode. Patient takes a baby aspirin daily but otherwise is not on anticoagulation. On my evaluation the patient is uncomfortable but no distress, afebrile blood pressure 140s/70s and vital signs otherwise stable. He appears clinically dry. He has notable horizontal nystagmus/disconjugate gaze bilaterally. She has no focal motor deficits otherwise with intact finger-nose. EKG without overt acute ischemia. Chest x-ray negative for acute cardiopulmonary process. WBC, H/H and platelets within normal limits. Chemistry without metabolic acidosis. Electrolytes and LFTs unremarkable. High-sensitivity troponin 7.0, within normal limits. UA with WBCs albeit with epithelial cells present and no bacteria. Respiratory viral panel/BioFire was negative. CT of the head and CT of the head and neck were performed and were negative for ICH, ischemia or severe narrowing occlusion of large vessels. The origins of bilateral vertebral arteries is suboptimally assessed due to artifact however the remainder of bilateral cervical vertebral arteries are unremarkable. The patient was treated initially with IV fluid hydration, diphenhydramine for antihistamine effect for vertigo, Zofran, Solu-Medrol for suspected component of labyrinthitis and possible Mnire's given chronic tinnitus. Central etiology/ELFEGO considered less likely but not completely excluded. Upon reevaluation the patient denied any significant change though on examination the patient's disconjugate gaze was objectively improved though his reported diplopia persisted. BP improved. Given the persistence of the patient's vertigo patient was for to hospital service for further evaluation and management including MRI. Case was [place] [facility] [place] who will evaluate the patient for admission. Triage Nursing notes reviewed and agree them. Prior/external medical records reviewed Vital Signs: reviewed Differential diagnosis: Benign positional vertigo, dehydration, hypovolemia, anemia, tumor, infection, hypoglycemia, electrolyte abnormalities, cardiac sources, intracerebral event, toxicologic, neurologic, as well as other pathologies. ER treatment provided: See below. Diagnostics interpreted by me: ECG: Sinus rhythm with first-degree AV block, occasional PVCs, 67 bpm, no ectopy, no overt ST elevation or depression, QTc 433, cures 102. Cardiac Monitoring: An order for continuous cardiac monitoring was placed and demonstrated Sinus rhythm with first-degree AV block, occasional PVCs, 67 bpm. Laboratory studies: See below Imaging studies: See below Consultation(s): Case was discussed [place] Dr. Sevilla, [facility] [place], who will evaluate the patient for admission. HPI: The patient is a pleasant 73-year-old gentleman with past medical history of hypertension, hyperlipidemia who presents to the emergency department via walk-in, by his for evaluation of acute onset room spinning/vertigo and double vision which they estimate began around 830 today when he got up from his chair and noticed that he was seeing double. He reports he realized if he closed 1 eye that this was tolerable. He lay down in his bed to see if this would get better and as it did not he called his . Otherwise he reports having mild congestion a couple weeks ago that subsequently resolved. He otherwise denies fevers, chills, diarrhea or urinary symptoms. He does report nausea with his sense of vertigo. He reports he does have a history of vertigo in the past but had never been this severe. He reports he has chronic ringing in the ears which has become worse with this episode. Patient takes a baby aspirin daily but otherwise is not on anticoagulation. ROS: See above HPI for pertinent positives & negatives. A total of 10 systems reviewed and were otherwise negative. VITALS:See Below PHYSICAL EXAMINATION: GENERAL: Awake, alert, uncomfortable-appearing, in no distress HENT: Normocephalic, atraumatic. Oropharynx with dry mucous membranes and otherwise unremarkable. EYES: Normal conjunctiva. Sclera non-icteric. Bilateral horizontal nystagmus/dysconjugate gaze. NECK: Supple. No nuchal rigidity. FROM. No JVD. RESPIRATORY: Clear to auscultation. CARDIAC: Regular rate, normal rhythm. Extremities warm and well perfused. Pulses equal. ABDOMEN: Soft, non-distended. No tenderness to palpation. No rebound or guarding. No masses. RECTAL: Deferred. MUSCULOSKELETAL: Chest examination reveals no tenderness. The back is symmetrical on inspection without obvious abnormality. There is no CVA tenderness to palpation. No joint edema. LOWER EXTREMITIES: Calves are equal size bilaterally and non-tender. No edema. No discoloration. NEURO: Normal sensorium. No sensory or motor deficits noted. 5/5 strength and SILT x 4 extremities. Cerebellar function intact including [id number]. SKIN: No rash or jaundice noted. Caleb Correa MD Past Med/Surg History Medical History GERD (gastroesophageal reflux disease) Hypokalemia Hyponatremia Physical deconditioning Palliative care encounter ARDS (adult respiratory distress syndrome) Obesity Pneumonia due to COVID-19 virus COVID-19 Vitamin D deficiency Nocturnal hypoxemia Morbid obesity Hypertension Hiatal hernia Generalized osteoarthritis of multiple sites Fatigue Dyspnea on exertion Diverticulosis Chronic venous stasis dermatitis BMI 45.0-49.9, adult Abnormality of thoracic aorta Shortness of breath Surgical History History of colectomy History of colonoscopy H/O vasectomy History of appendectomy Family History Father Emphysema lung Stroke Brother Hypertension Mother No pertinent family history in first degree relatives Sister No pertinent family history in first degree relatives Social History Smoking Status: Former smoker Second Hand Exposure: No; Do You Dip or Chew Tobacco: No; Hx Alcohol Use: Yes Alcohol type: beer and wine Alcohol Intake Frequency: 2-4 x/Month Hx Substance Use: No Preferred Language: Wallisian Communication Ability: Effective Visual Impairment: No Limitations Hearing Ability: Use of Hearing Aid C2 Tactical Analysis Technician Required: No Beliefs That Will Affect Care: None marital status: Current Living Situation: Spouse Feels Safe at Home: Yes Seatbelt Use: always Assistive Devices: None Allergies Allergies Allergy/AdvReac Type Severity Reaction Status Date / Time potassium chloride Allergy Intermediate Hives Verified 07/14/23 10:22 bee venom protein (honey bee) Allergy Unknown SWELLING Verified 07/14/23 10:22 AT SITE oxycodone AdvReac Verified 07/14/23 10:22 Home Meds Home Medications Medication Instructions Recorded Confirmed ascorbic acid (vitamin C) 100 mg 100 mg PO DAILY 05/30/19 09/22/23 tablet cholecalciferol (vitamin D3) 125 5,000 units PO DAILY 05/30/19 09/22/23 mcg (5,000 unit) capsule multivitamin (Multiple Vitamins 1 tab PO DAILY 05/30/19 09/22/23 tablet) omega-3 acid ethyl esters 1 gram 1 cap PO DAILY 05/30/19 09/22/23 capsule vitamin B complex 1 cap PO DAILY 05/30/19 09/22/23 vitamin E (dl, acetate) 45 mg (100 100 units PO DAILY 05/30/19 09/22/23 unit) capsule cranberry 400 mg capsule 400 mg PO DAILY 06/06/19 09/22/23 aspirin 81 mg tablet,delayed 81 mg PO DAILY 09/11/21 09/22/23 release cinnamon bark 500 mg capsule 500 mg PO DAILY 07/08/22 09/22/23 (Cinnamon) coenzyme Q10 75 mg capsule (Ultra 75 mg PO DAILY 07/08/22 09/22/23 CoQ10) Prostate 1 cap PO DIRECTED 09/22/23 09/22/23 apple cider vinegar 1 cap PO DIRECTED 09/22/23 09/22/23 atorvastatin 10 mg tablet 10 mg PO PM 09/22/23 09/22/23 lisinopril 5 mg tablet 5 mg PO PM 09/22/23 09/22/23 Results & Data (ED) Vital Signs Vital Signs - 24 hr 09/22/23 10:21 09/22/23 10:35 09/22/23 11:40 Temperature 36.3 C L Temperature Source Temporal Artery Scan Pulse Rate 64 68 Pulse Rate [Apical] 64 Pulse Rhythm [Apical] Pulse Strength [Apical] Respiratory Rate 14 20 Respiratory Effort / Characteristics Non-Labored Spontaneous Respiratory Depth Normal Respiratory Pattern Blood Pressure 142/76 H Blood Pressure [Right Arm] 138/80 Blood Pressure Mean 98 Blood Pressure Mean [Right Arm] 99 Blood Pressure Position [Right Arm] Sitting Pulse Oximetry 93 98 Oxygen Delivery Method Room Air Room Air Sepsis New/Unexplained Change in Mental Status No Sepsis Action Taken by Nursing No Action Required 09/22/23 13:00 09/22/23 14:33 09/22/23 15:19 Temperature 36.4 C L Temperature Source Oral Pulse Rate 79 Pulse Rate [Apical] 66 89 Pulse Rhythm [Apical] Regular Pulse Strength [Apical] Normal Respiratory Rate 18 18 Respiratory Effort / Characteristics Non-Labored Spontaneous Non-Labored Spontaneous Respiratory Depth Normal Normal Respiratory Pattern Regular Regular Blood Pressure Blood Pressure [Right Arm] 125/73 129/77 Blood Pressure Mean Blood Pressure Mean [Right Arm] 90 94 Blood Pressure Position [Right Arm] Sitting Pulse Oximetry 97 95 Oxygen Delivery Method Room Air Room Air Sepsis New/Unexplained Change in Mental Status Sepsis Action Taken by Nursing Laboratory Data Attestation: I reviewed the patient's lab results. 09/22/23 10:35 09/22/23 10:35 Lab Results 09/22/23 09/22/23 09/22/23 Range/Units 10:35 10:43 Unknown WBC 8.49 (4.8-10.8) K/ul RBC 5.19 (4.70-6.10) M/uL Hgb 16.8 (14.0-18.0) g/dl POC Hgb 17.3 (14.0-18.0) g/dl Hct 48.6 (42.0-52.0) % POC Hct 51 (42-52) % MCV 93.6 (80.0-100.0) fL MCH 32.4 (25.0-34.0) pg MCHC 34.6 (32.0-36.0) g/dL RDW Std Deviation 44.1 (36.4-46.3) fL RDW Coeff of Roberto Carlos 12.9 (11.5-14.5) % Plt Count 216 (130-400) K/uL MPV 9.8 (9.4-12.4) fL Immature Gran % (Auto) 0.5 % Neut % (Auto) 63.1 % Lymph % (Auto) 24.1 % [place] % (Auto) 9.9 % Eos % (Auto) 1.6 % Baso % (Auto) 0.8 % Neut # (Auto) 5.35 (1.40-6.50) K/uL Lymph # (Auto) 2.05 (1.20-3.40) K/uL [place] # (Auto) 0.84 H (0.11-0.59) K/uL Eos # (Auto) 0.14 (0.00-0.50) K/uL Baso # (Auto) 0.07 (0.00-0.20) K/uL Immature Gran # (Auto) 0.04 (0.01-0.20) K/uL PT 10.9 (9.0-12.0) Seconds INR 1.0 (0.9-1.1) APTT 26 (21-31) Seconds PTT Ratio 0.9 POC Sodium 139 (135-144) mmol/L Sodium 139 (136-145) mmol/L POC Potassium 3.9 (3.3-5.0) mmol/L Potassium 3.9 (3.5-5.1) mmol/L POC Chloride 104 (101-112) mmol/L Chloride 104 (98-107) mmol/L Carbon Dioxide 26 (21-32) mmol/L POC Total CO2 25 (24-31) mmol/L Anion Gap 9 (3-11) POC Anion Gap 15.0 L (16-25) mmol/L POC BUN 18 (7-18) mg/dl BUN 17 (6-23) mg/dl Creatinine 0.85 (0.6-1.4) mg/dl POC Creatinine 0.8 (0.6-1.3) mg/dl Est Cr Clr Drug Dosing 106.5 ml/min Est GFR ( Amer) 98.8 ml/min Est GFR (Non-Af Amer) 85.2 ml/min BUN/Creatinine Ratio 20.0 (10-20) Glucose 137 H (70-99(Fasting)) mg/dl POC Glucose 131 H (70-99) mg/dl POC Glucose (other) 138 H (70-99) mg/dl Calcium 9.3 (8.6-10.3) mg/dl POC Ioniz Calcium Nickie 1.14 (1.12-1.32) mmol/l Magnesium 1.8 (1.7-2.4) mg/dl Total Bilirubin 0.7 (0.2-1.0) mg/dl AST 38 (13-39) U/L ALT 27 (7-52) U/L Alkaline Phosphatase 68 (34-104) U/L Troponin I High Sens 7.0 (0-20) pg/ml Total Protein 6.8 (6.0-8.3) gm/dl Albumin 4.3 (3.4-5.0) gm/dl Globulin 2.5 (2.5-4.0) gm/dl Albumin/Globulin Ratio 1.7 (0.9-2) Urine Color Yellow Urine Appearance Clear (Clear) Urine pH 5.0 (4.5-7.5) Ur Specific [place] > 1.045 H (1.000-1.030) Urine Protein Negative (Negative) Urine Glucose (UA) Negative (Negative) Urine Ketones 1+ H (Negative) Urine Blood Negative (Negative) Urine Nitrite Negative (Negative) Urine Bilirubin Negative (Negative) Urine Urobilinogen Negative (Negative) Ur Leukocyte Esterase Trace H (Negative) Urine WBC (Auto) 10-30 H (0-5) /hpf Urine RBC (Auto) 0-4 (0-4) /hpf U Hyaline Cast (Auto) 1-5 (0-5) /lpf U Epithel Cells (Auto) 20-30 H (0-5) /lpf Urine Bacteria (Auto) Negative (Negative) Adenovirus (PCR) Not Detected (NotDetected) B. pertussis DNA (PCR) Not Detected (NotDetected) B.parapertussis DNA PCR Not Detected (NotDetected) C. pneumoniae DNA (PCR) Not Detected (NotDetected) Coronavirus OC43 (PCR) Not Detected (NotDetected) Coronavirus HKU1 (PCR) Not Detected (NotDetected) Coronavirus 229E (PCR) Not Detected (NotDetected) SARS-CoV-2 (PCR) Not Detected (NotDetected) Coronavirus NL63 (PCR) Not Detected (NotDetected) Human Metapneumovir PCR Not Detected (NotDetected) Influenza Type A (PCR) Not Detected (NotDetected) Influenza Type B (PCR) Not Detected (NotDetected) M. pneumoniae (PCR) Not Detected (NotDetected) Parainfluenza 1 (PCR) Not Detected (NotDetected) Parainfluenza 2 (PCR) Not Detected (NotDetected) Parainfluenza 3 (PCR) Not Detected (NotDetected) Parainfluenza 4 (PCR) Not Detected (NotDetected) RSV (PCR) Not Detected (NotDetected) Entero/Rhino (PCR) Not Detected (NotDetected) Administered Medications Discontinued Medications Aspirin (Aspirin 81 Mg Chew) 243 mg PO NOW STA Stop: 09/22/23 13:32 Last Admin: 09/22/23 15:24 Dose: 243 mg Documented By: HALI Diphenhydramine HCl (Diphenhydramine 50 Mg/Ml Vial) 12.5 mg IV NOW STA Stop: 09/22/23 10:47 Last Admin: 09/22/23 11:10 Dose: 12.5 mg Documented By: ANGIE Sodium Chloride (Nss) 1,000 mls @ 999 mls/hr IV .Q1H1M ONE Stop: 09/22/23 11:35 Last Infusion: 09/22/23 13:28 Dose: Infused Documented By: Admin: 09/22/23 10:45 Dose: 999 mls/hr Documented By: ANGIE Magnesium Sulfate/Dextrose (Magnesium Sulfate / D5w) 1 gm in 100 mls @ 100 mls/hr IV NOW STA Stop: 09/22/23 12:42 Last Infusion: 09/22/23 13:28 Dose: Infused Documented By: Admin: 09/22/23 12:11 Dose: 100 mls/hr Documented By: PIERRE Sodium Chloride (Nss) 1,000 mls @ 999 mls/hr IV .Q1H1M ONE Stop: 09/22/23 12:43 Last Admin: 09/22/23 12:12 Dose: 999 mls/hr Documented By: PIERRE Ioversol (Optiray 320 125ml) 115 ml IV ONCE ONE Stop: 09/22/23 10:58 Last Admin: 09/22/23 10:57 Dose: 115 ml Documented By: OBINNA Meclizine HCl (Meclizine Hcl 25 Mg Tab) 25 mg PO NOW STA Stop: 09/22/23 11:44 Last Admin: 09/22/23 12:10 Dose: 25 mg Documented By: PIERRE Methylprednisolone (Methylprednisolone 125 Mg/2 Ml Vial) 125 mg IV NOW STA Stop: 09/22/23 10:48 Last Admin: 09/22/23 11:10 Dose: 125 mg Documented By: HS Ondansetron HCl (Ondansetron Inj 2 Mg/Ml 2 Ml Vial) 4 mg IV NOW STA Stop: 09/22/23 10:47 Last Admin: 09/22/23 11:08 Dose: 4 mg Documented By: HS Imaging Data Radiologist's Impression: Chest X-Ray 09/22/23 10:35 XR chest 1V portable HISTORY: neuro deficit, acute stroke suspected COMPARISON: Chest 09/06/2022. FINDINGS: There are low lung volumes. No pneumothorax. No pleural effusions. The cardiac silhouette remains enlarged. There is chronic interstitial thickening, unchanged. No new focal lung consolidations to suggest a pneumonia. No evidence for pulmonary edema. There is chronic elevation of the right hemidiaphragm again noted. IMPRESSION: No significant change compared to the prior study. No acute process. ACT 112: Negative or not required by law. Electronically signed by: Ryan Conte M.D. 09/22/2023 11:[address] 09/22/23 10:35 CT head/brain wo con CLINICAL HISTORY: 73 years-old Male with neuro deficit, acute stroke suspected. Acute stroke like symptoms TECHNIQUE: Multiple axial CT images of the head were obtained without contrast. A dose lowering technique was utilized adhering to the principles of ALARA. COMPARISON: CTA head of same day FINDINGS: No acute intracranial hemorrhage, midline shift, intracranial mass, hydrocephalus, territorial ischemia or abnormal extra-axial collection. Involutional changes with chronic microvascular ischemic disease. The calvarium is intact. The paranasal sinuses, mastoid air cells, and middle ear cavities are clear. IMPRESSION: No acute intracranial abnormality. ACT 112: Negative or not required by law. The above report was generated using voice recognition software. It may contain grammatical, syntax or spelling errors. Electronically signed by: Andrae Mccall M.D. 09/22/2023 11:27 AM Head CTA 09/22/23 10:35 HEAD CTA HISTORY: neuro deficit, acute stroke suspected TECHNIQUE: Multiaxial CT images of the head were performed both before and after the intravenous administration of contrast to evaluate the major cerebral vessels. 3D/MIP images were also obtained. Sagittal and coronal reformats were reviewed. A dose lowering technique was utilized adhering to the principles of ALARA. COMPARISON: None. FINDINGS: There is no mass, hematoma, midline shift, or acute infarct. Visualized intracranial internal carotid arteries, distal vertebral arteries, and basilar artery are widely patent. There is no significant stenosis, occlusion, or aneurysm seen within the bilateral ACAs, MCAs, or quilting supervisor. The major dural venous sinuses are patent. There is a persistent right posterior circulation noted. Single dominant A2 segment is also noted. These are considered to be normal variants. IMPRESSION: No significant stenosis, occlusion, or aneurysm within the [place] of [place]. ACT 112: Negative or not required by law. Electronically signed by: Ryan Conte M.D. 09/22/2023 11:37 AM Neck CTA 09/22/23 10:35 CT ANGIOGRAPHY OF THE NECK WITH CONTRAST CLINICAL HISTORY: neuro deficit, acute stroke suspected COMPARISON STUDY: No previous studies for comparison. Technique: CT angiography of the carotid and vertebral arteries was obtained using Optiray and 3D reconstruction on an independent workstation. NASCET criteria was utilized. Automated exposure control was utilized for the study. A dose lowering technique was utilized adhering to the principles of ALARA. CT DOSE: 1134.01 mGy.cm Findings: Paraseptal emphysema is incidentally noted within visual portions of the apices. Linear densities and ground glass opacities favor atelectasis within the lung apices. There is no cervical spine fracture. There is no cervical lymphadenopathy. The origins of the bilateral vertebral arteries are suboptimally assessed due to artifact. The remainder of the bilateral cervical vertebral arteries are unremarkable. The bilateral common carotid and cervical internal carotid arteries are patent. There is no stenosis or dissection within these vessels. There is no aneurysm or dissection within the major vessels of the neck. There is mild plaque within the bilateral subclavian arteries without significant stenosis. IMPRESSION: 1. No stenoses within the bilateral common carotid or cervical internal carotid artery. 2. Suboptimal evaluation of the bilateral vertebral arteries origins due to artifact. Remainder of the bilateral cervical vertebral arteries unremarkable. ACT 112: Negative or not required by law. Electronically signed by: Reuben Molina M.D. 09/22/2023 11:20 AM Discharge Plan Visit Data Chief Complaint: TIA Symptoms Stated Complaint: DOUBLE VISION, DIZZINESS, OFF BALANCE, ED Provider: Caleb Correa Discharge Problem: Vertigo, Diplopia, Nausea Forms Stand Alone Forms: My [facility] Prescriptions Prescriptions: No Action cinnamon bark [Cinnamon] 500 mg capsule 500 mg PO DAILY Ultra CoQ10 75 mg capsule 75 mg PO DAILY vitamin B complex capsule 1 cap PO DAILY vitamin E (dl, acetate) 100 unit capsule 100 units PO DAILY omega-3 acid ethyl esters 1 gram capsule 1 cap PO DAILY cholecalciferol (vitamin D3) 5,000 unit capsule 5,000 units PO DAILY ascorbic acid (vitamin C) 100 mg tablet 100 mg PO DAILY multivitamin [Multiple Vitamins] tablet 1 tab PO DAILY cranberry 400 mg capsule 400 mg PO DAILY Prostate 1 cap PO DIRECTED apple cider vinegar 1 cap PO DIRECTED atorvastatin 10 mg tablet 10 mg PO PM lisinopril 5 mg tablet 5 mg PO PM aspirin 81 mg Tablet,Delayed Release (Dr/Ec) 81 mg PO DAILY Referrals Referrals: Dakota Valiente MD [Primary Care Provider] -
[2023-09-22 11:10] LABS: Albumin Globulin Ratio 1.7 (0.9-2); Albumin Level 4.3 gm/dl (3.4-5.0); Bilirubin,Total 0.7 mg/dl (0.2-1.0); Calcium 9.3 mg/dl (8.6-10.3); Creatinine Clr Calc Pharmacy 106.5 ml/min; Est GFR (African American) 98.8 ml/min; Est GFR (Non-African American) 85.2 ml/min; Globulin 2.5 gm/dl (2.5-4.0); Magnesium 1.8 mg/dl (1.7-2.4); Potassium 3.9 mmol/L (3.5-5.1); Total Protein 6.8 gm/dl (6.0-8.3)
[2023-09-22 11:18] LABS: Partial Thromboplastin Ratio 0.9; Partial Thromboplastin Time 26 Seconds (21-31); Prothrombin Time 10.9 Seconds (9.0-12.0)
--- NOTE | 2023-09-22 11:22 | CT Scan Report ---
CT ANGIOGRAPHY OF THE NECK WITH CONTRAST CLINICAL HISTORY: neuro deficit, acute stroke suspected COMPARISON STUDY: No previous studies for comparison. Technique: CT angiography of the carotid and vertebral arteries was obtained using Optiray and 3D rec onstruction on an independent workstation. NASCET criteria was utilized. Automated exposure control was utilized for the study. A dose lowering technique was utilized adhering to the principles of ALA RA. CT DOSE: 1134.01 mGy.cm Findings: Paraseptal emphysema is incidentally noted within visual portions of the apices. Linear den sities and ground glass opacities favor atelectasis within the lung apices. There is no cervical spin e fracture. There is no cervical lymphadenopathy. The origins of the bilateral vertebral arteries are suboptimally assessed due to artifact. The remainder of the bilateral cervical vertebral arteries ar e unremarkable. The bilateral common carotid and cervical internal carotid arteries are patent. There is no stenosis or dissection within these vessels. There is no aneurysm or dissection within the andrea or vessels of the neck. There is mild plaque within the bilateral subclavian arteries without signifi cant stenosis. IMPRESSION: 1. No stenoses within the bilateral common carotid or cervical internal carotid artery. 2. Suboptimal evaluation of the bilateral vertebral arteries origins due to artifact. Remainder of th e bilateral cervical vertebral arteries unremarkable. ACT 112: Negative or not required by law. Electronically signed by: Reuben Molina M.D. 09/22/2023 11:20 AM
--- NOTE | 2023-09-22 11:28 | CT Scan Report ---
CT head/brain wo con CLINICAL HISTORY: 73 years-old Male with neuro deficit, acute stroke suspected. Acute stroke like sy mptoms TECHNIQUE: Multiple axial CT images of the head were obtained without contrast. A dose lowering tech nique was utilized adhering to the principles of ALARA. COMPARISON: CTA head of same day FINDINGS: No acute intracranial hemorrhage, midline shift, intracranial mass, hydrocephalus, territorial ischem ia or abnormal extra-axial collection. Involutional changes with chronic microvascular ischemic disea se. The calvarium is intact. The paranasal sinuses, mastoid air cells, and middle ear cavities are clear . IMPRESSION: No acute intracranial abnormality. ACT 112: Negative or not required by law. The above report was generated using voice recognition software. It may contain grammatical, syntax o r spelling errors. Electronically signed by: Andrae Mccall M.D. 09/22/2023 11:27 AM
--- NOTE | 2023-09-22 11:31 | XRay Report ---
XR chest 1V portable HISTORY: neuro deficit, acute stroke suspected COMPARISON: Chest 09/06/2022. FINDINGS: There are low lung volumes. No pneumothorax. No pleural effusions. The cardiac silhouette r emains enlarged. There is chronic interstitial thickening, unchanged. No new focal lung consolidation s to suggest a pneumonia. No evidence for pulmonary edema. There is chronic elevation of the right he midiaphragm again noted. IMPRESSION: No significant change compared to the prior study. No acute process. ACT 112: Negative or not required by law. Electronically signed by: Ryan Conte M.D. 09/22/2023 11:30 AM
--- NOTE | 2023-09-22 11:40 | CT Scan Report ---
HEAD CTA HISTORY: neuro deficit, acute stroke suspected TECHNIQUE: Multiaxial CT images of the head were performed both before and after the intravenous admi nistration of contrast to evaluate the major cerebral vessels. 3D/MIP images were also obtained. Sag ittal and coronal reformats were reviewed. A dose lowering technique was utilized adhering to the chandrakant Cortez. COMPARISON: None. FINDINGS: There is no mass, hematoma, midline shift, or acute infarct. Visualized intracranial customer operations intern al carotid arteries, distal vertebral arteries, and basilar artery are widely patent. There is no sig nificant stenosis, occlusion, or aneurysm seen within the bilateral ACAs, MCAs, or dough mixer. The major du ral venous sinuses are patent. There is a persistent right posterior circulation noted. Single dominant A2 segment is also noted. These are considered to be normal variants. IMPRESSION: No significant stenosis, occlusion, or aneurysm within the [place]. ACT 112: Negative or not required by law. Electronically signed by: Ryan Conte M.D. 09/22/2023 11:37 AM
[2023-09-22] MEDS ORDERED: MECLIZINE HCL 25 MG TAB PO STA (11:43)
[2023-09-22] MEDS ORDERED: MAGNESIUM SULFATE / D5W 1 GM/100 ML BAG IV STA (11:43)
--- NOTE | 2023-09-22 11:58 | Electrocardiogram Report ---
Test Reason : Blood Pressure : / mmHG Vent. Rate : 067 BPM Atrial Rate : 067 BPM P-R Int : 258 ms QRS Dur : 102 ms QT Int : 410 ms P-R-T Axes : 000 090 052 degrees QTc Int : 433 ms Sinus rhythm with 1st degree A-V block with occasional Premature ventricular complexes Rightward axis Old Anterolateral infarct (cited on or before 02-SEP-2022) Abnormal ECG When compared with ECG of 02-SEP-2022 11:11, AK interval has increased Vent. rate has decreased BY 39 BPM QRS axis Shifted right Confirmed by Roberto Vance ([id number]) on 09/22/2023 11:58:06 AM Referred By: Confirmed By:Roberto Vance
--- NOTE | 2023-09-22 12:18 | History & Physical Report ---
Date of Service September 22, 2023 Assessment & Plan (1) Dizziness: Plan: Patient with new onset diplopia and dizziness. Given methylpred x 1 in the ED without significant improvement. Hold off on additional steroids at this time. Most likely diagnosis is peripheral vertigo, but with diplopia symptoms patient does warrant stroke rule out. CT Head negative. CTA Head and Neck with suboptimal evaluation of the bilateral vertebral arteries. Otherwise normal study. MRI to r/o stroke. Allow permissive HTN for the first 24 hours if CVA is noted on MRI. MRI Brain with and w/o contrast to r/o stroke and 4th CN palsy f/u Lyme given 324 ASA antiemetics as needed meclizine as needed holding antihypertensives to allow for permissive hypertension labetalol for BP 220/110 (2) Hypertension: Plan: Stable on 5 mg lisinopril. Will hold in the setting of possible stroke. Can resume if MRI negative. Continue home statin. (3) Diplopia: (4) Vertigo: Plan Code status: full DVT ppx: lovenox if MRI without large territory stroke FENGI: heart healthy Dispo: PCU, can deescalate acuity if MRI without CVA History of Present Illness Primary Care Provider: Dakota Valiente MD 73 y/o male with a PMHx of HTN, ARIELLE, and hypoxia here for evaluation of dizziness and double vision. Patient has experienced orthostatic dizziness in the past related to positional changes. Patient was getting up from his chair when symptoms started around 8:30 am. Patient experienced double vision, nausea, and dizziness. He went to lay down in hopes that it would resolve, but symptoms persisted which prompted his evaluation in the ED. In the ED patient was fluid resuscitated with 2L NS. Patient was also given antiemetics - zofran, Benadryl, meclizine. Patient given 1 time dose of methylpred for possible labyrinthitis. CT Head negative. CTA Head and Neck negative. Upon my interview patient continues to have double vision. He is laying quite still in the dark with his eyes closed. Nausea and dizziness have improved at this time. Patient also reports having bilateral tinnitus that has worsened from baseline. Patient denies any fevers, worsening SOB, CP, abdominal pain, or calf pain. Allergies Allergy/AdvReac Type Severity Reaction Status Date / Time potassium chloride Allergy Intermediate Hives Verified 07/14/23 10:22 bee venom protein (honey bee) Allergy Unknown SWELLING Verified 07/14/23 10:22 AT SITE oxycodone AdvReac Verified 07/14/23 10:22 Home Medications Medication Instructions Recorded Confirmed Type ascorbic acid (vitamin C) 100 mg 100 mg PO DAILY 05/30/19 09/22/23 History tablet cholecalciferol (vitamin D3) 125 5,000 units PO DAILY 05/30/19 09/22/23 History mcg (5,000 unit) capsule multivitamin (Multiple Vitamins 1 tab PO DAILY 05/30/19 09/22/23 History tablet) omega-3 acid ethyl esters 1 gram 1 cap PO DAILY 05/30/19 09/22/23 History capsule vitamin B complex 1 cap PO DAILY 05/30/19 09/22/23 History vitamin E (dl, acetate) 45 mg (100 100 units PO DAILY 05/30/19 09/22/23 History unit) capsule cranberry 400 mg capsule 400 mg PO DAILY 06/06/19 09/22/23 History aspirin 81 mg tablet,delayed 81 mg PO DAILY 09/11/21 09/22/23 History release cinnamon bark 500 mg capsule 500 mg PO DAILY 07/08/22 09/22/23 History (Cinnamon) coenzyme Q10 75 mg capsule (Ultra 75 mg PO DAILY 07/08/22 09/22/23 History CoQ10) Prostate 1 cap PO DIRECTED 09/22/23 09/22/23 History apple cider vinegar 1 cap PO DIRECTED 09/22/23 09/22/23 History atorvastatin 10 mg tablet 10 mg PO PM 09/22/23 09/22/23 History lisinopril 5 mg tablet 5 mg PO PM 09/22/23 09/22/23 History Past Med/Surg History Medical History (Updated 09/22/23 @ 12:21 by Arlen Ferris MD) GERD (gastroesophageal reflux disease) Hypokalemia Hyponatremia Physical deconditioning Palliative care encounter ARDS (adult respiratory distress syndrome) Obesity Pneumonia due to COVID-19 virus COVID-19 Vitamin D deficiency Nocturnal hypoxemia Morbid obesity Hypertension Hiatal hernia Generalized osteoarthritis of multiple sites Fatigue Dyspnea on exertion Diverticulosis Chronic venous stasis dermatitis BMI 45.0-49.9, adult Abnormality of thoracic aorta Shortness of breath Surgical History (Updated 07/14/23 @ 10:52 by Dakota Valiente MD) History of colectomy History of colonoscopy H/O vasectomy History of appendectomy Family History Father Emphysema lung Stroke Brother Hypertension Mother No pertinent family history in first degree relatives Sister No pertinent family history in first degree relatives Social History Smoking Status: Former smoker Second Hand Exposure: No; Do You Dip or Chew Tobacco: No; Hx Alcohol Use: Yes Alcohol type: beer and wine Alcohol Intake Frequency: 2-4 x/Month Hx Substance Use: No Preferred Language: Kazakh Communication Ability: Effective Visual Impairment: No Limitations Hearing Ability: Use of Hearing Aid Distribution Driver Required: No Beliefs That Will Affect Care: None marital status: Current Living Situation: Spouse Feels Safe at Home: Yes Seatbelt Use: always Assistive Devices: None Review of Systems 2 Review of Systems: See HPI Physical Exam 2 Physical Exam: Gen: nontoxic appearing gentleman in NAD HEENT: AT NC Eyes: PERRL, EOMI, double vision centrally and with convergence, vision improves with distal gaze improves symptoms Ears: normal hearing, TM intact bilaterally with good cone of light Neck: normal visual inspection Resp: CTAB no wheezing, diminished breath sounds throughout CV: RRR no m/r/g appreciated, exam limited by body habitus Abd: soft, non-tender, non-distended MSK: no obvious deformities, no calf tenderness Neuro: alert and oriented Psych: appropriate mood and affect Skin: no rashes or bruising noted Results & Data Results & Data Vital Signs (Past 12 Hours) Vital Signs Temp Pulse Pulse Resp BP BP Pulse Ox 09/22/23 11:40 64 20 138/80 98 09/22/23 10:35 68 09/22/23 10:21 36.3 C L 64 14 142/76 H 93 O2 Del Method 09/22/23 11:40 Room Air 09/22/23 10:35 09/22/23 10:21 Room Air Laboratory Results 09/22/23 10:35 09/22/23 10:35 Diagnostic Findings Chest X-Ray 09/22/23 10:35 FINDINGS: There are low lung volumes. No pneumothorax. No pleural effusions. The cardiac silhouette remains enlarged. There is chronic interstitial thickening, unchanged. No new focal lung consolidations to suggest a pneumonia. No evidence for pulmonary edema. There is chronic elevation of the right hemidiaphragm again noted. IMPRESSION: No significant change compared to the prior study. No acute process. Head CT 09/22/23 10:35 FINDINGS: No acute intracranial hemorrhage, midline shift, intracranial mass, hydrocephalus, territorial ischemia or abnormal extra-axial collection. Involutional changes with chronic microvascular ischemic disease. The calvarium is intact. The paranasal sinuses, mastoid air cells, and middle ear cavities are clear. IMPRESSION: No acute intracranial abnormality. Head CTA 09/22/23 10:35 FINDINGS: There is no mass, hematoma, midline shift, or acute infarct. Visualized intracranial internal carotid arteries, distal vertebral arteries, and basilar artery are widely patent. There is no significant stenosis, occlusion, or aneurysm seen within the bilateral ACAs, MCAs, or plastics process hand. The major dural venous sinuses are patent. There is a persistent right posterior circulation noted. Single dominant A2 segment is also noted. These are considered to be normal variants. IMPRESSION: No significant stenosis, occlusion, or aneurysm within the [place]. Neck CTA 09/22/23 10:35 Findings: Paraseptal emphysema is incidentally noted within visual portions of the apices. Linear densities and ground glass opacities favor atelectasis within the lung apices. There is no cervical spine fracture. There is no cervical lymphadenopathy. The origins of the bilateral vertebral arteries are suboptimally assessed due to artifact. The remainder of the bilateral cervical vertebral arteries are unremarkable. The bilateral common carotid and cervical internal carotid arteries are patent. There is no stenosis or dissection within these vessels. There is no aneurysm or dissection within the major vessels of the neck. There is mild plaque within the bilateral subclavian arteries without significant stenosis. IMPRESSION: 1. No stenoses within the bilateral common carotid or cervical internal carotid artery. 2. Suboptimal evaluation of the bilateral vertebral arteries origins due to artifact. Remainder of the bilateral cervical vertebral arteries unremarkable. Supervising Physician Co-Signing Physician Notes Patient seen and examined, chart reviewed, case discussed with Arlen Ferris MD and I agree with the assessment and plan as above except as otherwise noted Labs and images reviewed Marvel is a 73-year-old male with a past medical history of ARIELLE, venous stasis dermatitis, elevated BMI, ARIELLE, GERD who presents with dizziness and double vision which are onset and worsened with standing and head movement. Initial symptoms 8:30 AM after patient stood from a chair, did have nausea/dizziness/diplopia. No history of stroke/TIA. CThead and CT of the head and neck are negative. No history of arrhythmia and patient is sinus with first-degree block IN 250 in ER. Prior EKG incomplete right bundle branch block with IN 200. Tracing at the bedside, reports his onsets were sudden this morning at around 830 with dizziness vertigo and topbottom double vision. Patient did have mild congestion/URI a few weeks ago but is without cough/fever/chills/night sweats. Does have vertigo but current episode is much more pronounced and has never had vision change.The dizziness and vertigo were associated with standing and turning his head, this seems to have improved but the double vision has persisted. Correct slightly but does not resolve on distant gaze. Patient also reports that diplopia does not improve on lateral gaze, far left lateral gaze she does seem to improved/nearly correct his diplopia. Pupils are equal and reactive to light and accommodation bilaterally. No facial asymmetry is appreciated. Rn Home Care strength, elbow flexion, hip flexion 5/5 bilaterally with no sensory deficits. He denies chest pain, chest pressure, fever, chills, sweats. He has not noticed any tick bites and does not have pets in general he does not go outside. Vertical diplopia Patient has vertical diplopia w he reports improves may be slightly starts to correct on far left lateral gaze. EOM is intact without pain. Distal extremity strength and sensation intact, no dysdiadochokinesia Vertigo and dizziness are associate with head turn and room spinning suspicious for peripheral causes/BPPV; however patient has prominent vertical diplopia at rest and consistent with this. Was given 3 additional aspirin to make full dose on admission MRI pending for completion of stroke eval. CThead/CTAhead/neck were unremarkable.will continue permissive hypertension goal 220/110 until MRI is resulted. . discussed with neurology, reasonable to order MRI w&w/o jaleel; if normal likely peripheral vs trochlear nerve palsy genearlly benign condition that can be followed up as outpatient. If CVA is noted can target goal BP of 220/110 for first 24 hours. If no CVA is noted then can resume home lisinopril and pursue goal of less than 180. methylpred loading dose given in ER, additional deferred pending completion of workup EKG is with increased IN interval and first-degree heart block; no history of Lyme. - TSH pending - No superior gaze fatiguing appreciated Resident Activity Tracking Resident Involvement: Resident Care Provided Care Provided: Adult Hospital Medicine
[2023-09-22 13:24] LABS: Appearance Urine Clear (Clear); Bacteria Urine Automated Negative (Negative); Bilirubin Urine Negative (Negative); Blood Urine Negative (Negative); Color Urine Yellow; Epithelial Cell Urine Auto 20-30 /lpf (0-5); Glucose Urine UA Negative (Negative); Ketones Urine 1+ (Negative); Leukocyte Esterase Urine Trace (Negative); Nitrite Urine Negative (Negative); Protein Urine Negative (Negative); RBC Urine Automated 0-4 /hpf (0-4); Specific Gravity Urine > 1.045 (1.000-1.030); Urobilinogen Urine Negative (Negative)
[2023-09-22] MEDS ORDERED: ASPIRIN 81 MG CHEW PO STA (13:31)
[2023-09-22 14:09] LABS: Adenovirus PCR Not Detected (NotDetected); Bordetella parapertussis PCR Not Detected (NotDetected); Bordetella pertussis PCR Not Detected (NotDetected); Chlamydia pneumoniae PCR Not Detected (NotDetected); Coronavirus 229E PCR Not Detected (NotDetected); Coronavirus CoV-2 (COVID19)PCR Not Detected (NotDetected); Coronavirus HKU1 PCR Not Detected (NotDetected); Coronavirus NL63 PCR Not Detected (NotDetected); Coronavirus OC43PCR Not Detected (NotDetected); Human Metapneumovirus PCR Not Detected (NotDetected); Influenza A PCR Not Detected (NotDetected); Influenza B PCR Not Detected (NotDetected); Mycoplasma pneumoniae PCR Not Detected (NotDetected); Parainfluenza Virus 1 PCR Not Detected (NotDetected); Parainfluenza Virus 2 PCR Not Detected (NotDetected); Parainfluenza Virus 3 PCR Not Detected (NotDetected); Parainfluenza Virus 4 PCR Not Detected (NotDetected); Respiratory Syncytial VirusPCR Not Detected (NotDetected); Rhinovirus/Enterovirus PCR Not Detected (NotDetected)
[2023-09-22 15:33] LABS: Lyme Ab IgG w/WB Rflx Negative (Negative); Lyme Ab IgM w/WB Rflx Negative (Negative)
[2023-09-22] MEDS ORDERED: ONDANSETRON INJ 2 MG/ML 2 ML VIAL IV PRN (16:42)
[2023-09-22] MEDS ORDERED: ACETAMINOPHEN 325 MG TAB PO PRN (16:42)
[2023-09-22] MEDS ORDERED: POLYETHYLENE (MIRALAX) 17 GM PACK PO PRN (16:42)
[2023-09-22] MEDS ORDERED: GADOBUTROL 65ML VIAL IV ONE (18:04)
--- NOTE | 2023-09-22 18:29 | Magnetic Resonance Report ---
MRI OF THE BRAIN WITHOUT AND WITH IV CONTRAST CLINICAL HISTORY: vertical diplopia, ?4th nerve palsy COMPARISON STUDY: Head CT and CTA of the head performed earlier today. TECHNIQUE: Utilizing a 1.5 Ebony magnet and dedicated coil, multiplanar, multiecho imaging of the br ain was performed pre and postcontrast administration. IV administration of 14.5 mL of Gadavist cont rast was uneventful. FINDINGS: This study is mildly compromised by motion artifact although remains diagnostic. There are no foci of restricted diffusion to suggest acute infarct. No acute intracranial hemorrhage, midline s hift or mass effect is present. Ventricular system is unremarkable. Basal cisterns are patent. Flow-v oids for the major intracranial vessels are present. There is no intracranial mass or pathologic enha ncement. Mild periventricular white matter T2 hyperintensity is present. This suggest minimal small v essel disease. Calvarial signal is normal. IMPRESSION: 1. No acute intracranial findings. 2. No intracranial mass or pathologic enhancement. ACT 112: Negative or not required by law. Electronically signed by: Reuben Molina M.D. 09/22/2023 6:27 PM
[2023-09-22] MEDS ORDERED: ATORVASTATIN 10 MG TAB PO SCH (21:00)
[2023-09-22] MEDS: ENOXAPARIN INJ 40 MG/0.4 ML SYR SQ SCH (21:36)
[2023-09-23 07:25] LABS: Hematocrit (blood only) 45.4 % (42.0-52.0); Hemoglobin 15.6 g/dl (14.0-18.0); Mean Corpuscular Hemoglobin 32.5 pg (25.0-34.0); Mean Corpuscular Hgb Conc 34.4 g/dL (32.0-36.0); Mean Corpuscular Volume 94.6 fL (80.0-100.0); Mean Platelet Volume 9.5 fL (9.4-12.4); Platelet Count 204 K/uL (130-400); RDW Coefficient of Variation 12.7 % (11.5-14.5); RDW Standard Deviation 44.1 fL (36.4-46.3); White Blood Count 10.14 K/ul (4.8-10.8)
[2023-09-23 07:45] LABS: Calcium 8.7 mg/dl (8.6-10.3); Creatinine Clr Calc Pharmacy 103.5 ml/min; Est GFR (African American) 99.3 ml/min; Est GFR (Non-African American) 85.7 ml/min
[2023-09-23] MEDS ORDERED: MECLIZINE HCL 25 MG TAB PO PRN (08:11)
--- NOTE | 2023-09-23 08:11 | Hospitalist Progress Note ---
Date of Service September 23, 2023 Assessment & Plan (1) Dizziness: Plan: Patient with new onset diplopia and dizziness. Given methylpred x 1 in the ED without significant improvement. Hold off on additional steroids at this time. Most likely diagnosis is peripheral vertigo, but with diplopia symptoms patient does warrant stroke rule out. CT Head negative. CTA Head and Neck with suboptimal evaluation of the bilateral vertebral arteries. Otherwise normal study. MRI to r/o stroke. Allow permissive HTN for the first 24 hours if CVA is noted on MRI. MRI Brain with and w/o contrast to r/o stroke and 4th CN palsy f/u Lyme given 324 ASA antiemetics as needed meclizine as needed holding antihypertensives to allow for permissive hypertension labetalol for BP 220/110 Vertical diplopia Patient has vertical diplopia w he reports improves may be slightly starts to correct on far left lateral gaze. EOM is intact without pain. Distal extremity strength and sensation intact, no dysdiadochokinesia Vertigo and dizziness are associate with head turn and room spinning suspicious for peripheral causes/BPPV; however patient has prominent vertical diplopia at rest and consistent with this. Was given 3 additional aspirin to make full dose on admission MRI pending for completion of stroke eval. CThead/CTAhead/neck were unremarkable.will continue permissive hypertension goal 220/110 until MRI is resulted. . discussed with neurology, reasonable to order MRI w&w/o jaleel; if normal likely peripheral vs trochlear nerve palsy genearlly benign condition that can be followed up as outpatient. If CVA is noted can target goal BP of 220/110 for first 24 hours. If no CVA is noted then can resume home lisinopril and pursue goal of less than 180. methylpred loading dose given in ER, additional deferred pending completion of workup EKG is with increased RI interval and first-degree heart block; no history of Lyme. - TSH pending - No superior gaze fatiguing appreciated -MRI brain w/wo reviewed - minimal small vessel disease, no acute findings, no infarct or mass lesions -CTA head/neck without stenoses of bilateral carotids, suboptimal evaluation of the origin of vertebral arteries due to artefact however remainder of vertebral arteries unremarkable, head CTA negative -given one dose IV solumedrol in ED for possible labrynthitis -Lyme IgG and IgM negative, resp Biofire neg -tele reviewed, unremarkable (2) Hypertension: Plan: Stable on 5 mg lisinopril. Will hold in the setting of possible stroke. Can resume if MRI negative. Continue home statin. (3) Diplopia: (4) Vertigo: Plan Code status: full DVT ppx: lovenox if MRI without large territory stroke FENGI: heart healthy Dispo: PCU, can deescalate acuity if MRI without CVA Admission and Anticipated Discharge Date Admission Date: September 22, 2023 Results & Data Results & Data Vital Signs (Past 12 Hours) Vital Signs Temp Pulse Pulse Resp BP Pulse Ox O2 Del Method 09/23/23 07:16 63 09/23/23 07:01 36.5 C 61 17 121/73 97 Nasal Cannula 09/23/23 03:18 36.4 C L 72 18 111/65 96 Nasal Cannula 09/22/23 23:19 36.6 C 76 18 109/65 95 Nasal Cannula 09/22/23 23:00 79 O2 Flow Rate 09/23/23 07:16 09/23/23 07:01 3 09/23/23 03:18 2 09/22/23 23:19 2 09/22/23 23:00 PG Care Time/CCT Total # of Minutes Spent Total Time Spent with Patient: Total time spent is greater than 50% in coordination of care (as documented) at patient's floor/unit and/or counseling patient: Coding Diagnoses Dizziness R42 Hypertension I10 Diplopia H53.2 Vertigo R42
[2023-09-23] MEDS ORDERED: TOCOPHERYL, DL-ALPHA 100 UNITS 67 MG CAP PO SCH (09:00)
[2023-09-23] MEDS ORDERED: ASPIRIN 81 MG ECTAB PO SCH (09:00)
[2023-09-23] MEDS ORDERED: VITAMIN B COMPLEX TAB PO SCH (09:00)
[2023-09-23] MEDS: ENOXAPARIN INJ 40 MG/0.4 ML SYR SQ SCH (10:05)
--- NOTE | 2023-09-23 13:52 | XCELERA ---
[id number] \\[id number]
--- NOTE | 2023-09-23 17:56 | Discharge Summary ---
Date of Service September 23, 2023 Admission HPI Per Admitting Provider 73 y/o male with a PMHx of HTN, ARIELLE, and hypoxia here for evaluation of dizziness and double vision. Patient has experienced orthostatic dizziness in the past related to positional changes. Patient was getting up from his chair when symptoms started around 8:30 am. Patient experienced double vision, nausea, and dizziness. He went to lay down in hopes that it would resolve, but symptoms persisted which prompted his evaluation in the ED. In the ED patient was fluid resuscitated with 2L NS. Patient was also given antiemetics - zofran, Benadryl, meclizine. Patient given 1 time dose of methylpred for possible labyrinthitis. CT Head negative. CTA Head and Neck negative. Upon my interview patient continues to have double vision. He is laying quite still in the dark with his eyes closed. Nausea and dizziness have improved at this time. Patient also reports having bilateral tinnitus that has worsened from baseline. Patient denies any fevers, worsening SOB, CP, abdominal pain, or calf pain. Principal Diagnosis acute vertigo, transient diplopia Discharge Exam PHYSICAL EXAMINATION Last 24h vital signs reviewed, see documentation in flowsheet General: comfortable appearing, no distress HEENT: Normocephalic, atraumatic, pupils round and equal, sclerae anicteric, no conjunctival injection, moist mucus membranes Lungs: Normal respiratory effort. Clear to auscultation bilaterally. No RRW Heart: Regular rate and rhythm, no murmurs. No JVD Abdomen: Soft, nontender, nondistended. Bowel sounds present. Extremities: Warm, dry, well-perfused. No extremity edema. Neuro: Alert and oriented x 4, face symmetric, EOMI, gaze conjugate no nystagmus, visual pascaul intact, moves 4 extremities well Psych: Normal affect and behavior Discharge Data Allergies Allergy/AdvReac Type Severity Reaction Status Date / Time potassium chloride Allergy Intermediate Hives Verified 07/14/23 10:22 bee venom protein (honey bee) Allergy Unknown SWELLING Verified 07/14/23 10:22 AT SITE oxycodone AdvReac Verified 07/14/23 10:22 Consultations 09/22/23 11:54 ED Decision to Admit Stat Ordered Studies 09/22/23 10:35 CT angio head w con Stat CT angio neck with con Stat CT head/brain wo con Stat 09/22/23 13:48 MR brain wo/w con Stat Chest X-Ray 09/22/23 10:35 XR chest 1V portable HISTORY: neuro deficit, acute stroke suspected COMPARISON: Chest 09/06/2022. FINDINGS: There are low lung volumes. No pneumothorax. No pleural effusions. The cardiac silhouette remains enlarged. There is chronic interstitial thickening, unchanged. No new focal lung consolidations to suggest a pneumonia. No evidence for pulmonary edema. There is chronic elevation of the right hemidiaphragm again noted. IMPRESSION: No significant change compared to the prior study. No acute process. ACT 112: Negative or not required by law. Electronically signed by: Ryan Conte M.D. 09/22/2023 11:[address] 09/22/23 10:35 CT head/brain wo con CLINICAL HISTORY: 73 years-old Male with neuro deficit, acute stroke suspected. Acute stroke like symptoms TECHNIQUE: Multiple axial CT images of the head were obtained without contrast. A dose lowering technique was utilized adhering to the principles of ALARA. COMPARISON: CTA head of same day FINDINGS: No acute intracranial hemorrhage, midline shift, intracranial mass, hydrocephalus, territorial ischemia or abnormal extra-axial collection. Involutional changes with chronic microvascular ischemic disease. The calvarium is intact. The paranasal sinuses, mastoid air cells, and middle ear cavities are clear. IMPRESSION: No acute intracranial abnormality. ACT 112: Negative or not required by law. The above report was generated using voice recognition software. It may contain grammatical, syntax or spelling errors. Electronically signed by: Andrae Mccall M.D. 09/22/2023 11:27 AM Head CTA 09/22/23 10:35 HEAD CTA HISTORY: neuro deficit, acute stroke suspected TECHNIQUE: Multiaxial CT images of the head were performed both before and after the intravenous administration of contrast to evaluate the major cerebral vessels. 3D/MIP images were also obtained. Sagittal and coronal reformats were reviewed. A dose lowering technique was utilized adhering to the principles of ALARA. COMPARISON: None. FINDINGS: There is no mass, hematoma, midline shift, or acute infarct. Visualized intracranial internal carotid arteries, distal vertebral arteries, and basilar artery are widely patent. There is no significant stenosis, occlusion, or aneurysm seen within the bilateral ACAs, MCAs, or magazine filler. The major dural venous sinuses are patent. There is a persistent right posterior circulation noted. Single dominant A2 segment is also noted. These are considered to be normal variants. IMPRESSION: No significant stenosis, occlusion, or aneurysm within the [place]. ACT 112: Negative or not required by law. Electronically signed by: Ryan Conte M.D. 09/22/2023 11:37 AM Neck CTA 09/22/23 10:35 CT ANGIOGRAPHY OF THE NECK WITH CONTRAST CLINICAL HISTORY: neuro deficit, acute stroke suspected COMPARISON STUDY: No previous studies for comparison. Technique: CT angiography of the carotid and vertebral arteries was obtained using Optiray and 3D reconstruction on an independent workstation. NASCET criteria was utilized. Automated exposure control was utilized for the study. A dose lowering technique was utilized adhering to the principles of ALARA. CT DOSE: 1134.01 mGy.cm Findings: Paraseptal emphysema is incidentally noted within visual portions of the apices. Linear densities and ground glass opacities favor atelectasis within the lung apices. There is no cervical spine fracture. There is no cervical lymphadenopathy. The origins of the bilateral vertebral arteries are suboptimally assessed due to artifact. The remainder of the bilateral cervical vertebral arteries are unremarkable. The bilateral common carotid and cervical internal carotid arteries are patent. There is no stenosis or dissection within these vessels. There is no aneurysm or dissection within the major vessels of the neck. There is mild plaque within the bilateral subclavian arteries without significant stenosis. IMPRESSION: 1. No stenoses within the bilateral common carotid or cervical internal carotid artery. 2. Suboptimal evaluation of the bilateral vertebral arteries origins due to artifact. Remainder of the bilateral cervical vertebral arteries unremarkable. ACT 112: Negative or not required by law. Electronically signed by: Reuben Molina M.D. 09/22/2023 11:20 AM Brain MRI 09/22/23 13:48 MRI OF THE BRAIN WITHOUT AND WITH IV CONTRAST CLINICAL HISTORY: vertical diplopia, ?4th nerve palsy COMPARISON STUDY: Head CT and CTA of the head performed earlier today. TECHNIQUE: Utilizing a 1.5 Ebony magnet and dedicated coil, multiplanar, multiecho imaging of the brain was performed pre and postcontrast administration. IV administration of 14.5 mL of Gadavist contrast was uneventful. FINDINGS: This study is mildly compromised by motion artifact although remains diagnostic. There are no foci of restricted diffusion to suggest acute infarct. No acute intracranial hemorrhage, midline shift or mass effect is present. Ventricular system is unremarkable. Basal cisterns are patent. Flow-voids for the major intracranial vessels are present. There is no intracranial mass or pathologic enhancement. Mild periventricular white matter T2 hyperintensity is present. This suggest minimal small vessel disease. Calvarial signal is normal. IMPRESSION: 1. No acute intracranial findings. 2. No intracranial mass or pathologic enhancement. ACT 112: Negative or not required by law. Electronically signed by: Reuben Molina M.D. 09/22/2023 6:27 PM Hospital Course (1) Dizziness: Mr. Marks presented with vertigo, however he also experienced diplopia. he described to me having both vertical and horizontal double vision which was variable depending on how he moved his eyes. He had no eye pain or vision loss and no other associated neurological symptoms. In the ED he was treated with IV fluids, dose of intravenous methylprednisolone, antihistamines including meclizine. In the ED he had stroke workup with CTA head and neck that was unremarkable excepting that the origins of bilateral vertebral arteries could not be seen due to artifact. CT head was unremarkable. He was given aspirin. His care was discussed with the neurologist who agreed with MRI and if negative unlikely stroke, more likely peripheral cause of vertigo versus trochlear nerve palsy, which are generally benign conditions that can be followed up in the outpatient setting. He did have MRI brain overnight With and without contrast which I reviewed it showed only minimal small vessel disease, no acute findings notably no infarct or mass lesions. when I saw him today he was entirely asymptomatic with no vertigo no diplopia. He has chronic tinnitus which is unchanged from baseline. Neurological exam remained normal. I obtained a TTE which was unremarkable, see below. He had no atrial fibrillation on telemetry which was notable only for PVCs and a short run of NSVT. Other notable studies on admission were TSH which was normal, Respiratory bio fire was negative, and Lyme serology which was negative. - symptoms have resolved and likely was an episode of acute peripheral vertigo. difficult to say for sure but could have been labyrinthitis, BPPV, or Mnire's since he does have some history of tinnitus. - I considered extending a course of oral steroids for labyrinthitis, however, I decided not to do this because it is not clearly clinically effective and risks likely outweigh benefits, especially since he is wholly asymptomatic at this time. trial of treatment for labyrinthitis or Mnire's could be considered if symptoms recur - prescription given for meclizine PRN (2) Hypertension: Stable on 5 mg lisinopril, resumed. Potassium was high normal 09/23, I reviewed his previous labs and K has never been high. Specimen could have been hemolyzed. Low risk to continue. If additional medication needed may benefit from b-francesco, see below. (3) Diplopia: (4) Vertigo: (5) Ventricular ectopy: He had some PVCs on tele monitor and one run of 7 beats NSVT. Electrolytes were wnl. This ectopy was completely asymptomatic and he's recently been going to the gym without angina or palpitations. EKG with occasional PVC and old anterolateral infarct. Obtained TTE as noted above. Unchanged from previous with no significant cardiomyopathy or rwma's. EF 55-60% and no significant valvular disease. There is borderline RVH and I encouraged him to reestablish with sleep medicine for his untreated ARIELLE (said to be intolerant of CPAP). Can consider starting trial of b-francesco or outpatient cardiology referral. Total Time Total Time Spent Total Time Spent (In Minutes): 25 minutes spent coordinating care for discharge Discharge Plan Discharge Items Patient Disposition: Home - Self-Care Reason For Visit: STROKE LIKE SYMPTOMS Discharge Diagnosis: vertigo and double vision, likely peripheral vertigo Activity: Resume your previous activity Non-emergency contact: Primary Care Provider Call non-emergency contact if: you have any medication questions and your s ymptoms worsen Follow-up/Referrals: Dakota Valiente MD [Primary Care Provider] - 09/29/23 1:30 pm Diet: Regular Addtl Attending Provider Instructions: You were treated for vertigo and double vision with IV fluids, steroids, antihistamines and meclizine (antivert) This episode is consistent with peripheral vertigo - vertigo coming from irritation of the inner ear - and seems to have resolved We evaluated you for stroke, however, brain MRI was negative for stroke. Occasionally MRI can miss a tiny stroke so seek immediate medical attention if you develop stroke-like symptoms like recurrence of double vision, incoordination or trouble walking, numbness or weakness of face arm or leg, trouble speaking or understanding You can take meclizine (antivert) as needed for vertigo (spinning/motion sensation). If this vertigo recurs or persists, a longer course of steroids can be considered for a condition called labrynthitis, however, its not entirely clear whether steroids are beneficial and since your symptoms have resolved the risks outweigh the benefits at this time. You had a heart ultrasound which was reassuring - your heart muscle is strong and there are no valve problems. The right side of your heart is mildly enlarged and this is related to your sleep apnea. Untreated sleep apnea can cause heart failure and increase the risk of heart attack, stroke, and atrial fibrillation. If you are willing to consider trying to treat sleep apnea again in the future, please be seen by sleep medicine. There are newer masks available that are more tolerable. Pending Studies at Discharge: No Stand-Alone Forms: My [facility], Smoking Cessation Medications and DC Order Prescriptions: New meclizine 25 mg Tablet 25 mg PO Q8H PRN (Reason: vertigo) Qty: 30 0RF Continued cinnamon bark [Cinnamon] 500 mg capsule 500 mg PO DAILY Ultra CoQ10 75 mg capsule 75 mg PO DAILY vitamin B complex capsule 1 cap PO DAILY vitamin E (dl, acetate) 100 unit capsule 100 units PO DAILY omega-3 acid ethyl esters 1 gram capsule 1 cap PO DAILY cholecalciferol (vitamin D3) 5,000 unit capsule 5,000 units PO DAILY ascorbic acid (vitamin C) 100 mg tablet 100 mg PO DAILY multivitamin [Multiple Vitamins] tablet 1 tab PO DAILY cranberry 400 mg capsule 400 mg PO DAILY Prostate 1 cap PO DIRECTED apple cider vinegar 1 cap PO DIRECTED atorvastatin 10 mg tablet 10 mg PO PM lisinopril 5 mg tablet 5 mg PO PM aspirin 81 mg Tablet,Delayed Release (Dr/Ec) 81 mg PO DAILY Discharge Orders: Discharge Order (Routine); Ordered 09/23/23 Ordered By: Anais Pena Admission Data Admit Date/Time: 09/22/23 13:01 Attending Provider: Anais Pena Admit Provider: Arlen Ferris Primary Care Provider: Dakota Valiente V. Other Providers: Kimo Sevilla Other Interventions: Discharge Summary Assessment (RN) Last Done: 09/23/23 14:41 Coding Level of Care Code 58731 IN/OBS DISCH 30 MIN/LESS Diagnoses Dizziness R42 Hypertension I10 Diplopia H53.2 Vertigo R42 Ventricular ectopy I49.3
[2023-09-23] MEDS ORDERED: lisinopril 5 MG TAB PO SCH (21:00)
== END 2023-09-23 15:23 | disposition home or self-care (01) ==
LOC: EDINP 10:13 → ED 10:13 → SUATTDRO 13:01 → 2S 18:36